=== PATIENT | female | born 1960 | race Caucasian/White ===

== ENCOUNTER → 2023-10-24 | Outpatient (CLI) | payer MEDICARE, SELFPAY ==
[2023-10-24 15:13] LABS: Absolute Neutrophil Count 7.8 X10^3/uL (2.0-7.7); Basophil# 0.06 X10^3/uL; Basophil% 0.6 % (0-1); Eosinophil# 0.23 X10^3/uL; Eosinophils% 2.2 % (0-5); Hematocrit 43.2 % (37-47); Hemoglobin 13.8 g/dL (12.0-15.0); Lymphocyte % 16.2 % (19-41); Mean Corp Hgb Conc 31.9 g/dL (32-36); Mean Corpuscular Hgb 28.1 pg (27.0-32.0); Mean Platelet Vol. 10.2 fl (6.2-12.0); Monocyte# 0.62 X10^3/uL; Monocyte% 5.9 % (0-10); NRBC Flagged by Analyzer 0 % (0-5); Neutrophil # 7.83 X10^3/uL (2.7-7.7); Neutrophil % 74.8 % (47-70); Platelet Count 353 K/mm3 (150-450); RBC Distribution Width CV 15.2 % (11.6-14.6); RBC Distribution Width SD 49.1 fl (35.1-43.9); Red Blood Count 4.91 M/mm3 (4.2-5.4); White Blood Count 10.5 K/mm3 (4.4-11.0)
[2023-10-24 15:28] LABS: AST(SGOT) 13 U/L (15-37); Alanine Aminotransfer ALT/SGPT 15 U/L (13-56); Albumin, Serum 3.6 g/dL (3.2-5.0); Alkaline Phosphatase 108 U/L (45-117); Anion Gap 7 (5-15); BUN 8 mg/dL (7-18); BUN/Creat Ratio 7.5 RATIO (10-20); Calcium,Total 9.2 mg/dL (8.5-10.1); Chloride 105 mmol/L (98-107); Creatinine, Serum 1.07 mg/dL (0.55-1.02); EST Glomerular Filtration Rate 55 mL/min (>60); Est Glom Filt Rate - Afr Amer 66 mL/min (>60); Globulin 3.7 g/dL (2.2-4.2); Glucose 116 mg/dL (74-106); Potassium 4.1 mmol/L (3.5-5.1); Protein, Total 7.3 g/dL (6.4-8.2); Sodium Level 138 mmol/L (136-145)
[2023-10-26 14:07] LABS: Hepatitis B Core Ab Total Negative (Negative); QNTFERON TB Mitogen Value > 10.00 IU/mL (.); QNTFERON TB Nil Value 0.24 IU/mL (.); QNTFERON TB1+ Ag Value 0.22 IU/mL (.); QNTFERON TB2+ Ag Value 0.22 IU/mL (.); QNTIFERON TB Positive Criteria Negative (Negative)
== END | disposition home or self-care (01) ==
PROVIDERS: PCP Family Medicine; Referring Provider Physician Assistant; Visit Provider Physician Assistant
DX: L40.0 Psoriasis vulgaris (principal)
CPT/HCPCS: 36415; 80053; 85025; 86480; 86704

== ENCOUNTER → 2025-08-10 | Outpatient (CLI) | payer MEDICARE, SELFPAY ==
--- OUTSIDE RECORDS SUMMARY | 2025-08-10 17:55 | XMS RPT_ITS | CCD ---
Author Organization [facility] Care Team Providers Care Aviation Electrical Technician Name Role Phone Chantal Cole MD Primary Care Provider [phone] ANTONIO MCMILLAN Attending Unavailable COLE, CHANTAL M Primary Care Unavailable COLE, CHANTAL Referring Unavailable MCMILLANANTONIO Attending Unavailable MCMILLAN ANTONIO Referring Unavailable COLE, CHANTAL M Primary Care Unavailable COLE, CHANTAL M Primary Care Unavailable COLE, CHANTAL M Referring Unavailable MCMILLANANTONIO Attending Unavailable Chantal Cole MD Primary Care Provider [phone] Chantal Cole MD Primary Care Provider Chantal Cole MD Primary Care Provider Chantal Cole MD Primary Care Provider [phone] JEY COLEISSA Thalia Attending Unavailable COLE, CHANTAL M Primary Care Unavailable COLE, CHANTAL M Referring Unavailable COLE, CHANTAL M Attending Unavailable COLE, CHANTAL M Primary Care Unavailable COLE, CHANTAL M Referring Unavailable COLE, CHANTAL M Referring Unavailable COLE, CHANTAL M Attending Unavailable COLE, CHANTAL M Primary Care Unavailable COLE, CHANTAL M Referring Unavailable COLE, CHANTAL M Attending Unavailable COLE, CHANTAL M Primary Care Unavailable COLE, CHANTAL M Attending Unavailable SELF, SELF Referring Unavailable COLE, CHANTAL M Primary Care Unavailable COLE, CHANTAL M Attending Unavailable SELF, SELF Referring Unavailable COLE, CHANTAL M Primary Care Unavailable COLE, CHANTAL M Attending Unavailable COLE, CHANTAL M Referring Unavailable COLE, CHANTAL M Primary Care Unavailable COLE, CHANTAL M Attending Unavailable COLE, CHANTAL M Referring Unavailable COLE, CHANTAL M Primary Care Unavailable COLE, CHANTAL M Primary Care Unavailable FERNANDA ROONEY Referring Unavailable ROONEYFERNANDA Attending Unavailable COLE, CHANTAL M Attending Unavailable COLE, CHANTAL M Referring Unavailable COLE, CHANTAL M Primary Care Unavailable COLE, CHANTAL M Attending Unavailable COLE, CHANTAL M Referring Unavailable COLE, CHANTAL M Primary Care Unavailable COLE, CHANTAL M Attending Unavailable COLE, CHANTAL M Referring Unavailable COLE, CHANTAL M Primary Care Unavailable COLE, CHANTAL M Referring Unavailable TEETERS, JF Attending Unavailable COLE, CHANTAL M Primary Care Unavailable COLE, CHANTAL M Attending Unavailable COLE, CHANTAL M Primary Care Unavailable COLE, CHANTAL M Referring Unavailable COLE, CHANTAL M Referring Unavailable COLE, CHANTAL M Primary Care Unavailable TEETERS, JF Attending Unavailable COLE, CHANTAL M Attending Unavailable COLE, CHANTAL M Primary Care Unavailable COLE, CHANTAL M Referring Unavailable Allergies Allergy Classification Reported Allergen(s) Allergy Type Date of Onset Reaction(s) Facility (20 sources) Codeine And Related Propensity to adverse reactions to drug 09-14-2013 Nausea Only [facility] Medications Current Medications Medication Drug Class(es) Dates Sig (Normalized) Sig (Original) amLODIPine 5 mg oral tablet (20 sources) Dihydropyridine Calcium Channel Narendra Start: 09-10-2023 End: 05-03-2025 take 1 tablet by mouth once daily amLODIPine 5 MG tablet Indications: Essential hypertension, benign Take 1 tablet by mouth daily. 90 tablet 1 05/03/2025 Active Start: 06-11-2023 take 1 tablet by reji th once daily amLODIPine 5 MG tablet Indications: Essential hypertension, benign Take 1 tablet by mouth daily. 90 tablet 0 06/11/2023 Active Start: 09-24-2022 End: 03-12-2023 take 1 tablet by mouth once daily amLODIPine 5 MG tablet Indications: Essential hypertension, benign Take 1 tablet by mouth daily. 90 tablet 0 03/12/2023 Active Start: 03-22-2022 End: 09-24-2022 take 1 tablet by mouth once daily amLODIPine 2.5 MG tablet Indications: Essential hypertension, benign Take 1 tablet by mouth daily. 90 tablet 0 06/18/2022 09/24/2022 Discontinued (Reorder) azithromycin 250 mg oral tablet (1 source) Macrolide Antimicrobial Start: 09-04-2024 End: 09-08-2024 Azithromycin 250 MG tablet Indications: Acute bronchitis, unspecified organism Take by mouth 2 tablets (500 mg) on Day 1, then 1 tablet (250 mg) daily on Days 2-5 6 tablet 09/04/2024 09/08/2024 Active dapagliflozin 10 mg oral tablet (11 sources) Sodium-Glucose Cotransporter 2 Inhibitor Start: 06-08-2025 take 1 tablet by mouth once daily dapagliflozin (Farxiga) 10 MG tablet Indications: Proteinuria, unspecified type Take 1 tablet by mouth daily. 90 tablet 1 06/08/2025 Active Start: 05-29-2024 End: 05-03-2025 take 1 tablet by mouth once daily dapagliflozin (Farxiga) 10 MG tablet Indications: Proteinuria, unspecified type Take 1 tablet by mouth daily. 90 tablet 1 05/03/2025 Active DISABILITY PLACARD (20 sources) Start: 08-23-2022 End: 08-23-2027 DISABILITY PLACARD Indicatio ns: Lumbosacral neuritis , Spinal stenosis of lumbar region with neurogenic claudication , Type 2 diabetes mellitus with peripheral neuropathy , Chronic pain syndrome , PAD (peripheral artery disease) Handicap placard for five years. DX: Chronic back pain, Diabetes and Peripheral artery disease. 2 Each 08/23/2022 08/23/2027 Active Start: 08-23-2022 End: 08-23-2027 DISABILITY PLACARD Indicatio ns: Lumbosacral neuritis , Spinal stenosis of lumbar region with neurogenic claudication , Type 2 diabetes mellitus with peripheral neuropathy , Chronic pain syndrome , PAD (peripheral artery disease) Handicap placard for five years. DX: Chronic back pain, Diabetes and Peripheral artery disease. 2 Each 0 08/23/2022 08/23/2027 Active Start: 06-29-2022 End: 08-23-2022 DISABILITY PLACARD Indicatio ns: Lumbosacral neuritis , Spinal stenosis of lumbar region with neurogenic claudication Disability placard end date 08/18/2022. 2 Each 0 06/29/2022 08/23/2022 Discontinued (Reorder) Start: 06-29-2022 DISABILITY DACIA CARD Indications: Lumbosacral neuritis , Spinal stenosis of lumbar region with neurogenic claudication Disability placard end date 08/18/2022. 2 Each 0 06/29/2022 Active Start: 08-19-2017 End: 06-29-2022 DISABILITY PLACARD Disabilit y placard end date 08/18/2022. 1 Each 0 08/19/2017 06/29/2022 Discontinued (Reorder) Start: 08-19-2017 DISABILITY DACIA CARD Disability placard end date 08/18/2022. 1 Each 0 08/19/2017 Active DULoxetine 60 mg delayed release oral capsule (20 sources) Serotonin and Norepinephrine Reuptake Inhibitor Start: 09-10-2023 End: 05-03-2025 take 1 capsule by mouth once daily DULoxetine (Cymbalta) [address] Particles capsule DR Indications: Lumbosacral neuritis Take 1 capsule by mouth daily. 90 capsule 1 05/03/2025 Active Start: 06-11-2023 take 1 capsule by mo uth once daily DULoxetine (Cymbalta) [address] Particles capsule DR Indications: Lumbosacral neuritis Take 1 capsule by mouth daily. 90 capsule 0 06/11/2023 Active Start: 09-01-2021 End: 03-12-2023 take 1 capsule by mouth once daily DULoxetine (Cymbalta) [address] Particles capsule DR Indications: Lumbosacral neuritis Take 1 capsule by mouth daily. 90 capsule 0 03/12/2023 Active Start: 03-21-2021 take 1 capsule by mo uth once daily DULoxetine (Cymbalta) [address] Particles capsule DR Indications: Lumbosacral neuritis Take 1 capsule by mouth daily. 90 capsule 0 03/21/2021 Active ergocalciferol 1.25 mg oral capsule (17 sources) Provitamin D2 Compound Start: 01-09-2024 End: 05-03-2025 take 1 capsule by mouth every week ergocalciferol 1.25 MG (49370 UT) capsule Indications: Psoriasis Take 1 capsule by mouth once a week. 12 capsule 3 05/03/2025 Active Start: 08-02-2023 End: 11-29-2023 take 1 capsule by mouth every week ergocalciferol 1.25 MG (94877 UT) capsule Indications: Psoriasis Take 1 capsule by mouth once a week. 12 capsule 3 08/02/2023 11/29/2023 Discontinued ferrous sulfate 325 mg oral tablet (2 sources) Start: 06-07-2025 take 1 tablet by mouth once daily ferrous sulfate 325 (65 Fe) MG tablet Indications: Iron deficiency anemia, unspecified iron deficiency anemia type Take 1 tablet by mouth daily. 90 tablet 06/07/2025 Active gabapentin 300 mg oral capsule (20 sources) Anti-epilepti c Agent Start: 08-02-2023 End: 10-30-2025 take 3 capsules by mouth three times daily Gabapentin 300 MG capsule Indications: Lumbosacral neuritis Take 3 capsules by mouth 3 times daily. 810 capsule 1 05/03/2025 10/30/2025 Active Start: 04-03-2023 End: 07-02-2023 take 1 capsule by mouth three times daily Gabapentin 100 MG capsule Take 1 capsule by mouth 3 times daily. 270 capsule 0 04/03/2023 07/02/2023 Active Start: 04-05-2022 End: 09-26-2023 take 1 tablet by mouth three times daily gabapentin 800 MG tablet Indications: Lumbosacral neuritis , Chronic pain syndrome , Lumbar radiculitis Take 1 tablet by mouth 3 times daily. 270 tablet 0 06/28/2023 08/02/2023 Discontinued Start: 09-01-2021 take 1 tablet by reji th three times daily gabapentin (Neurontin) 800 MG tablet Indications: Lumbosacral neuritis Take 1 tablet by mouth 3 times daily. 270 tablet 0 09/01/2021 Active Start: 12-20-2020 take 1 tablet by reji th three times daily gabapentin (Neurontin) 800 MG tablet Indications: Lumbosacral neuritis Take 1 tablet by mouth 3 times daily. 270 tablet 0 12/20/2020 Active glimepiride 4 mg oral tablet (20 sources) Sulfonylurea Start: 12-18-2021 End: 03-12-2023 take 2 tablets by mouth once daily gliMEPIride 4 MG tablet Indications: Type 2 diabetes mellitus with peripheral neuropathy Take 2 tablets by mouth daily. 180 tablet 0 03/12/2023 Active Start: 09-01-2021 End: 12-18-2021 take 1 tablet by mouth once daily gliMEPIride 4 MG tablet Indications: Type 2 diabetes mellitus with peripheral neuropathy Take 1 tablet by mouth daily. 90 tablet 0 09/01/2021 12/18/2021 Discontinued (Reorder) Start: 03-21-2021 take 1 tablet by reji th once daily gliMEPIride 4 MG tablet Indications: Type 2 diabetes mellitus with peripheral neuropathy Take 1 tablet by mouth daily. 90 tablet 0 03/21/2021 Active hydroCHLOROthiazide 12.5 mg / irbesartan 300 mg oral tablet (9 sources) Thiazide Diuretic, Angiotensin 2 Receptor Narendra Start: 11-17-2024 End: 05-03-2025 take 1 tablet by mouth once daily irbesartan-hydrochlorothiazide 300-12.5 MG tablet Indications: Essential hypertension, benign Take 1 tablet by mouth daily. 90 tablet 1 05/03/2025 Active ammonium lactate 120 mg/ml topical cream (20 sources) Start: 12-14-2019 ammonium lactate 12 % Cream cream 12/14/2019 Active 24 hr metFORMIN hydrochloride 500 mg extended release oral tablet (20 sources) Biguanide Start: 09-10-2023 End: 05-03-2025 take 2 tablets by mouth twice daily metFORMIN-XR 500 MG Tab SR 24 HR Indications: Type 2 diabetes mellitus with peripheral neuropathy Take 2 tablets by mouth 2 times daily. 360 tablet 1 05/03/2025 Active Start: 06-11-2023 take 2 tablets by mo uth twice daily metFORMIN-XR 500 MG Tab SR 24 HR Indications: Type 2 diabetes mellitus with peripheral neuropathy Take 2 tablets by mouth 2 times daily. 360 tablet 0 06/11/2023 Active Start: 09-01-2021 End: 03-12-2023 take 2 tablets by mouth twice daily metFORMIN-XR 500 MG Tab SR 24 HR Indications: Type 2 diabetes mellitus with peripheral neuropathy Take 2 tablets by mouth 2 times daily. 360 tablet 0 03/12/2023 Active Start: 03-21-2021 take 2 tablets by mo ut twice daily metFORMIN-XR 500 MG Tab SR 24 HR Indications: Type 2 diabetes mellitus with peripheral neuropathy Take 2 tablets by mouth 2 times daily. 360 tablet 0 03/21/2021 Active naloxone hydrochloride 40 mg/ml nasal spray (13 sources) Opioid Antagonist Start: 04-13-2022 End: 04-13-2022 naloxone 4 MG/0.1ML Indications: Lumbar radiculitis , Chronic pain syndrome 1 spray by Nasal route once for 1 dose. [place] into the nose as directed. Call 911. If no response in 2 minutes use a new nasal spray in other nostril. Repeat until help arrives. 1 Each 0 04/13/2022 12/18/2022 Discontinued Start: 03-13-2021 End: 03-13-2022 naloxone 4 MG/0.1ML Indicati ons: Sacroiliac joint pain , Left hip pain 1 spray by Nasal route As directed PRN. 2 Each 0 03/13/2021 Active repaglinide 1 mg oral tablet (3 sources) Glinide Start: 12-18-2022 take 1 tablet by mouth three times daily before mealtime repaglinide 1 MG tablet Indications: Type 2 diabetes mellitus with peripheral neuropathy Take 1 tablet by mouth 3 times daily (take before meals). 90 tablet 2 12/18/2022 Active rosuvastatin calcium 40 mg oral tablet (20 sources) HMG-CoA Reductase Inhibitor Start: 09-10-2023 End: 05-03-2025 take 1 tablet by mouth once daily Rosuvastatin 40 MG tablet Indications: Mixed hyperlipidemia Take 1 tablet by mouth daily. 90 tablet 1 05/03/2025 Active Start: 06-11-2023 take 1 tablet by reji th once daily Rosuvastatin 40 MG tablet Indications: Mixed hyperlipidemia Take 1 tablet by mouth daily. 90 tablet 0 06/11/2023 Active Start: 09-01-2021 End: 03-12-2023 take 1 tablet by mouth once daily Rosuvastatin 40 MG tablet Indications: Mixed hyperlipidemia Take 1 tablet by mouth daily. 90 tablet 0 03/12/2023 Active Start: 03-21-2021 take 1 tablet by reji th once daily rosuvastatin 40 MG tablet Indications: Mixed hyperlipidemia Take 1 tablet by mouth daily. 90 tablet 0 03/21/2021 Active Semaglutide, 1 MG/DOSE, (Ozempic, 1 MG/DOSE,) 4 MG/3ML Solution Pen-injector (18 sources) inject 1 mg by subcu taneous injection every week Semaglutide, 1 MG/DOSE, (Ozempic, 1 MG/DOSE,) 4 MG/3ML Solution Pen-injector Inject 1 mg under the skin once a week. MEDICATION SUPPLIED VIA PATIENT ASSISTANCE UNTIL 10/20/2024 Active inject 1 mg by subcu taneous injection every week Semaglutide, 1 MG/DOSE, (Ozempic, 1 MG/DOSE,) 4 MG/3ML Solution Pen-injector Inject 1 mg under the skin once a week. MEDICATION SUPPLIED VIA PATIENT ASSISTANCE UNTIL 10/20/2024 0 Active inject 1 mg by subcu taneous injection every week Semaglutide, 1 MG/DOSE, (Ozempic, 1 MG/DOSE,) 4 MG/3ML Solution Pen-injector Inject 1 mg under the skin once a week. 0 Active Skyrizi Pen 150 MG/ML Soluti on Auto-injector (11 sources) Start: 11-22-2023 Skyrizi Pen 15 0 MG/ML Solution Auto-injector 11/22/2023 Active Start: 11-22-2023 Skyrizi Pen 15 0 MG/ML Solution Auto-injector sulfamethoxazole 800 mg / trimethoprim 160 mg oral tablet (1 source) Dihydrofolate Reductase Inhibitor Antibacterial, Sulfonamide Antimicrobial Start: 06-18-2022 End: 06-28-2022 take 1 tablet by mouth twice daily sulfamethoxazole-trimethoprim (Bactrim DS) 800-160 MG per tablet Indications: Cellulitis of left lower extremity Take 1 tablet by mouth 2 times daily for 10 days. 20 tablet 0 06/18/2022 06/28/2022 Active Completed/Discontinued Medications Medication Drug Class(es) Dates Sig (Normalized) Sig (Original) acetaminophen 325 mg / HYDROcodone bitartrate 5 mg oral tablet (20 sources) Opioid Agonist Start: 08-31-2022 End: 12-18-2022 take 1 tablet by mouth three times daily as needed, then take 1 tablet by mouth twice daily as needed, then take 1 tablet by mouth once daily as needed hydroCODone-acetamin ophen 5-325 MG tablet Indications: Chronic pain syndrome , Spinal stenosis of lumbar region with neurogenic claudication , Primary osteoarthritis of left hip , Sacroiliitis, not elsewhere classified , Encounter for long-term use of opiate analgesic , Lumbar spondylosis Take 1 tablet by mouth 3 times daily as needed for 14 days, THEN 1 tablet 2 times daily as needed for 14 days, THEN 1 tablet daily as needed for up to 14 days. 84 tablet 0 08/31/2022 12/18/2022 Discontinued Start: 06-26-2022 End: 08-25-2022 take 1 tablet by mouth twice daily as needed hydroCODone-acetaminophen 10-325 MG tabl et Indications: Chronic pain syndrome , Spinal stenosis of lumbar region with neurogenic claudication Take 1 tablet by mouth 2 times daily as needed. 60 tablet 0 07/26/2022 08/25/2022 Active Start: 04-22-2022 End: 06-21-2022 take 1 tablet by mouth twice daily as needed hydroCODone-acetaminophen 10-325 MG tabl et Indications: Lumbar radiculitis , Chronic pain syndrome Take 1 tablet by mouth 2 times daily as needed. 60 tablet 0 05/22/2022 06/18/2022 Discontinued (Reorder) Start: 11-21-2021 End: 04-20-2022 take 1 tablet by mouth twice daily as needed hydroCODone-acetaminophen 10-325 MG tabl et Indications: Lumbar facet arthropathy , Lumbar radiculitis , Chronic pain syndrome , Lumbar stenosis with neurogenic claudication Take 1 tablet by mouth 2 times daily as needed. 60 tablet 0 03/21/2022 04/20/2022 Active Start: 06-17-2021 End: 08-16-2021 take 1 tablet by mouth twice daily as needed hydroCODone-acetaminophen 10-325 MG tabl et Indications: Lumbar stenosis with neurogenic claudication , Chronic pain syndrome Take 1 tablet by mouth 2 times daily as needed. 60 tablet 0 07/17/2021 08/16/2021 Active Start: 05-13-2021 End: 06-12-2021 take 1 tablet by mouth twice daily as needed hydroCODone-acetaminophen 10-325 MG tabl et Indications: Lumbar stenosis with neurogenic claudication , Chronic pain syndrome Take 1 tablet by mouth 2 times daily as needed. 60 tablet 0 05/13/2021 06/12/2021 Active [id number] 200 actuat albuterol 0.09 mg/actuat metered dose inhaler (2 sources) beta2-Adrenergic Agonist Start: 09-04-2024 End: 11-17-2024 take 1 puff(s) by inhalation every four hours as needed for wheezing Albuterol 108 (90 Base) MCG/ACT Aero Soln inhaler Indications: Acute bronchitis, unspecified organism Inhale 1 puff every 4 hours as needed for Wheezing. 18 g 09/04/2024 11/17/2024 Discontinued (Therapy completed) aspirin 81 mg chewable tablet (1 source) Platelet Aggregation Inhibitor, Nonsteroidal Anti-inflammatory Drug Start: 10-18-2023 End: 10-18-2023 aspirin chewable tablet 81 mg 120 actuat budesonide 0.16 mg/actuat / formoterol fumarate 0.0048 mg/actuat / glycopyrrolate 0.009 mg/actuat metered dose inhaler (2 sources) Corticosteroid, beta2-Adrenergic Agonist Start: 09-04-2024 End: 11-17-2024 take 2 puff(s) by inhalation twice daily budesonide-glyco pyrrolate-Formot fernando (Breztri Aerosphere) 160-9-4.8 MCG/ACT Aerosol inhaler Indications: Chronic obstructive pulmonary disease with acute exacerbation Inhale 2 puffs 2 times daily. 10.7 g 09/04/2024 11/17/2024 Discontinued (Therapy completed) bumetanide 0.5 mg oral tablet (4 sources) Loop Diuretic Start: 06-18-2022 End: 09-24-2022 take 1 tablet by mouth once daily bumetanide (Bumex) 0.5 MG tablet Indications: Chronic venous stasis Take 1 tablet by mouth daily. 30 tablet 0 06/18/2022 09/24/2022 Discontinued Bupivacaine (PF) (MARCAINE) 0.25 % 3 mL syringe (20 sources) Start: 12-06-2022 End: 06-07-2025 Bupivacaine (PF) (MARCAINE) 0.25 % 3 mL syringe Start: 12-06-2022 Bupivacaine (P F) (MARCAINE) 0.25 % 3 mL syringe Start: 10-03-2022 End: 10-05-2022 Bupivacaine (PF) (MARCAINE) 0.25 % 3 mL syringe clobetasol propionate 0.5 mg/ml medicated shampoo (20 sources) Corticosteroid Start: 08-05-2023 End: 11-29-2023 Clobetasol Propionate 0.05 % Shampoo Indications: Psoriasis Apply 1 Application topically twice a week. 118 mL 2 08/05/2023 11/29/2023 Discontinued Start: 08-05-2023 Clobetasol Pro pionate 0.05 % Shampoo Indications: Psoriasis Apply 1 Application topically twice a week. 118 mL 2 08/05/2023 Active Start: 08-02-2023 clobetasol 0.0 5 % Solution Indications: Psoriasis Apply to scalp after shampooing daily for two weeks 50 mL 2 08/02/2023 Active Start: 08-02-2023 End: 02-09-2024 clobetasol 0.05 % Cream Katlyn cations: Psoriasis Apply to affected area BID as needed 60 g 1 08/02/2023 11/29/2023 Discontinued Start: 12-14-2019 clobetasol 0.0 5 % Cream hydroCHLOROthiazide 12.5 mg oral tablet (20 sources) Thiazide Diuretic Start: 09-10-2023 End: 11-17-2024 take 1 tablet by mouth once daily hydroCHLOROthiazide 12.5 MG tablet Indications: Essential hypertension, benign Take 1 tablet by mouth daily. 90 tablet 1 05/29/2024 11/17/2024 Discontinued Start: 06-11-2023 take 1 tablet by reji th once daily hydroCHLOROthiazide 12.5 MG tablet Indications: Essential hypertension, benign Take 1 tablet by mouth daily. 90 tablet 0 06/11/2023 Active Start: 09-01-2021 End: 03-12-2023 take 1 tablet by mouth once daily hydroCHLOROthiazide 12.5 MG tablet Indications: Essential hypertension, benign Take 1 tablet by mouth daily. 90 tablet 0 03/12/2023 Active Start: 03-21-2021 take 1 tablet by reji th once daily hydroCHLOROthiazide 12.5 MG tablet Indications: Essential hypertension, benign Take 1 tablet by mouth daily. 90 tablet 0 03/21/2021 Active Iohexol (OMNIPAQUE) 300 MG/ML vial 3 mL (2 sources) Start: 10-03-2022 End: 10-05-2022 Iohexol (OMNIPAQUE) 300 MG/ML vial 3 mL irbesartan 300 mg oral tablet (20 sources) Angiotensin 2 Receptor Narendra Start: 09-10-2023 End: 11-17-2024 take 1 tablet by mouth once daily irbesartan (Avapro) 300 MG tablet Indications: Essential hypertension, benign Take 1 tablet by mouth daily. 90 tablet 1 05/29/2024 11/17/2024 Discontinued Start: 06-11-2023 take 1 tablet by reji th once daily irbesartan (Avapro) 300 MG tablet Indications: Essential hypertension, benign Take 1 tablet by mouth daily. 90 tablet 0 06/11/2023 Active Start: 09-01-2021 End: 03-12-2023 take 1 tablet by mouth once daily irbesartan (Avapro) 300 MG tablet Indications: Essential hypertension, benign Take 1 tablet by mouth daily. 90 tablet 0 03/12/2023 Active Start: 03-21-2021 take 1 tablet by reji once daily irbesartan (Avapro) 300 MG tablet Indications: Essential hypertension, benign Take 1 tablet by mouth daily. 90 tablet 0 03/21/2021 Active Lidocaine 1% (PF) (XYLOCAINE MPF) 10 mL syringe (20 sources) Start: 12-06-2022 End: 06-07-2025 Lidocaine 1% (PF) (XYLOCAINE MPF) 10 mL syringe Start: 12-06-2022 Lidocaine 1% ( PF) (XYLOCAINE MPF) 10 mL syringe Start: 10-03-2022 End: 10-05-2022 Lidocaine 1% (PF) (XYLOCAINE MPF) 10 mL syringe Naltrexone HCl, Pain, 4.5 MG capsule (4 sources) Start: 08-12-2023 End: 05-29-2024 take 1 capsule by mouth once daily Naltrexone HCl, Pain, 4.5 MG capsule Take 1 capsule by mouth daily. 08/12/2023 05/29/2024 Discontinued (Patient Preference) Start: 08-12-2023 take 1 capsule by mo [facility] once daily Naltrexone HCl, Pain, 4.5 MG capsule Take 1 capsule by mouth daily. 0 08/12/2023 Active nortriptyline 25 mg oral capsule (20 sources) Tricyclic Antidepressant Start: 04-13-2022 End: 05-29-2024 take 1 capsule by mouth at bedtime Nortriptyline 25 MG capsule Indications: Lumbar radiculitis , Chronic pain syndrome Take 1 capsule by mouth at bedtime. 90 capsule 1 11/29/2023 05/29/2024 Discontinued Start: 01-19-2022 End: 02-18-2022 take 1 capsule by mouth at bedtime nortriptyline 25 MG capsule Indications: Lumbar facet arthropathy , Lumbar radiculitis , Chronic pain syndrome , Lumbar stenosis with neurogenic claudication Take 1 capsule by mouth at bedtime. 30 capsule 2 01/19/2022 Active Start: 11-15-2021 End: 02-13-2022 take 1 capsule by mouth at bedtime nortriptyline 10 MG capsule Indications: Lumbar facet arthropathy , Lumbar radiculitis , Chronic pain syndrome , Lumbar stenosis with neurogenic claudication Take 1 capsule by mouth at bedtime. 90 capsule 0 11/15/2021 02/13/2022 Active Start: 04-06-2021 take 1 capsule by [facility] at bedtime nortriptyline 10 MG capsule Indications: Lumbar stenosis with neurogenic claudication , Chronic pain syndrome Take 1 capsule by mouth at bedtime. 30 capsule 1 04/06/2021 Active predniSONE 10 mg oral tablet (7 sources) Start: 09-04-2024 End: 11-17-2024 predniSONE 10 MG tablet Indications: Acute bronchitis, unspecified organism 61-36-19-10mg, 2 days each taper dose 26 tablet 09/04/2024 11/17/2024 Discontinued (Therapy completed) Start: 07-08-2023 End: 08-02-2023 predniSONE 10 MG tablet Katlyn cations: Allergic contact dermatitis, unspecified trigger 81-56-62-10mg, 3 days each taper dose 38 tablet 0 07/08/2023 08/02/2023 Discontinued (Therapy completed) 0.25 mg, 0.5 mg dose 1.5 ml semaglutide 1.34 mg/ml pen injector (8 sources) Start: 03-12-2023 End: 08-02-2023 Semaglutide,0.25 or 0.5MG/DOS, (Ozempic, 0.25 or 0.5 MG/DOSE,) 2 MG/1.5ML Solution Pen-injector Indications: Type 2 diabetes mellitus with peripheral neuropathy , Uncontrolled type 2 diabetes mellitus with hyperglycemia Inject 0.25 mg under the skin once a week. 6 mL 1 03/12/2023 08/02/2023 Discontinued 1 ml triamcinolone acetonide 40 mg/ml injection (20 sources) Corticosteroid Start: 12-06-2022 triamcinolone (KENALOG-40) injection 20 mg Start: 12-06-2022 End: 06-07-2025 triamcinolone (KENALOG-40) i njection 20 mg Start: 10-03-2022 End: 10-05-2022 triamcinolone (KENALOG-40) i njection 40 mg Start: 04-07-2021 End: 11-17-2024 triamcinolone 0.1 % Cream cr eam apply topically to affected area twice a day 04/07/2021 11/17/2024 Discontinued (Patient Preference) urea 400 mg/ml topical cream (20 sources) Start: 09-29-2020 End: 06-07-2025 Urea 40 % Cream Indications: Psoriasis Apply 1 Application topically daily. 227 g 3 09/29/2020 06/07/2025 Discontinued (Therapy completed) Problems Active Problems Problem Classification Problem Date Documented Da te Episodic/Chronic Abdominal hernia (3 sources) Umbilical hernia; Translations: [Umbilical hernia without obstruction or gangrene] Onset: 06-07-2025 06-07-2025 Episodic Acute cerebrovascular disease (1 source) Lacunar infarction; Translations: [Other cerebral infarction due to occlusion or stenosis of small artery] 10-18-2023 Chronic Allergic reactions (1 source) Allergic contact dermatitis; Translations: [Allergic contact dermatitis, unspecified cause] 07-08-2023 Episodic Blindness and vision defects (1 source) Visual field defect; Translations: [Unspecified visual field defects] 10-18-2023 Episodic Chronic obstructive pulmonary disease and bronchiectasis (3 sources) Acute exacerbation of chronic obstructive airways disease; Translations: [Chronic obstructive pulmonary disease with (acute) exacerbation] Onset: 09-04-2024 09-04-2024 Chronic Deficiency and other anemia (2 sources) Iron deficiency anemia; Translations: [Iron deficiency anemia, unspecified] 05-03-2025 Episodic Deficiency and other anemia (2 sources) Iron deficiency anemia, unspecified; Translations: [Iron deficiency anemia, unspecified] Onset: 06-07-2025 Episodic Diabetes mellitus with complications (20 sources) Type 2 diabetes mellitus; Translations: [Type 2 diabetes mellitus with diabetic polyneuropathy] Onset: 12-17-2014 Chronic Disorders of lipid metabolism (20 sources) Mixed hyperlipidemia; Translations: [Mixed hyperlipidemia] Onset: 06-15-2019 Chronic Essential hypertension (20 sources) Benign essential hypertension; Translations: [Essential (primary) hypertension] Onset: 06-15-2019 Chronic Genitourinary symptoms and ill-defined conditions (16 sources) Proteinuria; Translations: [Proteinuria, unspecified] Onset: 05-29-2024 05-29-2024 Episodic Immunizations and screening for infectious disease (1 source) Requires influenza virus vaccination; Translations: [Encounter for immunization] 07-15-2025 Episodic Mood disorders (20 sources) Recurrent major depression in full remission; Translations: [Major depressive disorder, recurrent, in full remission] Onset: 06-15-2019 06-15-2019 Chronic Osteoarthritis (20 sources) Bilateral arthritis of hip; Translations: [Bilateral primary osteoarthritis of hip] Onset: 05-24-2015 05-24-2015 Chronic Other acquired deformities (2 sources) Lumbar spondylolisthesis; Translations: [Spondylolisthesis, lumbar region] 07-17-2023 Episodic Other aftercare (2 sources) Admission statuses; Translations: [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] Episodic Other connective tissue disease (4 sources) Trochanteric bursitis; Translations: [Trochanteric bursitis, left hip] Episodic Other diseases of veins and lymphatics (2 sources) Venous stasis; Translations: [Other specified disorders of veins] Episodic Other inflammatory condition of skin (5 sources) Psoriasis; Translations: [Psoriasis, unspecified] Chronic Other inflammatory condition of skin (2 sources) Psoriasis, unspecified; Translations: [Psoriasis, unspecified] Onset: 05-03-2025 Chronic Other nervous system disorders (14 sources) Chronic pain syndrome; Translations: [Chronic pain syndrome] Chronic Other nutritional; endocrine; and metabolic disorders (20 sources) Obese class II; Translations: [Obesity, unspecified] Onset: 06-15-2019 06-15-2019 Chronic Other screening for suspected conditions (not mental disorders or infectious disease) (16 sources) Patient encounter status; Translations: [Encounter for screening for osteoporosis] Onset: 11-17-2024 07-17-2023 Episodic Peripheral and visceral atherosclerosis (20 sources) Peripheral vascular disease, unspecified; Translations: [Peripheral vascular disease, unspecified] Onset: 06-29-2019 06-29-2019 Chronic Residual codes; unclassified (1 source) Postmenopausal state; Translations: [Asymptomatic menopausal state] 07-17-2023 Episodic Skin and subcutaneous tissue infections (1 source) Cellulitis of left lower limb; Translations: [Cellulitis of left lower limb] Episodic Spondylosis; intervertebral disc disorders; other back problems (20 sources) Arthropathy of lumbar facet joint; Translations: [Spondylosis without myelopathy or radiculopathy, lumbar region] Onset: 10-26-2013 10-26-2013 Chronic Spondylosis; intervertebral disc disorders; other back problems (20 sources) Lumbosacral neuritis; Translations: [Radiculopathy, lumbosacral region] Onset: 09-14-2013 Episodic Substance-related disorders (20 sources) Smoker; Translations: [Nicotine dependence, unspecified, uncomplicated] Onset: 06-15-2019 06-15-2019 Chronic Past or Other Problems Problem Classification Problem Date Documented Date Episodic/Chronic Acute bronchitis (3 sources) Acute bronchitis; Translations: [Acute bronchitis, unspecified] Onset: 09-04-2024 09-04-2024 Episodic Other acquired deformities (20 sources) Degenerative spondylolisthesis; Translations: [Spondylolisthesis, site unspecified] Onset: 03-19-2014 03-19-2014 Episodic Other connective tissue disease (20 sources) Enthesopathy of pelvic region; Translations: [Other enthesopathies, not elsewhere classified] Onset: 06-18-2014 06-18-2014 Episodic Other connective tissue disease (20 sources) Bursitis of hip; Translations: [Trochanteric bursitis, unspecified hip] Onset: 06-23-2014 06-23-2014 Episodic Other connective tissue disease (20 sources) Ischial bursitis ; Translations: [Other bursitis of hip, unspecified hip] Onset: 12-17-2014 12-17-2014 Episodic Other diseases of veins and lymphatics (20 sources) Stasis dermatitis; Translations: [Venous insufficiency (chronic) (peripheral)] Onset: 06-15-2019 06-15-2019 Episodic Other diseases of veins and lymphatics (10 sources) Disorder of vein of lower extremity; Translations: [Venous insufficiency (chronic) (peripheral)] Onset: 06-15-2019 06-15-2019 Episodic Other non-traumatic joint disorders (20 sources) Hip pain; Translations: [Pain in right hip] Onset: 05-04-2014 05-04-2014 Episodic Other non-traumatic joint disorders (20 sources) Bony pelvic pain; Translations: [Pain in unspecified hip] Onset: 09-10-2014 09-10-2014 Episodic Substance-related disorders (1 source) Continuous opioid dependence; Translations: [Opioid use, unspecified, uncomplicated] Episodic Unclassified (2 sources) Onset: 03-22-2022 03-22-2022 Results Test Name Value Interpretation Reference Range Facility POCT URINALYSIS DIPSTICK NON AUTOMATEDon 07-15-2025 Amorphous sediment LM Ql (Urine sed) [facility] Appearance (U) [facility] Bacteria LM Ql (Urine sed) [facility] Bilirubin Ql (U) Negative [facility] Casts LM.LPF (Urine sed) [#/Area] [facility] Color (U) [facility] Crystals LM Nom (Urine sed) [facility] Epithelial cells.squamous LM.HPF (Urine sed) [#/Area] [facility] Flow cytometry specialist review Koko (Unsp spec) [Interp] [facility] Glucose Auto test strip (U) [Mass/Vol] 500mg/dL mg/dL [facility] Interpretation and review of laboratory results Normal [facility] Ketones [Mass/Vol] Negative mg/dL [facility] Leukocyte esterase Qn (U) [facility] Leukocyte esterase Test strip Ql (U) Negative [facility] Nitrite Ql (U) Negative [facility] pH (U) 6.0 [pH] 5 - 7 [facility] Protein Ql (U) Negative mg/dL [facility] RBC LM.HPF (Urine sed) [#/Area] [facility] RBC Ql (U) Negative [facility] Specific gravity (U) [Rel density] 1.010 1.001 - 1.035 [facility] Transitional cells LM Ql (Urine sed) [facility] Urobilinogen Qn (U) [id number] {Ynes'U}/dL [facility] WBC LM.HPF (Urine sed) [#/Area] [facility] CBCon 06-03-2025 ABSOLUTE BAS 0.1 10*3/uL Normal 0.0-0.2 [facility] Comment on above: Performed By: #### F RTN, RET, ACBC #### Testing performed at [address] [address] ABSOLUTE EOS 0.2 10*3/uL Normal 0.0-0.7 [facility] Comment on above: Performed By: #### F RTN, RET, ACBC #### Testing performed at [address] [address] ABSOLUTE NEUTROPHIL COUNT 7.2 10*3/uL High 1.4-6.5 [facility] Comment on above: Performed By: #### F RTN, RET, ACBC #### Testing performed at [address] [place] [address] Basophils/100 WBC (Bld) 0.6 % Normal 0.0-2.0 [facility] Comment on above: Performed By: #### F RTN RET, ACBC #### Testing performed at [address] [place] [address] DTYPE AUTO DIFF Normal [facility] Comment on above: Performed By: #### F RTN, RET, ACBC #### Testing performed at [address] [place] [address] Eosinophils/100 WBC (Bld) 2.3 % Normal 0.0-11.0 [facility] Comment on above: Performed By: #### F RTN, RET, ACBC #### Testing performed at [address] [place] [address] Lymphocytes (Bld) [#/Vol] 1.6 10*3/uL Normal 1.2-3.4 [facility] Comment on above: Performed By: #### F RTN, RET, ACBC #### Testing performed at [address] [place] [address] Lymphocytes/100 WBC (Bld) 16.7 % Low 20.0-55.0 [facility] Comment on above: Performed By: #### F RTN, RET, ACBC #### Testing performed at [address] [place] [address] Monocytes (Bld) [#/Vol] 0.6 10*3/uL Normal 0.0-0.7 [facility] Comment on above: Performed By: #### F RTN, RET, ACBC #### Testing performed at [address] [place] [address] Monocytes/100 WBC (Bld) 6.4 % Normal 0.0-10.0 [facility] Comment on above: Performed By: #### F RTN, RET, ACBC #### Testing performed at [address] [place] [address] Neutrophils/100 WBC (Bld) 74.0 % Normal 37.0-75.0 [facility] Comment on above: Performed By: #### F RTN, RET, ACBC #### Testing performed at [address] [address] Erythrocyte distribution width (RBC) [Ratio] 20.5 % High 11.5-14.5 [facility] Comment on above: Performed By: #### F RTN RET, ACBC #### Testing performed at [address] [address] Hematocrit (Bld) [Volume fraction] 36.6 % Normal 36.0-48.0 [facility] Comment on above: Performed By: #### F RTN, RET, ACBC #### Testing performed at [address] [address] Hemoglobin (Bld) [Mass/Vol] 12.1 g/dL Normal 12.0-16.0 [facility] Comment on above: Performed By: #### F RTN RET, ACBC #### Testing performed at [address] [address] MCH (RBC) [Entitic mass] 24.9 pg Low 26.0-35.0 [facility] Comment on above: Performed By: #### F RTRuddy RET, ACBC #### Testing performed at [address] [address] MCHC (RBC) [Mass/Vol] 33.0 g/dL Normal 27.0-37.0 [facility] Comment on above: Performed By: #### F RTN RET, ACBC #### Testing performed at [address] [address] MCV (RBC) [Entitic vol] 75.6 fL Low 80.0-100.0 [facility] Comment on above: Performed By: #### F RTN, RET, ACBC #### Testing performed at [address] [address] Platelet mean volume (Bld) [Entitic vol] 7.6 fL Normal 7.4-11.0 [facility] Comment on above: Performed By: #### F RTN, RET, ACBC #### Testing performed at [address] [address] Platelets (Bld) [#/Vol] 386 10*3/uL Normal 130-400 [facility] Comment on above: Performed By: #### F RTN, RET, ACBC #### Testing performed at [address] [address] RBC (Bld) [#/Vol] 4.84 10*6/uL Normal 4.0-5.4 [facility] Comment on above: Performed By: #### F RTN, RET, ACBC #### Testing performed at [address] [address] WBC (Bld) [#/Vol] 9.7 10*3/uL Normal 3.6-11.0 [facility] Comment on above: Performed By: #### F RTN, RET, ACBC #### Testing performed at [address] [address] FERRITINon 06-03-2025 Ferritin [Mass/Vol] 7 ng/mL Low 11.1-264 [facility] Comment on above: Result Comment: ZACHARIAH ENOPAUSAL FEMALES 6.9-282.5 POSTMENOPAUSAL FEMALES 14.0-233.1 Performed By: #### F RTN, RET, ACBC #### Testing performed at [address] [address] IRON PROFILEon 06-03-2025 IRON BINDING 445 UG/DL Normal 250-450 [facility] Comment on above: Performed By: #### F EPRO ####Testing performed at [address] [address] TRANSFERRIN SATURATION,CALCULATED 7 % Normal [facility] Comment on above: Performed By: #### F EPRO ####Testing performed at [address] [address] Iron [Mass/Vol] 29 ug/dL Low 37-170 [facility] Comment on above: Performed By: #### F EPRO ####Testing performed at [address] [address] MAMMO DIAGNOSTIC WITH [place] R IGHTon 06-03-2025 MAMMO DIAGNOSTIC WITH [place] RIGHT EXAM: MAMMO DIAGNOSTIC WITH [place] RIGHT HISTORY: 6 month follow up of a probably benign area of asymmetry without sonographic correlate. COMPARISON: 12/03/2024 and 11/19/2024. TECHNIQUE: Bilateral full-field digital MLO and CC mammographic views were obtained with 3-D tomosynthesis. FINDINGS: The breasts are almost entirely fatty. Again demonstrated in the inferior right breast slightly laterally is a small (5 mm) rounded focal asymmetry with the suggestion of a tiny fatty hilum, most compatible with benign intramammary lymph node; this finding has remained stable from the prior exam. No new or suspicious mass, area of architectural distortion, or cluster of microcalcifications is seen. IMPRESSION: Stable tiny focal inferior right breast asymmetry, most compatible with a benign intramammary lymph node. To ensure continued stability, a follow-up mammogram in six months is recommended, which will coincide with annual bilateral mammography. BI-RADS Category 3. Probably benign finding. Short interval follow-up recommended. This case was discussed with the patient at the time of the examination. Normal [facility] MG Breast - right Diagnostic Ordered By: Hardy Castillo on 06-03-2025 Interpretation and review of laboratory results Abnormal [facility] Work Phone: [facility] Work Phone: MG Breast - right Diagnostic on 06-03-2025 IMPRESSION: Stable t iny focal inferior right breast asymmetry, most compatible with a benign intramammary lymph node. To ensure continued stability, a follow-up mammogram in six months is recommended, which will coincide with annual bilateral mammography. BI-RADS Category 3. Probably benign finding. Short interval follow-up recommended. This case was discussed with the patient at the time of the examination. RADIOLOGY EXAM: MAMMO DIAGNOST IC WITH [place] RIGHT HISTORY: 6 month follow up of a probably benign area of asymmetry without sonographic correlate. COMPARISON: 12/03/2024 and 11/19/2024. TECHNIQUE: Bilateral full-field digital MLO and CC mammographic views were obtained with 3-D tomosynthesis. FINDINGS: The breasts are almost entirely fatty. Again demonstrated in the inferior right breast slightly laterally is a small (5 mm) rounded focal asymmetry with the suggestion of a tiny fatty hilum, most compatible with benign intramammary lymph node; this finding has remained stable from the prior exam. No new or suspicious mass, area of architectural distortion, or cluster of microcalcifications is seen. RADIOLOGY Radiology Study observation (narrative) [facility] RETIC COUNTon 06-03-2025 RETIC COUNT 1.09 % Normal 0.50-2.30 [facility] Comment on above: Performed By: #### F RTN, RET, ACBC #### Testing performed at [address] [address] CBCon 05-01-2025 ABSOLUTE BAS 0.0 10*3/uL Normal 0.0-0.2 [facility] Comment on above: Performed By: #### L IP2, CMPF, ACBC #### Testing performed at [address] [address] ABSOLUTE EOS 0.2 10*3/uL Normal 0.0-0.7 [facility] Comment on above: Performed By: #### L IP2, CMPF, ACBC #### Testing performed at [address] [place] [address] ABSOLUTE NEUTROPHIL COUNT 5.7 10*3/uL Normal 1.4-6.5 [facility] Comment on above: Performed By: #### L IP2, CMPF, ACBC #### Testing performed at [address] [place] [address] Basophils/100 WBC (Bld) 0.6 % Normal 0.0-2.0 [facility] Comment on above: Performed By: #### L IP2, CMPF, ACBC #### Testing performed at [address] [place] [address] DTYPE AUTO DIFF Normal [facility] Comment on above: Performed By: #### L IP2, CMPF, ACBC #### Testing performed at [address] [address] Eosinophils/100 WBC (Bld) 2.8 % Normal 0.0-11.0 [facility] Comment on above: Performed By: #### L IP2, CMPF, ACBC #### Testing performed at [address] [address] Lymphocytes (Bld) [#/Vol] 1.6 10*3/uL Normal 1.2-3.4 [facility] Comment on above: Performed By: #### L IP2, CMPF, ACBC #### Testing performed at [address] [address] Lymphocytes/100 WBC (Bld) 19.1 % Low 20.0-55.0 [facility] Comment on above: Performed By: #### L IP2, CMPF, ACBC #### Testing performed at [address] [address] Monocytes (Bld) [#/Vol] 0.6 10*3/uL Normal 0.0-0.7 [facility] Comment on above: Performed By: #### L IP2, CMPF, ACBC #### Testing performed at [address] [address] Monocytes/100 WBC (Bld) 6.9 % Normal 0.0-10.0 [facility] Comment on above: Performed By: #### L IP2, CMPF, ACBC #### Testing performed at [address] [address] Neutrophils/100 WBC (Bld) 70.6 % Normal 37.0-75.0 [facility] Comment on above: Performed By: #### L IP2, CMPF, ACBC #### Testing performed at [address] [address] Erythrocyte distribution width (RBC) [Ratio] 20.1 % High 11.5-14.5 [facility] Comment on above: Performed By: #### L IP2, CMPF, ACBC #### Testing performed at [address] [address] Hematocrit (Bld) [Volume fraction] 35.8 % Low 36.0-48.0 [facility] Comment on above: Performed By: #### L IP2, CMPF, ACBC #### Testing performed at [address] [address] Hemoglobin (Bld) [Mass/Vol] 11.6 g/dL Low 12.0-16.0 [facility] Comment on above: Performed By: #### L IP2, CMPF, ACBC #### Testing performed at [address] [address] MCH (RBC) [Entitic mass] 24.6 pg Low 26.0-35.0 [facility] Comment on above: Performed By: #### L IP2, CMPF, ACBC #### Testing performed at [address] [address] MCHC (RBC) [Mass/Vol] 32.3 g/dL Normal 27.0-37.0 [facility] Comment on above: Performed By: #### L IP2, CMPF, ACBC #### Testing performed at [address] [address] MCV (RBC) [Entitic vol] 76.2 fL Low 80.0-100.0 [facility] Comment on above: Performed By: #### L IP2, CMPF, ACBC #### Testing performed at [address] [address] Platelet mean volume (Bld) [Entitic vol] 7.2 fL Low 7.4-11.0 [facility] Comment on above: Performed By: #### L IP2, CMPF, ACBC #### Testing performed at [address] [address] Platelets (Bld) [#/Vol] 353 10*3/uL Normal 130-400 [facility] Comment on above: Performed By: #### L IP2, CMPF, ACBC #### Testing performed at [address] [address] RBC (Bld) [#/Vol] 4.70 10*6/uL Normal 4.0-5.4 [facility] Comment on above: Performed By: #### L IP2, CMPF, ACBC #### Testing performed at [address] [address] WBC (Bld) [#/Vol] 8.1 10*3/uL Normal 3.6-11.0 [facility] Comment on above: Performed By: #### L IP2, CMPF, ACBC #### Testing performed at [address] [address] CMP FASTINGon 05-01-2025 A:G RATIO 1.5 RATIO Normal [facility] Comment on above: Performed By: #### L IP2, CMPF, ACBC #### Testing performed at [address] [address] Albumin [Mass/Vol] 4.1 g/dL Normal 3.5-5.0 [facility] Comment on above: Performed By: #### L IP2, CMPF, ACBC #### Testing performed at [address] [address] ALP [Catalytic activity/Vol] 117 U/L Normal 38-126 [facility] Comment on above: Performed By: #### L IP2, CMPF, ACBC #### Testing performed at [address] [address] ALT [Catalytic activity/Vol] 12 U/L Normal <35 [facility] Comment on above: Performed By: #### L IP2, CMPF, ACBC #### Testing performed at [address] [address] AST [Catalytic activity/Vol] 20 U/L Normal 14-36 [facility] Comment on above: Performed By: #### L IP2, CMPF, ACBC #### Testing performed at [address] [address] Bilirubin [Mass/Vol] 0.5 mg/dL Normal 0.2-1.3 [facility] Comment on above: Performed By: #### L IP2, CMPF, ACBC #### Testing performed at [address] [address] Calcium [Mass/Vol] 9.4 mg/dL Normal 8.4-10.2 [facility] Comment on above: Performed By: #### L IP2, CMPF, ACBC #### Testing performed at [address] [address] Chloride [Moles/Vol] 101 mmol/L Normal 98-107 [facility] Comment on above: Result Comment: Dione wang note: Triglyceride levels of 600mg/dL or higher may positively bias chloride results by approximately 2.1 mmol Performed By: #### L IP2, CMPF, ACBC #### Testing performed at [address] [address] CO2 [Moles/Vol] 28 mmol/L Normal 22-30 [facility] Comment on above: Performed By: #### L IP2SUSANAF, ACBC #### Testing performed at [address] [address] Creatinine [Mass/Vol] 0.90 mg/dL Normal 0.70-1.20 [facility] Comment on above: Performed By: #### L IP2 CMPF, ACBC #### Testing performed at [address] [address] GFR Information Average GFR for 60-6 9 years old = 85. 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 Kidney failure, GFR = <15. The GFR estimate is not adjusted for extreme body surface area or acute process, nor has it been validated for women or ethnic groups other than and . Performed By: #### L IP2 CMPF, ACFRAN #### Testing performed at [address] [address] GFR/1.73 sq M.predicted MDRD (S/P/Bld) [Vol rate/Area] 67 mL/min/{1.73_m2} Normal [facility] Comment on above: Performed By: #### L IP2SUSANAFDANAE #### Testing performed at [address] [address] Glucose [Mass/Vol] 98 mg/dL Normal 70-100 [facility] Comment on above: Result Comment: NORMAL <100 mg/dL PREDIABETES 101-126 mg/dL DIABETES 126 mg/dL or higher Performed By: #### L IP2, CMPF, ACBC #### Testing performed at [address] [address] Potassium [Moles/Vol] 4.4 mmol/L Normal 3.5-5.1 [facility] Comment on above: Performed By: #### L IP2, CMPF, ACBC #### Testing performed at [address] [address] Protein [Mass/Vol] 6.9 g/dL Normal 6.3-8.2 [facility] Comment on above: Performed By: #### L IP2, CMPF, ACBC #### Testing performed at [address] [address] Sodium [Moles/Vol] 136 mmol/L Low 137-145 [facility] Comment on above: Performed By: #### L IP2, CMPF, ACBC #### Testing performed at [address] [address] Urea nitrogen [Mass/Vol] 9 mg/dL Normal 7-20 [facility] Comment on above: Performed By: #### L IP2, CMPF, ACBC #### Testing performed at [address] [address] HEMOGLOBIN A1Con 05-01-2025 Glucose [Mass/Vol] 126 mg/dL Normal [facility] Comment on above: Performed By: #### H A1CT #### Testing performed at [address] [address] HbA1c (Bld) [Mass fraction] 6.0 % Normal 0-6 [facility] Comment on above: Result Comment: NORMAL <5.7% PREDIABETES 5.7-6.4% DIABETES 6.5% OR HIGHER Performed By: #### H A1CT #### Testing performed at [address] [address] LIPID PROFILEon 05-01-2025 Cholesterol [Mass/Vol] 90 mg/dL Low 107-217 [facility] Comment on above: Performed By: #### L IP2, CMPF, ACBC #### Testing performed at [address] [address] Cholesterol in HDL [Mass/Vol] 47 mg/dL Normal 33-75 [facility] Comment on above: Performed By: #### L IP2, CMPF, ACBC #### Testing performed at [address] [address] Cholesterol in LDL [Mass/Vol] 24 mg/dL Normal <100 [facility] Comment on above: Performed By: #### L IP2, CMPF, ACBC #### Testing performed at [address] [address] [address] Cholesterol in VLDL [Mass/Vol] 19 mg/dL Normal 5-25 [facility] Comment on above: Performed By: #### L IP2, CMPF, ACBC #### Testing performed at [address] [address] Cholesterol.total/Chol esterol in HDL [Mass ratio] 1.91 {ratio} Normal [facility] Comment on above: Result Comment: RISK TOTAL/HDL RATIO MEN WOMEN 1/2 AVERAGE 3.43 3.27 AVERAGE 4.97 4.44 2X AVERAGE 9.55 7.05 3X AVERAGE 23.99 11.04 Performed By: #### L IP2, CMPF, ACBC #### Testing performed at [address] [address] Triglyceride [Mass/Vol] 97 mg/dL Normal 0-150 [facility] Comment on above: Performed By: #### L IP2, CMPF, ACBC #### Testing performed at [address] [address] [facility] [place] [facility] MAMMO DIAGNOSTIC WITH [place] RIGHT EXAM: US BREAST LIMITED UNILATERAL RIGHT, MAMMO DIAGNOSTIC WITH [place] RIGHT HISTORY: Circumscribed asymmetry at 6-7 o'clock. DIAGNOSTIC MAMMOGRAM, 12/03/2024: COMPARISON: Comparison with the previous mammogram of 11/19/2024. TECHNIQUE: Right full-field mediolateral and spot compression CC mammographic views obtained with 3-D [place] synthesis. FINDINGS: With compression, the small (5 mm) focal circumscribed asymmetry in the central right breast slightly inferiorly is confirmed with an internal lucent component that could relate to a fatty hilum if the finding represents a benign intramammary lymph node. A focal island of glandular tissue also could give this appearance. Overall, the finding is suggestive of a benign etiology. No additional abnormality is identified. Concurrent sonographic evaluation was performed. RIGHT BREAST ULTRASOUND, LIMITED, 12/03/2024: COMPARISON: No previous right breast ultrasound. Correlation with the concurrent and prior mammographic views. TECHNIQUE: Targeted real-time grayscale and color flow sonographic evaluation of the right breast was performed. FINDINGS: No cystic or solid mass is seen in the central right breast inferiorly to correlate with the mammographic finding. It is possible that the mammographic asymmetry represents a small benign intramammary lymph node containing a fatty hilum that is isoreflective within adjacent normal fibrofatty tissue, or alternatively it could represent a prominent island of glandular tissue. IMPRESSION: The small (5 mm) focal asymmetry persists with compression mammographically but may represent a small benign intramammary lymph node or alternatively an island of glandular tissue. No sonographic correlate is identified. To ensure stability of this finding and exclude less likely possibilities, a six-month follow-up right mammogram is recommended. BI-RADS Category 3. Probably benign finding. Short interval follow-up recommended. The findings were communicated to the patient at the time of the examination. Normal [facility] MG Breast - right Diagnostic on 12-03-2024 Radiology Study observation (narrative) [facility] No Panel InformationOrdered By: Hardy Castillo on 12-03-2024 Interpretation and review of laboratory results Abnormal [facility] Work Phone: [facility] Work Phone: No Panel Informationon 12-03 IMPRESSION: The smal l (5 mm) focal asymmetry persists with compression mammographically but may represent a small benign intramammary lymph node or alternatively an island of glandular tissue. No sonographic correlate is identified. To ensure stability of this finding and exclude less likely possibilities, a six-month follow-up right mammogram is recommended. BI-RADS Category 3. Probably benign finding. Short interval follow-up recommended. The findings were communicated to the patient at the time of the examination. RADIOLOGY EXAM: US BREAST LIMI TREVER UNILATERAL RIGHT, MAMMO DIAGNOSTIC WITH [place] RIGHT HISTORY: Circumscribed asymmetry at 6-7 o'clock. DIAGNOSTIC MAMMOGRAM, 12/03/2024: COMPARISON: Comparison with the previous mammogram of 11/19/2024. TECHNIQUE: Right full-field mediolateral and spot compression CC mammographic views obtained with 3-D [place] synthesis. FINDINGS: With compression, the small (5 mm) focal circumscribed asymmetry in the central right breast slightly inferiorly is confirmed with an internal lucent component that could relate to a fatty hilum if the finding represents a benign intramammary lymph node. A focal island of glandular tissue also could give this appearance. Overall, the finding is suggestive of a benign etiology. No additional abnormality is identified. Concurrent sonographic evaluation was performed. RIGHT BREAST ULTRASOUND, LIMITED, 12/03/2024: COMPARISON: No previous right breast ultrasound. Correlation with the concurrent and prior mammographic views. TECHNIQUE: Targeted real-time grayscale and color flow sonographic evaluation of the right breast was performed. FINDINGS: No cystic or solid mass is seen in the central right breast inferiorly to correlate with the mammographic finding. It is possible that the mammographic asymmetry represents a small benign intramammary lymph node containing a fatty hilum that is isoreflective within adjacent normal fibrofatty tissue, or alternatively it could represent a prominent island of glandular tissue. RADIOLOGY US BREAST LIMITED UNILATERAL RIGHTon 12-03-2024 US BREAST LIMITED UNILATERAL RIGHT EXAM: US BREAST LIMITED UNILATERAL RIGHT, MAMMO DIAGNOSTIC WITH [place] RIGHT HISTORY: Circumscribed asymmetry at 6-7 o'clock. DIAGNOSTIC MAMMOGRAM, 12/03/2024: COMPARISON: Comparison with the previous mammogram of 11/19/2024. TECHNIQUE: Right full-field mediolateral and spot compression CC mammographic views obtained with 3-D [place] synthesis. FINDINGS: With compression, the small (5 mm) focal circumscribed asymmetry in the central right breast slightly inferiorly is confirmed with an internal lucent component that could relate to a fatty hilum if the finding represents a benign intramammary lymph node. A focal island of glandular tissue also could give this appearance. Overall, the finding is suggestive of a benign etiology. No additional abnormality is identified. Concurrent sonographic evaluation was performed. RIGHT BREAST ULTRASOUND, LIMITED, 12/03/2024: COMPARISON: No previous right breast ultrasound. Correlation with the concurrent and prior mammographic views. TECHNIQUE: Targeted real-time grayscale and color flow sonographic evaluation of the right breast was performed. FINDINGS: No cystic or solid mass is seen in the central right breast inferiorly to correlate with the mammographic finding. It is possible that the mammographic asymmetry represents a small benign intramammary lymph node containing a fatty hilum that is isoreflective within adjacent normal fibrofatty tissue, or alternatively it could represent a prominent island of glandular tissue. IMPRESSION: The small (5 mm) focal asymmetry persists with compression mammographically but may represent a small benign intramammary lymph node or alternatively an island of glandular tissue. No sonographic correlate is identified. To ensure stability of this finding and exclude less likely possibilities, a six-month follow-up right mammogram is recommended. BI-RADS Category 3. Probably benign finding. Short interval follow-up recommended. The findings were communicated to the patient at the time of the examination. Normal [facility] US Breast - right limitedon 12-03-2024 Radiology Study observation (narrative) [facility] MAMMO SCREENING WITH [place] BI LATERALon 11-20-2024 MAMMO SCREENING WITH [place] BILATERAL EXAM: MAMMO SCREENING WITH [place] BILATERAL HISTORY: Mammogram screening. COMPARISON: None. Baseline. TECHNIQUE: Bilateral full-field digital MLO and CC mammographic views were obtained with 3-D tomosynthesis. FINDINGS: The breasts are almost entirely fatty. In the inferior right breast at approximately the 6-7 o'clock position, anterior to mid depth, a small rounded circumscribed nodular asymmetry measures 5 mm in maximum diameter; sonographic correlation may be useful. No mass is seen otherwise. No area of architectural distortion or cluster of suspicious microcalcifications is seen. IMPRESSION: Small (5 mm) rounded circumscribed lesion in the inferior right breast slightly laterally; right breast ultrasound is recommended for further evaluation. BI-RADS Category 0. Additional imaging needed Normal [facility] CBCon 11-12-2024 ABSOLUTE BAS 0.0 10*3/uL Normal 0.0-0.2 [facility] Comment on above: Performed By: #### C MPF, ACBC, LIP2 ####[place] [address] ABSOLUTE EOS 0.2 10*3/uL Normal 0.0-0.7 [facility] Comment on above: Performed By: #### C MPF, ACBC, LIP2 ####Testing performed at [place] [id number] ABSOLUTE NEUTROPHIL COUNT 7.7 10*3/uL High 1.4-6.5 [facility] Comment on above: Performed By: #### C MPF, ACBC, LIP2 ####Testing performed at [place] [id number] Basophils/100 WBC (Bld) 0.5 % Normal 0.0-2.0 [facility] Comment on above: Performed By: #### C MPF, ACBC, LIP2 ####Testing performed at [place] [id number] DTYPE AUTO DIFF Normal [facility] Comment on above: Performed By: #### C MPF, ACBC, LIP2 ####Testing performed at [address] [address] Eosinophils/100 WBC (Bld) 1.7 % Normal 0.0-11.0 [facility] Comment on above: Performed By: #### C MPF, ACBC, LIP2 ####Testing performed at [address] [address] Lymphocytes (Bld) [#/Vol] 1.6 10*3/uL Normal 1.2-3.4 [facility] Comment on above: Performed By: #### C MPF, ACBC, LIP2 ####Testing performed at [address] [address] Lymphocytes/100 WBC (Bld) 15.6 % Low 20.0-55.0 [facility] Comment on above: Performed By: #### C MPF, ACBC, LIP2 ####Testing performed at [address] [address] Monocytes (Bld) [#/Vol] 0.5 10*3/uL Normal 0.0-0.7 [facility] Comment on above: Performed By: #### C MPF, ACBC, LIP2 ####Testing performed at [address] [address] Monocytes/100 WBC (Bld) 5.2 % Normal 0.0-10.0 [facility] Comment on above: Performed By: #### C MPF, ACBC, LIP2 ####Testing performed at [address] [address] Neutrophils/100 WBC (Bld) 77.0 % High 37.0-75.0 [facility] Comment on above: Performed By: #### C MPF, ACBC, LIP2 ####Testing performed at [address] [address] Erythrocyte distribution width (RBC) [Ratio] 17.9 % High 11.5-14.5 [facility] Comment on above: Performed By: #### C MPF, ACBC, LIP2 ####Testing performed at [place] [id number] Hematocrit (Bld) [Volume fraction] 39.7 % Normal 36.0-48.0 [facility] Comment on above: Performed By: #### C MPF, ACBC, LIP2 ####Testing performed at [place] [id number] Hemoglobin (Bld) [Mass/Vol] 12.8 g/dL Normal 12.0-16.0 [facility] Comment on above: Performed By: #### C MPF, ACBC, LIP2 ####[place] [address] MCH (RBC) [Entitic mass] 26.3 pg Normal 26.0-35.0 [facility] Comment on above: Performed By: #### C MPF, ACBC, LIP2 ####[place] [address] MCHC (RBC) [Mass/Vol] 32.4 g/dL Normal 27.0-37.0 [facility] Comment on above: Performed By: #### C MPF, ACBC, LIP2 ####[place] [address] MCV (RBC) [Entitic vol] 81.1 fL Normal 80.0-100.0 [facility] Comment on above: Performed By: #### C MPF, ACBC, LIP2 ####Testing performed at [place] [id number] Platelet mean volume (Bld) [Entitic vol] 6.9 fL Low 7.4-11.0 [facility] Comment on above: Performed By: #### C MPF, ACBC, LIP2 ####Testing performed at [place] [id number] Platelets (Bld) [#/Vol] 368 10*3/uL Normal 130-400 [facility] Comment on above: Performed By: #### C MPF, ACBC, LIP2 ####Testing performed at [place] [id number] RBC (Bld) [#/Vol] 4.89 10*6/uL Normal 4.0-5.4 [facility] Comment on above: Performed By: #### C MPF, ACBC, LIP2 ####Testing performed at [address] [address] WBC (Bld) [#/Vol] 10.0 10*3/uL Normal 3.6-11.0 [facility] Comment on above: Performed By: #### C MPF, ACBC, LIP2 ####Testing performed at [address] [address] CMP FASTINGon 11-12-2024 A:G RATIO 1.6 RATIO Normal [facility] Comment on above: Performed By: #### C MPF, ACBC, LIP2 ####Testing performed at [address] [address] ALBUMIN 4.6 G/dl Normal 3.5-5.0 [facility] Comment on above: Performed By: #### C MPF, ACBC, LIP2 ####Testing performed at [address] [address] ALP [Catalytic activity/Vol] 131 U/L High 38-126 [facility] Comment on above: Performed By: #### C MPF, ACBC, LIP2 ####Testing performed at [address] [address] ALT [Catalytic activity/Vol] 16 U/L Normal <35 [facility] Comment on above: Performed By: #### C MPF, ACBC, LIP2 ####Testing performed at [address] [address] AST [Catalytic activity/Vol] 25 U/L Normal 14-36 [facility] Comment on above: Performed By: #### C MPF, ACBC, LIP2 ####Testing performed at [address] [address] Bilirubin [Mass/Vol] 0.8 mg/dL Normal 0.2-1.3 [facility] Comment on above: Performed By: #### C MPF, ACBC, LIP2 ####[place] [address] Calcium [Mass/Vol] 9.3 mg/dL Normal 8.4-10.2 [facility] Comment on above: Performed By: #### C MPF, ACBC, LIP2 ####[place] [address] Chloride [Moles/Vol] 96 mmol/L Low 98-107 [facility] Comment on above: Result Comment: Dione wang note: Triglyceride levels of 600mg/dL or higher may positively bias chloride results by approximately 2.1 mmol Performed By: #### C MPF, ACBC, LIP2 ####[place] [address] CO2 [Moles/Vol] 29 mmol/L Normal 22-30 [facility] Comment on above: Performed By: #### C MPF, ACBC, LIP2 ####[place] [address] Creatinine [Mass/Vol] 0.70 mg/dL Normal 0.70-1.20 [facility] Comment on above: Performed By: #### C MPF, ACBC, LIP2 ####Testing performed at [place] [id number] EST. GFR, 108 ml/min/1.73sq.m [facility] Comment on above: Performed By: #### C MPF, ACBC, LIP2 ####Testing performed at [place] [id number] EST. GFR,Non 89 ml/min/1.73sq.m [facility] Comment on above: Performed By: #### C MPF, ACBC, LIP2 ####[place] [address] GFR Information Average GFR for 60-6 9 years old = 85. [facility] Comment on above: Result Comment: Batting Machine Operator Insulation patrick Kidney disease, GFR = <60. Kidney failure, GFR = <15. The GFR estimate is not adjusted for extreme body surface area or acute process, nor has it been validated for women or ethnic groups other than and . Performed By: #### C MPF, ACBC, LIP2 ####Testing performed at [address] [address] Glucose [Mass/Vol] 107 mg/dL High 70-100 [facility] Comment on above: Result Comment: NORMAL <100 mg/dL PREDIABETES 101-126 mg/dL DIABETES 126 mg/dL or higher Performed By: #### C MPF, ACBC, LIP2 ####Testing performed at [address] [address] Potassium [Moles/Vol] 3.9 mmol/L Normal 3.5-5.1 [facility] Comment on above: Performed By: #### C MPF, ACBC, LIP2 ####Testing performed at [address] [address] Protein [Mass/Vol] 7.5 g/dL Normal 6.3-8.2 [facility] Comment on above: Performed By: #### C MPF, ACBC, LIP2 ####Testing performed at [address] [address] Sodium [Moles/Vol] 135 mmol/L Low 137-145 [facility] Comment on above: Performed By: #### C MPF, ACBC, LIP2 ####Testing performed at [address] [address] Urea nitrogen [Mass/Vol] 7 mg/dL Normal 7-20 [facility] Comment on above: Performed By: #### C MPF, ACBC, LIP2 ####Testing performed at [address] [address] HEMOGLOBIN A1Con 11-12-2024 Glucose [Mass/Vol] 140 mg/dL Normal [facility] Comment on above: Performed By: #### H A1CT ####Testing performed at [address] [address] HbA1c (Bld) [Mass fraction] 6.5 % High 0-6 [facility] Comment on above: Result Comment: NORMAL <5.7% PREDIABETES 5.7-6.4% DIABETES 6.5% OR HIGHER Performed By: #### H A1CT ####Testing performed at [address] [address] LIPID PROFILEon 11-12-2024 Cholesterol [Mass/Vol] 112 mg/dL Normal 107-217 [facility] Comment on above: Performed By: #### C MPF, ACBC, LIP2 ####Testing performed at [address] [address] Cholesterol in HDL [Mass/Vol] 61 mg/dL Normal 33-75 [facility] Comment on above: Performed By: #### C MPF, ACBC, LIP2 ####Testing performed at [address] [address] Cholesterol in LDL [Mass/Vol] 16 mg/dL Normal <100 [facility] Comment on above: Performed By: #### C MPF, ACBC, LIP2 ####Testing performed at [address] [address] Cholesterol in VLDL [Mass/Vol] 35 mg/dL High 5-25 [facility] Comment on above: Performed By: #### C MPF, ACBC, LIP2 ####Testing performed at [address] [address] Cholesterol.total/Chol esterol in HDL [Mass ratio] 1.84 {ratio} Normal [facility] Comment on above: Result Comment: RISK TOTAL/HDL RATIO MEN WOMEN 1/2 AVERAGE 3.43 3.27 AVERAGE 4.97 4.44 2X AVERAGE 9.55 7.05 3X AVERAGE 23.99 11.04 Performed By: #### C MPF, ACBC, LIP2 ####Testing performed at [address] [address] Triglyceride [Mass/Vol] 174 mg/dL High 0-150 [facility] Comment on above: Performed By: #### C MPF, ACBC, LIP2 ####Testing performed at [address] [address] PROTEIN CREATININE RATIOon 0 11-12-2024 PROTEIN CREATININE RATIO 2.4 Normal [facility] Comment on above: Result Comment: REFERENCE RANGES <0.2 NORMAL 0.2-3.5 NON-NEPHROTIC >3.5 NEPHROTIC Performed By: #### P CR ####[place] [address] URINE CREATININE RANDOM 21.8 MG/DL [facility] Comment on above: Result Comment: NO N ORMAL VALUES ESTABLISHED FOR RANDOM SPECIMENS Performed By: #### P CR ####[place] [address] URINE TP RANDOM 52 MG/DL High 0-12 [facility] Comment on above: Performed By: #### P CR ####[place] [address] QUANTIFERON TB GOLDon 2023 QF TB GOLD PLUS Negative [facility] Comment on above: Result Comment: Refe rence range: Negative (NOTE) No response to M tuberculosis antigens detected. Infection with M tuberculosis is unlikely, but high risk individuals should be considered for additional testing (ATS/IDSA/CDC Clinical Practice Guidelines, 2017). The reference range is an Antigen minus Nil result of <0.35 IU/mL. Chemiluminescence immunoassay methodology PERFORMED AT [facility] Performed By: #### F X ####[place] [address]#### ANAHI BAJWA ####Testing performed at [address] [place] [address] QUANTIFERON INCUBATION Incubation performed. [facility] Comment on above: Performed By: #### F X ####[place] [address]#### ANAHI BAJWA ####Testing performed at [address] [place] [address] RFLX QUANTIFERON TB GOLD PLU Son 10-20-2024 QF TB1 AG VALUE 0.40 [facility] Comment on above: Result Comment: Unit : IU/mL Performed By: #### F X ####[place] [address]#### MAURY BAJWAP ####Testing performed at [address] [place] [address] QF TB2 AG VALUE 0.46 [facility] Comment on above: Result Comment: Unit : IU/mL Performed By: #### F X ####Testing performed at [place] [id number]#### Sloan BAJWAQFGP ####Testing performed at [address] [place] [address] QUANTIFERON CRITERIA Comment Normal [facility] Comment on above: Result Comment: (NOT E) QuantiFERON-TB Gold Plus is a qualitative indirect test for M tuberculosis infection (including disease) and is intended for use in conjunction with risk assessment, radiography, and other medical and diagnostic evaluations. The QuantiFERON-TB Gold Plus result is determined by subtracting the Nil value from either TB antigen (Ag) value. The Mitogen tube serves as a control for the test. Performed By: #### F X ####Testing performed at [place] [id number]#### Sloan BAJWAQFGP ####Testing performed at [address] [place] [address] QUANTIFERON MITOGEN VALUE >10.00 [facility] Comment on above: Result Comment: Unit : IU/mL PERFORMED AT [facility] Performed By: #### F X ####Testing performed at [place] [id number]#### Sloan BAJWAQFGP ####Testing performed at [address] [place] [address] QUANTIFERON Nil VALUE 0.51 [facility] Comment on above: Result Comment: Unit : IU/mL Performed By: #### F X ####Testing performed at [place] [id number]#### Sloan BAJWAQFGP ####Testing performed at [address] [place] [address] FAX REQUESTon 10-16-2024 FAX TO [phone] [facility] Comment on above: Performed By: #### F X ####[place] [address]#### LQF, ZQFGP ####Testing performed at [address] [address] QFT TB PLUS CIon 09-05-2024 QF TB GOLD PLUS Indeterminate Abnormal [facility] Comment on above: Result Comment: Refe rence range: Negative (NOTE) Mitogen (positive control) gave low response. This may occur due to suboptimal pre-analytical handling. The specimen received for QuantiFERON testing was incubated by the ordering institution. Specific procedures outlined in our Directory of Services and in the package insert for the QuantiFERON Gold (In Tube) test must be followed to enable for proper stimulation of cells for the production of interferon gamma. Chemiluminescence immunoassay methodology PERFORMED AT [facility] Performed By: #### L QFCIN ####Testing performed at [address] [place] [address]#### FX ####[place] [address] QF TB1 AG VALUE 0.19 [facility] Comment on above: Result Comment: Unit : IU/mL Performed By: #### L QFCIN ####Testing performed at [address] [place] [address]#### FX ####[place] [address] QF TB2 AG VALUE 0.20 [facility] Comment on above: Result Comment: Unit : IU/mL Performed By: #### L QFCIN ####Testing performed at [address] [address]#### FX ####Testing performed at [place] [id number] QUANTIFERON CRITERIA Comment Normal [facility] Comment on above: Result Comment: (NOT E) QuantiFERON-TB Gold Plus is a qualitative indirect test for M tuberculosis infection (including disease) and is intended for use in conjunction with risk assessment, radiography, and other medical and diagnostic evaluations. The QuantiFERON-TB Gold Plus result is determined by subtracting the Nil value from either TB antigen (Ag) value. The Mitogen tube serves as a control for the test. Performed By: #### L QFCIN ####Testing performed at [address] [address]#### FX ####[place] [address] QUANTIFERON MITOGEN VALUE 0.22 [facility] Comment on above: Result Comment: Unit : IU/mL Performed By: #### L QFCIN ####Testing performed at [address] [address]#### FX ####[place] [address] QUANTIFERON Nil VALUE 0.20 [facility] Comment on above: Result Comment: Unit : IU/mL Performed By: #### L QFCIN ####Testing performed at [address] [address]#### FX ####Testing performed at [place] [id number] FAX REQUESTon 09-04-2024 FAX TO [phone] [facility] Comment on above: Performed By: #### L QFCIN ####Testing performed at [address] [address]#### FX ####Testing performed at [place] [id number] POCT URINE MICROALBUMIN/URIN E CREAT/AL:CROrdered By: Isabella Madrid on 05-29-2024 Albumin DL <= 20 mg/L (U) [Mass/Vol] 150 mg/dL [facility] Albumin/Creatinine (U) [Ratio] [facility] Creatinine (U) [Mass/Vol] 200 mg/dL 10 - 300 mg/dL [facility] Interpretation and review of laboratory results Abnormal [facility] CBC,PLATELETSon 10-18-2023 Erythrocyte distribution width (RBC) [Ratio] 16.3 % High 11.5 - 14.5 % [facility] Hematocrit (Bld) [Volume fraction] 43.6 % 36.0 - 48.0 % [facility] Hemoglobin (Bld) [Mass/Vol] 14.5 g/dL [facility] Interpretation and review of laboratory results Abnormal [facility] MCH (RBC) [Entitic mass] 29.0 pg 26.0 - 35.0 PG [facility] MCHC (RBC) [Mass/Vol] 33.2 g/dL [facility] MCV (RBC) [Entitic vol] 87.4 fL [facility] Platelet mean volume (Bld) [Entitic vol] 7.3 fL Low [facility] Platelets (Bld) [#/Vol] 295 10*3/uL 130 - 400 10*3/uL [facility] RBC (Bld) [#/Vol] 4.99 10*6/uL 4.0 - 5.4 10*6/uL [facility] WBC (Bld) [#/Vol] 9.8 10*3/uL 3.6 - 11.0 10*3/uL [facility] CHEM 7 (LYTES,BUN,CREA,GLUC) on 10-18-2023 Chloride [Moles/Vol] 102 mmol/L [facility] Comment on above: Please note: Triglyc eride levels of 600mg/dL or higher may positively bias chloride results by approximately 2.1 mmol CO2 [Moles/Vol] 27 mmol/L [facility] Creatinine [Mass/Vol] 0.82 mg/dL [facility] GFR COMMENT Average GFR for 60-6 9 years old = 85. [facility] Comment on above: Chronic Kidney disea se, GFR = <60. Kidney failure, GFR = <15. The GFR estimate is not adjusted for extreme body surface area or acute process, nor has it been validated for women or ethnic groups other than and . GFR/1.73 sq M.predicted among blacks MDRD (S/P/Bld) [Vol rate/Area] 90 mL/min/{1.73_m2} ml/min/1.73sq .m [facility] GFR/1.73 sq M.predicted among non-blacks MDRD (S/P/Bld) [Vol rate/Area] 75 mL/min/{1.73_m2} ml/min/1.73sq .m [facility] Glucose post fast [Mass/Vol] 102 mg/dL High [facility] Comment on above: NORMAL <100 mg/dL PREDIABETES 101-126 mg/dL DIABETES 126 mg/dL or higher Interpretation and review of laboratory results Abnormal [facility] Potassium [Moles/Vol] 3.8 mmol/L [facility] Sodium [Moles/Vol] 137 mmol/L [facility] Urea nitrogen [Mass/Vol] 8 mg/dL [facility] MR Brain WO contraston 10-18 IMPRESSION: 1. No acute intracranial abnormality. No acute infarct or hemorrhage. 2. Chronic bilateral cerebellar lacunar infarcts. 3. Mild chronic microvascular ischemic changes. RADIOLOGY MRI BRAIN WITHOUT CONTRAST. INDICATION: New visual defect. COMPARISON: None available. TECHNIQUE: MR imaging of the brain using the following unenhanced sequences: Axial diffusion, axial FLAIR, axial T2 weighted, coronal and sagittal T1, coronal gradient-echo T2. FINDINGS: Somewhat limited evaluation due to motion. EXTRA-AXIAL SPACE:Age appropriate ventricles. No extra-axial collection. CEREBRUM: There are T2/FLAIR hyperintense signal changes in the periventricular and deep white matter, which is nonspecific but likely reflective of chronic microvascular ischemic disease. No areas of restricted diffusion. No acute infarct, hemorrhage or mass. CEREBELLUM: There are chronic bilateral cerebellar lacunar infarcts. No areas of restricted diffusion. No acute infarct, hemorrhage or mass. BRAINSTEM: No signal abnormality. No areas of restricted diffusion. No acute infarct, hemorrhage or mass. EXTRACRANIAL STRUCTURES:Paranasal sinuses are clear. There is minimal fluid in the left mastoid air cells. Globes and orbits are normal. Normal pituitary gland. Normal calvarium. There are mildly enlarged bilateral suboccipital lymph nodes, which is nonspecific. RADIOLOGY Augustus Escobar MD - 10/18/2023 MRI BRAIN WITHOUT CONTRAST. INDICATION: New visual defect. COMPARISON: None available. TECHNIQUE: MR imaging of the brain using the following unenhanced sequences: Axial diffusion, axial FLAIR, axial T2 weighted, coronal and sagittal T1, coronal gradient-echo T2. FINDINGS: Somewhat limited evaluation due to motion. EXTRA-AXIAL SPACE:Age appropriate ventricles. No extra-axial collection. CEREBRUM: There are T2/FLAIR hyperintense signal changes in the periventricular and deep white matter, which is nonspecific but likely reflective of chronic microvascular ischemic disease. No areas of restricted diffusion. No acute infarct, hemorrhage or mass. CEREBELLUM: There are chronic bilateral cerebellar lacunar infarcts. No areas of restricted diffusion. No acute infarct, hemorrhage or mass. BRAINSTEM: No signal abnormality. No areas of restricted diffusion. No acute infarct, hemorrhage or mass. EXTRACRANIAL STRUCTURES:Paranasal sinuses are clear. There is minimal fluid in the left mastoid air cells. Globes and orbits are normal. Normal pituitary gland. Normal calvarium. There are mildly enlarged bilateral suboccipital lymph nodes, which is nonspecific. IMPRESSION IMPRESSION: 1. No acute intracranial abnormality. No acute infarct or hemorrhage. 2. Chronic bilateral cerebellar lacunar infarcts. 3. Mild chronic microvascular ischemic changes. [facility] Radiology Study observation (narrative) [facility] MRA Neck vessels WO contrast on 10-18-2023 IMPRESSION: No high-grade stenosis or occlusion of the major arteries of the neck. RADIOLOGY MRA NECK. HISTORY: New visual defect COMPARISON: None. TECHNIQUE: MR angiogram of the neck without contrast using 3-D ryos-kx-oefhhr images without IV contrast. Maximum intensity projection images were additionally created. NASCET criteria used where appropriate for estimation of percentage luminal stenosis. FINDINGS: Somewhat limited evaluation due to motion. RIGHT COMMON CAROTID ARTERY: No significant stenosis. RIGHT EXTERNAL CAROTID ARTERY: No significant stenosis. RIGHT INTERNAL CAROTID ARTERY: No significant stenosis. LEFT COMMON CAROTID ARTERY: No significant stenosis. LEFT EXTERNAL CAROTID ARTERY: No significant stenosis. LEFT INTERNAL CAROTID ARTERY: No significant stenosis. RIGHT VERTEBRAL ARTERY: No significant stenosis. LEFT VERTEBRAL ARTERY: No significant stenosis. UPPER LUNGS: Unremarkable. RADIOLOGY Augustus Escobar MD - 10/18/2023 MRA NECK. HISTORY: New visual defect COMPARISON: None. TECHNIQUE: MR angiogram of the neck without contrast using 3-D [id number]-ku-lgbphw images without IV contrast. Maximum intensity projection images were additionally created. NASCET criteria used where appropriate for estimation of percentage luminal stenosis. FINDINGS: Somewhat limited evaluation due to motion. RIGHT COMMON CAROTID ARTERY: No significant stenosis. RIGHT EXTERNAL CAROTID ARTERY: No significant stenosis. RIGHT INTERNAL CAROTID ARTERY: No significant stenosis. LEFT COMMON CAROTID ARTERY: No significant stenosis. LEFT EXTERNAL CAROTID ARTERY: No significant stenosis. LEFT INTERNAL CAROTID ARTERY: No significant stenosis. RIGHT VERTEBRAL ARTERY: No significant stenosis. LEFT VERTEBRAL ARTERY: No significant stenosis. UPPER LUNGS: Unremarkable. IMPRESSION IMPRESSION: No high-grade stenosis or occlusion of the major arteries of the neck. [facility] Radiology Study observation (narrative) [facility] MRA Neck vessels WO contrast Ordered By: Augustus Escobar on 10-18-2023 [employer] Work Phone: BONE DENSITY AXIAL (HIP, PEL VIS, SPINE)on 07-17-2023 EXAM: BONE DENSITY AXIAL (HIP, PELVIS, SPINE) HISTORY: Encounter for screening for osteoporosis COMPARISON: None. TECHNIQUE: DEXA bone density evaluation was performed of the lumbar spine and the left hip. FINDINGS: Total bone density lumbar spine from L1 through L4 is 1.403 g/sq cm. The T score is +1.9 and the Z score is +2.3. This is normal. Left hip total bone density was 0.985 g/sq cm. T score is -0.2 and the Z score is +0.2. This is normal. Left femoral neck density is 0.968 g/sq cm. T score is -0.5 and the Z score is +0.2. This is normal. RADIOLOGY Brigida Chaidez, - 07/17/2023 EXAM: BONE DENSITY AXIAL (HIP, PELVIS, SPINE) HISTORY: Encounter for screening for osteoporosis COMPARISON: None. TECHNIQUE: DEXA bone density evaluation was performed of the lumbar spine and the left hip. FINDINGS: Total bone density lumbar spine from L1 through L4 is 1.403 g/sq cm. The T score is +1.9 and the Z score is +2.3. This is normal. Left hip total bone density was 0.985 g/sq cm. T score is -0.2 and the Z score is +0.2. This is normal. Left femoral neck density is 0.968 g/sq cm. T score is -0.5 and the Z score is +0.2. This is normal. IMPRESSION IMPRESSION: Normal bone density evaluation. [facility] Radiology Study observation (narrative) [employer] BONE DENSITY AXIAL (HIP, PEL VIS, SPINE)Ordered By: Brigida Chaidez on 07-17-2023 [facility] Lumbar spine WO contrasto n 07-17-2023 IMPRESSION: At L3-L4, there is npbnsrka-lw-qhswun canal stenosis and marked narrowing of the lateral recesses, with moderate right and mild left foraminal narrowing, not significantly changed. L4-L5, there is mild right and dlbh-hh-fcsteziw left foraminal narrowing which is compared to prior study. Additional stable mild degenerative changes. Please note that there is a transitional segment at the lumbosacral junction and correlation with plain films is recommended prior to surgical intervention. RADIOLOGY CT SPINE LUMBAR WITH OUT CONTRAST, 07/17/2023 9:02 AM EDT, [facility] HISTORY: Lumbar spondylolisthesis. COMPARISON: Radiographs from 06/11/2023 and MRI from 03/03/2021. TECHNIQUE: Unenhanced helical computerized tomography was performed and multiplanar reformatted images were provided. Dose reduction techniques were achieved by using: automated exposure control and/or adjustment of mA and/or kV according to patient size and/or use of iterative reconstruction technique. FINDINGS: Mild levocurvature is again noted. Note is again made of a transitional segment at the lumbosacral junction with sacralization of L5, a normal variant. Slight anterolisthesis of L3 on L4 appears unchanged. There are no compression fractures. No destructive osseous process is seen. L1/L2: No significant spinal canal stenosis. No significant foraminal narrowing. L2/L3: There is a small disc/osteophyte complex without significant canal stenosis. There is mild left and dzmg-kh-ruarahfv right foraminal narrowing. L3/L4: There is bilateral facet hypertrophy and broad-based disc bulge which creates moderate to marked canal stenosis and marked narrowing of the lateral recesses, left worse than right, not significantly changed. Moderate right and mild left foraminal narrowing appears unchanged. L4/L5: There is bilateral facet hypertrophy without canal stenosis. There is mild right and ticm-yb-lxfxjxkk left foraminal narrowing, increased compared to the prior study. L5/S1: No significant spinal canal stenosis. No significant foraminal narrowing. Incidental note is made of several punctate bilateral renal calcifications which may be vascular. RADIOLOGY Daniel Aguilar MD - 07/17/2023 CT SPINE LUMBAR WITHOUT CONTRAST, 07/17/2023 9:02 AM EDT, [facility] HISTORY: Lumbar spondylolisthesis. COMPARISON: Radiographs from 06/11/2023 and MRI from 03/03/2021. TECHNIQUE: Unenhanced helical computerized tomography was performed and multiplanar reformatted images were provided. Dose reduction techniques were achieved by using: automated exposure control and/or adjustment of mA and/or kV according to patient size and/or use of iterative reconstruction technique. FINDINGS: Mild levocurvature is again noted. Note is again made of a transitional segment at the lumbosacral junction with sacralization of L5, a normal variant. Slight anterolisthesis of L3 on L4 appears unchanged. There are no compression fractures. No destructive osseous process is seen. L1/L2: No significant spinal canal stenosis. No significant foraminal narrowing. L2/L3: There is a small disc/osteophyte complex without significant canal stenosis. There is mild left and xrnc-gh-lwlfgcsz right foraminal narrowing. L3/L4: There is bilateral facet hypertrophy and broad-based disc bulge which creates moderate to marked canal stenosis and marked narrowing of the lateral recesses, left worse than right, not significantly changed. Moderate right and mild left foraminal narrowing appears unchanged. L4/L5: There is bilateral facet hypertrophy without canal stenosis. There is mild right and vnnr-jw-lgimvpqu left foraminal narrowing, increased compared to the prior study. L5/S1: No significant spinal canal stenosis. No significant foraminal narrowing. Incidental note is made of several punctate bilateral renal calcifications which may be vascular. IMPRESSION IMPRESSION: At L3-L4, there is bsvofaag-pg-kmgkkt canal stenosis and marked narrowing of the lateral recesses, with moderate right and mild left foraminal narrowing, not significantly changed. L4-L5, there is mild right and qlcc-wf-xyqcgbhi left foraminal narrowing which is compared to prior study. Additional stable mild degenerative changes. Please note that there is a transitional segment at the lumbosacral junction and correlation with plain films is recommended prior to surgical intervention. [facility] Radiology Study observation (narrative) [facility] CT Lumbar spine WO contrastO rdered By: Daniel Aguilar on 07-17-2023 [facility] MR Lumbar spine WO contrasto n 07-17-2023 IMPRESSION: PARTIALLY SACRALIZED L5. THIS NUMBERING SHOULD BE CONFIRMED PRIOR TO ANY INTERVENTION SEVERE MULTIFACTORIAL CENTRAL STENOSIS L3-4. MODERATE TO SEVERE RIGHT-SIDED FORAMINAL NARROWING MODERATE TO SEVERE RIGHT-SIDED FORAMINAL NARROWING L2-3 MODERATE LEFT-SIDED FORAMINAL NARROWING L1-2 RADIOLOGY TITLE: MRI SPINE LUMBAR WITHOUT CONTRAST COMPARISON: February 2021 lumbar spine MRI CLINICAL HISTORY: Back pain. Lower extremity weakness TECHNIQUE: Sagittal T1, sagittal T2 FSE, sagittal STIR, and axial T2 FSE. FINDINGS: There is levo convexity. 4 mm anterolisthesis L5 3 on L4. Transitional vertebra at lumbosacral junction. L5 is partially lumbarized. The most degenerated disc space is the L3-4 and the conus medullaris terminates at L1. This numbering should be confirmed prior to any intervention. Type II Modic endplate marrow changes at T12-L1 and L3-4. Multilevel disc space narrowing and disc desiccation. T11-12: Mild disc bulge without a significant stenosis. T12-L1: Mild disc bulge without a significant stenosis L1-L2:Diffuse disc bulges slight lateral extension. Bilateral facet hypertrophy. Moderate left-sided foraminal narrowing. L2-3: Diffuse bulge with foraminal extension. Mild facet hypertrophy. Mild central stenosis. Moderate severe right-sided foraminal narrowing L3-4: Severe multifactorial central stenosis. Diffuse disc bulge. Lateral osteophyte and disc formation. Bilateral facet hypertrophy. Moderate left and moderate to severe right-sided foraminal narrowing L4-5: Diffuse disc bulge with facet hypertrophy. No significant stenosis L5-S1: No stenosis RADIOLOGY Ariel Skinner MD - 07/17/2023 TITLE: MRI SPINE LUMBAR WITHOUT CONTRAST COMPARISON: February 2021 lumbar spine MRI CLINICAL HISTORY: Back pain. Lower extremity weakness TECHNIQUE: Sagittal T1, sagittal T2 FSE, sagittal STIR, and axial T2 FSE. FINDINGS: There is levo convexity. 4 mm anterolisthesis L5 3 on L4. Transitional vertebra at lumbosacral junction. L5 is partially lumbarized. The most degenerated disc space is the L3-4 and the conus medullaris terminates at L1. This numbering should be confirmed prior to any intervention. Type II Modic endplate marrow changes at T12-L1 and L3-4. Multilevel disc space narrowing and disc desiccation. T11-12: Mild disc bulge without a significant stenosis. T12-L1: Mild disc bulge without a significant stenosis L1-L2:Diffuse disc bulges slight lateral extension. Bilateral facet hypertrophy. Moderate left-sided foraminal narrowing. L2-3: Diffuse bulge with foraminal extension. Mild facet hypertrophy. Mild central stenosis. Moderate severe right-sided foraminal narrowing L3-4: Severe multifactorial central stenosis. Diffuse disc bulge. Lateral osteophyte and disc formation. Bilateral facet hypertrophy. Moderate left and moderate to severe right-sided foraminal narrowing L4-5: Diffuse disc bulge with facet hypertrophy. No significant stenosis L5-S1: No stenosis IMPRESSION IMPRESSION: PARTIALLY SACRALIZED L5. THIS NUMBERING SHOULD BE CONFIRMED PRIOR TO ANY INTERVENTION SEVERE MULTIFACTORIAL CENTRAL STENOSIS L3-4. MODERATE TO SEVERE RIGHT-SIDED FORAMINAL NARROWING MODERATE TO SEVERE RIGHT-SIDED FORAMINAL NARROWING L2-3 MODERATE LEFT-SIDED FORAMINAL NARROWING L1-2 [facility] Radiology Study observation (narrative) [facility] MR Lumbar spine WO contrastO rdered By: Ariel Skinner on 07-17-2023 [facility]: XR Lumbar spine Views W righ t bending and W left bendingon 06-11-2023 Findings/impression: Mild S-shaped scoliosis. Maintained vertebral body heights. Multilevel endplate degenerative changes, anterior spurring, and disc disease of the visualized spine. Scattered calcified prescription disease of aorta. RADIOLOGY EXAM: XR SPINE LUMBA R W BENDING HISTORY: Low back pain, unspecified back pain laterality, unspecified chronicity, unspecified whether sciatica present COMPARISON: 01/20/2021 TECHNIQUE: 5 views Bon Rossi MD - 06/11/2023 EXAM: XR SPINE LUMBAR W BENDING HISTORY: Low back pain, unspecified back pain laterality, unspecified chronicity, unspecified whether sciatica present COMPARISON: 01/20/2021 TECHNIQUE: 5 views IMPRESSION Findings/impression: Mild S-shaped scoliosis. Maintained vertebral body heights. Multilevel endplate degenerative changes, anterior spurring, and disc disease of the visualized spine. Scattered calcified prescription disease of aorta. [facility] Radiology Study observation (narrative) [facility] XR Lumbar spine Views W righ t bending and W left bendingOrdered By: Bon Lai on 06-11-2023 [facility] Work Phone: POCT URINE MICROALBUMIN/URIN E CREAT/AL:CRon 12-18-2022 Albumin DL <= 20 mg/L (U) [Mass/Vol] 150 mg/dL [facility] Albumin/Creatinine (U) [Ratio] [facility] Creatinine (U) [Mass/Vol] 200 mg/dL 10 - 300 mg/dL [facility] Interpretation and review of laboratory results Abnormal [facility] GLUCOSE (POC DEVICE)on 10-05 GLUCOSE, POINT OF CARE [address] [facility] Interpretation and review of laboratory results Abnormal [facility] Operator [id number] [facility] LARGE JOINT/BURSA INJECTION AND/OR ASPIRATIONon 10-05-2022 Antonio Mcmillan MD - 10/05/2022 9:45 AM EST Procedure: Left Hip Injection under Fluoroscopic Guidance Attending physician: Antonio Mcmillan MD Preoperative diagnosis: Left Hip pain Postoperative diagnosis: Same Anesthesia: Local Indication for procedure: This patient presents for evaluation and treatment of chronic left hip pain. The patient's pain is primarily in the left inguinal region and is worsened with internal rotation of the left femoral head. The patient presents for left hip injection. Technique: The scrub nurse's and physician's hands were washed immediately prior to the procedure using a chlorhexidine soap or sanitized using ethyl alcohol hand head bellhop captain. Hat, mask, and sterile gloves were used for the entirety of the procedure. All other personnel in the room wore hat and masks, as well as appropriate personal protective equipment. Risks and benefits of the procedure were discussed in detail, and an informed consent was completed and signed by the patient and physician. A timeout was performed prior to the start of the procedure. This patient was given a verbal description of the intended procedure including risk and benefits of the procedure. The patient was then able to provide written informed consent for the procedure. The patient was then placed in a supine position on a fluoroscopy table. The skin and subcutaneous tissue overlying the left hip joint was prepped and draped in usual sterile fashion using Hibiclens prep x3. Then using a C-arm fluoroscope the left hip joint was identified in AP orientation. The skin and subcutaneous tissue overlying the entry point was anesthestized through a 25 gauge 1.5 inch needle and 3 mL of 1% lidocaine. Then, under fluoroscopic guidance a 22-gauge 3-1/2 inch angulated with the spinal needle was advanced from the anterior aspect of the thigh and groin towards the hip joint specifically where the femoral neck meets the femoral head. Once the needle had entered the hip joint the stylette was removed. Then after negative aspiration for blood, CSF, or any other body fluid one mL of Omnipaque 300 contrast media was injected demonstrating a spherical spread around the femoral head. Then after negative aspiration for blood CSF or any other body fluid a mixture of 40 mg of triamcinolone and 3mLs of 0.25% bupivaicane was injected slowly. After the medication was deposited the needle was flushed with 0.2mL of 1% lidocaine and removed. The patient's thigh was cleansed and Band-Aid dressings were applied. The patient tolerated the procedure well with no complications. The patient will followup at the next scheduled procedure. [facility] Radiology Study observation (narrative) [facility] POCT GLUCOSEon 10-05-2022 Glucose [Mass/Vol] 169 mg/dL High 70-100 [facility] SORTER LAUNDRY ARTICLES [id number] Normal [facility] Vital Signs Date Time Vital Sign Value Performing Clinician Serafin galan 07-15-2025 13:39-0400 Body mass index (BMI) [Ratio] 31.03 kg/m2 Chantal Cole MD Work Phone: [facility] 07-15-2025 13:39-0400 Body weight 96.98 kg Chantal Cole MD Work Phone: [facility] 07-15-2025 13:39-0400 Diastolic blood pressure 68 mm[Hg] Chantal Cole MD Work Phone: [facility] 07-15-2025 13:39-0400 Heart rate 102 /min Chantal Cole MD Work Phone: [facility] 07-15-2025 13:39-0400 SaO2% (BldA) [Mass fraction] 97 % Chantal Cole MD Work Phone: [facility] 07-15-2025 13:39-0400 Systolic blood pressure 115 mm[Hg] Chantal Cole MD Work Phone: [facility] 06-07-2025 14:20-0400 Body mass index (BMI) [Ratio] 31.79 kg/m2 Chantal Cole MD Work Phone: [facility] 06-07-2025 14:20-0400 Body weight 99.34 kg Chantal Cole MD Work Phone: [facility] 06-07-2025 14:20-0400 Diastolic blood pressure 66 mm[Hg] Chantal Cole MD Work Phone: [facility] 06-07-2025 14:20-0400 Heart rate 103 /min Chantal Cole MD Work Phone: [facility] 06-07-2025 14:20-0400 Systolic blood pressure 99 mm[Hg] Chantal Cole MD Work Phone: [facility] 05-03-2025 10:23-0400 Body mass index (BMI) [Ratio] 32.08 kg/m2 Chantal Cole MD Work Phone: [facility] 05-03-2025 10:23-0400 Body weight 100.25 kg Chantal Cole MD Work Phone: [facility] 05-03-2025 10:23-0400 Diastolic blood pressure 76 mm[Hg] Chantal Cole MD Work Phone: [facility] 05-03-2025 10:23-0400 Heart rate 99 /min Chantal Cole MD Work Phone: [facility] 05-03-2025 10:23-0400 SaO2% (BldA) [Mass fraction] 99 % Chantal Cole MD Work Phone: [facility] 05-03-2025 10:23-0400 Systolic blood pressure 145 mm[Hg] Chantal Cole MD Work Phone: [facility] 11-17-2024 11:05-0500 Diastolic blood pressure 78 mm[Hg] Chantal Cole MD Work Phone: [facility] 11-17-2024 11:05-0500 Systolic blood pressure 146 mm[Hg] Chantal Cole MD Work Phone: [facility] 11-17-2024 10:40-0500 Body mass index (BMI) [Ratio] 32.15 kg/m2 Chantal Cole MD Work Phone: [facility] 11-17-2024 10:40-0500 Body weight 100.47 kg Chantal Cole MD Work Phone: [facility] 11-17-2024 10:40-0500 Heart rate 101 /min Chantal Cole MD Work Phone: [facility] 11-17-2024 10:40-0500 SaO2% (BldA) [Mass fraction] 98 % Chantal Cole MD Work Phone: [facility] 09-04-2024 12:52-0500 Body mass index (BMI) [Ratio] 32.03 kg/m2 Chantal Cole MD Work Phone: [facility] 09-04-2024 12:52-0500 Body temperature 98.4 [degF] Chantal Cole MD Work Phone: [facility] 09-04-2024 12:52-0500 Body weight 100.11 kg Chantal Cole MD Work Phone: [facility] 09-04-2024 12:52-0500 Diastolic blood pressure 73 mm[Hg] Chantal Cole MD Work Phone: [facility] 09-04-2024 12:52-0500 Heart rate 100 /min Chantal Cole MD Work Phone: [facility] 09-04-2024 12:52-0500 SaO2% (BldA) [Mass fraction] 98 % Chantal Cole MD Work Phone: [facility] 09-04-2024 12:52-0500 Systolic blood pressure 131 mm[Hg] Chantal Cole MD Work Phone: [facility] 05-29-2024 10:43-0400 Body mass index (BMI) [Ratio] 32.45 kg/m2 Chantal Cole MD Work Phone: [facility] 05-29-2024 10:43-0400 Body weight 101.42 kg Chantal Cole MD Work Phone: [facility] 05-29-2024 10:43-0400 Diastolic blood pressure 86 mm[Hg] Chantal Cole MD Work Phone: [facility] 05-29-2024 10:43-0400 Heart rate 106 /min Chantal Cole MD Work Phone: [facility] 05-29-2024 10:43-0400 Systolic blood pressure 131 mm[Hg] Chantal Cole MD Work Phone: [facility] 11-29-2023 09:56-0500 Body height 176.8 cm Chantal Cole MD Work Phone: [facility] 11-29-2023 09:56-0500 Body mass index (BMI) [Ratio] 33.14 kg/m2 Chantal Cole MD Work Phone: [facility] 11-29-2023 09:56-0500 Body weight 103.56 kg Chantal Cole MD Work Phone: [facility] 11-29-2023 09:56-0500 Diastolic blood pressure 84 mm[Hg] Chantal Cole MD Work Phone: [facility] 11-29-2023 09:56-0500 Heart rate 102 /min Chantal Cole MD Work Phone: [facility] 11-29-2023 09:56-0500 Systolic blood pressure 139 mm[Hg] Chantal Cole MD Work Phone: [facility] 10-18-2023 19:32-0500 Diastolic blood pressure 65 mm[Hg] Jarret Hernandez MD Work Phone: [facility] 10-18-2023 19:32-0500 Heart rate 79 /min Jarret Hernandez MD Work Phone: [facility] 10-18-2023 19:32-0500 Respiratory rate 16 /min Jarret Hernandez MD Work Phone: [facility] 10-18-2023 19:32-0500 SaO2% (BldA) [Mass fraction] 96 % Jarret Hernandez MD Work Phone: [facility] 10-18-2023 19:32-0500 Systolic blood pressure 139 mm[Hg] Jarret Hernandez MD Work Phone: [facility] 10-18-2023 18:09-0500 Body temperature 98.2 [degF] Jarret Hernandez MD Work Phone: [facility] 10-18-2023 16:13-0500 Body height 177.8 cm Jarret Hernandez MD Work Phone: [facility] 09-27-2023 11:26-0500 Body height 179.1 cm Nieves Whittaker APRN-AUTOMOTIVE SALES EXECUTIVE Work Phone: [facility] 09-27-2023 11:26-0500 Body mass index (BMI) [Ratio] 35.22 kg/m2 Nieves Whittaker APRN-AUTOMOTIVE SALES EXECUTIVE Work Phone: [facility] 09-27-2023 11:26-0500 Body weight 112.95 kg Nieves Whittaker APRN-MARCIA Work Phone: [facility] 09-27-2023 11:26-0500 Diastolic blood pressure 74 mm[Hg] Nieves Whittaker APRN-AUTOMOTIVE SALES EXECUTIVE Work Phone: [facility] 09-27-2023 11:26-0500 Heart rate 100 /min Nieves Whittaker APRN-MARCIA Work Phone: [facility] 09-27-2023 11:26-0500 SaO2% (BldA) [Mass fraction] 97 % Nieves Whittaker SMART ENERGY SPECIALIST-AUTOMOTIVE SALES EXECUTIVE Work Phone: [facility] 09-27-2023 11:26-0500 Systolic blood pressure 160 mm[Hg] Nieves Perlatz SMART ENERGY SPECIALIST-AUTOMOTIVE SALES EXECUTIVE Work Phone: [facility] 08-02-2023 14:46-0400 Diastolic blood pressure 76 mm[Hg] Chantal Cole MD Work Phone: [facility] 08-02-2023 14:46-0400 Systolic blood pressure 138 mm[Hg] Chantal Cole MD Work Phone: [facility] 08-02-2023 14:36-0400 Body height 177.8 cm Chantal Cole MD Work Phone: [facility] 08-02-2023 14:36-0400 Body mass index (BMI) [Ratio] 35.46 kg/m2 Chantal Cole MD Work Phone: [facility] 08-02-2023 14:36-0400 Body weight 112.08 kg Chantal Cole MD Work Phone: [facility] 08-02-2023 14:36-0400 Heart rate 109 /min Chantal Cole MD Work Phone: [facility] 08-02-2023 14:36-0400 SaO2% (BldA) [Mass fraction] 99 % Chantal Cole MD Work Phone: [facility] 07-08-2023 10:34-0400 Body height 177.8 cm Chantal Cole MD Work Phone: [facility] 07-08-2023 10:34-0400 Body mass index (BMI) [Ratio] 35.86 kg/m2 Chantal Cole MD Work Phone: [facility] 07-08-2023 10:34-0400 Body weight 113.35 kg Chantal Cole MD Work Phone: [facility] 07-08-2023 10:34-0400 Diastolic blood pressure 79 mm[Hg] Chantal Cole MD Work Phone: [facility] 07-08-2023 10:34-0400 Heart rate 108 /min Chantal Cole MD Work Phone: [facility] 07-08-2023 10:34-0400 SaO2% (BldA) [Mass fraction] 97 % Chantal Cole MD Work Phone: [facility] 07-08-2023 10:34-0400 Systolic blood pressure 131 mm[Hg] Chantal Cole MD Work Phone: [facility] 05-28-2023 11:20-0400 Body mass index (BMI) [Ratio] 39.03 kg/m2 Renée Woo SMART ENERGY SPECIALIST-AUTOMOTIVE SALES EXECUTIVE Work Phone: [facility] 05-28-2023 11:20-0400 Body weight 123.38 kg Renée Woo SMART ENERGY SPECIALIST-AUTOMOTIVE SALES EXECUTIVE Work Phone: [facility] 05-28-2023 11:20-0400 Diastolic blood pressure 65 mm[Hg] Renée Woo SMART ENERGY SPECIALIST-AUTOMOTIVE SALES EXECUTIVE Work Phone: [facility] 05-28-2023 11:20-0400 Heart rate 92 /min Renée Woo SMART ENERGY SPECIALIST-AUTOMOTIVE SALES EXECUTIVE Work Phone: [facility] 05-28-2023 11:20-0400 SaO2% (BldA) [Mass fraction] 96 % Renée Woo SMART ENERGY SPECIALIST-AUTOMOTIVE SALES EXECUTIVE Work Phone: [facility] 05-28-2023 11:20-0400 Systolic blood pressure 122 mm[Hg] Renée Woo SMART ENERGY SPECIALIST-AUTOMOTIVE SALES EXECUTIVE Work Phone: [facility] 03-12-2023 10:43-0400 Diastolic blood pressure 76 mm[Hg] Chantal Cole MD Work Phone: [facility] 03-12-2023 10:43-0400 Systolic blood pressure 138 mm[Hg] [facility] 03-12-2023 10:23-0400 Body mass index (BMI) [Ratio] 39.01 kg/m2 Chantal Cole MD Work Phone: [facility] 03-12-2023 10:23-0400 Body weight 123.33 kg Chantal Cole MD Work Phone: [facility] 03-12-2023 10:23-0400 Heart rate 99 /min Chantal Cole MD Work Phone: [email or web address] [facility] 12-31-2022 11:40-0400 Body height 177.8 cm Shaniqua Quintero SMART ENERGY SPECIALIST-AUTOMOTIVE SALES EXECUTIVE Work Phone: [facility] 12-31-2022 11:40-0400 Body mass index (BMI) [Ratio] 38.6 kg/m2 Shaniqua Quintero SMART ENERGY SPECIALIST-AUTOMOTIVE SALES EXECUTIVE Work Phone: [facility] 12-31-2022 11:40-0400 Body weight 122.02 kg Shaniqua Quintero SMART ENERGY SPECIALIST-AUTOMOTIVE SALES EXECUTIVE Work Phone: [facility] 12-31-2022 11:40-0400 Diastolic blood pressure 73 mm[Hg] Shaniqua Quintero SMART ENERGY SPECIALIST-AUTOMOTIVE SALES EXECUTIVE Work Phone: [facility] 12-31-2022 11:40-0400 Heart rate 111 /min Shaniqua Quintero SMART ENERGY SPECIALIST-AUTOMOTIVE SALES EXECUTIVE Work Phone: [facility] 12-31-2022 11:40-0400 Respiratory rate 18 /min Shaniqua Quintero SMART ENERGY SPECIALIST-AUTOMOTIVE SALES EXECUTIVE Work Phone: [facility] 12-31-2022 11:40-0400 SaO2% (BldA) [Mass fraction] 97 % Shaniqua Quintero SMART ENERGY SPECIALIST-AUTOMOTIVE SALES EXECUTIVE Work Phone: [facility] 12-31-2022 11:40-0400 Systolic blood pressure 131 mm[Hg] Shaniqua Quintero SMART ENERGY SPECIALIST-AUTOMOTIVE SALES EXECUTIVE Work Phone: [facility] 12-18-2022 10:03-0500 Body height 177.8 cm Chantal Cole MD Work Phone: [facility] 12-18-2022 10:03-0500 Body mass index (BMI) [Ratio] 38.25 kg/m2 Chantal Cole MD Work Phone: [facility] 12-18-2022 10:03-0500 Body weight 120.93 kg Chantal Cole MD Work Phone: [facility] 12-18-2022 10:03-0500 Diastolic blood pressure 85 mm[Hg] Chantal Cole MD Work Phone: [email or web address] [facility] 12-18-2022 10:03-0500 Heart rate 108 /min Chantal Cole MD Work Phone: [facility] 12-18-2022 10:03-0500 Systolic blood pressure 137 mm[Hg] Chantal Cole MD Work Phone: [facility] 11-16-2022 11:30-0500 Body height 177.8 cm Shaniqua Quintero SMART ENERGY SPECIALIST-AUTOMOTIVE SALES EXECUTIVE Work Phone: [facility] 11-16-2022 11:30-0500 Body mass index (BMI) [Ratio] 38.81 kg/m2 Shaniqua Quintero SMART ENERGY SPECIALIST-AUTOMOTIVE SALES EXECUTIVE Work Phone: [facility] 11-16-2022 11:30-0500 Body weight 122.7 kg Shaniqua Quintero SMART ENERGY SPECIALIST-AUTOMOTIVE SALES EXECUTIVE Work Phone: [facility] 11-16-2022 11:30-0500 Diastolic blood pressure 62 mm[Hg] Shaniqua Quintero SMART ENERGY SPECIALIST-AUTOMOTIVE SALES EXECUTIVE [facility] 11-16-2022 11:30-0500 Heart rate 100 /min Shaniqua Quintero SMART ENERGY SPECIALIST-AUTOMOTIVE SALES EXECUTIVE Work Phone: [facility] 11-16-2022 11:30-0500 Respiratory rate 18 /min Shaniqua Quintero SMART ENERGY SPECIALIST-AUTOMOTIVE SALES EXECUTIVE Work Phone: [facility] 11-16-2022 11:30-0500 SaO2% (BldA) [Mass fraction] 97 % Shaniqua Leon SMART ENERGY SPECIALIST-AUTOMOTIVE SALES EXECUTIVE Work Phone: [facility] 11-16-2022 11:30-0500 Systolic blood pressure 143 mm[Hg] Shaniqua Leon SMART ENERGY SPECIALIST-AUTOMOTIVE SALES EXECUTIVE Work Phone: [facility] 10-05-2022 10:22-0500 Diastolic blood pressure 72 mm[Hg] Antonio Mcmillan MD Work Phone: [facility] 10-05-2022 10:22-0500 Heart rate 105 /min Antonio Mcmillan MD Work Phone: [facility] 10-05-2022 10:22-0500 Respiratory rate 20 /min Antonio Mcmillan MD Work Phone: [facility] 10-05-2022 10:22-0500 SaO2% (BldA) [Mass fraction] 97 % Antonio Mcmillan MD Work Phone: [facility] 10-05-2022 10:22-0500 Systolic blood pressure 162 mm[Hg] Antonio Mcmillan MD Work Phone: [facility] 10-05-2022 09:36-0500 Body temperature 98.01 [degF] Antonio Mcmillan MD Work Phone: [facility] 09-24-2022 09:56-0500 Diastolic blood pressure 84 mm[Hg] Chantal Cole MD Work Phone: [facility] 09-24-2022 09:56-0500 Systolic blood pressure 158 mm[Hg] Chantal Cole MD Work Phone: [facility] 09-24-2022 09:38-0500 Body height 177.8 cm Chantal Cole MD Work Phone: [facility] 09-24-2022 09:38-0500 Body mass index (BMI) [Ratio] 38.84 kg/m2 Chantal Cole MD Work Phone: [facility] 09-24-2022 09:38-0500 Body weight 122.79 kg Chantal Cole MD Work Phone: [facility] 09-24-2022 09:38-0500 Heart rate 101 /min Chantal Cole MD Work Phone: [facility] 08-23-2022 10:25-0400 Body height 177.8 cm Antonio Mcmillan MD Work Phone: [facility] 08-23-2022 10:25-0400 Body mass index (BMI) [Ratio] 38.76 kg/m2 Antonio Mcmillan MD Work Phone: [facility] 08-23-2022 10:25-0400 Body weight 122.52 kg Antonio Mcmillan MD Work Phone: [facility] 08-23-2022 10:25-0400 Diastolic blood pressure 86 mm[Hg] Antonio Mcmillan MD Work Phone: [facility] 08-23-2022 10:25-0400 Heart rate 100 /min Antonio Mcmillan MD Work Phone: [facility] 08-23-2022 10:25-0400 Respiratory rate 18 /min Antonio Mcmillan MD Work Phone: [facility] 08-23-2022 10:25-0400 SaO2% (BldA) [Mass fraction] 98 % Antonio Mcmillan MD Work Phone: [facility] 08-23-2022 10:25-0400 Systolic blood pressure 173 mm[Hg] Antonio Mcmillan MD Work Phone: [facility] 06-29-2022 10:00-0400 Body height 179.1 cm Chantal Cole MD Work Phone: [facility] 06-29-2022 10:00-0400 Body mass index (BMI) [Ratio] 37.39 kg/m2 Chantal Cole MD Work Phone: [facility] 06-29-2022 10:00-0400 Body weight 119.89 kg Chantal Cole MD Work Phone: [facility] 06-29-2022 10:00-0400 Diastolic blood pressure 80 mm[Hg] Chantal Cole MD Work Phone: [facility] 06-29-2022 10:00-0400 Heart rate 99 /min Chantal Cole MD [facility]: [email or web address] 06-29-2022 10:00-0400 Systolic blood pressure 134 mm[Hg] Chantal Cole MD Work Phone: [facility] 06-18-2022 16:28-0400 Body mass index (BMI) [Ratio] 38.14 kg/m2 Chantal Cole MD Work Phone: [facility] 06-18-2022 16:28-0400 Body weight 122.29 kg Chantal Cole MD Work Phone: [facility] 04-13-2022 09:24-0400 Body height 179.1 cm Michaela Clinker SMART ENERGY SPECIALIST-AUTOMOTIVE SALES EXECUTIVE Work Phone: [facility] 04-13-2022 09:24-0400 Body mass index (BMI) [Ratio] 37.84 kg/m2 Michaela Clinker SMART ENERGY SPECIALIST-AUTOMOTIVE SALES EXECUTIVE Work Phone: [facility] 04-13-2022 09:24-0400 Body weight 121.34 kg Michaela Clinker SMART ENERGY SPECIALIST-AUTOMOTIVE SALES EXECUTIVE Work Phone: [facility] 04-13-2022 09:24-0400 Diastolic blood pressure 90 mm[Hg] Michaela Clinker SMART ENERGY SPECIALIST-AUTOMOTIVE SALES EXECUTIVE Work Phone: [facility] 04-13-2022 09:24-0400 Heart rate 109 /min Michaela Clinker SMART ENERGY SPECIALIST-AUTOMOTIVE SALES EXECUTIVE [facility] 04-13-2022 09:24-0400 Respiratory rate 18 /min Michaela Clinker SMART ENERGY SPECIALIST-AUTOMOTIVE SALES EXECUTIVE Work Phone: [facility] 04-13-2022 09:24-0400 SaO2% (BldA) [Mass fraction] 95 % Michaela Castellanos SMART ENERGY SPECIALIST-AUTOMOTIVE SALES EXECUTIVE Work Phone: [facility] 04-13-2022 09:24-0400 Systolic blood pressure 183 mm[Hg] Michaela Leoneker SMART ENERGY SPECIALIST-AUTOMOTIVE SALES EXECUTIVE Work Phone: [facility] 03-22-2022 09:38-0400 Body height 180.3 cm Chantal Cole MD Work Phone: [facility] 03-22-2022 09:38-0400 Body mass index (BMI) [Ratio] 37.24 kg/m2 Chantal Cole MD Work Phone: [facility] 03-22-2022 09:38-0400 Body weight 121.11 kg Chantal Cole MD Work Phone: [facility] 03-22-2022 09:38-0400 Diastolic blood pressure 96 mm[Hg] Chantal Cole MD Work Phone: [facility] 03-22-2022 09:38-0400 Heart rate 99 /min Chantal Cole MD Work Phone: [facility] 03-22-2022 09:38-0400 SaO2% (BldA) [Mass fraction] 96 % Chantal Cole MD Work Phone: [facility] 03-22-2022 09:38-0400 Systolic blood pressure 178 mm[Hg] Chantal Cole MD Work Phone: [facility] 01-19-2022 11:38-0400 Body height 180.3 cm Michaela Castellanos SMART ENERGY SPECIALIST-AUTOMOTIVE SALES EXECUTIVE Work Phone: [facility] 01-19-2022 11:38-0400 Body mass index (BMI) [Ratio] 37.1 kg/m2 Michaela Leoneker SMART ENERGY SPECIALIST-AUTOMOTIVE SALES EXECUTIVE Work Phone: [facility] 01-19-2022 11:38-0400 Body weight 120.66 kg Michaela Leoneker SMART ENERGY SPECIALIST-AUTOMOTIVE SALES EXECUTIVE Work Phone: [facility] 01-19-2022 11:38-0400 Diastolic blood pressure 77 mm[Hg] Michaela Leoneker SMART ENERGY SPECIALIST-AUTOMOTIVE SALES EXECUTIVE Work Phone: [facility] 01-19-2022 11:38-0400 Heart rate 103 /min Michaela Leoneker SMART ENERGY SPECIALIST-AUTOMOTIVE SALES EXECUTIVE Work Phone: [email or web address] [facility] 01-19-2022 11:38-0400 SaO2% (BldA) [Mass fraction] 97 % Michaela Leoneker SMART ENERGY SPECIALIST-AUTOMOTIVE SALES EXECUTIVE Work Phone: [facility] 01-19-2022 11:38-0400 Systolic blood pressure 177 mm[Hg] Michaela Leoneker SMART ENERGY SPECIALIST-AUTOMOTIVE SALES EXECUTIVE [facility] 12-18-2021 10:30-0500 Body height 177.8 cm Chantal Cole MD Work Phone: [facility] 12-18-2021 10:30-0500 Body mass index (BMI) [Ratio] 37.82 kg/m2 Chantal Cole MD Work Phone: [facility] 12-18-2021 10:30-0500 Body temperature 97.7 [degF] Chantal Cole MD Work Phone: [facility] 12-18-2021 10:30-0500 Body weight 119.57 kg Chantal Cole MD Work Phone: [facility] 12-18-2021 10:30-0500 Diastolic blood pressure 86 mm[Hg] Chantal Cole MD Work Phone: [facility] 12-18-2021 10:30-0500 Heart rate 88 /min Chantal Cole MD Work Phone: [facility] 12-18-2021 10:30-0500 Respiratory rate 18 /min Chantal Cole MD Work Phone: [facility] 12-18-2021 10:30-0500 SaO2% (BldA) [Mass fraction] 97 % Chantal Cole MD Work Phone: [facility] 12-18-2021 10:30-0500 Systolic blood pressure 134 mm[Hg] Chantal Cole MD Work Phone: [facility] 05-18-2021 11:11-0400 Body height 180.3 cm Antonio Mcmillan MD Work Phone: [facility] 05-18-2021 11:11-0400 Body mass index (BMI) [Ratio] 37.8 kg/m2 Antonio Mcmillan MD Work Phone: [facility] 05-18-2021 11:11-0400 Body weight 122.92 kg Antonio Mcmillan MD Work Phone: [facility] 05-18-2021 11:11-0400 Diastolic blood pressure 79 mm[Hg] Antonio Mcmillan MD Work Phone: [facility] 05-18-2021 11:11-0400 Heart rate 103 /min Antonio Mcmillan MD Work Phone: [facility] 05-18-2021 11:11-0400 Respiratory rate 16 /min Antonio Mcmillan MD Work Phone: [facility] 05-18-2021 11:11-0400 SaO2% (BldA) [Mass fraction] 94 % Antonio Mcmillan MD Work Phone: [facility] 05-18-2021 11:11-0400 Systolic blood pressure 160 mm[Hg] Antonio Mcmillan MD Work Phone: [facility] Encounters Encounter Date Encounter Type Care Provider Facility Start: 07-15-2025 End: 07-15-2025 Office outpatient visit 15 minutes Chantal Cole MD Work Phone: [facility] Medicine Comment on above: Dysuria (Primary Dx) ; Need for influenza vaccination Start: 07-15-2025 ambulatory CHANTAL COLE [facility] Start: 06-07-2025 End: 06-07-2025 Office outpatient visit 25 minutes Chantal Cole MD Work Phone: [facility] Comment on above: Iron deficiency anem ia, unspecified iron deficiency anemia type (Primary Dx); Umbilical hernia without obstruction and without gangrene Start: 06-07-2025 ambulatory [facility] Start: 06-03-2025 ambulatory [facility] Start: 06-03-2025 End: 06-03-2025 Subsequent hospital visit by physician Chantal Cole MD Work Phone: [facility] Mammography Comment on above: Arrived Start: 05-03-2025 End: 05-03-2025 Office outpatient visit 25 minutes Chantal Cole MD Work Phone: [facility] Comment on above: Essential hypertensi on, benign (Primary Dx); Proteinuria, unspecified type; Lumbosacral neuritis; Type 2 diabetes mellitus with peripheral neuropathy; Mixed hyperlipidemia; Iron deficiency anemia, unspecified iron deficiency anemia type; Psoriasis Start: 05-03-2025 ambulatory [facility] Start: 05-01-2025 ambulatory [facility] Start: 12-03-2024 End: 12-03-2024 Subsequent hospital visit by physician Chantal Cole MD Work Phone: [facility] Ultrasound Comment on above: Arrived Start: 12-03-2024 [facility] Start: 11-19-2024 ambulatory [facility] Start: 11-19-2024 End: 11-19-2024 Subsequent hospital visit by physician Chantal Cole MD Work Phone: [facility] Mammography Comment on above: Arrived Start: 11-17-2024 End: 11-17-2024 Office outpatient visit 25 minutes Chantal Cole MD Work Phone: [facility] Comment on above: Type 2 diabetes joshua itus with peripheral neuropathy (Primary Dx); Essential hypertension, benign; Proteinuria, unspecified type; Lumbosacral neuritis; Psoriasis; Mixed hyperlipidemia; Screening mammogram for breast cancer; Colon cancer screening Start: 11-17-2024 [facility] Start: 11-12-2024 ambulatory [facility] Start: 10-16-2024 [facility] Start: 09-04-2024 End: 09-04-2024 Office outpatient visit 25 minutes Chantal Cole MD Work Phone: [facility] Comment on above: Acute bronchitis, un specified organism (Primary Dx); Chronic obstructive pulmonary disease with acute exacerbation Start: 09-04-2024 [facility] Start: 08-14-2024 [facility] Start: 07-27-2024 [facility] Start: 05-29-2024 End: 05-29-2024 Office outpatient visit 25 minutes Chantal Cole MD Work Phone: [facility] Comment on above: Type 2 diabetes joshua itus with peripheral neuropathy (Primary Dx); Essential hypertension, benign; Mixed hyperlipidemia; Lumbar radiculitis; Chronic pain syndrome; Lumbosacral neuritis; Psoriasis; Proteinuria, unspecified type Start: 11-29-2023 End: 11-29-2023 Office outpatient visit 25 minutes Chantal Cole MD Work Phone: [facility] Comment on above: Type 2 diabetes joshua itus with peripheral neuropathy; Lumbar radiculitis; Chronic pain syndrome; Lumbosacral neuritis; Essential hypertension, benign; Mixed hyperlipidemia Start: 10-18-2023 End: 10-18-2023 Emergency department patient visit Jarret Hernandez MD Work Phone: [facility] Emergency Department Start: 09-27-2023 End: 09-27-2023 Office outpatient visit 15 minutes Nieves CARRERA Work Phone: [facility] Comment on above: Greater trochanteric bursitis of left hip (Primary Dx); Primary osteoarthritis of left hip; Spinal stenosis of lumbar region with neurogenic claudication; Sacroiliitis, not elsewhere classified; Chronic pain syndrome Start: 08-02-2023 End: 08-02-2023 Office outpatient visit 25 minutes Chantal Cole MD Work Phone: [facility] Comment on above: Psoriasis (Primary D x); Lumbosacral neuritis Start: 07-17-2023 End: 07-17-2023 Subsequent hospital visit by physician Augustus Suresh MD Work Phone: [facility] MRI Comment on above: Arrived Start: 07-08-2023 End: 07-08-2023 Office outpatient visit 15 minutes Chantal Cole MD Work Phone: [facility] Comment on above: Allergic contact jannette matitis, unspecified trigger (Primary Dx) Start: 06-11-2023 End: 06-11-2023 Subsequent hospital visit by physician Augustus Suresh MD Work Phone: [facility] Diagnostic Radiology Comment on above: Arrived Start: 05-28-2023 End: 05-28-2023 Office outpatient visit 25 minutes Renée Woo SMART ENERGY SPECIALIST-[employer] Work Phone: [facility] Comment on above: Greater trochanteric bursitis of left hip (Primary Dx); Primary osteoarthritis of left hip; Spinal stenosis of lumbar region with neurogenic claudication; Sacroiliitis, not elsewhere classified; Chronic pain syndrome; Encounter for long-term use of opiate analgesic Start: 03-12-2023 End: 03-12-2023 Office outpatient visit 25 minutes Chantal Cole MD Work Phone: [facility] Comment on above: Uncontrolled type 2 diabetes mellitus with hyperglycemia (Primary Dx); Essential hypertension, benign; Lumbosacral neuritis; Type 2 diabetes mellitus with peripheral neuropathy; Lumbar radiculitis; Chronic pain syndrome; Mixed hyperlipidemia Start: 12-31-2022 End: 12-31-2022 Office outpatient visit 15 minutes Shaniqua Quintero SMART ENERGY SPECIALIST-AUTOMOTIVE SALES EXECUTIVE Work Phone: [facility] Comment on above: Greater trochanteric bursitis of left hip (Primary Dx); Primary osteoarthritis of left hip; Spinal stenosis of lumbar region with neurogenic claudication; Chronic pain syndrome Start: 12-18-2022 End: 12-18-2022 Office outpatient visit 25 minutes Chantal Cole MD Work Phone: [facility] Comment on above: Essential hypertensi on, benign; Lumbosacral neuritis; Type 2 diabetes mellitus with peripheral neuropathy; Lumbar radiculitis; Chronic pain syndrome; Mixed hyperlipidemia Start: 12-14-2022 ambulatory [facility]AL [facility] Start: 11-16-2022 End: 11-16-2022 Office outpatient visit 25 minutes Shaniqua XAVIERAUTOMOTIVE SALES EXECUTIVE Work Phone: [facility] Comment on above: Greater trochanteric bursitis of left hip; Primary osteoarthritis of left hip; Spinal stenosis of lumbar region with neurogenic claudication; Chronic pain syndrome Start: 10-05-2022 ambulatory [facility] Start: 10-05-2022 End: 10-05-2022 Patient encounter procedure Antonio Mcmillan MD Work Phone: [facility] Comment on above: Primary osteoarthrit is of left hip (Primary Dx) Start: 10-05-2022 End: 10-05-2022 Subsequent hospital visit by physician Antonio Mcmillan MD Work Phone: [facility] Comment on above: Arrived Start: 09-24-2022 End: 09-24-2022 Office outpatient visit 25 minutes Chantal Cole MD Work Phone: [facility] Comment on above: Essential hypertensi on, benign; Lumbosacral neuritis; Type 2 diabetes mellitus with peripheral neuropathy; Lumbar radiculitis; Chronic pain syndrome; Mixed hyperlipidemia Start: 08-23-2022 End: 08-23-2022 Office outpatient visit 25 minutes Antonio Mcmillan MD Work Phone: [facility] Comment on above: Primary osteoarthrit is of left hip (Primary Dx); Sacroiliitis, not elsewhere classified; Spinal stenosis of lumbar region with neurogenic claudication; Chronic pain syndrome; Encounter for long-term use of opiate analgesic; Lumbar spondylosis Start: 06-29-2022 End: 06-29-2022 Office outpatient visit 25 minutes Chantal Cole MD Work Phone: [facility] Comment on above: Chronic venous stasi s (Primary Dx); Lumbosacral neuritis; Spinal stenosis of lumbar region with neurogenic claudication; Type 2 diabetes mellitus with peripheral neuropathy; Essential hypertension, benign; Mixed hyperlipidemia Start: 06-18-2022 End: 06-18-2022 Office outpatient visit 25 minutes Chantal Cole MD Work Phone: [facility] Comment on above: Cellulitis of left l ower extremity (Primary Dx); Chronic venous stasis; Essential hypertension, benign; Lumbosacral neuritis; Type 2 diabetes mellitus with peripheral neuropathy; Mixed hyperlipidemia; Lumbar radiculitis; Chronic pain syndrome Start: 04-13-2022 End: 04-13-2022 Office outpatient visit 15 minutes Michaela Castellanos SMART ENERGY SPECIALIST-AUTOMOTIVE SALES EXECUTIVE Work Phone: [facility] Comment on above: Lumbar radiculitis ( Primary Dx); Chronic pain syndrome Start: 03-22-2022 End: 03-22-2022 Office outpatient visit 25 minutes Chantal Cole MD Work Phone: [facility] Comment on above: Type 2 diabetes joshua itus with peripheral neuropathy; Essential hypertension, benign; Lumbosacral neuritis; Mixed hyperlipidemia; Psoriasis Start: 01-19-2022 End: 01-19-2022 Office outpatient visit 25 minutes Michaela Castellanos SMART ENERGY SPECIALIST-AUTOMOTIVE SALES EXECUTIVE Work Phone: [facility] Comment on above: Lumbar facet arthrop athy; Lumbar radiculitis; Chronic pain syndrome; Lumbar stenosis with neurogenic claudication Start: 12-18-2021 End: 12-18-2021 Office outpatient visit 25 minutes Chantal Cole MD Work Phone: [facility] Comment on above: Lumbosacral neuritis ; Type 2 diabetes mellitus with peripheral neuropathy; Essential hypertension, benign; Mixed hyperlipidemia Start: 05-18-2021 End: 05-18-2021 Office outpatient visit 25 minutes Antonoi Mcmillan MD Work Phone: [facility] Comment on above: Lumbar stenosis with neurogenic claudication (Primary Dx); Chronic pain syndrome; Sacroiliitis, not elsewhere classified; Lumbar spondylosis; Chronic, continuous use of opioids Procedures Date Procedure Procedure Detail Performing Clinician Start: 07-15-2025 Urnls dip stick/tabl et rgnt non-auto w/o micrscp Chantal Cole MD Work Phone: Start: 06-03-2025 Diagnostic mammograp hy computer-aided detcj uni Chantal Cole MD Work Phone: Start: 12-03-2024 Diagnostic mammograp hy computer-aided detcj uni Chantal Cole MD Work Phone: Start: 12-03-2024 Us breast uni real t bibiana with image limited Chantal Cole MD Work Phone: Start: 05-29-2024 Urine albumin semiquantitative Chantal Cole MD Work Phone: Start: 10-18-2023 End: 10-18-2023 Mri brain brain stem w/o contrast material Jarret Hernandez MD Work Phone: Start: 10-18-2023 Creatinine blood Hasmukh Hernandez MD Work Phone: Start: 07-17-2023 Mri spinal canal lum bar w/o contrast material Augustus Suresh MD Work Phone: Start: 07-17-2023 Dxa bone density vannessa dy 1/> sites axial skel Augustus Suresh MD Work Phone: Start: 07-17-2023 Ct lumbar spine w/o contrast material Augustus Suresh MD Work Phone: Start: 06-11-2023 Radex spine lumbscrl compl w/bending views min 6 Augustus Suresh MD Work Phone: Start: 12-18-2022 Urine albumin semiquantitative Chantal Cole MD Work Phone: Start: 10-05-2022 LARGE JOINT/BURSA IN JECTION AND/OR ASPIRATION Antonio Mcmillan MD Work Phone: Start: 10-05-2022 Gluc bld gluc mntr d ev cleared fda spec home use Antonio Mcmillan MD Work Phone: Plan of Treatment Date Care Activity Detail Author Start: 06-02-2026 Screening for malign ant neoplasm of colon COLORECTAL CANCER SCREENING DISCUSSION [facility] Start: 05-01-2026 Lipid panel LIPIDS [facility] Start: 04-26-2026 Tetanus vaccination TETANUS [facility] Start: 12-09-2025 End: 12-09-2025 Patient encounter procedure 12/09/2025 11:00 AM EST Appointment [facility] [address] [place], [place] [phone] Chantal Cole MD [address] [place] [phone] [facility] Start: 11-19-2025 Screening for malign ant neoplasm of breast MAMMOGRAM SCREENING DISCUSSION [facility] Start: 11-17-2025 Diabetic foot examination DIABETIC FOOT EXAM [facility] Start: 11-17-2025 Screening for malign ant neoplasm of colon COLORECTAL CANCER SCREENING DISCUSSION [facility] Start: 11-12-2025 Lipid panel LIPIDS [facility] Start: 11-12-2025 Potassium [Moles/volume] in Serum or Plasma POTASSIUM [facility] Start: 11-01-2025 Hemoglobin A1c measurement HBA1C TEST [facility] Start: 10-22-2025 Glaucoma screening EYE EXAM [facility] Start: 08-31-2025 End: 08-31-2025 Patient encounter procedure 08/31/2025 10:30 AM EST Office Visit [facility] Medicine [address] [place] [phone] Chantal Cole MD [address] [place] [phone] [facility] Start: 06-21-2025 End: 09-19-2025 Complete blood count with white cell differential, automated CBC, EDIF, PLATELET Lab Routine Iron deficiency anemia, unspecified iron deficiency anemia type Expected: 06/21/2025, Expires: 09/19/2025 [facility] Comment on above: Expected: 06/21/2025 , Expires: 09/19/2025 Start: 06-21-2025 COVID-19 VACCINE ( season) COVID-19 VACCINE ( season) [facility] Start: 06-21-2025 Influenza vaccination INFLUENZA VACC INE (#1) [facility] Start: 06-21-2025 End: 09-19-2025 IRON/IRON BINDING/TRANSFERRIN IRON/IRON BINDING/TRANSFERRIN Lab Routine Iron deficiency anemia, unspecified iron deficiency anemia type Expected: 06/21/2025, Expires: 09/19/2025 [facility] Comment on above: Expected: 06/21/2025 , Expires: 09/19/2025 Start: 06-21-2025 End: 09-19-2025 RETICULOCYTES RETICULOCYTES Lab Routine Iron deficiency anemia, unspecified iron deficiency anemia type Expected: 06/21/2025, Expires: 09/19/2025 [facility] Comment on above: Expected: 06/21/2025 , Expires: 09/19/2025 Start: 06-07-2025 End: 06-07-2025 Patient encounter procedure 06/07/2025 2:30 PM EDT Office Visit [facility] Medicine [address] [place] [phone] Chantal Cole MD [address] [place] [phone] [facility] Start: 06-03-2025 End: 06-03-2025 Patient encounter procedure 06/03/2025 11:30 AM EDT Appointment [facility] [address] [place] [phone] Chantal Cole MD [address] [place] [phone] [facility] Start: 05-31-2025 End: 05-31-2025 Patient encounter procedure 05/31/2025 1:30 PM EDT Office Visit [facility] Medicine [address] [place] [phone] Chantal Cole MD [address] [place] [phone] [facility] Start: 05-29-2025 Urine screening for protein URINE MICROALBUMIN TEST [facility] Start: 05-26-2025 Lipid panel LIPIDS [facility] Start: 05-12-2025 Hemoglobin A1c measurement HBA1C TEST [facility] Start: 05-03-2025 End: 08-01-2025 Complete blood count with white cell differential, automated CBC, EDIF, PLATELET Lab Routine Iron deficiency anemia, unspecified iron deficiency anemia type Expected: 05/03/2025, Expires: 08/01/2025 [facility] Comment on above: Expected: 05/03/2025 , Expires: 08/01/2025 Start: 05-03-2025 End: 05-03-2026 Ferritin [Mass/volume] in Serum or Plasma FERRITIN Lab Routine Iron deficiency anemia, unspecified iron deficiency anemia type Expected: 05/03/2025, Expires: 05/03/2026 [facility] Comment on above: Expected: 05/03/2025 , Expires: 05/03/2026 Start: 05-03-2025 End: 05-03-2026 IRON/IRON BINDING/TRANSFERRIN IRON/IRON BINDING/TRANSFERRIN Lab Routine Iron deficiency anemia, unspecified iron deficiency anemia type Expected: 05/03/2025, Expires: 05/03/2026 [facility] Comment on above: Expected: 05/03/2025 , Expires: 05/03/2026 Start: 05-03-2025 End: 05-03-2026 RETICULOCYTES RETICULOCYTES Lab Routine Iron deficiency anemia, unspecified iron deficiency anemia type Expected: 05/03/2025, Expires: 05/03/2026 [facility] Comment on above: Expected: 05/03/2025 , Expires: 05/03/2026 Start: 05-03-2025 End: 05-03-2025 Patient encounter procedure 05/03/2025 10:30 AM EDT Office Visit [facility] Medicine [address] [place] [phone] Chantal Cole MD [address] [place] [phone] [facility] Start: 04-16-2025 End: 08-14-2025 Complete blood count with white cell differential, automated CBC, EDIF, PLATELET Lab Routine Essential hypertension, benign Expected: 04/16/2025 (Approximate), Expires: 08/14/2025 [facility] Comment on above: Expected: 04/16/2025 (Approximate), Expires: 08/14/2025 Start: 04-16-2025 End: 08-14-2025 Comprehensive metabolic 2000 panel - Serum or Plasma COMPREHENSIVE METABOLIC PANEL Lab Routine Essential hypertension, benign Type 2 diabetes mellitus with peripheral neuropathy Expected: 04/16/2025, Expires: 08/14/2025 [facility] Comment on above: Expected: 04/16/2025 , Expires: 08/14/2025 Start: 04-16-2025 End: 08-14-2025 Hemoglobin A1c/Hemoglobin.total in Blood HEMOGLOBIN A1C Lab Routine Type 2 diabetes mellitus with peripheral neuropathy Expected: 04/16/2025, Expires: 08/14/2025 [facility] Comment on above: Expected: 04/16/2025 , Expires: 08/14/2025 Start: 04-16-2025 End: 08-14-2025 LIPID PANEL W CALCULATED LDL LIPID PANEL W CALCULATED LDL Lab Routine Essential hypertension, benign Expected: 04/16/2025, Expires: 08/14/2025 [facility] Comment on above: Expected: 04/16/2025 , Expires: 08/14/2025 Start: 01-26-2025 COVID-19 VACCINE () COVID-19 VACCINE () [facility] Start: 11-28-2024 Lipid panel LIPIDS [facility] Start: 11-28-2024 Potassium [Moles/volume] in Serum or Plasma POTASSIUM [facility] Start: 11-26-2024 Hemoglobin A1c measurement HBA1C TEST [facility] Start: 11-19-2024 End: 11-19-2024 Patient encounter procedure 11/19/2024 10:30 AM EST Appointment [facility] [address] [place] [phone] Chantal Cole MD [address] [facility] [place] [phone] [facility] Start: 11-17-2024 End: 11-17-2025 MG Breast - bilateral Screening MAMMO SCREENING WITH TRENTON BILATERAL Imaging Routine Screening mammogram for breast cancer Expected: 11/17/2024, Expires: 11/17/2025 [facility] Comment on above: Expected: 11/17/2024 , Expires: 11/17/2025 Start: 11-17-2024 End: 11-17-2024 Patient encounter procedure [facility] Start: 10-26-2024 End: 02-23-2025 Complete blood count with white cell differential, automated CBC, EDIF, PLATELET Lab Routine Type 2 diabetes mellitus with peripheral neuropathy Essential hypertension, benign Expected: 10/26/2024 (Approximate), Expires: 02/23/2025 [facility] Comment on above: Expected: 10/26/2024 (Approximate), Expires: 02/23/2025 Start: 10-26-2024 End: 02-23-2025 Comprehensive metabolic 2000 panel - Serum or Plasma COMPREHENSIVE METABOLIC PANEL Lab Routine Type 2 diabetes mellitus with peripheral neuropathy Essential hypertension, benign Mixed hyperlipidemia Expected: 10/26/2024, Expires: 02/23/2025 [facility] Comment on above: Expected: 10/26/2024 , Expires: 02/23/2025 Start: 10-26-2024 End: 02-23-2025 Hemoglobin A1c/Hemoglobin.total in Blood HEMOGLOBIN A1C Lab Routine Type 2 diabetes mellitus with peripheral neuropathy Expected: 10/26/2024, Expires: 02/23/2025 [facility] Comment on above: Expected: 10/26/2024 , Expires: 02/23/2025 Start: 10-26-2024 End: 02-23-2025 LIPID PANEL W CALCULATED LDL LIPID PANEL W CALCULATED LDL Lab Routine Type 2 diabetes mellitus with peripheral neuropathy Essential hypertension, benign Mixed hyperlipidemia Expected: 10/26/2024, Expires: 02/23/2025 [facility] Comment on above: Expected: 10/26/2024 , Expires: 02/23/2025 Start: 10-18-2024 Potassium [Moles/volume] in Serum or Plasma POTASSIUM [facility] Start: 07-17-2024 Screening for osteoporosis DEXA SCAN DISCUSSION [facility] Start: 06-21-2024 Influenza vaccination INFLUENZA VACC INE (#1) [facility] Start: 06-10-2024 Lipid panel LIPIDS [facility] Start: 06-10-2024 Potassium [Moles/volume] in Serum or Plasma POTASSIUM [facility] Start: 05-29-2024 End: 05-29-2025 URINE PROTEIN/CREA RATIO, RANDOM URINE PROTEIN/CREA RATIO, RANDOM Fluids Routine Type 2 diabetes mellitus with peripheral neuropathy Proteinuria, unspecified type Expected: 05/29/2024, Expires: 05/29/2025 [facility] Comment on above: Expected: 05/29/2024 , Expires: 05/29/2025 Start: 05-29-2024 End: 05-29-2024 Patient encounter procedure 05/29/2024 10:45 AM EDT Office Visit [facility] [address] [place] [phone] Chantal Cole MD [address] [place] [phone] [facility] Start: 05-28-2024 Hemoglobin A1c measurement HBA1C TEST [facility] Start: 04-27-2024 End: 08-25-2024 Hemoglobin A1c/Hemoglobin.total in Blood HEMOGLOBIN A1C Lab Routine Type 2 diabetes mellitus with peripheral neuropathy Expected: 04/27/2024, Expires: 08/25/2024 [facility] Comment on above: Expected: 04/27/2024 , Expires: 08/25/2024 Start: 04-27-2024 End: 08-25-2024 Hepatic function 2000 panel - Serum or Plasma HEPATIC FUNCTION PANEL Lab Routine Mixed hyperlipidemia Type 2 diabetes mellitus with peripheral neuropathy Expected: 04/27/2024 (Approximate), Expires: 08/25/2024 [facility] Comment on above: Expected: 04/27/2024 (Approximate), Expires: 08/25/2024 Start: 04-27-2024 End: 08-25-2024 LIPID PANEL W CALCULATED LDL LIPID PANEL W CALCULATED LDL Lab Routine Mixed hyperlipidemia Type 2 diabetes mellitus with peripheral neuropathy Expected: 04/27/2024, Expires: 08/25/2024 [facility] Comment on above: Expected: 04/27/2024 , Expires: 08/25/2024 Start: 03-23-2024 End: 03-23-2024 Patient encounter procedure 03/23/2024 10:30 AM EDT Office Visit [facility] [address] [place] [address] Nieves Whittaker, SMART ENERGY SPECIALIST-AUTOMOTIVE SALES EXECUTIVE [address] [place] [address] [facility] Start: 03-06-2024 Hemoglobin A1c measurement HBA1C TEST [facility] Start: 12-18-2023 Urine screening for protein URINE MICROALBUMIN TEST [facility] Start: 12-17-2023 Lipid panel LIPIDS [facility] Start: 12-11-2023 Hemoglobin A1c measurement HBA1C TEST [facility] Start: 11-29-2023 End: 11-29-2023 Patient encounter procedure 11/29/2023 10:00 AM EST Office Visit [address] [phone] Chantal Cole MD [address] [place] [phone] [facility] Start: 10-24-2023 End: 10-24-2023 Patient encounter procedure 10/24/2023 1:15 PM EST Office Visit [facility] Medicine [address] [place] [phone] Chantal Cole MD [address] [place] [phone] [facility] Start: 09-27-2023 End: 09-27-2024 XR Hip - left 2 Views XR HIP LEFT 2 VIEWS Imaging Routine Primary osteoarthritis of left hip Expected: 09/27/2023, Expires: 09/27/2024 [facility] Comment on above: Expected: 09/27/2023 , Expires: 09/27/2024 Start: 09-27-2023 End: 09-27-2023 Patient encounter procedure 09/27/2023 11:30 AM EST Office Visit [facility] [address] [place] [address] Nieves Whittaker, SMART ENERGY SPECIALIST-AUTOMOTIVE SALES EXECUTIVE [address] [place] [address] [facility] Start: 09-11-2023 Hemoglobin A1c measurement HBA1C TEST [facility] Start: 09-10-2023 End: 09-10-2023 Patient encounter procedure 09/10/2023 11:00 AM EST Office Visit [address] [phone] Chantal Cole MD [address] [place] [phone] [facility] Start: 07-23-2023 End: 07-23-2023 Patient encounter procedure 07/23/2023 11:00 AM EDT Office Visit [facility] [address] [place] [address] Nieves Whittaker, SMART ENERGY SPECIALIST-AUTOMOTIVE SALES EXECUTIVE [address] [place] [address] [facility] Start: 06-26-2023 Lipid panel LIPIDS [facility] Start: 06-26-2023 LIPIDS LIPIDS [facility] Start: 06-26-2023 Potassium [Moles/volume] in Serum or Plasma POTASSIUM [facility] Start: 06-21-2023 Influenza vaccination INFLUENZA VACC INE (#1) [facility] Start: 06-16-2023 Hemoglobin A1c measurement HBA1C TEST [facility] Start: 06-11-2023 End: 06-11-2023 Patient encounter procedure [facility] Start: 05-11-2023 End: 07-30-2023 Complete blood count with white cell differential, automated CBC, EDIF, PLATELET Lab Routine Essential hypertension, benign Expected: 05/11/2023 (Approximate), Expires: 07/30/2023 [facility] Comment on above: Expected: 05/11/2023 (Approximate), Expires: 07/30/2023 Start: 05-11-2023 End: 07-30-2023 Comprehensive metabolic 2000 panel - Serum or Plasma COMPREHENSIVE METABOLIC PANEL Lab Routine Essential hypertension, benign Mixed hyperlipidemia Uncontrolled type 2 diabetes mellitus with hyperglycemia Expected: 05/11/2023 (Approximate), Expires: 07/30/2023 [facility] Comment on above: Expected: 05/11/2023 (Approximate), Expires: 07/30/2023 Start: 05-11-2023 End: 07-30-2023 Hemoglobin A1c/Hemoglobin.total in Blood HEMOGLOBIN A1C Lab Routine Uncontrolled type 2 diabetes mellitus with hyperglycemia Expected: 05/11/2023 (Approximate), Expires: 07/30/2023 [facility] Comment on above: Expected: 05/11/2023 (Approximate), Expires: 07/30/2023 Start: 05-11-2023 End: 07-30-2023 LIPID PANEL W CALCULATED LDL LIPID PANEL W CALCULATED LDL Lab Routine Essential hypertension, benign Mixed hyperlipidemia Expected: 05/11/2023, Expires: 07/30/2023 [facility] Comment on above: Expected: 05/11/2023 , Expires: 07/30/2023 Start: 04-02-2023 End: 04-02-2023 Patient encounter procedure 04/02/2023 Office Visit Anesthesiology Pain Mgt Shaniqua Quintero APRN-AUTOMOTIVE SALES EXECUTIVE [address] [place] [address] [facility] Start: 04-01-2023 End: 04-01-2023 Patient encounter procedure 04/01/2023 Office Visit Anesthesiology Pain Mgt Renée Woo APRN-AUTOMOTIVE SALES EXECUTIVE [address] [place] [address] [facility] Start: 03-22-2023 Hemoglobin A1c measurement HBA1C TEST [facility] Start: 03-12-2023 End: 03-12-2023 Patient encounter procedure 03/12/2023 Office Visit Family Medicine Chantal Cole MD [address] [place] [phone] [facility] Start: 01-04-2023 End: 01-04-2023 Patient encounter procedure 01/04/2023 Office Visit Anesthesiology Pain Mgt Shaniqua Quintero APRN-AUTOMOTIVE SALES EXECUTIVE [address] [place] [address] [facility] Start: 12-31-2022 End: 12-31-2022 Patient encounter procedure 12/31/2022 Office Visit Anesthesiology Pain Mgt Shaniqua Quintero, MARIA M-AUTOMOTIVE SALES EXECUTIVE [address] [place] [address] [facility] Start: 12-24-2022 Hemoglobin A1c measurement HBA1C TEST [facility] Start: 12-18-2022 End: 12-18-2023 CREATININE CLEARANCE CREATININE CLEARANCE Fluids Routine Essential hypertension, benign Type 2 diabetes mellitus with peripheral neuropathy Expected: 12/18/2022, Expires: 12/18/2023 [facility] Comment on above: Expected: 12/18/2022 , Expires: 12/18/2023 Start: 12-18-2022 End: 12-18-2023 CREATININE, 24 HR URINE CREATININE, 24 HR URINE Fluids Routine Essential hypertension, benign Type 2 diabetes mellitus with peripheral neuropathy Expected: 12/18/2022, Expires: 12/18/2023 [facility] Comment on above: Expected: 12/18/2022 , Expires: 12/18/2023 Start: 12-18-2022 End: 12-18-2023 PROTEIN, 24 HR URINE PROTEIN, 24 HR URINE Fluids Routine Essential hypertension, benign Type 2 diabetes mellitus with peripheral neuropathy Expected: 12/18/2022, Expires: 12/18/2023 [facility] Comment on above: Expected: 12/18/2022 , Expires: 12/18/2023 Start: 12-18-2022 End: 12-18-2022 Patient encounter procedure 12/18/2022 Office Visit Family Medicine Chantal Cole MD [address] [facility] [place] [phone] [facility] Start: 12-14-2022 LIPIDS LIPIDS [facility] Start: 12-14-2022 End: 12-14-2022 Patient encounter procedure 12/14/2022 Office Visit Anesthesiology Pain Mgt Antonio Mcmillan MD [address] [facility] [address] [facility] Procedural Pain Management Start: 11-23-2022 End: 02-11-2023 Hemoglobin A1c/Hemoglobin.total in Blood HEMOGLOBIN A1C Lab Routine Essential hypertension, benign Type 2 diabetes mellitus with peripheral neuropathy Expected: 11/23/2022 (Approximate), Expires: 02/11/2023 [facility] Comment on above: Expected: 11/23/2022 (Approximate), Expires: 02/11/2023 Start: 11-23-2022 End: 02-11-2023 Hepatic function 2000 panel - Serum or Plasma HEPATIC FUNCTION PANEL Lab Routine Essential hypertension, benign Type 2 diabetes mellitus with peripheral neuropathy Mixed hyperlipidemia Expected: 11/23/2022 (Approximate), Expires: 02/11/2023 [facility] Comment on above: Expected: 11/23/2022 (Approximate), Expires: 02/11/2023 Start: 11-23-2022 End: 02-11-2023 LIPID PANEL W CALCULATED LDL LIPID PANEL W CALCULATED LDL Lab Routine Essential hypertension, benign Mixed hyperlipidemia Expected: 11/23/2022, Expires: 02/11/2023 [facility] Comment on above: Expected: 11/23/2022 , Expires: 02/11/2023 Start: 11-15-2022 End: 11-15-2022 Patient encounter procedure 11/15/2022 Office Visit Anesthesiology Pain Mgt Antonio Mcmillan MD [address] [place] [address] [facility] Start: 10-05-2022 End: 10-05-2023 Fluoroscopy guided nasogastric tube procedure [facility] Comment on above: Expected: 10/05/2022 , Expires: 10/05/2023 1 Occurrences starti ng 10/05/2022 until 10/05/2022 Start: 10-05-2022 End: 10-05-2022 Patient encounter procedure 10/05/2022 Office Visit Anesthesiology Pain Mgt Antonio Mcmillan MD [address] [place] [address] [facility] Procedural Pain Management Start: 09-24-2022 End: 09-24-2022 Patient encounter procedure 09/24/2022 Office Visit Family Medicine Chantal Cole MD [address] [place] [id number] [facility] Start: 09-20-2022 Hemoglobin A1c measurement HBA1C TEST [facility] Start: 08-28-2022 End: 11-16-2022 Hemoglobin A1c/Hemoglobin.total in Blood HEMOGLOBIN A1C Lab Routine Type 2 diabetes mellitus with peripheral neuropathy Expected: 08/28/2022 (Approximate), Expires: 11/16/2022 [facility] Comment on above: Expected: 08/28/2022 (Approximate), Expires: 11/16/2022 Start: 08-28-2022 End: 11-16-2022 Hepatic function 2000 panel - Serum or Plasma HEPATIC FUNCTION PANEL Lab Routine Type 2 diabetes mellitus with peripheral neuropathy Expected: 08/28/2022 (Approximate), Expires: 11/16/2022 [facility] Comment on above: Expected: 08/28/2022 (Approximate), Expires: 11/16/2022 Start: 08-23-2022 End: 08-23-2022 Patient encounter procedure 08/23/2022 Office Visit Anesthesiology Pain Mgt Antonio Mcmillan MD [address] [place] [address] [facility] Start: 06-29-2022 End: 06-29-2022 Patient encounter procedure 06/29/2022 Office Visit Family Medicine Chantal Cole MD [address] [place] [phone] [facility] Start: 06-26-2022 End: 06-26-2022 Patient encounter procedure [facility] Start: 06-21-2022 Influenza vaccination INFLUENZA VACC INE (#1) [facility] Start: 06-13-2022 Hemoglobin A1c measurement HBA1C TEST [facility] Start: 06-13-2022 Potassium [Moles/volume] in Serum or Plasma POTASSIUM [facility] Start: 06-08-2022 End: 06-08-2022 Patient encounter procedure 06/08/2022 Office Visit Anesthesiology Pain Mgt Michaela Castellanos, SMART ENERGY SPECIALIST-AUTOMOTIVE SALES EXECUTIVE [address] [place] [address] [facility] Start: 05-21-2022 End: 08-09-2022 Complete blood count with white cell differential, automated CBC, EDIF, PLATELET Lab Routine Type 2 diabetes mellitus with peripheral neuropathy Essential hypertension, benign Expected: 05/21/2022 (Approximate), Expires: 08/09/2022 [facility] Comment on above: Expected: 05/21/2022 (Approximate), Expires: 08/09/2022 Start: 05-21-2022 End: 08-09-2022 Comprehensive metabolic 2000 panel - Serum or Plasma COMPREHENSIVE METABOLIC PANEL Lab Routine Type 2 diabetes mellitus with peripheral neuropathy Essential hypertension, benign Mixed hyperlipidemia Expected: 05/21/2022 (Approximate), Expires: 08/09/2022 [facility] Comment on above: Expected: 05/21/2022 (Approximate), Expires: 08/09/2022 Start: 05-21-2022 End: 08-09-2022 Hemoglobin A1c/Hemoglobin.total in Blood HEMOGLOBIN A1C Lab Routine Type 2 diabetes mellitus with peripheral neuropathy Expected: 05/21/2022 (Approximate), Expires: 08/09/2022 [facility] Comment on above: Expected: 05/21/2022 (Approximate), Expires: 08/09/2022 Start: 05-21-2022 End: 08-09-2022 LIPID PANEL W CALCULATED LDL LIPID PANEL W CALCULATED LDL Lab Routine Essential hypertension, benign Mixed hyperlipidemia Expected: 05/21/2022, Expires: 08/09/2022 [facility] Comment on above: Expected: 05/21/2022 , Expires: 08/09/2022 Start: 05-11-2022 End: 05-11-2022 Patient encounter procedure 05/11/2022 Office Visit Anesthesiology Pain Mgt Michaela Castellanos, SMART ENERGY SPECIALIST-AUTOMOTIVE SALES EXECUTIVE [address] [place] [address] [facility] Start: 04-13-2022 End: 04-13-2022 Patient encounter procedure 04/13/2022 Office Visit Anesthesiology Pain t Michaela Castellanos, SMART ENERGY SPECIALIST-AUTOMOTIVE SALES EXECUTIVE [address] [place] [address] [facility] Start: 03-22-2022 End: 03-22-2022 Patient encounter procedure 03/22/2022 Office Visit Family Medicine Chantal Cole MD [address] [facility] [place] [address] [facility] Start: 02-16-2022 End: 05-07-2022 Hemoglobin A1c/Hemoglobin.total in Blood HEMOGLOBIN A1C Lab Routine Type 2 diabetes mellitus with peripheral neuropathy Expected: 02/16/2022 (Approximate), Expires: 05/07/2022 [facility] Comment on above: Expected: 02/16/2022 (Approximate), Expires: 05/07/2022 Start: 02-16-2022 End: 05-07-2022 Hepatic function 2000 panel - Serum or Plasma HEPATIC FUNCTION PANEL Lab Routine Type 2 diabetes mellitus with peripheral neuropathy Expected: 02/16/2022 (Approximate), Expires: 05/07/2022 [facility] Comment on above: Expected: 02/16/2022 (Approximate), Expires: 05/07/2022 Start: 01-19-2022 End: 01-19-2022 Patient encounter procedure 01/19/2022 Office Visit Anesthesiology Pain Mgt Jasmin Michaela Fuentes, SMART ENERGY SPECIALIST-AUTOMOTIVE SALES EXECUTIVE [address] [place] [address] [facility] Start: 12-16-2021 Potassium [Moles/volume] in Serum or Plasma POTASSIUM [facility] Start: 09-27-2021 LIPIDS LIPIDS [facility] Start: 09-13-2021 Hemoglobin A1c measurement HBA1C TEST [facility] Start: 08-04-2021 End: 08-04-2021 Patient encounter procedure 08/04/2021 Office Visit Anesthesiology Pain Mgt Vasumanjula Michaela Fuentes, SMART ENERGY SPECIALIST-AUTOMOTIVE SALES EXECUTIVE [address] [place] [address] [facility] Start: 07-06-2021 End: 07-06-2021 Patient encounter procedure 07/06/2021 Office Visit Nephrology Eladio Arreola MD [address] [place] [address] [facility] 2 Start: 06-21-2021 Influenza vaccination INFLUENZA VACC INE (#1) [facility] Start: 06-15-2021 End: 06-15-2021 Patient encounter procedure 06/15/2021 Office Visit Family Medicine Chantal Cole MD [address] [place] [address] [facility] Start: 12-23-2020 Microalbumin measurement, urine, quantitative URINE MICROALBUMIN TEST [facility] Start: 12-23-2020 Urine screening for protein URINE MICROALBUMIN TEST [facility] Start: 2018 RSV VACCINE (1 - 1-d ose 60+ series) RSV VACCINE (1 - 1-dose 60+ series) [facility] Start: 2018 RSV VACCINE (1 - Ris k 60-74 years 1-dose series) RSV VACCINE (1 - Risk 60-74 years 1-dose series) [facility] Start: 2008 Zoster vaccine hzv l brady for subcutaneous use ZOSTER (SHINGLES) VACCINE (1 of 2) [facility] Start: 2003 Colonoscopy COLORECTAL CAN CER SCREENING DISCUSSION [facility] Start: 2003 Screening for malign ant neoplasm of colon COLORECTAL CANCER SCREENING DISCUSSION [facility] Start: 1998 Screening for malign ant neoplasm of breast MAMMOGRAM SCREENING DISCUSSION [facility] Start: 1998 Screening mammography MAMMOGRA M SCREENING DISCUSSION [facility] Start: 1979 Screening for malign ant neoplasm of cervix CERVICAL CANCER SCREENING DISCUSSION [facility] Start: 1977 Pneumococcal vaccination PNEUMOCOCCAL VACCINE SERIES (1 of 2 - PCV) [facility] Start: 1977 Third diphtheria, tetanus and acellular pertussis (DTaP) vaccination TDAP (ADULT) [facility] Start: 1976 Tetanus vaccination TETANUS [facility] Start: 1973 HIV screening HIV SCREENING DISCUSSI ON [facility] Start: 1964 Pneumococcal vaccination PNEUMOCOCCAL VACCINE SERIES (1 of 2 - PCV) [facility] Start: 1964 PNEUMOCOCCAL VACCINE SERIES (1 - PCV) PNEUMOCOCCAL VACCINE SERIES (1 - PCV) [facility] Start: 1964 PNEUMOCOCCAL VACCINE SERIES (1 of 2 - PPSV23) PNEUMOCOCCAL VACCINE SERIES (1 of 2 - PPSV23) [facility] Start: 1963 COVID-19 VACCINE (#1) COVID-19 VACCI NE (#1) [facility] Start: 1963 COVID-19 VACCINE (1) COVID-19 VACCIN E (1) [facility] Start: 05-05-1959 COVID-19 VACCINE (#1) COVID-19 VACCI NE (#1) [facility] Start: 1958 Diabetic foot examination DIABETIC FOOT EXAM [facility] Start: 1958 Diabetic retinal eye exam [facility] Start: 1958 Glaucoma screening EYE EXAM [facility] Start: 1958 Hepatitis C antibody , confirmatory test HEPATITIS C VIRUS SCREENING [facility] Start: 1958 Hepatitis C screening HEPATITI S C VIRUS SCREENING [facility] COLOGUARD COLOGUARD Outsid e Labs Routine Colon cancer screening Ordered: 11/17/2024 [facility] Comment on above: Ordered: 11/17/2024 End: 11-19-2024 MG Breast - bilateral Screening [facility] Comment on above: 1 Occurrences starti ng 11/19/2024 until 11/19/2024 End: 10-18-2023 Standard ECG ECG ECG STAT One Time for 1 Occurrences starting 10/18/2023 until 10/18/2023 [facility] Comment on above: One Time for 1 Occur rences starting 10/18/2023 until 10/18/2023 Immunizations Immunization Date Immunization Notes Care Provider Sonya gutierrez 07-15-2025 influenza, high dose seasonal, preservative-free Chantal Cole MD Work Phone: [facility] 07-28-2024 influenza, high dose seasonal, preservative-free Chantal Cole MD Work Phone: [facility] 07-28-2024 influenza virus vaccine, unspecified formulation Chantal Cole MD Work Phone: [facility] 07-18-2023 influenza, injectabl e, quadrivalent, preservative free Nieves Whittaker SMART ENERGY SPECIALIST-AUTOMOTIVE SALES EXECUTIVE Work Phone: [facility] 07-18-2023 influenza virus vaccine, unspecified formulation Chantal Cole MD Work Phone: [facility] 09-03-2022 Seasonal, quadrivale nt, recombinant, injectable influenza vaccine, preservative free Nieves Whittaker SMART ENERGY SPECIALIST-AUTOMOTIVE SALES EXECUTIVE Work Phone: [facility] 09-03-2022 influenza virus vaccine, unspecified formulation Renée Woo SMART ENERGY SPECIALIST-AUTOMOTIVE SALES EXECUTIVE Work Phone: [facility] 09-01-2021 influenza, injectabl e, quadrivalent, preservative free Chantal Cole MD Work Phone: [facility] 09-01-2021 influenza virus vaccine, unspecified formulation Chantal Cole MD Work Phone: [facility] 07-05-2020 Influenza, injectabl e, Madin Senath Canine Kidney, preservative free, quadrivalent Nieves Whittaker SMART ENERGY SPECIALIST-AUTOMOTIVE SALES EXECUTIVE Work Phone: [facility] 09-13-2017 Influenza, injectabl e, Madin Tonya Canine Kidney, preservative free, quadrivalent Nieves Remedios SMART ENERGY SPECIALIST-AUTOMOTIVE SALES EXECUTIVE Work Phone: [facility] 04-26-2016 tetanus toxoid, redu dion diphtheria toxoid, and acellular pertussis vaccine, adsorbed Chantal Cole MD Work Phone: [facility] Payers Date Payer Category Payer Medicare [employer] MED[employer] HMO PPO [id number] 2018-Present [address] [place] [address] [id number] 2018 Medicare [employer] MED[employer]ARE [employer] HMO PPO [id number] 2018-Present [address] [place] [address] [id number] 2018 Medicare (Managed Care) MEDICARE [employer] M[employer] HMO PPO [id number] 2017 Medicare [id number] 1958 Unknown [id number] [id number]. 2.983 1958 Unknown [id number] 2.16.840.1.720056.3.579. 2.983 1958 Unknown [id number] 2.16.840.1.269522.3.579. 2.983 1958 Unknown [id number] 2.16.840.1.010975.3.579. 2.983 1958 Unknown [id number] 2.16.840.1.245927.3.579. 2.98 1958 Unknown [id number] 2.16.840.1.550514.3.579. 2.98 1958 Unknown [id number] 2.16.840.1.063327.3.579. 2.98 1958 Unknown [id number] 2.16.840.1.429287.3.579. 2.98 1958 Unknown [id number] 2.16.840.1.413633.3.579. 2.98 1958 Unknown [id number] 2.16.840.1.779175.3.579. 2.98 1958 Unknown [id number] 2.16.840.1.830043.3.579. 2.983 1958 Unknown [id number] 2.16.840.1.440787.3.579. 2.98 1958 Unknown [id number] 2.16.840.1.032525.3.579. 2.983 1958 Unknown [id number] 2.16.840.1.115036.3.579. 2.98 1958 Unknown [id number] 2.16.840.1.070124.3.579. 2.98 1958 Unknown [id number] 2.16.840.1.101376.3.579. 2.98 1958 Unknown [id number] 2.16.840.1.893615.3.579. 2.983 1958 Unknown [id number] 2.16.840.1.986964.3.579. 2.983 1958 Unknown [id number] 2.16.840.1.656561.3.579. 2.983 Social History Date Type Detail Facility Start: 09-14-2013 End: 12-18-2013 Tobacco smoking status NHIS Smokes tobacco daily [facility] History of tobacco use Cigarette Smoker A [facility] Start: 09-14-2013 End: 07-15-2025 Cigarettes smoked current (pack per day) - Reported 1 [facility] Start: 09-14-2013 End: 12-18-2013 Tobacco use and exposure Smokeless tobacco non-user [facility] Start: 12-18-2021 End: 07-15-2025 Alcohol intake Current non-drinker of alcohol (finding) [facility] Start: 1960 Sex Assigned At Not on file A [facility] Start: 12-08-2021 End: 03-12-2023 Exposure to SARS-CoV-2 (event) Not sure [facility] Start: 03-12-2023 End: 07-15-2025 Tobacco use panel [facility] Gender identity Identifies as fe male gender (finding) [facility] Start: 08-17-2013 Sex Female (finding) [facility] How hard is it for y ou to pay for the very basics like food, housing, medical care, and heating Not hard at all [facility] Clinical Notes 05-18-2021 to 07-15-2025 Namita Guevara - 07/15/2025 1:30 PM Saadia Cole MD - 07/15/2025 1:30 PM Jerald Aguilar - 06/07/2025 2:30 PM Saadia Cole MD - 06/07/2025 2:30 PM Jerald Aguilar - 09/04/2024 1:00 PM EST Note Date & Type Note Facility 07-15-2025 History of Presen t illness Narrative Nurse Note: Review of Systems Constitutional: Negative for fatigue and fever. HENT: Negative for congestion, ear pain and sore throat. Eyes: Negative for pain and redness. Respiratory: Negative for cough and shortness of breath. Cardiovascular: Negative for chest pain and palpitations. Gastrointestinal: Negative for abdominal pain, constipation, diarrhea, nausea and vomiting. Genitourinary: Positive for decreased urine volume, difficulty urinating, dysuria, flank pain, frequency, urgency and vaginal pain. Musculoskeletal: Positive for arthralgias and myalgias. Skin: Negative for rash and wound. Neurological: Negative for dizziness and headaches. Chief Complaint Patient presents with Urinary Frequency Started around a month ago, with burning, frequency, urgency, feeling of fullness of bladder/ not being able to empty, difficulty starting flow, irritations, urine decrease occasionally, discoloration (brownish orange when wiping), flank plank . No OTC medications tried, does wear a pad to help with accidents HPI: Urinary frequency: she is having dysuria, for the past month. Denies itching, no vaginal discharge. She is on Farxiga. ROS: Review of Systems Nurse Note: Review of Systems Constitutional: Negative for fatigue and fever. HENT: Negative for congestion, ear pain and sore throat. Eyes: Negative for pain and redness. Respiratory: Negative for cough and shortness of breath. Cardiovascular: Negative for chest pain and palpitations. Gastrointestinal: Negative for abdominal pain, constipation, diarrhea, nausea and vomiting. Genitourinary: Positive for decreased urine volume, difficulty urinating, dysuria, flank pain, frequency, urgency and vaginal pain. Musculoskeletal: Positive for arthralgias and myalgias. Skin: Negative for rash and wound. Neurological: Negative for dizziness and headaches. Past medical/family/social history: reviewed and updated, see documented in patient's chart. Physical Exam: BP 115/68 (BP Location: Left arm, BP Position: Sitting) Pulse 102 Wt 97 kg (213 lb 12.8 oz) SpO2 97% BMI 31.03 kg/m Smoking Status Every Day Body mass index is 31.03 kg/m . Physical Exam Assessment/Plan: Assessment & Plan Dysuria Recommend increase in water intake, most likely side effect of Farxiga, if persists will need to stop medication Orders: POCT URINALYSIS DIPSTICK NON AUTOMATED Need for influenza vaccination update Orders: influenza high-dose split virus vaccine (FLUZONE HIGH-DOSE) injection 0.5 mL Orders and follow up as documented in patient record; There are no discontinued medications. Requested Prescriptions No prescriptions requested or ordered in this encounter Patient was advised to call with any questions or concerns. If symptoms worsen patient was advised to follow up in our office or the Emergency Dept. Benefits, Risks, Contraindications, and Complications of recommended treatments were explained the patient understands and agrees to proceed with plan. Chantal Cole MD 07/15/2025 documented in this encounter [facility] 06-07-2025 History of Presen t illness Narrative Nurse Note: Review of Systems Constitutional: Negative for fatigue and fever. HENT: Negative for congestion, ear pain and sore throat. Eyes: Negative for pain and redness. Respiratory: Negative for cough and shortness of breath. Cardiovascular: Negative for chest pain and palpitations. Gastrointestinal: Negative for abdominal pain, constipation, diarrhea, nausea and vomiting. Genitourinary: Negative for difficulty urinating and dysuria. Musculoskeletal: Negative for arthralgias and myalgias. Skin: Negative for rash and wound. Neurological: Negative for dizziness and headaches. All other systems reviewed and are negative. Chief Complaint Patient presents with Results Anemia HPI: Anemia: improved. Has not been taking iron, has not had GI symptoms. Lab Results Component Value Date HGB 12.1 06/03/2025 Abnormal mammo: diagnostic mammo was Category 3 Abdominal wall concern: small knot at belly button, occasionally sore but not typically a problem ROS: Review of Systems Nurse Note: Review of Systems Constitutional: Negative for fatigue and fever. HENT: Negative for congestion, ear pain and sore throat. Eyes: Negative for pain and redness. Respiratory: Negative for cough and shortness of breath. Cardiovascular: Negative for chest pain and palpitations. Gastrointestinal: Negative for abdominal pain, constipation, diarrhea, nausea and vomiting. Genitourinary: Negative for difficulty urinating and dysuria. Musculoskeletal: Negative for arthralgias and myalgias. Skin: Negative for rash and wound. Neurological: Negative for dizziness and headaches. All other systems reviewed and are negative. Past medical/family/social history: reviewed and updated, see documented in patient's chart. Physical Exam: BP 99/66 Pulse 103 Wt 99.3 kg (219 lb) BMI 31.79 kg/m Smoking Status Every Day Body mass index is 31.79 kg/m . Physical Exam Assessment/Plan: Assessment & Plan Iron deficiency anemia, unspecified iron deficiency anemia type Start supplement, will recheck labs with next appt Orders: ferrous sulfate 325 (65 Fe) MG tablet; Take 1 tablet by mouth daily. CBC, EDIF, PLATELET; Future RETICULOCYTES; Future IRON/IRON BINDING/TRANSFERRIN; Future Umbilical hernia without obstruction and without gangrene Small, recommend observe Orders and follow up as documented in patient record; There are no discontinued medications. Requested Prescriptions Signed Prescriptions Disp Refills ferrous sulfate 325 (65 Fe) MG tablet 90 tablet 0 Sig: Take 1 tablet by mouth daily. Patient was advised to call with any questions or concerns. If symptoms worsen patient was advised to follow up in our office or the Emergency Dept. Benefits, Risks, Contraindications, and Complications of recommended treatments were explained the patient understands and agrees to proceed with plan. Chantal Cole MD 06/07/2025 documented in this encounter [facility] 05-03-2025 Evaluation + Plan note Associated Problem(s): Essential hypertension, benign Chronic stable, continue same therapy Orders: amLODIPine 5 MG tablet; Take 1 tablet by mouth daily. irbesartan-hydrochlorothiazide 300-12.5 MG tablet; Take 1 tablet by mouth daily. [facility] 05-03-2025 Evaluation + Plan note Associated Problem(s): Proteinuria Chronic stable, continue same therapy Orders: dapagliflozin (Farxiga) 10 MG tablet; Take 1 tablet by mouth daily. [facility] 05-03-2025 Evaluation + Plan note Associated Problem(s): Lumbosacral neuritis Chronic stable, continue same therapy Orders: DULoxetine (Cymbalta) [address] Particles capsule DR; Take 1 capsule by mouth daily. Gabapentin 300 MG capsule; Take 3 capsules by mouth 3 times daily. [facility] 05-03-2025 Evaluation + Plan note Associated Problem(s): Type 2 diabetes mellitus with peripheral neuropathy Chronic stable, continue same therapy Orders: metFORMIN-XR 500 MG Tab SR 24 HR; Take 2 tablets by mouth 2 times daily. [facility] 05-03-2025 Evaluation + Plan note Associated Problem(s): Mixed hyperlipidemia Chronic stable, continue same therapy Orders: Rosuvastatin 40 MG tablet; Take 1 tablet by mouth daily. [facility] 05-03-2025 History of Presen t illness Narrative Nurse Note: Review of Systems Constitutional: Negative for fatigue and fever. HENT: Negative for congestion, ear pain and sore throat. Eyes: Negative for pain and redness. Respiratory: Negative for cough and shortness of breath. Cardiovascular: Negative for chest pain and palpitations. Gastrointestinal: Negative for abdominal pain, constipation, diarrhea, nausea and vomiting. Genitourinary: Negative for difficulty urinating and dysuria. Musculoskeletal: Negative for arthralgias and myalgias. Skin: Negative for rash and wound. Neurological: Negative for dizziness and headaches. Chief Complaint Patient presents with Results Labs completed. Diabetes Hypertension Hyperlipidemia Proteinuria Kyphosis Spine problem. HPI: Regarding Hypertension: Susan is a 64 y.o. female who comes in today to follow up on HTN. Her HTN is chronic and controlled. Since her last visit, she reports that she has not been checking her blood pressures. Her blood pressures have typically been normal. She has not noted any side effects. Shortness of Breath: No Chest Pain: No Palpitations: No Edema: No Other CV risk factors include: age > 55 (female), diabetes mellitus, hypertension, dyslipidemia, obesity and sedentary lifestyle Her hypertension severity is severe due to the above factors, comorbities and degree of intervention necessary. Regarding Diabetes: Diabetes severity is moderate. Blood sugars controlled: No HgbA1c: Lab Results Component Value Date HGBA1C 6.0 05/01/2025 Home testing No Times per day: Any low blood sugars: No Frequent blood sugars >200: No Last full eye exam: October 2024 Any new vision concerns: Yes, stroke in eye, cataract surgery, then laser Regular foot self-exams: Yes New foot concerns: No Neuropathic symptoms: Yes, treated yes, related to chronic back pain Microalbumin: sees nephrology Other associated concerns: some constipation from Ozempic, tolerating it well, has not gotten her Farxiga from patient assistance yet Regarding Hyperlipidemia: Susan comes in today to follow up on chronic hyperlipidemia. This condition has been under good control. Pt reports that she has been compliant with her medications. Pt denies side effects from medication including myalgias, weakness or joint pain. Alleviating factors include: rosuvastatin Exacerbating factors include: poor diet, lack of exercise Other significant medical conditions include: see problem list Lab Results Component Value Date CHOLESTEROL 90 (L) 05/01/2025 TRIG 97 05/01/2025 HDL 47 05/01/2025 LDLCALC 24 05/01/2025 Lab Results Component Value Date ALT 12 05/01/2025 AST 20 05/01/2025 ALKPHOS 117 05/01/2025 BILITOTAL 0.5 05/01/2025 BILIDIRECT 0.1 05/26/2024 Her hyperlipidemia severity is severe due to the above factors. 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 She has not had colonoscopy, she has the cologuard at home but hasn't used it. Lab Results Component Value Date HGB 11.6 (L) 05/01/2025 ROS: Review of Systems Nurse Note: Review of Systems Constitutional: Negative for fatigue and fever. HENT: Negative for congestion, ear pain and sore throat. Eyes: Negative for pain and redness. Respiratory: Negative for cough and shortness of breath. Cardiovascular: Negative for chest pain and palpitations. Gastrointestinal: Negative for abdominal pain, constipation, diarrhea, nausea and vomiting. Genitourinary: Negative for difficulty urinating and dysuria. Musculoskeletal: Negative for arthralgias and myalgias. Skin: Negative for rash and wound. Neurological: Negative for dizziness and headaches. Past medical/family/social history: reviewed and updated, see documented in patient's chart. Physical Exam: BP 145/76 Pulse 99 Wt 100.2 kg (221 lb) SpO2 99% BMI 32.08 kg/m Smoking Status Every Day Body mass index is 32.08 kg/m . Physical Exam Assessment/Plan: Assessment & Plan Essential hypertension, benign Chronic stable, continue same therapy Orders: amLODIPine 5 MG tablet; Take 1 tablet by mouth daily. irbesartan-hydrochlorothiazide 300-12.5 MG tablet; Take 1 tablet by mouth daily. Proteinuria, unspecified type Chronic stable, continue same therapy Orders: dapagliflozin (Farxiga) 10 MG tablet; Take 1 tablet by mouth daily. Lumbosacral neuritis Chronic stable, continue same therapy Orders: DULoxetine (Cymbalta) [address] Particles capsule DR; Take 1 capsule by mouth daily. Gabapentin 300 MG capsule; Take 3 capsules by mouth 3 times daily. Type 2 diabetes mellitus with peripheral neuropathy Chronic stable, continue same therapy Orders: metFORMIN-XR 500 MG Tab SR 24 HR; Take 2 tablets by mouth 2 times daily. Mixed hyperlipidemia Chronic stable, continue same therapy Orders: Rosuvastatin 40 MG tablet; Take 1 tablet by mouth daily. Iron deficiency anemia, unspecified iron deficiency anemia type Will further evaluate, encouraged patient to do cologuard as she has not completed it yet. If positive will need colonoscopy which she is currently refusing. Orders: CBC, EDIF, PLATELET; Future IRON/IRON BINDING/TRANSFERRIN; Future FERRITIN; Future RETICULOCYTES; Future Psoriasis Chronic stable, continue same therapy Orders: ergocalciferol 1.25 MG (47697 UT) capsule; Take 1 capsule by mouth once a week. G2211 This patient is being managed for a complex/serious health condition diabetes, HTN, lipid, that is being managed by me on an ongoing basis. Orders and follow up as documented in patient record; We reviewed diet, exercise and weight control; Repeat labs were ordered and patient was advised to get prior to next appointment; Medications Discontinued During This Encounter Medication Reason dapagliflozin (Farxiga) 10 MG tablet Reorder amLODIPine 5 MG tablet Reorder DULoxetine (Cymbalta) [address] Particles capsule DR Reorder Gabapentin 300 MG capsule Reorder metFORMIN-XR 500 MG Tab SR 24 HR Reorder Rosuvastatin 40 MG tablet Reorder irbesartan-hydrochlorothiazide 300-12.5 MG tablet Reorder ergocalciferol 1.25 MG (43351 UT) capsule Reorder Requested Prescriptions Signed Prescriptions Disp Refills amLODIPine 5 MG tablet 90 tablet 1 Sig: Take 1 tablet by mouth daily. dapagliflozin (Farxiga) 10 MG tablet 90 tablet 1 Sig: Take 1 tablet by mouth daily. DULoxetine (Cymbalta) [address] Particles capsule DR 90 capsule 1 Sig: Take 1 capsule by mouth daily. Gabapentin 300 MG capsule 810 capsule 1 Sig: Take 3 capsules by mouth 3 times daily. irbesartan-hydrochlorothiazide 300-12.5 MG tablet 90 tablet 1 Sig: Take 1 tablet by mouth daily. metFORMIN-XR 500 MG Tab SR 24 HR 360 tablet 1 Sig: Take 2 tablets by mouth 2 times daily. Rosuvastatin 40 MG tablet 90 tablet 1 Sig: Take 1 tablet by mouth daily. ergocalciferol 1.25 MG (62812 UT) capsule 12 capsule 3 Sig: Take 1 capsule by mouth once a week. Patient was advised to call with any questions or concerns. If symptoms worsen patient was advised to follow up in our office or the Emergency Dept. Benefits, Risks, Contraindications, and Complications of recommended treatments were explained the patient understands and agrees to proceed with plan. Chantal Cole MD 05/03/2025 documented in this encounter [facility] 05-03-2025 Miscellaneous Notes Associate d Problem(s): Essential hypertension, benign Chronic stable, continue same therapy Orders: amLODIPine 5 MG tablet; Take 1 tablet by mouth daily. irbesartan-hydrochlorothiazide 300-12.5 MG tablet; Take 1 tablet by mouth daily. Associated Problem(s): Proteinuria Chronic stable, continue same therapy Orders: dapagliflozin (Farxiga) 10 MG tablet; Take 1 tablet by mouth daily. Associated Problem(s): Lumbosacral neuritis Chronic stable, continue same therapy Orders: DULoxetine (Cymbalta) [address] Particles capsule DR; Take 1 capsule by mouth daily. Gabapentin 300 MG capsule; Take 3 capsules by mouth 3 times daily. Associated Problem(s): Type 2 diabetes mellitus with peripheral neuropathy Chronic stable, continue same therapy Orders: metFORMIN-XR 500 MG Tab SR 24 HR; Take 2 tablets by mouth 2 times daily. Associated Problem(s): Mixed hyperlipidemia Chronic stable, continue same therapy Orders: Rosuvastatin 40 MG tablet; Take 1 tablet by mouth daily. documented in this encounter [facility] 11-17-2024 Evaluation + Plan note Associated Problem(s): Essential hypertension, benign Orders: amLODIPine 5 MG tablet; Take 1 tablet by mouth daily. irbesartan-hydrochlorothiazide 300-12.5 MG tablet; Take 1 tablet by mouth daily. CBC, EDIF, PLATELET; Future COMPREHENSIVE METABOLIC PANEL; Future LIPID PANEL W CALCULATED LDL; Future [facility] 11-17-2024 Evaluation + Plan note Associated Problem(s): Proteinuria [facility] 11-17-2024 Evaluation + Plan note Associated Problem(s): Lumbosacral neuritis Orders: DULoxetine (Cymbalta) [address] Particles capsule DR; Take 1 capsule by mouth daily. Gabapentin 300 MG capsule; Take 3 capsules by mouth 3 times daily. [facility] 11-17-2024 Evaluation + Plan note Associated Problem(s): Type 2 diabetes mellitus with peripheral neuropathy Orders: metFORMIN-XR 500 MG Tab SR 24 HR; Take 2 tablets by mouth 2 times daily. COMPREHENSIVE METABOLIC PANEL; Future HEMOGLOBIN A1C; Future [facility] 11-17-2024 Evaluation + Plan note Associated Problem(s): Mixed hyperlipidemia Orders: Rosuvastatin 40 MG tablet; Take 1 tablet by mouth daily. [facility] 11-17-2024 History of Presen t illness Narrative Nurse Note: Review of Systems Constitutional: Negative for fatigue and fever. HENT: Negative for congestion, ear pain and sore throat. Eyes: Negative for pain and redness. Respiratory: Negative for cough and shortness of breath. Cardiovascular: Negative for chest pain and palpitations. Gastrointestinal: Negative for abdominal pain, constipation, diarrhea, nausea and vomiting. Genitourinary: Negative for difficulty urinating and dysuria. Musculoskeletal: Positive for back pain. Negative for arthralgias and myalgias. Skin: Negative for rash and wound. Neurological: Negative for dizziness and headaches. Chief Complaint Patient presents with Results Hypertension Proteinuria Patient hasn't been able to get her Farxiga since May and still hasn't receive. Diabetes Hyperlipidemia Psoriasis Other Lumbosacral Neuritis HPI: Regarding Hypertension: Susan is a 64 y.o. female who comes in today to follow up on HTN. Her HTN is chronic and controlled. Since her last visit, she reports that she has not been checking her blood pressures. Her blood pressures have typically been normal. She has not noted any side effects. Shortness of Breath: No Chest Pain: No Palpitations: No Edema: No Other CV risk factors include: age > 55 (female), diabetes mellitus, hypertension, dyslipidemia, obesity and sedentary lifestyle Her hypertension severity is severe due to the above factors, comorbities and degree of intervention necessary. Regarding Diabetes: Diabetes severity is moderate. Blood sugars controlled: No HgbA1c: Lab Results Component Value Date HGBA1C 6.5 (H) 11/12/2024 Home testing No Times per day: Any low blood sugars: No Frequent blood sugars >200: No Last full eye exam: October 2024 Any new vision concerns: Yes, stroke in eye, cataract surgery, then laser Regular foot self-exams: Yes New foot concerns: No Neuropathic symptoms: Yes, treated yes, related to chronic back pain Microalbumin: sees nephrology Other associated concerns: some constipation from Ozempic, tolerating it well, has not gotten her Farxiga from patient assistance yet Regarding Hyperlipidemia: Susan comes in today to follow up on chronic hyperlipidemia. This condition has been under good control. Pt reports that she has been compliant with her medications. Pt denies side effects from medication including myalgias, weakness or joint pain. Alleviating factors include: rosuvastatin Exacerbating factors include: poor diet, lack of exercise Other significant medical conditions include: see problem list Lab Results Component Value Date CHOLESTEROL 112 11/12/2024 TRIG 174 (H) 11/12/2024 HDL 61 11/12/2024 LDLCALC 16 11/12/2024 Lab Results Component Value Date ALT 16 11/12/2024 AST 25 11/12/2024 ALKPHOS 131 (H) 11/12/2024 BILITOTAL 0.8 11/12/2024 BILIDIRECT 0.1 05/26/2024 Her hyperlipidemia severity is severe due to the above factors. 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 HENT: Negative for congestion, ear pain and sore throat. Eyes: Negative for pain and redness. Respiratory: Negative for cough and shortness of breath. Cardiovascular: Negative for chest pain and palpitations. Gastrointestinal: Negative for abdominal pain, constipation, diarrhea, nausea and vomiting. Genitourinary: Negative for difficulty urinating and dysuria. Musculoskeletal: Positive for back pain. Negative for arthralgias and myalgias. Skin: Negative for rash and wound. Neurological: Negative for dizziness and headaches. Past medical/family/social history: reviewed and updated, see documented in patient's chart. Physical Exam: BP 146/78 Pulse 101 Wt 100.5 kg (221 lb 8 oz) SpO2 98% BMI 32.15 kg/m Smoking Status Every Day Body mass index is 32.15 kg/m . Physical Exam Assessment/Plan: Assessment & Plan Essential hypertension, benign Orders: amLODIPine 5 MG tablet; Take 1 tablet by mouth daily. irbesartan-hydrochlorothiazide 300-12.5 MG tablet; Take 1 tablet by mouth daily. CBC, EDIF, PLATELET; Future COMPREHENSIVE METABOLIC PANEL; Future LIPID PANEL W CALCULATED LDL; Future Proteinuria, unspecified type Lumbosacral neuritis Orders: DULoxetine (Cymbalta) [address] Particles capsule DR; Take 1 capsule by mouth daily. Gabapentin 300 MG capsule; Take 3 capsules by mouth 3 times daily. Psoriasis Orders: ergocalciferol 1.25 MG (85231 UT) capsule; Take 1 capsule by mouth once a week. Type 2 diabetes mellitus with peripheral neuropathy Orders: metFORMIN-XR 500 MG Tab SR 24 HR; Take 2 tablets by mouth 2 times daily. COMPREHENSIVE METABOLIC PANEL; Future HEMOGLOBIN A1C; Future Mixed hyperlipidemia Orders: Rosuvastatin 40 MG tablet; Take 1 tablet by mouth daily. Screening mammogram for breast cancer Orders: MAMMO SCREENING WITH [place] BILATERAL; Future Colon cancer screening Orders: DARRYL G2211 This patient is being managed for a complex/serious health condition diabetes, HTN, lipid, that is being managed by me on an ongoing basis. Orders and follow up as documented in patient record; We reviewed diet, exercise and weight control; Repeat labs were ordered and patient was advised to get prior to next appointment; Medications Discontinued During This Encounter Medication Reason triamcinolone 0.1 % Cream cream Patient Preference Requested Prescriptions Pending Prescriptions Disp Refills amLODIPine 5 MG tablet 90 tablet 1 Sig: Take 1 tablet by mouth daily. dapagliflozin (Farxiga) 10 MG tablet 90 tablet 1 Sig: Take 1 tablet by mouth daily. DULoxetine (Cymbalta) [address] Particles capsule DR 90 capsule 1 Sig: Take 1 capsule by mouth daily. ergocalciferol 1.25 MG (18821 UT) capsule 12 capsule 3 Sig: Take 1 capsule by mouth once a week. Gabapentin 300 MG capsule 810 capsule 0 Sig: Take 3 capsules by mouth 3 times daily. hydroCHLOROthiazide 12.5 MG tablet 90 tablet 1 Sig: Take 1 tablet by mouth daily. irbesartan (Avapro) 300 MG tablet 90 tablet 1 Sig: Take 1 tablet by mouth daily. metFORMIN-XR 500 MG Tab SR 24 HR 360 tablet 1 Sig: Take 2 tablets by mouth 2 times daily. Rosuvastatin 40 MG tablet 90 tablet 1 Sig: Take 1 tablet by mouth daily. Patient was advised to call with any questions or concerns. If symptoms worsen patient was advised to follow up in our office or the Emergency Dept. Benefits, Risks, Contraindications, and Complications of recommended treatments were explained the patient understands and agrees to proceed with plan. Chantal Cole MD 11/17/2024 documented in this encounter [facility] 11-17-2024 Miscellaneous Notes Associate d Problem(s): Essential hypertension, benign Orders: amLODIPine 5 MG tablet; Take 1 tablet by mouth daily. irbesartan-hydrochlorothiazide 300-12.5 MG tablet; Take 1 tablet by mouth daily. CBC, EDIF, PLATELET; Future COMPREHENSIVE METABOLIC PANEL; Future LIPID PANEL W CALCULATED LDL; Future Associated Problem(s): Proteinuria Associated Problem(s): Lumbosacral neuritis Orders: DULoxetine (Cymbalta) [address] Particles capsule DR; Take 1 capsule by mouth daily. Gabapentin 300 MG capsule; Take 3 capsules by mouth 3 times daily. Associated Problem(s): Type 2 diabetes mellitus with peripheral neuropathy Orders: metFORMIN-XR 500 MG Tab SR 24 HR; Take 2 tablets by mouth 2 times daily. COMPREHENSIVE METABOLIC PANEL; Future HEMOGLOBIN A1C; Future Associated Problem(s): Mixed hyperlipidemia Orders: Rosuvastatin 40 MG tablet; Take 1 tablet by mouth daily. documented in this encounter [facility] 09-04-2024 History of Presen t illness Narrative Nurse Note: Review of Systems Constitutional: Negative for fatigue and fever. HENT: Negative for congestion, ear pain and sore throat. Eyes: Positive for discharge. Negative for pain and redness. Respiratory: Positive for cough and shortness of breath. Cardiovascular: Negative for chest pain and palpitations. Gastrointestinal: Negative for abdominal pain, constipation, diarrhea, nausea and vomiting. Genitourinary: Negative for difficulty urinating and dysuria. Musculoskeletal: Negative for arthralgias and myalgias. Skin: Negative for rash and wound. Neurological: Negative for dizziness and headaches. All other systems reviewed and are negative. Chief Complaint Patient presents with Cough Started last week., using cough drops - coughing so hard, feels like belly button blew out, Skin Problem Hard spot coming out of belly button from coughing so hard Eye Discharge Eyes are crusty in the a.m. Regarding Cough and cold symptoms: Susan Santos is a 63 y.o. female who comes in with the following complaint(s): Duration: 2 weeks Nasal congestion/drainage: Yes Sore throat: Yes Fever: No Cough dry and productive Smoke: reduced due to illness, 1 1/2 ppd, Associated symptoms: headache, eye discharge Prior treatment: afraid to take OTC meds Nurse Note: Review of Systems Constitutional: Negative for fatigue and fever. HENT: Negative for congestion, ear pain and sore throat. Eyes: Positive for discharge. Negative for pain and redness. Respiratory: Positive for cough and shortness of breath. Cardiovascular: Negative for chest pain and palpitations. Gastrointestinal: Negative for abdominal pain, constipation, diarrhea, nausea and vomiting. Genitourinary: Negative for difficulty urinating and dysuria. Musculoskeletal: Negative for arthralgias and myalgias. Skin: Negative for rash and wound. Neurological: Negative for dizziness and headaches. All other systems reviewed and are negative. BP 131/73 Pulse 100 Temp 98.4 F (36.9 C) (Temporal) Wt 100.1 kg (220 lb 11.2 oz) SpO2 98% BMI 32.03 kg/m Smoking Status Every Day Physical Exam HENT: Head: Normocephalic and atraumatic. Eyes: Pupils: Pupils are equal, round, and reactive to light. Cardiovascular: Rate and Rhythm: Normal rate and regular rhythm. Heart sounds: Normal heart sounds. Pulmonary: Effort: Pulmonary effort is normal. Breath sounds: Wheezing and rhonchi present. Abdominal: Palpations: Abdomen is soft. Musculoskeletal: Cervical back: Normal range of motion and neck supple. Skin: General: Skin is warm and dry. Neurological: Mental Status: She is alert and oriented to person, place, and time. ASSESSMENT: Assessment & Plan Acute bronchitis, unspecified organism Orders: Albuterol 108 (90 Base) MCG/ACT Aero Soln inhaler; Inhale 1 puff every 4 hours as needed for Wheezing. predniSONE 10 MG tablet; 51-02-49-10mg, 2 days each taper dose Azithromycin 250 MG tablet; Take by mouth 2 tablets (500 mg) on Day 1, then 1 tablet (250 mg) daily on Days 2-5 Chronic obstructive pulmonary disease with acute exacerbation Orders: qwvvemocnl-fvnfsifiihhtvn-Tndkuszqu l (Breztri Aerosphere) 160-9-4.8 MCG/ACT Aerosol inhaler; Inhale 2 puffs 2 times daily. Advised symptomatic relief of symptoms. Use over the counter Mucinex as needed and as age appropriate (not in children under 6). Humidifier/vaporizer can also be beneficial. Increase fluids. Patient was advised to call with any questions or concerns. If symptoms worsen patient was advised to follow up in our office or the Emergency Dept. Benefits, Risks, Contraindications, and Complications of recommended treatments were explained the patient understands and agrees to proceed with plan. Chantal Cole MD 09/04/2024 Patient given two samples of Breztri 160mcg one of lot #[id number] exp 12/17 and one of lot #[id number] exp 07/16. documented in this encounter [facility] 05-29-2024 History of Presen t illness Narrative Nurse Note: Review of Systems Constitutional: Positive for fatigue. Negative for fever. HENT: Negative for congestion, ear pain and sore throat. Eyes: Negative for pain and redness. Respiratory: Negative for cough and shortness of breath. Cardiovascular: Negative for chest pain and palpitations. Gastrointestinal: Negative for abdominal pain, constipation, diarrhea, nausea and vomiting. Genitourinary: Negative for difficulty urinating and dysuria. Musculoskeletal: Positive for back pain. Negative for arthralgias and myalgias. Skin: Negative for rash and wound. Neurological: Negative for dizziness and headaches. All other systems reviewed and are negative. Chief Complaint Patient presents with Results Diabetes Hyperlipidemia Hypertension Psoriasis Back Pain HPI: Regarding Hypertension: Susan is a 63 y.o. female who comes in today to follow up on HTN. Her HTN is chronic and controlled. Since her last visit, she reports that she has not been checking her blood pressures. Her blood pressures have typically been normal. She has not noted any side effects. Shortness of Breath: No Chest Pain: No Palpitations: No Edema: No Other CV risk factors include: age > 55 (female), diabetes mellitus, hypertension, dyslipidemia, obesity and sedentary lifestyle Her hypertension severity is severe due to the above factors, comorbities and degree of intervention necessary. Regarding Diabetes: Diabetes severity is moderate. Blood sugars controlled: No HgbA1c: Lab Results Component Value Date HGBA1C 6.3 (H) 05/26/2024 Home testing No Times per day: Any low blood sugars: No Frequent blood sugars >200: No Last full eye exam: September 2023 Any new vision concerns: Yes, stroke in eye, cataracts Regular foot self-exams: Yes New foot concerns: No Neuropathic symptoms: Yes, treated yes, related to chronic back pain Microalbumin: sees nephrology Other associated concerns: some constipation from Ozempic, tolerating it well Regarding Hyperlipidemia: Susan comes in today to follow up on chronic hyperlipidemia. This condition has been under good control. Pt reports that she has been compliant with her medications. Pt denies side effects from medication including myalgias, weakness or joint pain. Alleviating factors include: rosuvastatin Exacerbating factors include: poor diet, lack of exercise Other significant medical conditions include: see problem list Lab Results Component Value Date CHOLESTEROL 92 (L) 05/26/2024 TRIG 144 05/26/2024 HDL 45 05/26/2024 LDLCALC 18 05/26/2024 Lab Results Component Value Date ALT 20 05/26/2024 AST 23 05/26/2024 ALKPHOS 98 05/26/2024 BILITOTAL 0.7 05/26/2024 BILIDIRECT 0.1 05/26/2024 Her hyperlipidemia severity is severe due to the above factors. 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 Negative for fever. HENT: Negative for congestion, ear pain and sore throat. Eyes: Negative for pain and redness. Respiratory: Negative for cough and shortness of breath. Cardiovascular: Negative for chest pain and palpitations. Gastrointestinal: Negative for abdominal pain, constipation, diarrhea, nausea and vomiting. Genitourinary: Negative for difficulty urinating and dysuria. Musculoskeletal: Positive for back pain. Negative for arthralgias and myalgias. Skin: Negative for rash and wound. Neurological: Negative for dizziness and headaches. All other systems reviewed and are negative. Past medical/family/social history: reviewed and updated, see documented in patient's chart. Physical Exam: BP 131/86 Pulse 106 Wt 101.4 kg (223 lb 9.6 oz) BMI 32.45 kg/m Smoking Status Every Day Body mass index is 32.45 kg/m . Physical Exam Assessment/Plan: 1. Type 2 diabetes mellitus with peripheral neuropathy Chronic stable, continue same therapy - metFORMIN-XR 500 MG Tab SR 24 HR; Take 2 tablets by mouth 2 times daily. Dispense: 360 tablet; Refill: 1 - CBC, EDIF, PLATELET; Future - COMPREHENSIVE METABOLIC PANEL; Future - LIPID PANEL W CALCULATED LDL; Future - HEMOGLOBIN A1C; Future 2. Essential hypertension, benign Chronic stable, continue same therapy - amLODIPine 5 MG tablet; Take 1 tablet by mouth daily. Dispense: 90 tablet; Refill: 1 - hydroCHLOROthiazide 12.5 MG tablet; Take 1 tablet by mouth daily. Dispense: 90 tablet; Refill: 1 - irbesartan (Avapro) 300 MG tablet; Take 1 tablet by mouth daily. Dispense: 90 tablet; Refill: 1 - POCT URINE MICROALBUMIN/URINE CREAT/AL:CR - CBC, EDIF, PLATELET; Future - COMPREHENSIVE METABOLIC PANEL; Future - LIPID PANEL W CALCULATED LDL; Future 3. Mixed hyperlipidemia Chronic stable, continue same therapy - Rosuvastatin 40 MG tablet; Take 1 tablet by mouth daily. Dispense: 90 tablet; Refill: 1 - COMPREHENSIVE METABOLIC PANEL; Future - LIPID PANEL W CALCULATED LDL; Future 4. Lumbar radiculitis Chronic stable, continue same therapy 5. Chronic pain syndrome Chronic stable, continue same therapy 6. Lumbosacral neuritis Chronic stable, continue same therapy - DULoxetine (Cymbalta) [address] Particles capsule DR; Take 1 capsule by mouth daily. Dispense: 90 capsule; Refill: 1 - Gabapentin 300 MG capsule; Take 3 capsules by mouth 3 times daily. Dispense: 810 capsule; Refill: 0 7. Psoriasis Chronic stable, continue same therapy - ergocalciferol 1.25 MG (23761 UT) capsule; Take 1 capsule by mouth once a week. Dispense: 12 capsule; Refill: 3 8. Proteinuria, unspecified type Start Farxiga - dapagliflozin (Farxiga) 10 MG tablet; Take 1 tablet by mouth daily. Dispense: 90 tablet; Refill: 1 - URINE PROTEIN/CREA RATIO, RANDOM; Future G2211 This patient is being managed for a complex/serious health condition diabetes, HTN, lipid, that is being managed by me on an ongoing basis. Orders and follow up as documented in patient record; We reviewed diet, exercise and weight control; Repeat labs were ordered and patient was advised to get prior to next appointment; Medications Discontinued During This Encounter Medication Reason Naltrexone HCl, Pain, 4.5 MG capsule Patient Preference Requested Prescriptions Pending Prescriptions Disp Refills Nortriptyline 25 MG capsule 90 capsule 1 Sig: Take 1 capsule by mouth at bedtime. DULoxetine (Cymbalta) [address] Particles capsule DR 90 capsule 1 Sig: Take 1 capsule by mouth daily. ergocalciferol 1.25 MG (43400 UT) capsule 12 capsule 3 Sig: Take 1 capsule by mouth once a week. amLODIPine 5 MG tablet 90 tablet 1 Sig: Take 1 tablet by mouth daily. hydroCHLOROthiazide 12.5 MG tablet 90 tablet 1 Sig: Take 1 tablet by mouth daily. irbesartan (Avapro) 300 MG tablet 90 tablet 1 Sig: Take 1 tablet by mouth daily. Rosuvastatin 40 MG tablet 90 tablet 1 Sig: Take 1 tablet by mouth daily. metFORMIN-XR 500 MG Tab SR 24 HR 360 tablet 1 Sig: Take 2 tablets by mouth 2 times daily. Gabapentin 300 MG capsule 810 capsule 0 Sig: Take 3 capsules by mouth 3 times daily. Patient was advised to call with any questions or concerns. If symptoms worsen patient was advised to follow up in our office or the Emergency Dept. Benefits, Risks, Contraindications, and Complications of recommended treatments were explained the patient understands and agrees to proceed with plan. Chantal Cole MD 05/29/2024 documented in this encounter [facility] 11-29-2023 History of Presen t illness Narrative Nurse Note: Review of Systems Constitutional: Negative for fatigue and fever. HENT: Negative for congestion, ear pain and sore throat. Eyes: Negative for pain and redness. Respiratory: Negative for cough and shortness of breath. Cardiovascular: Negative for chest pain and palpitations. Gastrointestinal: Negative for abdominal pain, constipation, diarrhea, nausea and vomiting. Genitourinary: Negative for difficulty urinating and dysuria. Musculoskeletal: Negative for arthralgias and myalgias. Skin: Negative for rash and wound. Neurological: Negative for dizziness and headaches. All other systems reviewed and are negative. Chief Complaint Patient presents with Results Hyperlipidemia Hypertension Back Pain States has enough gabapentin, does not need refills at this time Diabetes Receives ozempic through patient assistance HPI: Regarding Hypertension: Susan is a 63 y.o. female who comes in today to follow up on HTN. Her HTN is chronic and controlled. Since her last visit, she reports that she has not been checking her blood pressures. Her blood pressures have typically been normal. She has not noted any side effects. Shortness of Breath: No Chest Pain: No Palpitations: No Edema: No Other CV risk factors include: age > 55 (female), diabetes mellitus, hypertension, dyslipidemia, obesity and sedentary lifestyle Her hypertension severity is severe due to the above factors, comorbities and degree of intervention necessary. Regarding Diabetes: Diabetes severity is moderate. Blood sugars controlled: No HgbA1c: Lab Results Component Value Date HGBA1C 6.4 (H) 11/28/2023 Home testing No Times per day: Any low blood sugars: No Frequent blood sugars >200: No Last full eye exam: September 2023 Any new vision concerns: Yes, stroke in eye, cataracts Regular foot self-exams: Yes New foot concerns: No Neuropathic symptoms: Yes, treated yes, related to chronic back pain Microalbumin: sees nephrology Other associated concerns: some constipation from Ozempic, tolerating it well Regarding Hyperlipidemia: Susan comes in today to follow up on chronic hyperlipidemia. This condition has been under good control. Pt reports that she has been compliant with her medications. Pt denies side effects from medication including myalgias, weakness or joint pain. Alleviating factors include: rosuvastatin Exacerbating factors include: poor diet, lack of exercise Other significant medical conditions include: see problem list Lab Results Component Value Date CHOLESTEROL 76 (L) 11/28/2023 TRIG 96 11/28/2023 HDL 37 11/28/2023 LDLCALC 20 11/28/2023 Lab Results Component Value Date ALT 18 11/28/2023 AST 24 11/28/2023 ALKPHOS 84 11/28/2023 BILITOTAL 0.4 11/28/2023 BILIDIRECT 0.2 09/06/2023 Her hyperlipidemia severity is severe due to the above factors. 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 HENT: Negative for congestion, ear pain and sore throat. Eyes: Negative for pain and redness. Respiratory: Negative for cough and shortness of breath. Cardiovascular: Negative for chest pain and palpitations. Gastrointestinal: Negative for abdominal pain, constipation, diarrhea, nausea and vomiting. Genitourinary: Negative for difficulty urinating and dysuria. Musculoskeletal: Negative for arthralgias and myalgias. Skin: Negative for rash and wound. Neurological: Negative for dizziness and headaches. All other systems reviewed and are negative. Past medical/family/social history: reviewed and updated, see documented in patient's chart. Physical Exam: BP 139/84 Pulse 102 Ht 1.768 m (5' 9.6") Wt 103.6 kg (228 lb 4.8 oz) BMI 33.14 kg/m Smoking Status Every Day Body mass index is 33.14 kg/m . Physical Exam Assessment/Plan: 1. Type 2 diabetes mellitus with peripheral neuropathy Chronic stable, continue same therapy - metFORMIN-XR 500 MG Tab SR 24 HR; Take 2 tablets by mouth 2 times daily. Dispense: 360 tablet; Refill: 1 - HEPATIC FUNCTION PANEL; Future - HEMOGLOBIN A1C; Future - LIPID PANEL W CALCULATED LDL; Future 2. Lumbar radiculitis Chronic stable, continue same therapy - Nortriptyline 25 MG capsule; Take 1 capsule by mouth at bedtime. Dispense: 90 capsule; Refill: 1 3. Chronic pain syndrome Chronic stable, continue same therapy - Nortriptyline 25 MG capsule; Take 1 capsule by mouth at bedtime. Dispense: 90 capsule; Refill: 1 4. Lumbosacral neuritis Chronic stable, continue same therapy - DULoxetine (Cymbalta) [address] Particles capsule DR; Take 1 capsule by mouth daily. Dispense: 90 capsule; Refill: 1 5. Essential hypertension, benign Chronic stable, continue same therapy - amLODIPine 5 MG tablet; Take 1 tablet by mouth daily. Dispense: 90 tablet; Refill: 1 - hydroCHLOROthiazide 12.5 MG tablet; Take 1 tablet by mouth daily. Dispense: 90 tablet; Refill: 1 - irbesartan (Avapro) 300 MG tablet; Take 1 tablet by mouth daily. Dispense: 90 tablet; Refill: 1 6. Mixed hyperlipidemia Chronic stable, continue same therapy - Rosuvastatin 40 MG tablet; Take 1 tablet by mouth daily. Dispense: 90 tablet; Refill: 1 - HEPATIC FUNCTION PANEL; Future - LIPID PANEL W CALCULATED LDL; Future G2211 This patient is being managed for a complex/serious health condition diabetes, HTN, lipid, that is being managed by me on an ongoing basis. Orders and follow up as documented in patient record; We reviewed diet, exercise and weight control; Repeat labs were ordered and patient was advised to get prior to next appointment; Medications Discontinued During This Encounter Medication Reason amLODIPine 5 MG tablet Reorder DULoxetine (Cymbalta) [address] Particles capsule DR Reorder hydroCHLOROthiazide 12.5 MG tablet Reorder irbesartan (Avapro) 300 MG tablet Reorder metFORMIN-XR 500 MG Tab SR 24 HR Reorder Nortriptyline 25 MG capsule Reorder Rosuvastatin 40 MG tablet Reorder Requested Prescriptions Signed Prescriptions Disp Refills Nortriptyline 25 MG capsule 90 capsule 1 Sig: Take 1 capsule by mouth at bedtime. DULoxetine (Cymbalta) [address] Particles capsule DR 90 capsule 1 Sig: Take 1 capsule by mouth daily. amLODIPine 5 MG tablet 90 tablet 1 Sig: Take 1 tablet by mouth daily. hydroCHLOROthiazide 12.5 MG tablet 90 tablet 1 Sig: Take 1 tablet by mouth daily. irbesartan (Avapro) 300 MG tablet 90 tablet 1 Sig: Take 1 tablet by mouth daily. Rosuvastatin 40 MG tablet 90 tablet 1 Sig: Take 1 tablet by mouth daily. metFORMIN-XR 500 MG Tab SR 24 HR 360 tablet 1 Sig: Take 2 tablets by mouth 2 times daily. Patient was advised to call with any questions or concerns. If symptoms worsen patient was advised to follow up in our office or the Emergency Dept. Benefits, Risks, Contraindications, and Complications of recommended treatments were explained the patient understands and agrees to proceed with plan. Chantal Cole MD 11/29/2023 documented in this encounter [facility] 10-18-2023 Emergency department Note Reviewed discharge with patient, Patient declined the aspirin upon discharge. Patient ambulates out of ED with a steady gait in stable condition. [facility] 10-18-2023 Emergency department Note Reviewed discharge with patient, Patient declined the aspirin upon discharge. Patient ambulates out of ED with a steady gait in stable condition. MRI does not show any acute or subacute infarct chronic lacunar infarcts noted. Patient is on statin therapy we will start aspirin call her PCP Saturday for follow up Edwar Newell MD 10/18/231937 Emergency Room Note [facility] EMERGENCY DEPARTMENT Service Date:.10/18/23 PCP: Chantal Cole Chief Complaint: Chief Complaint Patient presents with Other Sent by eye Dr. During eye exam they eye dr said they believe patient is having a stroke. Patient has no signs or symptoms. HPI Susan Santos is a 62 y.o. female presents to the ED today due to visual changes. Patient tells me that she has had problems seen at night. She notes she had cataracts so she decided to make an appointment with the eye doctor. She saw Dr. Patel 2 days ago. Told her she had a visual field deficit and that he thought she could have had a stroke. She saw [facility] today. She was told to come to the emergency department because they were concerned that she was either having or had a stroke. She has paperwork from [employer] demonstrating a superior medial visual defect right eye a superior lateral visual defect left eye. She denies any other complaints. States her only visual symptomatology that she has noticed was decreased visual acuity at night while driving. She assumed it was from cataracts. She denies any diplopia. Denies any blurred vision. She denies any headache. She has no change in smell or taste. She does occasionally cough but she is a smoker and states this is not abnormal for her. She denies shortness of breath. She has no chest pain or palpitations. She has no focal weakness or paresthesias. She has no previous history of stroke or TIA. She denies abnormal bleeding or bruising. She tells me that she is not sure why they sent her here. Review of Systems: Review of Systems She has no fever or chills. She denies any gastrointestinal complaints. Denies any genitourinary complaints. She has no recent unexplained weight loss. No hot or cold intolerance. She has history of diabetes mellitus but she denies polyuria, polydipsia, and polyphagia. She states she does have a history of peripheral vascular disease but is not complaining extremity pain or increased swelling in the extremities. I did go through review of systems with this patient to include 10 systems and it was negative unless mentioned above in the history of present illness. Past Medical History: Past Medical History: Diagnosis Date Bilateral hip joint arthritis Diabetes mellitus Essential hypertension, benign PAD (peripheral artery disease) 06/29/2019 Sacroiliac joint pain 11/20/2013 Past Surgical History: Past Surgical History: Procedure Laterality Date DESTRUCTION BY NEUROLYTIC AGENT NERVE/BRANCH OTHER PERIPHERAL Left 03/25/2014 Laterality: Left; Surgeon: Phill Vega MD; Location: [facility] MAIN OR HYSTERECTOMY Allergies: Allergies Allergen Reactions Codeine And Related Nausea Only Medications: Current Discharge Medication List CONTINUE these medications which have NOT CHANGED Details amLODIPine 5 MG tablet Take 1 tablet by mouth daily. Qty: 90 tablet, Refills: 0 Associated Diagnoses: Essential hypertension, benign ammonium lactate 12 % Cream cream clobetasol 0.05 % Cream Apply to affected area BID as needed Qty: 60 g, Refills: 1 Associated Diagnoses: Psoriasis clobetasol 0.05 % Solution Apply to scalp after shampooing daily for two weeks Qty: 50 mL, Refills: 2 Associated Diagnoses: Psoriasis Clobetasol Propionate 0.05 % Shampoo Apply 1 Application topically twice a week. Qty: 118 mL, Refills: 2 Associated Diagnoses: Psoriasis DISABILITY PLACARD Handicap placard for five years. DX: Chronic back pain, Diabetes and Peripheral artery disease. Qty: 2 Each, Refills: 0 Associated Diagnoses: Lumbosacral neuritis; Spinal stenosis of lumbar region with neurogenic claudication; Type 2 diabetes mellitus with peripheral neuropathy; Chronic pain syndrome; PAD (peripheral artery disease) DULoxetine (Cymbalta) [address] Particles capsule DR Take 1 capsule by mouth daily. Qty: 90 capsule, Refills: 0 Associated Diagnoses: Lumbosacral neuritis ergocalciferol 1.25 MG (71622 UT) capsule Take 1 capsule by mouth once a week. Qty: 12 capsule, Refills: 3 Associated Diagnoses: Psoriasis Gabapentin 300 MG capsule Take 3 capsules by mouth 3 times daily. Qty: 810 capsule, Refills: 0 Associated Diagnoses: Lumbosacral neuritis hydroCHLOROthiazide 12.5 MG tablet Take 1 tablet by mouth daily. Qty: 90 tablet, Refills: 0 Associated Diagnoses: Essential hypertension, benign irbesartan (Avapro) 300 MG tablet Take 1 tablet by mouth daily. Qty: 90 tablet, Refills: 0 Associated Diagnoses: Essential hypertension, benign metFORMIN-XR 500 MG Tab SR 24 HR Take 2 tablets by mouth 2 times daily. Qty: 360 tablet, Refills: 0 Associated Diagnoses: Type 2 diabetes mellitus with peripheral neuropathy Naltrexone HCl, Pain, 4.5 MG capsule Take 1 capsule by mouth daily. Nortriptyline 25 MG capsule Take 1 capsule by mouth at bedtime. Qty: 90 capsule, Refills: 0 Associated Diagnoses: Lumbar radiculitis; Chronic pain syndrome Rosuvastatin 40 MG tablet Take 1 tablet by mouth daily. Qty: 90 tablet, Refills: 0 Associated Diagnoses: Mixed hyperlipidemia Semaglutide, 1 MG/DOSE, (Ozempic, 1 MG/DOSE,) 4 MG/3ML Solution Pen-injector Inject 1 mg under the skin once a week. MEDICATION SUPPLIED VIA PATIENT ASSISTANCE UNTIL 10/20/2024 triamcinolone 0.1 % Cream cream apply topically to affected area twice a day Urea 40 % Cream Apply 1 Application topically daily. Qty: 227 g, Refills: 3 Associated Diagnoses: Psoriasis Family History: Family History Problem Relation Age of Onset Aneurysm Neg Hx Defects Neg Hx Social History: Social History Socioeconomic History Marital status: Single Spouse name: Not on file Number of children: Not on file Years of education: Not on file Highest education level: Not on file Occupational History Not on file Tobacco Use Smoking status: Every Day Packs/day: 1 Types: Cigarettes Smokeless tobacco: Never Vaping Use Vaping Use: Never used Substance and Sexual Activity Alcohol use: No Drug use: No Sexual activity: Not Currently Other Topics Concern Not on file Social History Narrative Not on file Social Determinants of Health Financial Resource Strain: Not on file Food Insecurity: Not on file Transportation Needs: Not on file Physical Activity: Not on file Stress: Not on file Social Connections: Not on file Intimate Partner Violence: Not on file Housing Stability: Not on file Physical Exam: Physical Exam Patient is awake and alert. She is oriented to person, place, and time. She is answering questions appropriately and moving all extremities on command. She has no obvious facial droop. She is able to squeeze her eyes shut. She can elevate the eyebrows and has good symmetrical movement of the forehead. She smiles with symmetric movement of the face. She can puff her cheeks out without losing air. She sticks her tongue out straight. Chest symmetric sensation on either side of the face. She shrugs her shoulders with good strength. Hearing seems to be symmetric when I stand on either side of her whisper. Buzzsaw Operator strengths are symmetrical. She can pull me towards her and push me away from her. She is able to stand and ambulate without difficulty. Romberg negative. She can walk heel-to-toe without problems. She has good strength and sensation in all extremities. She is oriented to person, place, and time. Carries on conversation appropriately. She has no gross motor, sensory, or cerebellar deficits at this time. However her visual acuities already been checked by the eye doctor which demonstrated a visual field defect as mentioned in the complaint. Mouth has pink moist mucosa. She does speak in a normal voice and handle secretions without difficulty. Neck is supple and trachea is midline. Carotid upstrokes lester symmetrical. Neck veins appear flat. Lungs do have diminished breath sounds bilaterally. Occasional rhonchi. No crackles or wheezes. Inspiratory expiratory phase fairly symmetrical. Heart is regular. Abdomen is soft and nontender. Skin is warm and dry. Capillary refills less than 2 seconds. I do not see any rash. Vital Signs During ED Visit Patient Vitals for the past 24 hrs: BP Temp Temp src Pulse Resp SpO2 Height 10/18/23 1809 -- 98.2 F (36.8 C) Oral -- -- -- -- 10/18/23 1613 -- -- -- -- -- -- 1.778 m (5' 10") 10/18/23 161 135/70 -- -- 80 16 98 % -- Orders/Results: EKG: Sinus rhythm at 92 beats per minute. There is sinus arrhythmia. [place] is normal. [place] interval is 138 milliseconds. QRS duration is 92 milliseconds. There are small Q-waves in leads 3 [address]F. No acute ST elevation is seen. Nonspecific ST T wave changes present. No old tracing for comparison. Orders Placed This Encounter MRI ANGIO NECK WITHOUT CONTRAST MRI BRAIN WITHOUT CONTRAST CHEM 7 (LYTES,BUN,CREA,GLUC) CBC,PLATELETS ECG Results for orders placed or performed during the hospital encounter of 10/18/23 CHEM 7 (LYTES,BUN,CREA,GLUC) Result Value Ref Range Glucose 102 (H) 70 - 100 MG/DL BUN 8 7 - 20 MG/DL CREATININE SERUM 0.82 0.70 - 1.20 MG/DL SODIUM 137 137 - 145 MMOL/L POTASSIUM 3.8 3.5 - 5.1 MMOL/L CHLORIDE 102 98 - 107 MMOL/L CARBON DIOXIDE (CO2) 27 22 - 30 MMOL/L ESTIMATED GFR, NON AMER 75 ml/min/1.73sq.m ESTIMATED GFR, 90 ml/min/1.73sq.m GFR COMMENT Average GFR for 60-69 years old = 85. CBC,PLATELETS Result Value Ref Range WBC (WHITE BLOOD COUNT) 9.8 3.6 - 11.0 10*3/uL RBC 4.99 4.0 - 5.4 10*6/uL HEMOGLOBIN (HGB) 14.5 12.0 - 16.0 G/DL HEMATOCRIT (HCT) 43.6 36.0 - 48.0 % MEAN CELL VOLUME 87.4 80.0 - 100.0 FL Mean Cell HGB 29.0 26.0 - 35.0 PG MEAN CELL HGB CONCENTRATION 33.2 27.0 - 37.0 G/DL RBC DISTRIBUTION 16.3 (H) 11.5 - 14.5 % PLATELET COUNT 295 130 - 400 10*3/uL MEAN PLATELET VOLUME 7.3 (L) 7.4 - 11.0 FL Radiographic Imaging MRI ANGIO NECK WITHOUT CONTRAST (Results Pending) MRI BRAIN WITHOUT CONTRAST (Results Pending) Procedures: Procedures Moderate Sedation Procedure: No ED Summary/MDM I did call MRI. They are going to be able to do the patient's studies today. I spoke with the patient she is in agreement with this. MRI of the brain without contrast has been ordered. MRI angio of the neck without contrast has been ordered. I did order a CBC and Chem 7 as well as an EKG along with this. MRI studies are pending. Patient will be turned over to Dr. Newell at shift change. I do suspect that the patient will be placed on aspirin and discharged but it will depend on what is seen on the MRI. Please see note from Dr. Newell for further details and final disposition/plan. Interim Clinical Impression: 1. Visual field defect Please see note from Dr. Newell for final clinical impression. No follow-ups on file. Current Discharge Medication List Current Discharge Medication List An After Visit Summary was printed and given to the patient with above information. . Jarret Hernandez MD 10/18/23 1828 documented in this encounter [facility] 10-18-2023 Physician Emergen cy department Note MRI does not show any acute or subacute infarct chronic lacunar infarcts noted. Patient is on statin therapy we will start aspirin call her PCP Saturday for follow up Edwar Newell MD 10/18/23 193 [facility] 10-18-2023 Hospital Discharg e instructions Edwar Newell MD - 10/18/2023 7:37 PM EST Aspirin 81mg daily documented in this encounter [facility] 10-18-2023 Physician Emergen cy department Note Emergency Room Note [facility] EMERGENCY DEPARTMENT Service Date:.10/18/23 PCP: Chantal Cole Chief Complaint: Chief Complaint Patient presents with Other Sent by eye Dr. During eye exam they eye dr said they believe patient is having a stroke. Patient has no signs or symptoms. ONIEL Santos is a 62 y.o. female presents to the ED today due to visual changes. Patient tells me that she has had problems seen at night. She notes she had cataracts so she decided to make an appointment with the eye doctor. She saw Dr. Patel 2 days ago. Told her she had a visual field deficit and that he thought she could have had a stroke. She saw [facility] today. She was told to come to the emergency department because they were concerned that she was either having or had a stroke. She has paperwork from [employer] [employer] demonstrating a superior medial visual defect right eye a superior lateral visual defect left eye. She denies any other complaints. States her only visual symptomatology that she has noticed was decreased visual acuity at night while driving. She assumed it was from cataracts. She denies any diplopia. Denies any blurred vision. She denies any headache. She has no change in smell or taste. She does occasionally cough but she is a smoker and states this is not abnormal for her. She denies shortness of breath. She has no chest pain or palpitations. She has no focal weakness or paresthesias. She has no previous history of stroke or TIA. She denies abnormal bleeding or bruising. She tells me that she is not sure why they sent her here. Review of Systems: Review of Systems She has no fever or chills. She denies any gastrointestinal complaints. Denies any genitourinary complaints. She has no recent unexplained weight loss. No hot or cold intolerance. She has history of diabetes mellitus but she denies polyuria, polydipsia, and polyphagia. She states she does have a history of peripheral vascular disease but is not complaining extremity pain or increased swelling in the extremities. I did go through review of systems with this patient to include 10 systems and it was negative unless mentioned above in the history of present illness. Past Medical History: Past Medical History: Diagnosis Date Bilateral hip joint arthritis Diabetes mellitus Essential hypertension, benign PAD (peripheral artery disease) 06/29/2019 Sacroiliac joint pain 11/20/2013 Past Surgical History: Past Surgical History: Procedure Laterality Date DESTRUCTION BY NEUROLYTIC AGENT NERVE/BRANCH OTHER PERIPHERAL Left 03/25/2014 Laterality: Left; Surgeon: Phill Vega MD; Location: [facility] MAIN OR HYSTERECTOMY Allergies: Allergies Allergen Reactions Codeine And Related Nausea Only Medications: Current Discharge Medication List CONTINUE these medications which have NOT CHANGED Details amLODIPine 5 MG tablet Take 1 tablet by mouth daily. Qty: 90 tablet, Refills: 0 Associated Diagnoses: Essential hypertension, benign ammonium lactate 12 % Cream cream clobetasol 0.05 % Cream Apply to affected area BID as needed Qty: 60 g, Refills: 1 Associated Diagnoses: Psoriasis clobetasol 0.05 % Solution Apply to scalp after shampooing daily for two weeks Qty: 50 mL, Refills: 2 Associated Diagnoses: Psoriasis Clobetasol Propionate 0.05 % Shampoo Apply 1 Application topically twice a week. Qty: 118 mL, Refills: 2 Associated Diagnoses: Psoriasis DISABILITY PLACARD Handicap placard for five years. DX: Chronic back pain, Diabetes and Peripheral artery disease. Qty: 2 Each, Refills: 0 Associated Diagnoses: Lumbosacral neuritis; Spinal stenosis of lumbar region with neurogenic claudication; Type 2 diabetes mellitus with peripheral neuropathy; Chronic pain syndrome; PAD (peripheral artery disease) DULoxetine (Cymbalta) [address] Particles capsule DR Take 1 capsule by mouth daily. Qty: 90 capsule, Refills: 0 Associated Diagnoses: Lumbosacral neuritis ergocalciferol 1.25 MG (83993 UT) capsule Take 1 capsule by mouth once a week. Qty: 12 capsule, Refills: 3 Associated Diagnoses: Psoriasis Gabapentin 300 MG capsule Take 3 capsules by mouth 3 times daily. Qty: 810 capsule, Refills: 0 Associated Diagnoses: Lumbosacral neuritis hydroCHLOROthiazide 12.5 MG tablet Take 1 tablet by mouth daily. Qty: 90 tablet, Refills: 0 Associated Diagnoses: Essential hypertension, benign irbesartan (Avapro) 300 MG tablet Take 1 tablet by mouth daily. Qty: 90 tablet, Refills: 0 Associated Diagnoses: Essential hypertension, benign metFORMIN-XR 500 MG Tab SR 24 HR Take 2 tablets by mouth 2 times daily. Qty: 360 tablet, Refills: 0 Associated Diagnoses: Type 2 diabetes mellitus with peripheral neuropathy Naltrexone HCl, Pain, 4.5 MG capsule Take 1 capsule by mouth daily. Nortriptyline 25 MG capsule Take 1 capsule by mouth at bedtime. Qty: 90 capsule, Refills: 0 Associated Diagnoses: Lumbar radiculitis; Chronic pain syndrome Rosuvastatin 40 MG tablet Take 1 tablet by mouth daily. Qty: 90 tablet, Refills: 0 Associated Diagnoses: Mixed hyperlipidemia Semaglutide, 1 MG/DOSE, (Ozempic, 1 MG/DOSE,) 4 MG/3ML Solution Pen-injector Inject 1 mg under the skin once a week. MEDICATION SUPPLIED VIA PATIENT ASSISTANCE UNTIL 10/20/2024 triamcinolone 0.1 % Cream cream apply topically to affected area twice a day Urea 40 % Cream Apply 1 Application topically daily. Qty: 227 g, Refills: 3 Associated Diagnoses: Psoriasis Family History: Family History Problem Relation Age of Onset Aneurysm Neg Hx Defects Neg Hx Social History: Social History Socioeconomic History Marital status: Single Spouse name: Not on file Number of children: Not on file Years of education: Not on file Highest education level: Not on file Occupational History Not on file Tobacco Use Smoking status: Every Day Packs/day: 1 Types: Cigarettes Smokeless tobacco: Never Vaping Use Vaping Use: Never used Substance and Sexual Activity Alcohol use: No Drug use: No Sexual activity: Not Currently Other Topics Concern Not on file Social History Narrative Not on file Social Determinants of Health Financial Resource Strain: Not on file Food Insecurity: Not on file Transportation Needs: Not on file Physical Activity: Not on file Stress: Not on file Social Connections: Not on file Intimate Partner Violence: Not on file Housing Stability: Not on file Physical Exam: Physical Exam Patient is awake and alert. She is oriented to person, place, and time. She is answering questions appropriately and moving all extremities on command. She has no obvious facial droop. She is able to squeeze her eyes shut. She can elevate the eyebrows and has good symmetrical movement of the forehead. She smiles with symmetric movement of the face. She can puff her cheeks out without losing air. She sticks her tongue out straight. Chest symmetric sensation on either side of the face. She shrugs her shoulders with good strength. Hearing seems to be symmetric when I stand on either side of her whisper. Buzzsaw Operator strengths are symmetrical. She can pull me towards her and push me away from her. She is able to stand and ambulate without difficulty. Romberg negative. She can walk heel-to-toe without problems. She has good strength and sensation in all extremities. She is oriented to person, place, and time. Carries on conversation appropriately. She has no gross motor, sensory, or cerebellar deficits at this time. However her visual acuities already been checked by the eye doctor which demonstrated a visual field defect as mentioned in the complaint. Mouth has pink moist mucosa. She does speak in a normal voice and handle secretions without difficulty. Neck is supple and trachea is midline. Carotid upstrokes lester symmetrical. Neck veins appear flat. Lungs do have diminished breath sounds bilaterally. Occasional rhonchi. No crackles or wheezes. Inspiratory expiratory phase fairly symmetrical. Heart is regular. Abdomen is soft and nontender. Skin is warm and dry. Capillary refills less than 2 seconds. I do not see any rash. Vital Signs During ED Visit Patient Vitals for the past 24 hrs: BP Temp Temp src Pulse Resp SpO2 Height 10/18/23 1809 -- 98.2 F (36.8 C) Oral -- -- -- -- 10/18/23 1613 -- -- -- -- -- -- 1.778 m (5' 10") 10/18/23 1611 135/70 -- -- 80 16 98 % -- Orders/Results: EKG: Sinus rhythm at 92 beats per minute. There is sinus arrhythmia. [place] is normal. [place] interval is 138 milliseconds. QRS duration is 92 milliseconds. There are small Q-waves in leads 3 and AVF. No acute ST elevation is seen. Nonspecific ST T wave changes present. No old tracing for comparison. Orders Placed This Encounter MRI ANGIO NECK WITHOUT CONTRAST MRI BRAIN WITHOUT CONTRAST CHEM 7 (LYTES,BUN,CREA,GLUC) CBC,PLATELETS ECG Results for orders placed or performed during the hospital encounter of 10/18/23 CHEM 7 (LYTES,BUN,CREA,GLUC) Result Value Ref Range Glucose 102 (H) 70 - 100 MG/DL BUN 8 7 - 20 MG/DL CREATININE SERUM 0.82 0.70 - 1.20 MG/DL SODIUM 137 137 - 145 MMOL/L POTASSIUM 3.8 3.5 - 5.1 MMOL/L CHLORIDE 102 98 - 107 MMOL/L CARBON DIOXIDE (CO2) 27 22 - 30 MMOL/L ESTIMATED GFR, NON AMER 75 ml/min/1.73sq.m ESTIMATED GFR, 90 ml/min/1.73sq.m GFR COMMENT Average GFR for 60-69 years old = 85. CBC,PLATELETS Result Value Ref Range WBC (WHITE BLOOD COUNT) 9.8 3.6 - 11.0 10*3/uL RBC 4.99 4.0 - 5.4 10*6/uL HEMOGLOBIN (HGB) 14.5 12.0 - 16.0 G/DL HEMATOCRIT (HCT) 43.6 36.0 - 48.0 % MEAN CELL VOLUME 87.4 80.0 - 100.0 FL Mean Cell HGB 29.0 26.0 - 35.0 PG MEAN CELL HGB CONCENTRATION 33.2 27.0 - 37.0 G/DL RBC DISTRIBUTION 16.3 (H) 11.5 - 14.5 % PLATELET COUNT 295 130 - 400 10*3/uL MEAN PLATELET VOLUME 7.3 (L) 7.4 - 11.0 FL Radiographic Imaging MRI ANGIO NECK WITHOUT CONTRAST (Results Pending) MRI BRAIN WITHOUT CONTRAST (Results Pending) Procedures: Procedures Moderate Sedation Procedure: No ED Summary/MDM I did call MRI. They are going to be able to do the patient's studies today. I spoke with the patient she is in agreement with this. MRI of the brain without contrast has been ordered. MRI angio of the neck without contrast has been ordered. I did order a CBC and Chem 7 as well as an EKG along with this. MRI studies are pending. Patient will be turned over to Dr. Newell at shift change. I do suspect that the patient will be placed on aspirin and discharged but it will depend on what is seen on the MRI. Please see note from Dr. Newell for further details and final disposition/plan. Interim Clinical Impression: 1. Visual field defect Please see note from Dr. Newell for final clinical impression. No follow-ups on file. Current Discharge Medication List Current Discharge Medication List An After Visit Summary was printed and given to the patient with above information. . Jarret Hernandez MD 10/18/23 [id number] [facility] 09-27-2023 History of Presen t illness Narrative HPI: Susan Santos Presents for evaluation and treatment of low back pain. Pain is described as Aching, Throbbing, Shooting, Stabbing, Sharp, and Burning and is currently rated 5/10, and at it's most severe is rated 10/10. Pain is increased with standing and walking and is relieved by nothing. The patient denies numbness/tingling. she admits to having weakness in bilateral legs with left being worse than right. The patient denies bowel/bladder incontinence. Patient admits to having tobacco use. Last dose of LDN was today. Audit-C Questionnaire How often do you have a drink containing alcohol? (0) never 2. How many standard drinks containing alcohol do you have on a typical day? (0) 1 or 2 3. How often do you have six or more drinks on one occasion? (0) never *A score of 3 or more in women or 4 or more in men is a positive score that requires education. Current Outpatient Medications Medication Sig amLODIPine 5 MG tablet Take 1 tablet by mouth daily. ammonium lactate 12 % Cream cream clobetasol 0.05 % Cream Apply to affected area BID as needed clobetasol 0.05 % Solution Apply to scalp after shampooing daily for two weeks Clobetasol Propionate 0.05 % Shampoo Apply 1 Application topically twice a week. DISABILITY PLACARD Handicap placard for five years. DX: Chronic back pain, Diabetes and Peripheral artery disease. DULoxetine (Cymbalta) [address] Particles capsule DR Take 1 capsule by mouth daily. ergocalciferol 1.25 MG (75664 UT) capsule Take 1 capsule by mouth once a week. Gabapentin 300 MG capsule Take 3 capsules by mouth 3 times daily. hydroCHLOROthiazide 12.5 MG tablet Take 1 tablet by mouth daily. irbesartan (Avapro) 300 MG tablet Take 1 tablet by mouth daily. metFORMIN-XR 500 MG Tab SR 24 HR Take 2 tablets by mouth 2 times daily. Nortriptyline 25 MG capsule Take 1 capsule by mouth at bedtime. Rosuvastatin 40 MG tablet Take 1 tablet by mouth daily. Semaglutide, 1 MG/DOSE, (Ozempic, 1 MG/DOSE,) 4 MG/3ML Solution Pen-injector Inject 1 mg under the skin once a week. MEDICATION SUPPLIED VIA PATIENT ASSISTANCE UNTIL 10/20/2024 triamcinolone 0.1 % Cream cream apply topically to affected area twice a day Urea 40 % Cream Apply 1 Application topically daily. Review of Systems: General: Denies fevers, chills, or night sweats Abdominal: Denies nausea, vomiting, diarrhea Respiratory: Denies cough, sputum production Genitourinary: Denies dysuria or frequency HPI: Susan Santos Presents for evaluation and treatment of low back pain. Pain is described as Aching, Throbbing, Shooting, Stabbing, Sharp, and Burning and is currently rated 5/10, and at it's most severe is rated 10/10. Pain is increased with standing and walking and is relieved by nothing. The patient denies numbness/tingling. she admits to having weakness in bilateral legs with left being worse than right. The patient denies bowel/bladder incontinence. Patient admits to having tobacco use. Last dose of LDN was today. Audit-C Questionnaire How often do you have a drink containing alcohol? (0) never 2. How many standard drinks containing alcohol do you have on a typical day? (0) 1 or 2 3. How often do you have six or more drinks on one occasion? (0) never *A score of 3 or more in women or 4 or more in men is a positive score that requires education. Current Outpatient Medications Medication Sig amLODIPine 5 MG tablet Take 1 tablet by mouth daily. ammonium lactate 12 % Cream cream clobetasol 0.05 % Cream Apply to affected area BID as needed clobetasol 0.05 % Solution Apply to scalp after shampooing daily for two weeks Clobetasol Propionate 0.05 % Shampoo Apply 1 Application topically twice a week. DISABILITY PLACARD Handicap placard for five years. DX: Chronic back pain, Diabetes and Peripheral artery disease. DULoxetine (Cymbalta) [address] Particles capsule DR Take 1 capsule by mouth daily. ergocalciferol 1.25 MG (50162 UT) capsule Take 1 capsule by mouth once a week. Gabapentin 300 MG capsule Take 3 capsules by mouth 3 times daily. hydroCHLOROthiazide 12.5 MG tablet Take 1 tablet by mouth daily. irbesartan (Avapro) 300 MG tablet Take 1 tablet by mouth daily. metFORMIN-XR 500 MG Tab SR 24 HR Take 2 tablets by mouth 2 times daily. Nortriptyline 25 MG capsule Take 1 capsule by mouth at bedtime. Rosuvastatin 40 MG tablet Take 1 tablet by mouth daily. Semaglutide, 1 MG/DOSE, (Ozempic, 1 MG/DOSE,) 4 MG/3ML Solution Pen-injector Inject 1 mg under the skin once a week. MEDICATION SUPPLIED VIA PATIENT ASSISTANCE UNTIL 10/20/2024 triamcinolone 0.1 % Cream cream apply topically to affected area twice a day Urea 40 % Cream Apply 1 Application topically daily. Review of Systems: General: Denies fevers, chills, or night sweats Abdominal: Denies nausea, vomiting, diarrhea Respiratory: Denies cough, sputum production Genitourinary: Denies dysuria or frequency Physical Examination: Vitals: 09/27/23 1126 BP: 160/74 Pulse: 100 SpO2: 97% Constitutional The patient is awake, alert, well developed, well nourished and well groomed. The patient is pleasant and cooperative. The patient is a good historian and is very helpful with the history and physical examination. No lesions noted on face. Neurologic Cranial Nerves 2-12 were tested and are grossly intact. The deep tendon reflexes of the in upper and lower extremities are symmetrical;. Plantar reflexes (Babinski): toes are downgoing. The gait is abnormal. Sensory testing for pain (pinprick), light touch, position, and vibration is grossly intact. Psychiatric The patient is oriented to person, place, and time. Speech is fluent and words are clear. Thought processes are coherent, insight is good. There are no obsessive, compulsive, phobic or delusional thoughts; there are no illusions or hallucinations. The patient's fund of knowledge: awareness of current events and past history is appropriate for age. The patient's higher cognitive functions are intact. The patient's mood is neutral and the affect appropriate; there are no loose associations. MSK The patient has moderate difficulty transitioning from sitting to standing. The patient has a(n) antalgic gait. The lumbar spine demonstrates a flexion biased curve. There is no deformity to the lumbosacral spine. There is no abnormality in muscle tone in the lumbosacral spine. bilateral lumbar paraspinal tenderness, NATY, thigh thrust, Gaenslen's, and Kim's positive bilaterally, SLR negative and FADIR, internal rotation, and external rotation were positive in LLE Lumbar facet loading positive bilaterally, tender to palpation over bilateral facet joints. Left trochanteric bursa tenderness. Pain to left hip and groin with internal and external rotation and log roll of left leg Assessment: ICD-10-CM 1. Greater trochanteric bursitis of left hip M70.62 2. Primary osteoarthritis of left hip M16.12 3. Spinal stenosis of lumbar region with neurogenic claudication M48.062 4. Sacroiliitis, not elsewhere classified M46.1 5. Chronic pain syndrome G89.4 62 y/o F w/PMHx severe lumbar stenosis, lumbar facet arthropathy, HTN, DM, PAD, psoriasis, peripheral neuropathy who presents for evaluation of her low back pain and all over pain. Seen by Dr. Vaughn Injections: SIJ injections resulted in short term (1 day) relief. Has had ESIs and RFAs before, but not interested in more injections. 10/05/22- Left hip injection resulting in 50-60% Imaging: lumbar MRI shows severe canal stenosis at L3-4 with multilevel facet arthropathy. There is 5mm (grade 1) listhesis ove L3 over L4, but no instability on Xrays with flex/extension. Left hip xray shows mild OA. 07/17/23 Lumbar MRI There is levo convexity. 4 mm anterolisthesis L5 3 on L4. Transitional vertebra at lumbosacral junction. L5 is partially lumbarized. The most degenerated disc space is the L3-4 and the conus medullaris terminates at L1. This numbering should be confirmed prior to any intervention. Type II Modic endplate marrow changes at T12-L1 and L3-4. Multilevel disc space narrowing and disc desiccation. T11-12: Mild disc bulge without a significant stenosis. T12-L1: Mild disc bulge without a significant stenosis L1-L2:Diffuse disc bulges slight lateral extension. Bilateral facet hypertrophy. Moderate left-sided foraminal narrowing. L2-3: Diffuse bulge with foraminal extension. Mild facet hypertrophy. Mild central stenosis. Moderate severe right-sided foraminal narrowing L3-4: Severe multifactorial central stenosis. Diffuse disc bulge. Lateral osteophyte and disc formation. Bilateral facet hypertrophy. Moderate left and moderate to severe right-sided foraminal narrowing L4-5: Diffuse disc bulge with facet hypertrophy. No significant stenosis L5-S1: No stenosis Meds: Duloxetine 60mg, gabapentin 800mg TID. Tramadol not helpful in the past. Nortritpyline not helpful PT: none recently The Oswestry Disability Index was completed, and the patient scored a 51%. The patient noted the following: the patient has moderate or greater pain, pain prevents from lifting heavy weights, pain prevents patient from walking 0.5 mile or less, pain limits ability to sit for 60 minutes or less, the patient has pain that prevents them from standing for 60 minutes or less, Pain limits the patient to 6 hours of sleep or less, the patient's social life is restricted by pain, and pain restricts journeys of 1 hour or less Plan: -hgb A1c improved from 10.1 to 7.2% -refill and continue LDN -continue gabapentin to 800mg PO TID and duloxetine 60mg PO, nortriptlyine 25mg PO daily through PCP -Dr Suresh recommended L3 PLIF and back bracing, not scheduled at this time -continue HEP as tolerated, exercises provided today and patient will utilize her silver sneakers benefit. -follow-up after lumbar sugery and cleared by Dr Suresh, will update left hip xray and consider left hip injection as she has moderate pain on exam The patient was counseled that proper dietary changes and consistent participation in a home exercise plan can lead to weight loss. Weight loss can help to improve functionality in patients with chronic pain. I have checked an OARRS report on this patient today and there are no aberrancies noted in the prescribing history. A drug screen was completed and reviewed within the last year, and if there has not been a drug screen completed we ordered one today to monitor higher risk, state monitored pain medication use. DEBI Damon documented in this encounter [facility] 08-02-2023 History of Presen t illness Narrative Nurse Note: Review of Systems Constitutional: Negative for fatigue and fever. HENT: Positive for ear pain. Negative for congestion and sore throat. Eyes: Negative for pain and redness. Respiratory: Negative for cough and shortness of breath. Cardiovascular: Negative for chest pain and palpitations. Gastrointestinal: Negative for abdominal pain, constipation, diarrhea and nausea. Genitourinary: Negative for difficulty urinating and dysuria. Musculoskeletal: Negative for arthralgias and myalgias. Skin: Positive for rash. Negative for wound. Neurological: Negative for dizziness and headaches. All other systems reviewed and are negative. Chief Complaint Patient presents with Rash Rash on her right arm, scalp, ears. Last visit 07/08/23 was given Prednisone taper with some relief but came back. HPI: Rash: entire scalp, ears and on right arm, all came at one time, she was seen and given prednisone and it got better but once it was gone the rash recurred and has gotten severe again. Pain management: is on gabapentin, was increased on the dose by pain specialist, had been on gabapentin for neuropathy and then was seen for back pain, she would like me to take over prescription because she will not need to see pain management soon. ROS: Review of Systems Nurse Note: Review of Systems Constitutional: Negative for fatigue and fever. HENT: Positive for ear pain. Negative for congestion and sore throat. Eyes: Negative for pain and redness. Respiratory: Negative for cough and shortness of breath. Cardiovascular: Negative for chest pain and palpitations. Gastrointestinal: Negative for abdominal pain, constipation, diarrhea and nausea. Genitourinary: Negative for difficulty urinating and dysuria. Musculoskeletal: Negative for arthralgias and myalgias. Skin: Positive for rash. Negative for wound. Neurological: Negative for dizziness and headaches. All other systems reviewed and are negative. Past medical/family/social history: reviewed and updated, see documented in patient's chart. Physical Exam: BP 138/76 Pulse 109 Ht 1.778 m (5' 10") Wt 112.1 kg (247 lb 1.6 oz) SpO2 99% BMI 35.46 kg/m Smoking Status Every Day Body mass index is 35.46 kg/m . Physical Exam Skin: Findings: Erythema and rash (erythema, plaque and scaling on scalp, ears. macule with erythema on right forearm) present. Assessment/Plan: 1. Psoriasis - clobetasol 0.05 % Cream; Apply to affected area BID as needed Dispense: 60 g; Refill: 1 - clobetasol 0.05 % Solution; Apply to scalp after shampooing daily for two weeks Dispense: 50 mL; Refill: 2 - Clobetasol Propionate 0.05 % Shampoo; Apply 1 Application topically twice a week. Dispense: 118 mL; Refill: 2 - ergocalciferol 1.25 MG (19845 UT) capsule; Take 1 capsule by mouth once a week. Dispense: 12 capsule; Refill: 3 2. Lumbosacral neuritis OARRS reviewed, will assume management - Gabapentin 300 MG capsule; Take 3 capsules by mouth 3 times daily. Dispense: 810 capsule; Refill: 0 Orders and follow up as documented in patient record; There are no discontinued medications. Requested Prescriptions No prescriptions requested or ordered in this encounter Patient was advised to call with any questions or concerns. If symptoms worsen patient was advised to follow up in our office or the Emergency Dept. Benefits, Risks, Contraindications, and Complications of recommended treatments were explained the patient understands and agrees to proceed with plan. Chantal Cole MD 08/02/2023 documented in this encounter [facility] 07-17-2023 Note IMPRESSION: Normal bone density evaluation. RADIOLOGY 07-08-2023 History of Presen t illness Narrative Nurse Note: Review of Systems Constitutional: Negative for fatigue and fever. HENT: Negative for congestion, ear pain and sore throat. Eyes: Negative for pain and redness. Respiratory: Negative for cough and shortness of breath. Cardiovascular: Negative for chest pain and palpitations. Gastrointestinal: Negative for abdominal pain, constipation, diarrhea and nausea. Genitourinary: Negative for difficulty urinating and dysuria. Musculoskeletal: Negative for arthralgias and myalgias. Skin: Positive for rash. Negative for wound. Neurological: Negative for dizziness and headaches. All other systems reviewed and are negative. Chief Complaint Patient presents with Rash Rash on right forearm, forehead and back of neck and scalp. Patient brought shampoo she used one time. This has been bothering her for approximately 2 weeks HPI: Rash: started 2 weeks ago, scalp is severely itchy, used a new shampoo and has rash on her arm after working in a flower bed. ROS: Review of Systems Nurse Note: Review of Systems Constitutional: Negative for fatigue and fever. HENT: Negative for congestion, ear pain and sore throat. Eyes: Negative for pain and redness. Respiratory: Negative for cough and shortness of breath. Cardiovascular: Negative for chest pain and palpitations. Gastrointestinal: Negative for abdominal pain, constipation, diarrhea and nausea. Genitourinary: Negative for difficulty urinating and dysuria. Musculoskeletal: Negative for arthralgias and myalgias. Skin: Positive for rash. Negative for wound. Neurological: Negative for dizziness and headaches. All other systems reviewed and are negative. Past medical/family/social history: reviewed and updated, see documented in patient's chart. Physical Exam: BP 131/79 Pulse 108 Ht 1.778 m (5' 10") Wt 113.4 kg (249 lb 14.4 oz) SpO2 97% BMI 35.86 kg/m Smoking Status Every Day Body mass index is 35.86 kg/m . Physical Exam Skin: Findings: Rash (maculopapular on the right arm, excoriated, scabbing and peeling on the scalp) present. Assessment/Plan: 1. Allergic contact dermatitis, unspecified trigger Can also use claritin as needed for itch - predniSONE 10 MG tablet; 82-79-92-10mg, 3 days each taper dose Dispense: 38 tablet; Refill: 0 Orders and follow up as documented in patient record; There are no discontinued medications. Requested Prescriptions Signed Prescriptions Disp Refills predniSONE 10 MG tablet 38 tablet 0 [id number], 3 days each taper dose Patient was advised to call with any questions or concerns. If symptoms worsen patient was advised to follow up in our office or the Emergency Dept. Benefits, Risks, Contraindications, and Complications of recommended treatments were explained the patient understands and agrees to proceed with plan. Chantal Cole MD 07/08/2023 documented in this encounter [facility] 05-28-2023 History of Presen t illness Narrative HPI: Susan Santos Presents for evaluation and treatment of Low back pain. Pain is described as Aching and is currently rated 4/10, and at it's most severe is rated 8/10. Pain is increased with standing and walking and is relieved by relaxation, pain medication and heating pad. The patient admits to having numbness/tingling in both feet. she admits to having weakness hips and legs. The patient denies bowel/bladder incontinence. Patient admits to having tobacco use. Smokes a pack a day. Audit-C Questionnaire 1. How often do you have a drink containing alcohol? (0) never 2. How many standard drinks containing alcohol do you have on a typical day? (0) 1 or 2 3. How often do you have six or more drinks on one occasion? (0) never *A score of 3 or more in women or 4 or more in men is a positive score that requires education. Current Outpatient Medications Medication Sig Gabapentin 100 MG capsule Take 1 capsule by mouth 3 times daily. amLODIPine 5 MG tablet Take 1 tablet by mouth daily. ammonium lactate 12 % Cream cream clobetasol 0.05 % Cream DISABILITY PLACARD Handicap placard for five years. DX: Chronic back pain, Diabetes and Peripheral artery disease. DULoxetine (Cymbalta) [address] Particles capsule DR Take 1 capsule by mouth daily. gabapentin (Neurontin) 800 MG tablet Take 1 tablet by mouth 3 times daily. gabapentin 800 MG tablet Take 1 tablet by mouth 3 times daily. gliMEPIride 4 MG tablet Take 2 tablets by mouth daily. hydroCHLOROthiazide 12.5 MG tablet Take 1 tablet by mouth daily. irbesartan (Avapro) 300 MG tablet Take 1 tablet by mouth daily. metFORMIN-XR 500 MG Tab SR 24 HR Take 2 tablets by mouth 2 times daily. Nortriptyline 25 MG capsule Take 1 capsule by mouth at bedtime. repaglinide 1 MG tablet Take 1 tablet by mouth 3 times daily (take before meals). Rosuvastatin 40 MG tablet Take 1 tablet by mouth daily. Semaglutide,0.25 or 0.5MG/DOS, (Ozempic, 0.25 or 0.5 MG/DOSE,) 2 MG/1.5ML Solution Pen-injector Inject 0.25 mg under the skin once a week. triamcinolone 0.1 % Cream cream apply topically to affected area twice a day Urea 40 % Cream Apply 1 Application topically daily. Review of Systems: General: Denies fevers, chills, or night sweats Abdominal: Denies nausea, vomiting, diarrhea Respiratory: Denies cough, sputum production Genitourinary: Denies dysuria or frequency HPI: Susan Santos Presents for evaluation and treatment of Low back pain. Pain is described as Aching and is currently rated 4/10, and at it's most severe is rated 8/10. Pain is increased with standing and walking and is relieved by relaxation, pain medication and heating pad. The patient admits to having numbness/tingling in both feet. she admits to having weakness hips and legs. The patient denies bowel/bladder incontinence. Patient admits to having tobacco use. Smokes a pack a day. Audit-C Questionnaire 1. How often do you have a drink containing alcohol? (0) never 2. How many standard drinks containing alcohol do you have on a typical day? (0) 1 or 2 3. How often do you have six or more drinks on one occasion? (0) never *A score of 3 or more in women or 4 or more in men is a positive score that requires education. Current Outpatient Medications Medication Sig Gabapentin 100 MG capsule Take 1 capsule by mouth 3 times daily. amLODIPine 5 MG tablet Take 1 tablet by mouth daily. ammonium lactate 12 % Cream cream clobetasol 0.05 % Cream DISABILITY PLACARD Handicap placard for five years. DX: Chronic back pain, Diabetes and Peripheral artery disease. DULoxetine (Cymbalta) [address] Particles capsule DR Take 1 capsule by mouth daily. gabapentin (Neurontin) 800 MG tablet Take 1 tablet by mouth 3 times daily. gabapentin 800 MG tablet Take 1 tablet by mouth 3 times daily. gliMEPIride 4 MG tablet Take 2 tablets by mouth daily. hydroCHLOROthiazide 12.5 MG tablet Take 1 tablet by mouth daily. irbesartan (Avapro) 300 MG tablet Take 1 tablet by mouth daily. metFORMIN-XR 500 MG Tab SR 24 HR Take 2 tablets by mouth 2 times daily. Nortriptyline 25 MG capsule Take 1 capsule by mouth at bedtime. repaglinide 1 MG tablet Take 1 tablet by mouth 3 times daily (take before meals). Rosuvastatin 40 MG tablet Take 1 tablet by mouth daily. Semaglutide,0.25 or 0.5MG/DOS, (Ozempic, 0.25 or 0.5 MG/DOSE,) 2 MG/1.5ML Solution Pen-injector Inject 0.25 mg under the skin once a week. triamcinolone 0.1 % Cream cream apply topically to affected area twice a day Urea 40 % Cream Apply 1 Application topically daily. Review of Systems: General: Denies fevers, chills, or night sweats Abdominal: Denies nausea, vomiting, diarrhea Respiratory: Denies cough, sputum production Genitourinary: Denies dysuria or frequency Physical Examination: Vitals: 05/28/23 1120 BP: 122/65 Pulse: 92 SpO2: 96% Constitutional The patient is awake, alert, well developed, well nourished and well groomed. The patient is pleasant and cooperative. The patient is a good historian and is very helpful with the history and physical examination. No lesions noted on face. Neurologic Cranial Nerves 2-12 were tested and are grossly intact. The deep tendon reflexes of the in upper and lower extremities are symmetrical;. Plantar reflexes (Babinski): toes are downgoing. The gait is abnormal. Sensory testing for pain (pinprick), light touch, position, and vibration is grossly intact. Psychiatric The patient is oriented to person, place, and time. Speech is fluent and words are clear. Thought processes are coherent, insight is good. There are no obsessive, compulsive, phobic or delusional thoughts; there are no illusions or hallucinations. The patient's fund of knowledge: awareness of current events and past history is appropriate for age. The patient's higher cognitive functions are intact. The patient's mood is neutral and the affect appropriate; there are no loose associations. MSK The patient has moderate difficulty transitioning from sitting to standing. The patient has a(n) antalgic gait. The lumbar spine demonstrates a flexion biased curve. There is no deformity to the lumbosacral spine. There is no abnormality in muscle tone in the lumbosacral spine. bilateral lumbar paraspinal tenderness, NATY, thigh thrust, Gaenslen's, and Kim's positive bilaterally, SLR negative and FADIR, internal rotation, and external rotation were positive in LLE Lumbar facet loading positive bilaterally, tender to palpation over bilateral facet joints. Left trochanteric bursa tenderness. Assessment: ICD-10-CM 1. Greater trochanteric bursitis of left hip M70.62 2. Primary osteoarthritis of left hip M16.12 3. Spinal stenosis of lumbar region with neurogenic claudication M48.062 4. Sacroiliitis, not elsewhere classified M46.1 5. Chronic pain syndrome G89.4 6. Encounter for long-term use of opiate analgesic Z79.891 62 y/o F w/PMHx severe lumbar stenosis, lumbar facet arthropathy, HTN, DM, PAD, psoriasis, peripheral neuropathy who presents for evaluation of her low back pain and all over pain. Seen by Dr. Vaughn Injections: SIJ injections resulted in short term (1 day) relief. Has had ESIs and RFAs before, but not interested in more injections. 10/05/22- Left hip injection resulting in 50-60% relief of pain ongoing. Imaging: lumbar MRI shows severe canal stenosis at L3-4 with multilevel facet arthropathy. There is 5mm (grade 1) listhesis ove L3 over L4, but no instability on Xrays with flex/extension. Left hip xray shows mild OA. Meds: Duloxetine 60mg, gabapentin 800mg TID. Tramadol not helpful in the past. Nortritpyline not helpful PT: none recently The Oswestry Disability Index was completed, and the patient scored a 42%. The patient noted the following: the patient has moderate or greater pain, the patient has pain that limits and/or needs help to manage their personal care, pain prevents from lifting heavy weights, pain prevents patient from walking 0.5 mile or less, pain limits ability to sit for 60 minutes or less, the patient has pain that prevents them from standing for 60 minutes or less and the patient's social life is restricted by pain Plan: -start flexeril 10mg PO BID PRN muscle spasms -continue LDN -started ozempic from Dr. Cole. -referral Dr. Suresh to discuss SIJ fusion was placed 04/01/23. Reached out to office today to follow-up. Office states they will call her today to set up an appointment. -decrease gabapentin to 800mg PO TID -continue duloxetine 60mg PO, nortriptlyine 25mg PO daily through PCP -must quit smoking to have surgery with Dr. Mcmanus, although she is questioning this, has seen a surgeon at [facility] who recommended the same thing -continue HEP as tolerated, exercises provided today and patient will utilize her silver sneakers benefit. -discussed medical marijuana today. Patient would like to hold off on referral at this time. -follow up 8 weeks. Niall's HgbA1C is 10.1 today. Did not order repeat SIJ injection today r/t to this. Patient is not interested in Stimwave at this time. The patient was counseled that proper dietary changes and consistent participation in a home exercise plan can lead to weight loss. Weight loss can help to improve functionality in patients with chronic pain. I have checked an [place] report on this patient today and there are no aberrancies noted in the prescribing history. A drug screen was completed and reviewed within the last year, and if there has not been a drug screen completed we ordered one today to monitor higher risk, state monitored pain medication use. documented in this encounter [email or web address] 05-28-2023 Grzegorz Harvey - 05/28/2023 11:15 AM EDT Images from the original note were not included. Low Back Pain: Exercises Introduction Here are some examples of exercises for you to try. The exercises may be suggested for a condition or for rehabilitation. Start each exercise slowly. Ease off the exercises if you start to have pain. You will be told when to start these exercises and which ones will work best for you. How to do the exercises Press-up Lie on your stomach, supporting your body with your forearms. Press your elbows down into the floor to raise your upper back. As you do this, relax your stomach muscles and allow your back to arch without using your back muscles. As your press up, do not let your hips or pelvis come off the floor. Hold for 15 to 30 seconds, then relax. Repeat 2 to 4 times. Alternate arm and leg (bird dog) Start on the floor, on your hands and knees. Tighten your belly muscles by pulling your belly button in toward your spine. Be sure you continue to breathe normally and do not hold your breath. Keeping your back and neck straight, raise one arm off the floor and hold it straight out in front of you. Be careful not to let your shoulder drop down, because that will twist your trunk. Hold for about 6 seconds, then lower your arm and switch to your other arm. Over time, work up to holding for 10 to 30 seconds each time. Repeat 8 to 12 times with each arm. When you feel steady and strong doing this exercise with your arms, try doing the exercise with your legs instead. Raise one leg and hold it straight out behind you. Be careful not to let your hip drop down, because that will twist your trunk. When holding your leg straight out becomes easier, try raising your opposite arm at the same time. Lxtn-cl-hkmac exercise Lie on your back with your knees bent and your feet flat on the floor. Bring one knee to your chest, keeping the other foot flat on the floor (or keeping the other leg straight, whichever feels better on your lower back). Keep your lower back pressed to the floor. Hold for at least 15 to 30 seconds. Relax, and lower the knee to the starting position. Repeat with the other leg. Repeat 2 to 4 times with each leg. To get more stretch, put your other leg flat on the floor while pulling your knee to your chest. Curl-ups Lie on the floor on your back with your knees bent at a 90-degree angle. Your feet should be flat on the floor, about 12 inches from your buttocks. Cross your arms over your chest. If this bothers your neck, try putting your hands behind your neck (not your head), with your elbows spread apart. Slowly tighten your belly muscles and raise your shoulder blades off the floor. Keep your head in line with your body, and do not press your chin to your chest. Hold this position for 1 or 2 seconds, then slowly lower yourself back down to the floor. Repeat 8 to 12 times. Pelvic tilt Lie on your back with your knees bent and your feet flat on the floor. Tighten your belly muscles and buttocks, and press your lower back to the floor. You should feel your hips and pelvis rock back. Hold for about 6 seconds while breathing smoothly, and then relax. Repeat 8 to 12 times. Heel dig bridging Lie on your back with both knees bent and your ankles bent so that only your heels are digging into the floor. Your knees should be bent about 90 degrees. Then push your heels into the floor, squeeze your buttocks, and lift your hips off the floor until your shoulders, hips, and knees are all in a straight line. Hold for about 6 seconds as you continue to breathe normally, and then slowly lower your hips back down to the floor and rest for up to 10 seconds. Do 8 to 12 repetitions. Hamstring stretch in doorway Lie on your back in a doorway, with one leg through the open door. Slide your leg up the wall to straighten your knee. You should feel a gentle stretch down the back of your leg. Hold the stretch for at least 15 to 30 seconds. Do not arch your back, point your toes, or bend either knee. Keep one heel touching the floor and the other heel touching the wall. Repeat with your other leg. Do 2 to 4 times for each leg. Hip flexor stretch Kneel on the floor with one knee bent and one leg behind you. Place your forward knee over your foot. Keep your other knee touching the floor. Slowly push your hips forward until you feel a stretch in the upper thigh of your rear leg. Hold the stretch for at least 15 to 30 seconds. Repeat with your other leg. Do 2 to 4 times on each side. Back press Stand with your back 10 to 12 inches away from a wall. Lean into the wall until your back is against it. Press your lower back against the wall by pulling in your stomach muscles. Slowly slide down until your knees are slightly bent, pressing your lower back into the wall. Hold for at least 6 seconds, then slide back up the wall. Repeat 8 to 12 times. Over time, work up to holding this position for as much as 1 minute. Follow-up care is a chavis part of your treatment and safety. Be sure to make and go to all appointments, and call your doctor if you are having problems. It's also a good idea to know your test results and keep a list of the medicines you take. Current as of: August 29, 2022 Content Version: 13.7 [employer]. Care instructions adapted under license by your healthcare professional. If you have questions about a medical condition or this instruction, always ask your healthcare professional. [employer] disclaims any warranty or liability for your use of this information. documented in this encounter [email or web address] 03-12-2023 History of Presen t illness Narrative Nurse Note: Review of Systems Constitutional: Negative for fatigue and fever. HENT: Negative for congestion, ear pain and sore throat. Eyes: Negative for pain and redness. Respiratory: Negative for cough and shortness of breath. Cardiovascular: Negative for chest pain and palpitations. Gastrointestinal: Negative for abdominal pain, constipation, diarrhea, nausea and vomiting. Genitourinary: Negative for difficulty urinating and dysuria. Musculoskeletal: Positive for arthralgias and myalgias. Skin: Negative for rash and wound. Neurological: Negative for dizziness and headaches. All other systems reviewed and are negative. Chief Complaint Patient presents with Results Hypertension Diabetes Back Pain Hyperlipidemia Urinary Incontinence Having increased incontinence the past couple of months, stated has always had a little bit is now increased. Arm Pain Upper left arm - fell last week. Caught self on arm. States has a knot close to the shoulder HPI: Venous stasis dermatitis: improved since last visit, swelling is much better, redness has improved, tenderness has improved. Regarding Hypertension: Susan is a 62 y.o. female who comes in today to follow up on HTN. Her HTN is chronic and controlled. Since her last visit, she reports that she has not been checking her blood pressures. Her blood pressures have typically been normal. She has not noted any side effects. Shortness of Breath: No Chest Pain: No Palpitations: No Edema: Yes Other CV risk factors include: age > 55 (female), diabetes mellitus, hypertension, dyslipidemia, obesity and sedentary lifestyle Her hypertension severity is severe due to the above factors, comorbities and degree of intervention necessary. Regarding Diabetes: Diabetes severity is moderate. Blood sugars controlled: No HgbA1c: Lab Results Component Value Date HGBA1C 10.1 (H) 03/11/2023 Home testing No Times per day: Any low blood sugars: No Frequent blood sugars >200: No Last full eye exam: Overdue, recommended Any new vision concerns: No Regular foot self-exams: Yes New foot concerns: No Neuropathic symptoms: Yes, treated yes, related to chronic back pain Microalbumin: sees nephrology Other associated concerns: has difficulty tolerating diet changes. Regarding Hyperlipidemia: Susan comes in today to follow up on chronic hyperlipidemia. This condition has been under good control. Pt reports that she has been compliant with her medications. Pt denies side effects from medication including myalgias, weakness or joint pain. Alleviating factors include: rosuvastatin Exacerbating factors include: poor diet, lack of exercise Other significant medical conditions include: see problem list Lab Results Component Value Date CHOLESTEROL 92 (L) 12/17/2022 TRIG 151 (H) 12/17/2022 HDL 49 12/17/2022 LDLCALC 13 12/17/2022 Lab Results Component Value Date ALT 15 03/11/2023 AST 22 03/11/2023 ALKPHOS 115 03/11/2023 BILITOTAL 0.9 03/11/2023 BILIDIRECT 0.1 03/11/2023 Her hyperlipidemia severity is severe due to the above factors. ROS: Review of Systems Nurse Note: Review of Systems Constitutional: Negative for fatigue and fever. HENT: Negative for congestion, ear pain and sore throat. Eyes: Negative for pain and redness. Respiratory: Negative for cough and shortness of breath. Cardiovascular: Negative for chest pain and palpitations. Gastrointestinal: Negative for abdominal pain, constipation, diarrhea, nausea and vomiting. Genitourinary: Negative for difficulty urinating and dysuria. Musculoskeletal: Positive for arthralgias and myalgias. Skin: Negative for rash and wound. Neurological: Negative for dizziness and headaches. All other systems reviewed and are negative. Past medical/family/social history: reviewed and updated, see documented in patient's chart. Physical Exam: BP 138/76 Pulse 99 Wt 123.3 kg (271 lb 14.4 oz) BMI 39.01 kg/m Smoking Status Every Day Body mass index is 39.01 kg/m . Physical Exam Assessment/Plan: 1. Essential hypertension, benign Chronic stable, continue same therapy - amLODIPine 5 MG tablet; Take 1 tablet by mouth daily. Dispense: 90 tablet; Refill: 0 - hydroCHLOROthiazide 12.5 MG tablet; Take 1 tablet by mouth daily. Dispense: 90 tablet; Refill: 0 - irbesartan (Avapro) 300 MG tablet; Take 1 tablet by mouth daily. Dispense: 90 tablet; Refill: 0 - COMPREHENSIVE METABOLIC PANEL; Future - CBC, EDIF, PLATELET; Future - LIPID PANEL W CALCULATED LDL; Future 2. Lumbosacral neuritis Chronic stable, continue same therapy - DULoxetine (Cymbalta) [address] Particles capsule DR; Take 1 capsule by mouth daily. Dispense: 90 capsule; Refill: 0 - gabapentin (Neurontin) 800 MG tablet; Take 1 tablet by mouth 3 times daily. Dispense: 270 tablet; Refill: 0 3. Type 2 diabetes mellitus with peripheral neuropathy Plan to try to get Ozempic through patient assistance, if she starts this will plan to stop prandin and glimepiride - gliMEPIride 4 MG tablet; Take 2 tablets by mouth daily. Dispense: 180 tablet; Refill: 0 - metFORMIN-XR 500 MG Tab SR 24 HR; Take 2 tablets by mouth 2 times daily. Dispense: 360 tablet; Refill: 0 - Semaglutide,0.25 or 0.5MG/DOS, (Ozempic, 0.25 or 0.5 MG/DOSE,) 2 MG/1.5ML Solution Pen-injector; Inject 0.25 mg under the skin once a week. Dispense: 6 mL; Refill: 1 4. Lumbar radiculitis Chronic stable, continue same therapy - Nortriptyline 25 MG capsule; Take 1 capsule by mouth at bedtime. Dispense: 90 capsule; Refill: 0 5. Chronic pain syndrome Chronic stable, continue same therapy - Nortriptyline 25 MG capsule; Take 1 capsule by mouth at bedtime. Dispense: 90 capsule; Refill: 0 6. Mixed hyperlipidemia Chronic stable, continue same therapy - Rosuvastatin 40 MG tablet; Take 1 tablet by mouth daily. Dispense: 90 tablet; Refill: 0 - COMPREHENSIVE METABOLIC PANEL; Future - LIPID PANEL W CALCULATED LDL; Future 7. Uncontrolled type 2 diabetes mellitus with hyperglycemia Start Ozempic, when it goes through will stop Repaglinide, and glimepiridie - Semaglutide,0.25 or 0.5MG/DOS, (Ozempic, 0.25 or 0.5 MG/DOSE,) 2 MG/1.5ML Solution Pen-injector; Inject 0.25 mg under the skin once a week. Dispense: 6 mL; Refill: 1 - AMB REFERRAL TO PHARMACY MEDICATION ASSISTANCE - COMPREHENSIVE METABOLIC PANEL; Future - HEMOGLOBIN A1C; Future Orders and follow up as documented in patient record; We reviewed diet, exercise and weight control; Repeat labs were ordered and patient was advised to get prior to next appointment; Medications Discontinued During This Encounter Medication Reason amLODIPine 5 MG tablet Reorder DULoxetine (Cymbalta) [address] Particles capsule DR Reorder gabapentin (Neurontin) 800 MG tablet Reorder gliMEPIride 4 MG tablet Reorder hydroCHLOROthiazide 12.5 MG tablet Reorder irbesartan (Avapro) 300 MG tablet Reorder metFORMIN-XR 500 MG Tab SR 24 HR Reorder Nortriptyline 25 MG capsule Reorder Rosuvastatin 40 MG tablet Reorder Requested Prescriptions Signed Prescriptions Disp Refills amLODIPine 5 MG tablet 90 tablet 0 Sig: Take 1 tablet by mouth daily. DULoxetine (Cymbalta) [address] Particles capsule DR 90 capsule 0 Sig: Take 1 capsule by mouth daily. gabapentin (Neurontin) 800 MG tablet 270 tablet 0 Sig: Take 1 tablet by mouth 3 times daily. gliMEPIride 4 MG tablet 180 tablet 0 Sig: Take 2 tablets by mouth daily. hydroCHLOROthiazide 12.5 MG tablet 90 tablet 0 Sig: Take 1 tablet by mouth daily. irbesartan (Avapro) 300 MG tablet 90 tablet 0 Sig: Take 1 tablet by mouth daily. metFORMIN-XR 500 MG Tab SR 24 HR 360 tablet 0 Sig: Take 2 tablets by mouth 2 times daily. Nortriptyline 25 MG capsule 90 capsule 0 Sig: Take 1 capsule by mouth at bedtime. Rosuvastatin 40 MG tablet 90 tablet 0 Sig: Take 1 tablet by mouth daily. Semaglutide,0.25 or 0.5MG/DOS, (Ozempic, 0.25 or 0.5 MG/DOSE,) 2 MG/1.5ML Solution Pen-injector 6 mL 1 Sig: Inject 0.25 mg under the skin once a week. Patient was advised to call with any questions or concerns. If symptoms worsen patient was advised to follow up in our office or the Emergency Dept. Benefits, Risks, Contraindications, and Complications of recommended treatments were explained the patient understands and agrees to proceed with plan. Chantal Cole MD 03/12/2023 documented in this encounter [facility] 12-31-2022 History of Presen t illness Narrative HPI: Susan Santos Presents for evaluation and treatment of low back and bilateral leg pain. Pain is described as Aching and is rated 4/10. Pain is increased with standing and walking and is relieved by relaxation. The patient admits to having numbness/tingling from neuropathy. she admits to having weakness in bilateral legs. The patient denies bowel/bladder incontinence. Patient admits to having tobacco use. Audit-C Questionnaire 1. How often do you have a drink containing alcohol? (0) never 2. How many standard drinks containing alcohol do you have on a typical day? (0) 1 or 2 3. How often do you have six or more drinks on one occasion? (0) never *A score of 3 or more in women or 4 or more in men is a positive score that requires education. Current Outpatient Medications Medication Sig amLODIPine 5 MG tablet Take 1 tablet by mouth daily. ammonium lactate 12 % Cream cream clobetasol 0.05 % Cream DISABILITY PLACARD Handicap placard for five years. DX: Chronic back pain, Diabetes and Peripheral artery disease. DULoxetine (Cymbalta) [address] Particles capsule DR Take 1 capsule by mouth daily. gabapentin (Neurontin) 800 MG tablet Take 1 tablet by mouth 3 times daily. gliMEPIride 4 MG tablet Take 2 tablets by mouth daily. hydroCHLOROthiazide 12.5 MG tablet Take 1 tablet by mouth daily. irbesartan (Avapro) 300 MG tablet Take 1 tablet by mouth daily. metFORMIN-XR 500 MG Tab SR 24 HR Take 2 tablets by mouth 2 times daily. Nortriptyline 25 MG capsule Take 1 capsule by mouth at bedtime. repaglinide 1 MG tablet Take 1 tablet by mouth 3 times daily (take before meals). Rosuvastatin 40 MG tablet Take 1 tablet by mouth daily. triamcinolone 0.1 % Cream cream apply topically to affected area twice a day Urea 40 % Cream Apply 1 Application topically daily. Review of Systems: General: Denies fevers, chills, or night sweats Abdominal: Denies nausea, vomiting, diarrhea Respiratory: Denies cough, sputum production Genitourinary: Denies dysuria or frequency HPI: Susan Santos Presents for evaluation and treatment of low back and bilateral leg pain. Pain is described as Aching and is rated 4/10. Pain is increased with standing and walking and is relieved by relaxation. The patient admits to having numbness/tingling from neuropathy. she admits to having weakness in bilateral legs. The patient denies bowel/bladder incontinence. Patient admits to having tobacco use. Audit-C Questionnaire 1. How often do you have a drink containing alcohol? (0) never 2. How many standard drinks containing alcohol do you have on a typical day? (0) 1 or 2 3. How often do you have six or more drinks on one occasion? (0) never *A score of 3 or more in women or 4 or more in men is a positive score that requires education. Current Outpatient Medications Medication Sig amLODIPine 5 MG tablet Take 1 tablet by mouth daily. ammonium lactate 12 % Cream cream clobetasol 0.05 % Cream DISABILITY PLACARD Handicap placard for five years. DX: Chronic back pain, Diabetes and Peripheral artery disease. DULoxetine (Cymbalta) [address] Particles capsule DR Take 1 capsule by mouth daily. gabapentin (Neurontin) 800 MG tablet Take 1 tablet by mouth 3 times daily. gliMEPIride 4 MG tablet Take 2 tablets by mouth daily. hydroCHLOROthiazide 12.5 MG tablet Take 1 tablet by mouth daily. irbesartan (Avapro) 300 MG tablet Take 1 tablet by mouth daily. metFORMIN-XR 500 MG Tab SR 24 HR Take 2 tablets by mouth 2 times daily. Nortriptyline 25 MG capsule Take 1 capsule by mouth at bedtime. repaglinide 1 MG tablet Take 1 tablet by mouth 3 times daily (take before meals). Rosuvastatin 40 MG tablet Take 1 tablet by mouth daily. triamcinolone 0.1 % Cream cream apply topically to affected area twice a day Urea 40 % Cream Apply 1 Application topically daily. Review of Systems: General: Denies fevers, chills, or night sweats Abdominal: Denies nausea, vomiting, diarrhea Respiratory: Denies cough, sputum production Genitourinary: Denies dysuria or frequency Physical Examination: Vitals: 12/31/22 1140 BP: 131/73 Pulse: 111 Resp: 18 Constitutional The patient is awake, alert, well developed, well nourished and well groomed. The patient is pleasant and cooperative. The patient is a good historian and is very helpful with the history and physical examination. No lesions noted on face. Neurologic Cranial Nerves 2-12 were tested and are grossly intact. The deep tendon reflexes of the in upper and lower extremities are symmetrical;. Plantar reflexes (Babinski): toes are downgoing. The gait is abnormal. Sensory testing for pain (pinprick), light touch, position, and vibration is grossly intact. Psychiatric The patient is oriented to person, place, and time. Speech is fluent and words are clear. Thought processes are coherent, insight is good. There are no obsessive, compulsive, phobic or delusional thoughts; there are no illusions or hallucinations. The patient's fund of knowledge: awareness of current events and past history is appropriate for age. The patient's higher cognitive functions are intact. The patient's mood is neutral and the affect appropriate; there are no loose associations. MSK The patient has moderate difficulty transitioning from sitting to standing. The patient has a(n) antalgic gait. The lumbar spine demonstrates a flexion biased curve. There is no deformity to the lumbosacral spine. There is no abnormality in muscle tone in the lumbosacral spine. bilateral lumbar paraspinal tenderness, NATY, thigh thrust, Gaenslen's, and Kim's positive bilaterally, SLR negative and FADIR, internal rotation, and external rotation were positive in LLE Lumbar facet loading positive bilaterally, tender to palpation over bilateral facet joints. Left trochanteric bursa tenderness. Assessment: ICD-10-CM 1. Greater trochanteric bursitis of left hip M70.62 2. Primary osteoarthritis of left hip M16.12 3. Spinal stenosis of lumbar region with neurogenic claudication M48.062 4. Chronic pain syndrome G89.4 62 y/o F w/PMHx severe lumbar stenosis, lumbar facet arthropathy, HTN, DM, PAD, psoriasis, peripheral neuropathy who presents for evaluation of her low back pain and all over pain. Seen by Dr. Vaughn Injections: SIJ injections resulted in short term (1 day) relief. Has had ESIs and RFAs before, but not interested in more injections. 10/05/22- Left hip injection resulting in 50-60% relief of pain ongoing. Imaging: lumbar MRI shows severe canal stenosis at L3-4 with multilevel facet arthropathy. There is 5mm (grade 1) listhesis ove L3 over L4, but no instability on Xrays with flex/extension. Left hip xray shows mild OA. Meds: Duloxetine 60mg, gabapentin 800mg TID. Tramadol not helpful in the past. Nortritpyline not helpful PT: none recently The patient has had over 3 months of moderate to severe lumbar pain with functional impairment and inadequate response to conservative care including NSAIDS (unless there are contraindication such as concurrent blood thinners), multiple oral or topical pain medications, and home exercise program/physical therapy. Patient has completed >6 weeks of guided home exercise program and/or formal physical therapy program without relief of their symptoms. I have reviewed the imaging of the lumbar and no red flags were identified. The imaging reveals radiographic findings consistent with lumbar radiculopathy The Oswestry Disability Index was completed, and the patient scored a 38 The following scoring table explains the level of disability: 0-4 No disability 5-14 Mild disability 15-24 Moderate disability 25-34 Severe disability 35-50 Completely disabled Overall patient is feeling good on LDN, does not want to get any injections now as she is feeling better. Plan: -continue LDN -continue gabapentin 800mg PO TID through PCP -continue duloxetine 60mg PO daily through PCP -continue nortriptlyine 25mg PO Bedtime through PCP -must quit smoking to have surgery with Dr. Mcmanus, although she is questioning this, has seen a surgeon at [facility] who recommended the same thing -continue HEP as tolerated, exercises provided today and patient will utilize her silver sneakers benefit. -follow up 3 months, will call sooner to schedule injection if pain returns. I have checked an OARRS report on this patient today and there are no aberrancies noted in the prescribing history. A drug screen was completed and reviewed within the last year, and if there has not been a drug screen completed we ordered one today to monitor higher risk, state monitored pain medication use. A urine drug screen was completed and reviewed within the last year. No evidence of aberrancies were noted. The patient was counseled that proper dietary changes and consistent participation in a home exercise plan can lead to weight loss. Weight loss can help to improve functionality in patients with chronic pain. Patient identified through screening process as a tobacco user, this generated a brief counseling of less than 3 minutes between the provider and the patient about the benefits of ceasing tobacco use. Education handout was provided following discussion. documented in this encounter [facility] 12-18-2022 History of Presen t illness Narrative Nurse Note: Review of Systems Constitutional: Negative for fatigue and fever. HENT: Negative for congestion, ear pain and sore throat. Eyes: Negative for pain and redness. Respiratory: Negative for cough and shortness of breath. Cardiovascular: Negative for chest pain and palpitations. Gastrointestinal: Negative for abdominal pain, constipation, diarrhea, nausea and vomiting. Genitourinary: Negative for difficulty urinating and dysuria. Musculoskeletal: Positive for arthralgias, back pain and myalgias. Skin: Negative for rash and wound. Neurological: Negative for dizziness and headaches. All other systems reviewed and are negative. Chief Complaint Patient presents with Results Hypertension Diabetes Hyperlipidemia Pain HPI: Venous stasis dermatitis: improved since last visit, swelling is much better, redness has improved, tenderness has improved. Regarding Hypertension: Susan is a 62 y.o. female who comes in today to follow up on HTN. Her HTN is chronic and controlled. Since her last visit, she reports that she has not been checking her blood pressures. Her blood pressures have typically been normal. She has not noted any side effects. Shortness of Breath: No Chest Pain: No Palpitations: No Edema: Yes Other CV risk factors include: age > 55 (female), diabetes mellitus, hypertension, dyslipidemia, obesity and sedentary lifestyle Her hypertension severity is severe due to the above factors, comorbities and degree of intervention necessary. Regarding Diabetes: Diabetes severity is moderate. Blood sugars controlled: No HgbA1c: Lab Results Component Value Date HGBA1C 7.8 (H) 09/21/2022 Home testing No Times per day: Any low blood sugars: No Frequent blood sugars >200: No Last full eye exam: Overdue, recommended Any new vision concerns: No Regular foot self-exams: Yes New foot concerns: No Neuropathic symptoms: Yes, treated yes, related to chronic back pain Microalbumin: sees nephrology Other associated concerns: has difficulty tolerating diet changes. Regarding Hyperlipidemia: Susan comes in today to follow up on chronic hyperlipidemia. This condition has been under good control. Pt reports that she has been compliant with her medications. Pt denies side effects from medication including myalgias, weakness or joint pain. Alleviating factors include: rosuvastatin Exacerbating factors include: poor diet, lack of exercise Other significant medical conditions include: see problem list Lab Results Component Value Date CHOLESTEROL 92 (L) 12/17/2022 TRIG 151 (H) 12/17/2022 HDL 49 12/17/2022 LDLCALC 13 12/17/2022 Lab Results Component Value Date ALT 15 12/17/2022 AST 18 12/17/2022 ALKPHOS 111 12/17/2022 BILITOTAL 0.7 12/17/2022 BILIDIRECT 0.2 12/17/2022 Her hyperlipidemia severity is severe due to the above factors. Chronic pain: sees pain management, was weaned off narcotic pain medication and was put on a compounded medication. ROS: Review of Systems Nurse Note: Review of Systems Constitutional: Negative for fatigue and fever. HENT: Negative for congestion, ear pain and sore throat. Eyes: Negative for pain and redness. Respiratory: Negative for cough and shortness of breath. Cardiovascular: Negative for chest pain and palpitations. Gastrointestinal: Negative for abdominal pain, constipation, diarrhea, nausea and vomiting. Genitourinary: Negative for difficulty urinating and dysuria. Musculoskeletal: Positive for arthralgias, back pain and myalgias. Skin: Negative for rash and wound. Neurological: Negative for dizziness and headaches. All other systems reviewed and are negative. Past medical/family/social history: reviewed and updated, see documented in patient's chart. Physical Exam: BP 137/85 Pulse 108 Ht 1.778 m (5' 10") Wt 120.9 kg (266 lb 9.6 oz) BMI 38.25 kg/m Smoking Status Every Day Body mass index is 38.25 kg/m . Physical Exam Assessment/Plan: 1. Essential hypertension, benign Chronic stable, continue same therapy - amLODIPine 5 MG tablet; Take 1 tablet by mouth daily. Dispense: 90 tablet; Refill: 0 - hydroCHLOROthiazide 12.5 MG tablet; Take 1 tablet by mouth daily. Dispense: 90 tablet; Refill: 0 - irbesartan (Avapro) 300 MG tablet; Take 1 tablet by mouth daily. Dispense: 90 tablet; Refill: 0 2. Lumbosacral neuritis Chronic stable, continue same therapy - DULoxetine (Cymbalta) [address] Particles capsule DR; Take 1 capsule by mouth daily. Dispense: 90 capsule; Refill: 0 - gabapentin (Neurontin) 800 MG tablet; Take 1 tablet by mouth 3 times daily. Dispense: 270 tablet; Refill: 0 3. Type 2 diabetes mellitus with peripheral neuropathy Chronic stable, continue same therapy - gliMEPIride 4 MG tablet; Take 2 tablets by mouth daily. Dispense: 180 tablet; Refill: 0 - metFORMIN-XR 500 MG Tab SR 24 HR; Take 2 tablets by mouth 2 times daily. Dispense: 360 tablet; Refill: 0 4. Lumbar radiculitis Chronic stable, continue same therapy - Nortriptyline 25 MG capsule; Take 1 capsule by mouth at bedtime. Dispense: 90 capsule; Refill: 0 5. Chronic pain syndrome Chronic stable, continue same therapy - Nortriptyline 25 MG capsule; Take 1 capsule by mouth at bedtime. Dispense: 90 capsule; Refill: 0 6. Mixed hyperlipidemia Chronic stable, continue same therapy - Rosuvastatin 40 MG tablet; Take 1 tablet by mouth daily. Dispense: 90 tablet; Refill: 0 Orders and follow up as documented in patient record; We reviewed diet, exercise and weight control; Repeat labs were ordered and patient was advised to get prior to next appointment; There are no discontinued medications. Requested Prescriptions Pending Prescriptions Disp Refills amLODIPine 5 MG tablet 90 tablet 0 Sig: Take 1 tablet by mouth daily. DULoxetine (Cymbalta) [address] Particles capsule DR 90 capsule 0 Sig: Take 1 capsule by mouth daily. gabapentin (Neurontin) 800 MG tablet 270 tablet 0 Sig: Take 1 tablet by mouth 3 times daily. gliMEPIride 4 MG tablet 180 tablet 0 Sig: Take 2 tablets by mouth daily. hydroCHLOROthiazide 12.5 MG tablet 90 tablet 0 Sig: Take 1 tablet by mouth daily. irbesartan (Avapro) 300 MG tablet 90 tablet 0 Sig: Take 1 tablet by mouth daily. metFORMIN-XR 500 MG Tab SR 24 HR 360 tablet 0 Sig: Take 2 tablets by mouth 2 times daily. Nortriptyline 25 MG capsule 90 capsule 0 Sig: Take 1 capsule by mouth at bedtime. Rosuvastatin 40 MG tablet 90 tablet 0 Sig: Take 1 tablet by mouth daily. Patient was advised to call with any questions or concerns. If symptoms worsen patient was advised to follow up in our office or the Emergency Dept. Benefits, Risks, Contraindications, and Complications of recommended treatments were explained the patient understands and agrees to proceed with plan. Chantal Cole MD 12/18/2022 documented in this encounter [facility] 11-16-2022 History of Presen t illness Narrative HPI: Susan Santos Presents for evaluation and treatment of low back and bilateral leg pain. Pain is described as Gnawing and is rated 7/10. Pain is increased with putting shoes on and is relieved by nothing. The patient denies numbness/tingling. She admits to having weakness in her bilateral legs. The patient denies bowel/bladder incontinence. The patient responded with moderate relief to the most recent procedure which was Left Hip Injection on 10/05/22. Patient admits to having tobacco use. Audit-C Questionnaire 1. How often do you have a drink containing alcohol? (0) never 2. How many standard drinks containing alcohol do you have on a typical day? (0) 1 or 2 3. How often do you have six or more drinks on one occasion? (0) never *A score of 3 or more in women or 4 or more in men is a positive score that requires education. Current Outpatient Medications Medication Sig amLODIPine 5 MG tablet Take 1 tablet by mouth daily. ammonium lactate 12 % Cream cream clobetasol 0.05 % Cream DISABILITY PLACARD Handicap placard for five years. DX: Chronic back pain, Diabetes and Peripheral artery disease. DULoxetine (Cymbalta) [address] Particles capsule DR Take 1 capsule by mouth daily. gabapentin (Neurontin) 800 MG tablet Take 1 tablet by mouth 3 times daily. gliMEPIride 4 MG tablet Take 2 tablets by mouth daily. hydroCHLOROthiazide 12.5 MG tablet Take 1 tablet by mouth daily. hydroCODone-acetaminophen 5-325 MG tablet Take 1 tablet by mouth 3 times daily as needed for 14 days, THEN 1 tablet 2 times daily as needed for 14 days, THEN 1 tablet daily as needed for up to 14 days. irbesartan (Avapro) 300 MG tablet Take 1 tablet by mouth daily. metFORMIN-XR 500 MG Tab SR 24 HR Take 2 tablets by mouth 2 times daily. naloxone 4 MG/0.1ML 1 spray by Nasal route once for 1 dose. [place] into the nose as directed. Call 911. If no response in 2 minutes use a new nasal spray in other nostril. Repeat until help arrives. nortriptyline 25 MG capsule Take 1 capsule by mouth at bedtime. rosuvastatin 40 MG tablet Take 1 tablet by mouth daily. triamcinolone 0.1 % Cream cream apply topically to affected area twice a day Urea 40 % Cream Apply 1 Application topically daily. Review of Systems: General: Denies fevers, chills, or night sweats Abdominal: Denies nausea, vomiting, diarrhea Respiratory: Denies cough, sputum production Genitourinary: Denies dysuria or frequency HPI: Susan Santos Presents for evaluation and treatment of low back and bilateral leg pain. Pain is described as Gnawing and is rated 7/10. Pain is increased with putting shoes on and is relieved by nothing. The patient denies numbness/tingling. She admits to having weakness in her bilateral legs. The patient denies bowel/bladder incontinence. The patient responded with moderate relief to the most recent procedure which was Left Hip Injection on 10/05/22. Patient admits to having tobacco use. Audit-C Questionnaire 1. How often do you have a drink containing alcohol? (0) never 2. How many standard drinks containing alcohol do you have on a typical day? (0) 1 or 2 3. How often do you have six or more drinks on one occasion? (0) never *A score of 3 or more in women or 4 or more in men is a positive score that requires education. Current Outpatient Medications Medication Sig amLODIPine 5 MG tablet Take 1 tablet by mouth daily. ammonium lactate 12 % Cream cream clobetasol 0.05 % Cream DISABILITY PLACARD Handicap placard for five years. DX: Chronic back pain, Diabetes and Peripheral artery disease. DULoxetine (Cymbalta) [address] Particles capsule DR Take 1 capsule by mouth daily. gabapentin (Neurontin) 800 MG tablet Take 1 tablet by mouth 3 times daily. gliMEPIride 4 MG tablet Take 2 tablets by mouth daily. hydroCHLOROthiazide 12.5 MG tablet Take 1 tablet by mouth daily. hydroCODone-acetaminophen 5-325 MG tablet Take 1 tablet by mouth 3 times daily as needed for 14 days, THEN 1 tablet 2 times daily as needed for 14 days, THEN 1 tablet daily as needed for up to 14 days. irbesartan (Avapro) 300 MG tablet Take 1 tablet by mouth daily. metFORMIN-XR 500 MG Tab SR 24 HR Take 2 tablets by mouth 2 times daily. naloxone 4 MG/0.1ML 1 spray by Nasal route once for 1 dose. [place] into the nose as directed. Call 911. If no response in 2 minutes use a new nasal spray in other nostril. Repeat until help arrives. nortriptyline 25 MG capsule Take 1 capsule by mouth at bedtime. rosuvastatin 40 MG tablet Take 1 tablet by mouth daily. triamcinolone 0.1 % Cream cream apply topically to affected area twice a day Urea 40 % Cream Apply 1 Application topically daily. Review of Systems: General: Denies fevers, chills, or night sweats Abdominal: Denies nausea, vomiting, diarrhea Respiratory: Denies cough, sputum production Genitourinary: Denies dysuria or frequency Physical Examination: Vitals: 11/16/22 1130 BP: 143/62 Pulse: 100 Resp: 18 Constitutional The patient is awake, alert, well developed, well nourished and well groomed. The patient is pleasant and cooperative. The patient is a good historian and is very helpful with the history and physical examination. No lesions noted on face. Neurologic Cranial Nerves 2-12 were tested and are grossly intact. The deep tendon reflexes of the in upper and lower extremities are symmetrical;. Plantar reflexes (Babinski): toes are downgoing. The gait is abnormal. Sensory testing for pain (pinprick), light touch, position, and vibration is grossly intact. Psychiatric The patient is oriented to person, place, and time. Speech is fluent and words are clear. Thought processes are coherent, insight is good. There are no obsessive, compulsive, phobic or delusional thoughts; there are no illusions or hallucinations. The patient's fund of knowledge: awareness of current events and past history is appropriate for age. The patient's higher cognitive functions are intact. The patient's mood is neutral and the affect appropriate; there are no loose associations. MSK The patient has moderate difficulty transitioning from sitting to standing. The patient has a(n) antalgic gait. The lumbar spine demonstrates a flexion biased curve. There is no deformity to the lumbosacral spine. There is no abnormality in muscle tone in the lumbosacral spine. bilateral lumbar paraspinal tenderness, NATY, thigh thrust, Gaenslen's, and Kim's positive bilaterally, SLR negative and FADIR, internal rotation, and external rotation were positive in LLE Lumbar facet loading positive bilaterally, tender to palpation over bilateral facet joints. Left trochanteric bursa tenderness. Assessment: ICD-10-CM 1. Greater trochanteric bursitis of left hip M70.62 2. Primary osteoarthritis of left hip M16.12 3. Spinal stenosis of lumbar region with neurogenic claudication M48.062 4. Chronic pain syndrome G89.4 62 y/o F w/PMHx severe lumbar stenosis, lumbar facet arthropathy, HTN, DM, PAD, psoriasis, peripheral neuropathy who presents for evaluation of her low back pain and all over pain. Seen by Dr. Vaughn Injections: SIJ injections resulted in short term (1 day) relief. Has had ESIs and RFAs before, but not interested in more injections. 10/05/22- Left hip injection resulting in 50-60% relief of pain ongoing. Imaging: lumbar MRI shows severe canal stenosis at L3-4 with multilevel facet arthropathy. There is 5mm (grade 1) listhesis ove L3 over L4, but no instability on Xrays with flex/extension. Left hip xray shows mild OA. Meds: Duloxetine 60mg, gabapentin 800mg TID. Tramadol not helpful in the past. Nortritpyline not helpful PT: none recently Plan: -schedule left greater trochanteric bursa injection -continue LDN -continue gabapentin 800mg PO TID through PCP -continue duloxetine 60mg PO daily through PCP -continue nortriptlyine 25mg PO Bedtime through PCP -must quit smoking to have surgery with Dr. Mcmanus, although she is questioning this, has seen a surgeon at [facility] who recommended the same thing -continue HEP as tolerated, recommended physical therapy but patient declines. -follow up 2-4 weeks after injection, consider imaging if not improved I have checked an OARRS report on this patient today and there are no aberrancies noted in the prescribing history. A drug screen was completed and reviewed within the last year, and if there has not been a drug screen completed we ordered one today to monitor higher risk, state monitored pain medication use. A urine drug screen was completed and reviewed within the last year. No evidence of aberrancies were noted. The patient was advised that U.S. Food and Drug Administration (FDA) is warning that respiratory depression may occur in patients using gabapentin (Neurontin, Gralise, Horizant) or pregabalin (Lyrica, Lyrica CR) who have respiratory risk factors. These include the use of opioid pain medicines and other drugs that depress the central nervous system, and conditions such as chronic obstructive pulmonary disease (COPD) that reduce lung function. The elderly are also at higher risk. Patient identified through screening process as a tobacco user, this generated a brief counseling of less than 3 minutes between the provider and the patient about the benefits of ceasing tobacco use. Education handout was provided following discussion. The patient was counseled that proper dietary changes and consistent participation in a home exercise plan can lead to weight loss. Weight loss can help to improve functionality in patients with chronic pain. documented in this encounter [facility] 11-16-2022 Grzegorz Galloway - 11/16/2022 11:30 AM EST Images from the original note were not included. You are scheduled for a Left Greater Trochanteric Bursa Injection Please bring a family member or friend to drive you home the day of your scheduled procedure. 2. Be sure to eat breakfast the day of your procedure. 3. If you are a diabetic, please check your blood sugar the morning of your procedure and call the clinic prior to coming in if the level is over 200. 4. Please take your prescribed medications the morning of your procedure, unless you have been instructed by this office to hold a medication. 5. No prescription refill requests will be honored on the day of a procedure. All prescription refills must be requested one week in advance. 6. If you become ill or require an antibiotic, please contact our office as soon as possible to reschedule your procedure. 7. If you have had ANY vaccination within 14 days of your scheduled procedure, we may need to reschedule. Please contact our office as soon as possible. What to expect the day of the procedure: 1. Go directly to Outpatient Registration, located on the 1st floor in the main lobby of the hospital. Please allow approximately 2 hours total for your appointment. You are being asked to arrive 30 minutes before your procedure in order to complete all necessary preparations. 2. You will be brought to the pre-op area where your medical history and medications will be reviewed. 3. You will be transported to the procedure room where the staff will help position you for the injection. 4. The physician will then inject a local anesthetic at the beginning of your procedure. A small dose of an anti-inflammatory medication may be used depending on your procedure. A small amount of dye might also be used to confirm placement of the needle. 5. After the injection, you are transferred to the recovery area. The staff will check your vital signs and have you rate your pain. 6. Please keep a pain diary after your procedure. In many cases, this is important in determining your next step of treatment. Please contact our office at [phone] if you have additional questions. documented in this encounter [facility] 10-05-2022 History and physical note HPI: This 61 y.o. female presents for treatment of chronic left hip and groin Pain. Current Outpatient Medications: amLODIPine 5 MG tablet, Take 1 tablet by mouth daily., Disp: 90 tablet, Rfl: 0 ammonium lactate 12 % Cream cream, , Disp: , Rfl: clobetasol 0.05 % Cream, , Disp: , Rfl: DISABILITY PLACARD, Handicap placard for five years. DX: Chronic back pain, Diabetes and Peripheral artery disease., Disp: 2 Each, Rfl: 0 DULoxetine (Cymbalta) [address] Particles capsule DR, Take 1 capsule by mouth daily., Disp: 90 capsule, Rfl: 0 gabapentin (Neurontin) 800 MG tablet, Take 1 tablet by mouth 3 times daily., Disp: 270 tablet, Rfl: 0 gliMEPIride 4 MG tablet, Take 2 tablets by mouth daily., Disp: 180 tablet, Rfl: 0 hydroCHLOROthiazide 12.5 MG tablet, Take 1 tablet by mouth daily., Disp: 90 tablet, Rfl: 0 hydroCODone-acetaminophen 5-325 MG tablet, Take 1 tablet by mouth 3 times daily as needed for 14 days, THEN 1 tablet 2 times daily as needed for 14 days, THEN 1 tablet daily as needed for up to 14 days., Disp: 84 tablet, Rfl: 0 irbesartan (Avapro) 300 MG tablet, Take 1 tablet by mouth daily., Disp: 90 tablet, Rfl: 0 metFORMIN-XR 500 MG Tab SR 24 HR, Take 2 tablets by mouth 2 times daily., Disp: 360 tablet, Rfl: 0 naloxone 4 MG/0.1ML, 1 spray by Nasal route once for 1 dose. [place] into the nose as directed. Call 911. If no response in 2 minutes use a new nasal spray in other nostril. Repeat until help arrives., Disp: 1 Each, Rfl: 0 nortriptyline 25 MG capsule, Take 1 capsule by mouth at bedtime., Disp: 90 capsule, Rfl: 0 rosuvastatin 40 MG tablet, Take 1 tablet by mouth daily., Disp: 90 tablet, Rfl: 0 triamcinolone 0.1 % Cream cream, apply topically to affected area twice a day, Disp: , Rfl: Urea 40 % Cream, Apply 1 Application topically daily., Disp: 227 g, Rfl: 3 Current Facility-Administered Medications: Bupivacaine (PF) (MARCAINE) 0.25 % 3 mL syringe, 3 mL, Other, Once (Outpt Clinic), Antonio Mcmillan MD Iohexol (OMNIPAQUE) 300 MG/ML vial 3 mL, 3 mL, Other, Once (Outpt Clinic), Antonio Mcmillan MD Lidocaine 1% (PF) (XYLOCAINE MPF) 10 mL syringe, 8 mL, Other, Once (Outpt Clinic), Antonio Mcmillan MD triamcinolone (KENALOG-40) injection 40 mg, 40 mg, Other, Once (Outpt Clinic), Antonio Mcmillan MD Past Medical History: Diagnosis Date Bilateral hip joint arthritis Diabetes mellitus Essential hypertension, benign PAD (peripheral artery disease) 06/29/2019 Sacroiliac joint pain 11/20/2013 Past Surgical History: Procedure Laterality Date DESTRUCTION BY NEUROLYTIC AGENT NERVE/BRANCH OTHER PERIPHERAL Left 03/25/2014 Laterality: Left; Surgeon: Phill Vega MD; Location: [facility] MAIN OR HYSTERECTOMY Family History Problem Relation Age of Onset Aneurysm Neg Hx Defects Neg Hx Review of Systems: General: Denies fevers, chills, or night sweats Abdominal: Denies nausea, vomiting, diarrhea Respiratory: Denies cough, sputum production Genitourinary: Denies dysuria or frequency Vitals: 10/05/22 0936 BP: 173/84 Pulse: 96 Resp: 18 Temp: 98 F (36.7 C) Physical Examination: Vitals: 10/05/22 0936 BP: 173/84 Pulse: 96 Resp: 18 Temp: 98 F (36.7 C) Constitutional The patient is awake, alert, well developed, well nourished and well groomed. The patient is pleasant and cooperative. The patient is a good historian and is very helpful with the history and physical examination. Musculoskeletal The patient has moderate difficulty transitioning from sitting to standing. The patient has a(n) antalgic gait. The lumbar spine demonstrates a flexion biased curve. There is no deformity to the lumbosacral spine. There is no abnormality in muscle tone in the lumbosacral spine. bilateral lumbar paraspinal tenderness, NATY, thigh thrust, Gaenslen's, and Kim's positive bilaterally, SLR negative and FADIR, internal rotation, and external rotation were positive in LLE Lumbar facet loading positive bilaterally, tender to palpation over bilateral facet joints. Neurologic Cranial Nerves 2-12 are grossly intact. The deep tendon reflexes of the in bilateral lower extremities are symmetrical;. Plantar reflexes (Babinski): toes are downgoing. Cerebellar function is normal; Romberg's test is negative. The gait is normal. Sensory testing for pain (pinprick), light touch, and proprioception is diminished in bilateral lower extremities. No ankle or wrist clonus present. Negative Elizabeth's sign. Motor in bilateral lower extremities is 5/5. Psychiatric The patient is oriented to person, place, and time. Speech is fluent and words are clear. Thought processes are coherent, insight is good. There are no obsessive, compulsive, phobic or delusional thoughts; there are no illusions or hallucinations. The patient's fund of knowledge: awareness of current events and past history is appropriate for age. The patient's higher cognitive functions are intact. The patient's mood is neutral and the affect appropriate; there are no loose associations. Assessment: ICD-10-CM 1. Primary osteoarthritis of left hip M16.12 Informed Consent: The patient's condition and proposed procedures, risks (including but not limited to infection, bleeding, damage or scarring to skin, muscle, ligament, fascia, tendon, blood vessel and nerve tissue, allergic reaction, adverse side effects from medications such as steroids, contrast, local anesthetics, and medication preservatives, vasovagal reactions, headaches, bruising, soreness, and increased pain after the injection), and alternatives were discussed with the patient or responsible libertarian. The patient's / responsible libertarian's questions were answered. The patient / responsible libertarian appeared to understand and chose to proceed. Informed consent was obtained. Plan: Proceed with left intra-articular hip injection [facility] 10-05-2022 History and physical note HPI: This 61 y.o. female presents for treatment of chronic left hip and groin Pain. Current Outpatient Medications: amLODIPine 5 MG tablet, Take 1 tablet by mouth daily., Disp: 90 tablet, Rfl: 0 ammonium lactate 12 % Cream cream, , Disp: , Rfl: clobetasol 0.05 % Cream, , Disp: , Rfl: DISABILITY PLACARD, Handicap placard for five years. DX: Chronic back pain, Diabetes and Peripheral artery disease., Disp: 2 Each, Rfl: 0 DULoxetine (Cymbalta) [address] Particles capsule DR, Take 1 capsule by mouth daily., Disp: 90 capsule, Rfl: 0 gabapentin (Neurontin) 800 MG tablet, Take 1 tablet by mouth 3 times daily., Disp: 270 tablet, Rfl: 0 gliMEPIride 4 MG tablet, Take 2 tablets by mouth daily., Disp: 180 tablet, Rfl: 0 hydroCHLOROthiazide 12.5 MG tablet, Take 1 tablet by mouth daily., Disp: 90 tablet, Rfl: 0 hydroCODone-acetaminophen 5-325 MG tablet, Take 1 tablet by mouth 3 times daily as needed for 14 days, THEN 1 tablet 2 times daily as needed for 14 days, THEN 1 tablet daily as needed for up to 14 days., Disp: 84 tablet, Rfl: 0 irbesartan (Avapro) 300 MG tablet, Take 1 tablet by mouth daily., Disp: 90 tablet, Rfl: 0 metFORMIN-XR 500 MG Tab SR 24 HR, Take 2 tablets by mouth 2 times daily., Disp: 360 tablet, Rfl: 0 naloxone 4 MG/0.1ML, 1 spray by Nasal route once for 1 dose. [place] into the nose as directed. Call 911. If no response in 2 minutes use a new nasal spray in other nostril. Repeat until help arrives., Disp: 1 Each, Rfl: 0 nortriptyline 25 MG capsule, Take 1 capsule by mouth at bedtime., Disp: 90 capsule, Rfl: 0 rosuvastatin 40 MG tablet, Take 1 tablet by mouth daily., Disp: 90 tablet, Rfl: 0 triamcinolone 0.1 % Cream cream, apply topically to affected area twice a day, Disp: , Rfl: Urea 40 % Cream, Apply 1 Application topically daily., Disp: 227 g, Rfl: 3 Current Facility-Administered Medications: Bupivacaine (PF) (MARCAINE) 0.25 % 3 mL syringe, 3 mL, Other, Once (Outpt Clinic), Antonio Mcmillan MD Iohexol (OMNIPAQUE) 300 MG/ML vial 3 mL, 3 mL, Other, Once (Outpt Clinic), Antonio Mcmillan MD Lidocaine 1% (PF) (XYLOCAINE MPF) 10 mL syringe, 8 mL, Other, Once (Outpt Clinic), Antonio Mcmillan MD triamcinolone (KENALOG-40) injection 40 mg, 40 mg, Other, Once (Outpt Clinic), Antonio Mcmillan MD Past Medical History: Diagnosis Date Bilateral hip joint arthritis Diabetes mellitus Essential hypertension, benign PAD (peripheral artery disease) 06/29/2019 Sacroiliac joint pain 11/20/2013 Past Surgical History: Procedure Laterality Date DESTRUCTION BY NEUROLYTIC AGENT NERVE/BRANCH OTHER PERIPHERAL Left 03/25/2014 Laterality: Left; Surgeon: Phill Vega MD; Location: [facility] MAIN OR HYSTERECTOMY Family History Problem Relation Age of Onset Aneurysm Neg Hx Defects Neg Hx Review of Systems: General: Denies fevers, chills, or night sweats Abdominal: Denies nausea, vomiting, diarrhea Respiratory: Denies cough, sputum production Genitourinary: Denies dysuria or frequency Vitals: 10/05/22 0936 BP: 173/84 Pulse: 96 Resp: 18 Temp: 98 F (36.7 C) Physical Examination: Vitals: 10/05/22 0936 BP: 173/84 Pulse: 96 Resp: 18 Temp: 98 F (36.7 C) Constitutional The patient is awake, alert, well developed, well nourished and well groomed. The patient is pleasant and cooperative. The patient is a good historian and is very helpful with the history and physical examination. Musculoskeletal The patient has moderate difficulty transitioning from sitting to standing. The patient has a(n) antalgic gait. The lumbar spine demonstrates a flexion biased curve. There is no deformity to the lumbosacral spine. There is no abnormality in muscle tone in the lumbosacral spine. bilateral lumbar paraspinal tenderness, NATY, thigh thrust, Gaenslen's, and Kim's positive bilaterally, SLR negative and FADIR, internal rotation, and external rotation were positive in LLE Lumbar facet loading positive bilaterally, tender to palpation over bilateral facet joints. Neurologic Cranial Nerves 2-12 are grossly intact. The deep tendon reflexes of the in bilateral lower extremities are symmetrical;. Plantar reflexes (Babinski): toes are downgoing. Cerebellar function is normal; Romberg's test is negative. The gait is normal. Sensory testing for pain (pinprick), light touch, and proprioception is diminished in bilateral lower extremities. No ankle or wrist clonus present. Negative Elizabeth's sign. Motor in bilateral lower extremities is 5/5. Psychiatric The patient is oriented to person, place, and time. Speech is fluent and words are clear. Thought processes are coherent, insight is good. There are no obsessive, compulsive, phobic or delusional thoughts; there are no illusions or hallucinations. The patient's fund of knowledge: awareness of current events and past history is appropriate for age. The patient's higher cognitive functions are intact. The patient's mood is neutral and the affect appropriate; there are no loose associations. Assessment: ICD-10-CM 1. Primary osteoarthritis of left hip M16.12 Informed Consent: The patient's condition and proposed procedures, risks (including but not limited to infection, bleeding, damage or scarring to skin, muscle, ligament, fascia, tendon, blood vessel and nerve tissue, allergic reaction, adverse side effects from medications such as steroids, contrast, local anesthetics, and medication preservatives, vasovagal reactions, headaches, bruising, soreness, and increased pain after the injection), and alternatives were discussed with the patient or responsible libertarian. The patient's / responsible libertarian's questions were answered. The patient / responsible libertarian appeared to understand and chose to proceed. Informed consent was obtained. Plan: Proceed with left intra-articular hip injection documented in this encounter [facility] 10-05-2022 History of Presen t illness Narrative SCRUB - Geovanna Hill RN RT - Yobani Cifuentes, RT BINDER SELECTOR - N/A BANQUET COORDINATOR - Carlie Rojas RN, Cris Physician - Dr. Mcmillan Site cleansed with hibiclens. documented in this encounter [facility] 10-05-2022 Procedure note Associated Ord er(s): LARGE JOINT/BURSA INJECTION AND/OR ASPIRATION Procedure(s): LARGE JOINT/BURSA INJECTION AND/OR ASPIRATION Pre-Procedure Diagnose(s): Primary osteoarthritis of left hip Post-Procedure Diagnose(s): Primary osteoarthritis of left hip Procedure: Left Hip Injection under Fluoroscopic Guidance Attending physician: Antonio Mcmillan MD Preoperative diagnosis: Left Hip pain Postoperative diagnosis: Same Anesthesia: Local Indication for procedure: This patient presents for evaluation and treatment of chronic left hip pain. The patient's pain is primarily in the left inguinal region and is worsened with internal rotation of the left femoral head. The patient presents for left hip injection. Technique: The scrub nurse's and physician's hands were washed immediately prior to the procedure using a chlorhexidine soap or sanitized using ethyl alcohol hand head bellhop captain. Hat, mask, and sterile gloves were used for the entirety of the procedure. All other personnel in the room wore hat and masks, as well as appropriate personal protective equipment. Risks and benefits of the procedure were discussed in detail, and an informed consent was completed and signed by the patient and physician. A timeout was performed prior to the start of the procedure. This patient was given a verbal description of the intended procedure including risk and benefits of the procedure. The patient was then able to provide written informed consent for the procedure. The patient was then placed in a supine position on a fluoroscopy table. The skin and subcutaneous tissue overlying the left hip joint was prepped and draped in usual sterile fashion using Hibiclens prep x3. Then using a C-arm fluoroscope the left hip joint was identified in AP orientation. The skin and subcutaneous tissue overlying the entry point was anesthestized through a 25 gauge 1.5 inch needle and 3 mL of 1% lidocaine. Then, under fluoroscopic guidance a 22-gauge 3-1/2 inch angulated with the spinal needle was advanced from the anterior aspect of the thigh and groin towards the hip joint specifically where the femoral neck meets the femoral head. Once the needle had entered the hip joint the stylette was removed. Then after negative aspiration for blood, CSF, or any other body fluid one mL of Omnipaque 300 contrast media was injected demonstrating a spherical spread around the femoral head. Then after negative aspiration for blood CSF or any other body fluid a mixture of 40 mg of triamcinolone and 3mLs of 0.25% bupivaicane was injected slowly. After the medication was deposited the needle was flushed with 0.2mL of 1% lidocaine and removed. The patient's thigh was cleansed and Band-Aid dressings were applied. The patient tolerated the procedure well with no complications. The patient will followup at the next scheduled procedure. [facility] 10-05-2022 Procedure note Associated Ord er(s): LARGE JOINT/BURSA INJECTION AND/OR ASPIRATION Procedure(s): LARGE JOINT/BURSA INJECTION AND/OR ASPIRATION Pre-Procedure Diagnose(s): Primary osteoarthritis of left hip Post-Procedure Diagnose(s): Primary osteoarthritis of left hip Procedure: Left Hip Injection under Fluoroscopic Guidance Attending physician: Antonio Mcmillan MD Preoperative diagnosis: Left Hip pain Postoperative diagnosis: Same Anesthesia: Local Indication for procedure: This patient presents for evaluation and treatment of chronic left hip pain. The patient's pain is primarily in the left inguinal region and is worsened with internal rotation of the left femoral head. The patient presents for left hip injection. Technique: The scrub nurse's and physician's hands were washed immediately prior to the procedure using a chlorhexidine soap or sanitized using ethyl alcohol hand head bellhop captain. Hat, mask, and sterile gloves were used for the entirety of the procedure. All other personnel in the room wore hat and masks, as well as appropriate personal protective equipment. Risks and benefits of the procedure were discussed in detail, and an informed consent was completed and signed by the patient and physician. A timeout was performed prior to the start of the procedure. This patient was given a verbal description of the intended procedure including risk and benefits of the procedure. The patient was then able to provide written informed consent for the procedure. The patient was then placed in a supine position on a fluoroscopy table. The skin and subcutaneous tissue overlying the left hip joint was prepped and draped in usual sterile fashion using Hibiclens prep x3. Then using a C-arm fluoroscope the left hip joint was identified in AP orientation. The skin and subcutaneous tissue overlying the entry point was anesthestized through a 25 gauge 1.5 inch needle and 3 mL of 1% lidocaine. Then, under fluoroscopic guidance a 22-gauge 3-1/2 inch angulated with the spinal needle was advanced from the anterior aspect of the thigh and groin towards the hip joint specifically where the femoral neck meets the femoral head. Once the needle had entered the hip joint the stylette was removed. Then after negative aspiration for blood, CSF, or any other body fluid one mL of Omnipaque 300 contrast media was injected demonstrating a spherical spread around the femoral head. Then after negative aspiration for blood CSF or any other body fluid a mixture of 40 mg of triamcinolone and 3mLs of 0.25% bupivaicane was injected slowly. After the medication was deposited the needle was flushed with 0.2mL of 1% lidocaine and removed. The patient's thigh was cleansed and Band-Aid dressings were applied. The patient tolerated the procedure well with no complications. The patient will followup at the next scheduled procedure. documented in this encounter [facility] 09-24-2022 History of Presen t illness Narrative Nurse Note: Review of Systems Constitutional: Negative for fatigue and fever. HENT: Negative for congestion, ear pain and sore throat. Eyes: Negative for pain and redness. Respiratory: Negative for cough and shortness of breath. Cardiovascular: Negative for chest pain and palpitations. Gastrointestinal: Negative for abdominal pain, constipation, diarrhea, nausea and vomiting. Genitourinary: Negative for difficulty urinating and dysuria. Musculoskeletal: Negative for arthralgias and myalgias. Skin: Negative for rash and wound. Neurological: Negative for dizziness and headaches. All other systems reviewed and are negative. Chief Complaint Patient presents with Results Hypertension Back Pain Pain Diabetes Hyperlipidemia HPI: Venous stasis dermatitis: improved since last visit, swelling is much better, redness has improved, tenderness has improved. Regarding Hypertension: Susan is a 61 y.o. female who comes in today to follow up on HTN. Her HTN is chronic and controlled. Since her last visit, she reports that she has not been checking her blood pressures. Her blood pressures have typically been normal. She has not noted any side effects. Shortness of Breath: No Chest Pain: No Palpitations: No Edema: Yes Other CV risk factors include: age > 55 (female), diabetes mellitus, hypertension, dyslipidemia, obesity and sedentary lifestyle Her hypertension severity is severe due to the above factors, comorbities and degree of intervention necessary. Regarding Diabetes: Diabetes severity is moderate. Blood sugars controlled: No HgbA1c: Lab Results Component Value Date HGBA1C 7.8 (H) 09/21/2022 Home testing No Times per day: Any low blood sugars: No Frequent blood sugars >200: No Last full eye exam: Overdue, recommended Any new vision concerns: No Regular foot self-exams: Yes New foot concerns: No Neuropathic symptoms: Yes, treated yes, related to chronic back pain Microalbumin: sees nephrology Other associated concerns: has difficulty tolerating diet changes. Regarding Hyperlipidemia: Susan comes in today to follow up on chronic hyperlipidemia. This condition has been under good control. Pt reports that she has been compliant with her medications. Pt denies side effects from medication including myalgias, weakness or joint pain. Alleviating factors include: rosuvastatin Exacerbating factors include: poor diet, lack of exercise Other significant medical conditions include: see problem list Lab Results Component Value Date CHOLESTEROL 101 06/26/2022 TRIG 219 (H) 06/26/2022 HDL 46 06/26/2022 LDLCALC 11 06/26/2022 Lab Results Component Value Date ALT 14 09/21/2022 AST 16 09/21/2022 ALKPHOS 98 09/21/2022 BILITOTAL 0.8 09/21/2022 BILIDIRECT 0.2 09/21/2022 Her hyperlipidemia severity is severe due to the above factors. ROS: Review of Systems Nurse Note: Review of Systems Constitutional: Negative for fatigue and fever. HENT: Negative for congestion, ear pain and sore throat. Eyes: Negative for pain and redness. Respiratory: Negative for cough and shortness of breath. Cardiovascular: Negative for chest pain and palpitations. Gastrointestinal: Negative for abdominal pain, constipation, diarrhea, nausea and vomiting. Genitourinary: Negative for difficulty urinating and dysuria. Musculoskeletal: Negative for arthralgias and myalgias. Skin: Negative for rash and wound. Neurological: Negative for dizziness and headaches. All other systems reviewed and are negative. Past medical/family/social history: reviewed and updated, see documented in patient's chart. Physical Exam: BP 158/84 Pulse 101 Ht 1.778 m (5' 10") Wt 122.8 kg (270 lb 11.2 oz) BMI 38.84 kg/m Smoking Status Every Day Body mass index is 38.84 kg/m . Physical Exam Assessment/Plan: 1. Essential hypertension, benign Increase amlodipine - amLODIPine 5 MG tablet; Take 1 tablet by mouth daily. Dispense: 90 tablet; Refill: 0 - hydroCHLOROthiazide 12.5 MG tablet; Take 1 tablet by mouth daily. Dispense: 90 tablet; Refill: 0 - irbesartan (Avapro) 300 MG tablet; Take 1 tablet by mouth daily. Dispense: 90 tablet; Refill: 0 - HEPATIC FUNCTION PANEL; Future - HEMOGLOBIN A1C; Future - LIPID PANEL W CALCULATED LDL; Future 2. Lumbosacral neuritis Chronic stable, continue same therapy, seeing pain management - DULoxetine (Cymbalta) [address] Particles capsule DR; Take 1 capsule by mouth daily. Dispense: 90 capsule; Refill: 0 - gabapentin (Neurontin) 800 MG tablet; Take 1 tablet by mouth 3 times daily. Dispense: 270 tablet; Refill: 0 3. Type 2 diabetes mellitus with peripheral neuropathy Advised diet changes, exercise and weight loss - gliMEPIride 4 MG tablet; Take 2 tablets by mouth daily. Dispense: 180 tablet; Refill: 0 - metFORMIN-XR 500 MG Tab SR 24 HR; Take 2 tablets by mouth 2 times daily. Dispense: 360 tablet; Refill: 0 - HEPATIC FUNCTION PANEL; Future - HEMOGLOBIN A1C; Future 4. Lumbar radiculitis Chronic stable, continue same therapy - nortriptyline 25 MG capsule; Take 1 capsule by mouth at bedtime. Dispense: 90 capsule; Refill: 0 5. Chronic pain syndrome Chronic stable, continue same therapy - nortriptyline 25 MG capsule; Take 1 capsule by mouth at bedtime. Dispense: 90 capsule; Refill: 0 6. Mixed hyperlipidemia Chronic stable, continue same therapy - rosuvastatin 40 MG tablet; Take 1 tablet by mouth daily. Dispense: 90 tablet; Refill: 0 - HEPATIC FUNCTION PANEL; Future - LIPID PANEL W CALCULATED LDL; Future Orders and follow up as documented in patient record; We reviewed diet, exercise and weight control; Repeat labs were ordered and patient was advised to get prior to next appointment; Medications Discontinued During This Encounter Medication Reason amLODIPine 2.5 MG tablet Reorder DULoxetine (Cymbalta) [address] Particles capsule DR Reorder gliMEPIride 4 MG tablet Reorder hydroCHLOROthiazide 12.5 MG tablet Reorder irbesartan (Avapro) 300 MG tablet Reorder metFORMIN-XR 500 MG Tab SR 24 HR Reorder rosuvastatin 40 MG tablet Reorder gabapentin (Neurontin) 800 MG tablet Reorder nortriptyline 25 MG capsule Reorder Requested Prescriptions Signed Prescriptions Disp Refills amLODIPine 5 MG tablet 90 tablet 0 Sig: Take 1 tablet by mouth daily. DULoxetine (Cymbalta) [address] Particles capsule DR 90 capsule 0 Sig: Take 1 capsule by mouth daily. gabapentin (Neurontin) 800 MG tablet 270 tablet 0 Sig: Take 1 tablet by mouth 3 times daily. gliMEPIride 4 MG tablet 180 tablet 0 Sig: Take 2 tablets by mouth daily. hydroCHLOROthiazide 12.5 MG tablet 90 tablet 0 Sig: Take 1 tablet by mouth daily. irbesartan (Avapro) 300 MG tablet 90 tablet 0 Sig: Take 1 tablet by mouth daily. metFORMIN-XR 500 MG Tab SR 24 HR 360 tablet 0 Sig: Take 2 tablets by mouth 2 times daily. nortriptyline 25 MG capsule 90 capsule 0 Sig: Take 1 capsule by mouth at bedtime. rosuvastatin 40 MG tablet 90 tablet 0 Sig: Take 1 tablet by mouth daily. Patient was advised to call with any questions or concerns. If symptoms worsen patient was advised to follow up in our office or the Emergency Dept. Benefits, Risks, Contraindications, and Complications of recommended treatments were explained the patient understands and agrees to proceed with plan. Chantal Cole MD 09/24/2022 documented in this encounter [facility] 08-23-2022 History of Presen t illness Narrative HPI: Susan Watkins Mathieupaulina Presents for evaluation and treatment of low back, B/L leg pain. Pain is described as Aching and Sharp and is rated 8/10. Pain is increased with standing and walking and is relieved by relaxation and pain medication. The patient denies numbness/tingling . she admits to having weakness B/L leg. The patient denies bowel/bladder incontinence. Patient admits to having tobacco use. Audit-C Questionnaire 1. How often do you have a drink containing alcohol? (0) never 2. How many standard drinks containing alcohol do you have on a typical day? (0) 1 or 2 3. How often do you have six or more drinks on one occasion? (0) never *A score of 3 or more in women or 4 or more in men is a positive score that requires education. Current Outpatient Medications Medication Sig amLODIPine 2.5 MG tablet Take 1 tablet by mouth daily. ammonium lactate 12 % Cream cream bumetanide (Bumex) 0.5 MG tablet Take 1 tablet by mouth daily. clobetasol 0.05 % Cream DISABILITY PLACARD Disability placard end date 08/18/2022. DULoxetine (Cymbalta) [address] Particles capsule DR Take 1 capsule by mouth daily. gabapentin (Neurontin) 800 MG tablet Take 1 tablet by mouth 3 times daily. gliMEPIride 4 MG tablet Take 2 tablets by mouth daily. hydroCHLOROthiazide 12.5 MG tablet Take 1 tablet by mouth daily. hydroCODone-acetaminophen 10-325 MG tablet Take 1 tablet by mouth 2 times daily as needed. irbesartan (Avapro) 300 MG tablet Take 1 tablet by mouth daily. metFORMIN-XR 500 MG Tab SR 24 HR Take 2 tablets by mouth 2 times daily. naloxone 4 MG/0.1ML 1 spray by Nasal route once for 1 dose. [place] into the nose as directed. Call 911. If no response in 2 minutes use a new nasal spray in other nostril. Repeat until help arrives. nortriptyline 25 MG capsule Take 1 capsule by mouth at bedtime. rosuvastatin 40 MG tablet Take 1 tablet by mouth daily. triamcinolone 0.1 % Cream cream apply topically to affected area twice a day Urea 40 % Cream Apply 1 Application topically daily. Review of Systems: General: Denies fevers, chills, or night sweats Abdominal: Denies nausea, vomiting, diarrhea Respiratory: Denies cough, sputum production Genitourinary: Denies dysuria or frequency HPI: Susan Santos Presents for evaluation and treatment of low back, B/L leg pain. Pain is described as Aching and Sharp and is rated 8/10. Pain is increased with standing and walking and is relieved by relaxation and pain medication. The patient denies numbness/tingling . she admits to having weakness B/L leg. The patient denies bowel/bladder incontinence. Patient admits to having tobacco use. Audit-C Questionnaire 1. How often do you have a drink containing alcohol? (0) never 2. How many standard drinks containing alcohol do you have on a typical day? (0) 1 or 2 3. How often do you have six or more drinks on one occasion? (0) never *A score of 3 or more in women or 4 or more in men is a positive score that requires education. Current Outpatient Medications Medication Sig amLODIPine 2.5 MG tablet Take 1 tablet by mouth daily. ammonium lactate 12 % Cream cream bumetanide (Bumex) 0.5 MG tablet Take 1 tablet by mouth daily. clobetasol 0.05 % Cream DISABILITY PLACARD Disability placard end date 08/18/2022. DULoxetine (Cymbalta) [address] Particles capsule DR Take 1 capsule by mouth daily. gabapentin (Neurontin) 800 MG tablet Take 1 tablet by mouth 3 times daily. gliMEPIride 4 MG tablet Take 2 tablets by mouth daily. hydroCHLOROthiazide 12.5 MG tablet Take 1 tablet by mouth daily. hydroCODone-acetaminophen 10-325 MG tablet Take 1 tablet by mouth 2 times daily as needed. irbesartan (Avapro) 300 MG tablet Take 1 tablet by mouth daily. metFORMIN-XR 500 MG Tab SR 24 HR Take 2 tablets by mouth 2 times daily. naloxone 4 MG/0.1ML 1 spray by Nasal route once for 1 dose. [place] into the nose as directed. Call 911. If no response in 2 minutes use a new nasal spray in other nostril. Repeat until help arrives. nortriptyline 25 MG capsule Take 1 capsule by mouth at bedtime. rosuvastatin 40 MG tablet Take 1 tablet by mouth daily. triamcinolone 0.1 % Cream cream apply topically to affected area twice a day Urea 40 % Cream Apply 1 Application topically daily. Review of Systems: General: Denies fevers, chills, or night sweats Abdominal: Denies nausea, vomiting, diarrhea Respiratory: Denies cough, sputum production Genitourinary: Denies dysuria or frequency Physical Examination: Vitals: 08/23/22 1025 BP: 173/86 Pulse: 100 Resp: 18 Constitutional The patient is awake, alert, well developed, well nourished and well groomed. The patient is pleasant and cooperative. The patient is a good historian and is very helpful with the history and physical examination. No lesions noted on face. Neurologic Cranial Nerves 2-12 are grossly intact. The deep tendon reflexes of the in bilateral lower extremities are symmetrical;. Plantar reflexes (Babinski): toes are downgoing. Cerebellar function is normal; Romberg's test is negative. The gait is normal. Sensory testing for pain (pinprick), light touch, and proprioception is diminished in bilateral lower extremities. No ankle or wrist clonus present. Negative Elizabeth's sign. Motor in bilateral lower extremities is 5/5. Psychiatric The patient is oriented to person, place, and time. Speech is fluent and words are clear. Thought processes are coherent, insight is good. There are no obsessive, compulsive, phobic or delusional thoughts; there are no illusions or hallucinations. The patient's fund of knowledge: awareness of current events and past history is appropriate for age. The patient's higher cognitive functions are intact. The patient's mood is neutral and the affect appropriate; there are no loose associations. MSK The patient has moderate difficulty transitioning from sitting to standing. The patient has a(n) antalgic gait. The lumbar spine demonstrates a flexion biased curve. There is no deformity to the lumbosacral spine. There is no abnormality in muscle tone in the lumbosacral spine. bilateral lumbar paraspinal tenderness, NATY, thigh thrust, Gaenslen's, and Kim's positive bilaterally, SLR negative and FADIR, internal rotation, and external rotation were positive in LLE Lumbar facet loading positive bilaterally, tender to palpation over bilateral facet joints. Assessment: ICD-10-CM 1. Primary osteoarthritis of left hip M16.12 2. Sacroiliitis, not elsewhere classified M46.1 3. Spinal stenosis of lumbar region with neurogenic claudication M48.062 4. Chronic pain syndrome G89.4 5. Encounter for long-term use of opiate analgesic Z79.891 6. Lumbar spondylosis M47.816 61 y/o F w/PMHx severe lumbar stenosis, lumbar facet arthropathy, HTN, DM, PAD, psoriasis, peripheral neuropathy who presents for evaluation of her low back pain and all over pain. Seen by Dr. Vaughn Injections: SIJ injections resulted in short term (1 day) relief. Has had ESIs and RFAs before, but not interested in more injections. Imaging: lumbar MRI shows severe canal stenosis at L3-4 with multilevel facet arthropathy. There is 5mm (grade 1) listhesis ove L3 over L4, but no instability on Xrays with flex/extension. Left hip xray shows mild OA. Meds: Duloxetine 60mg, gabapentin 800mg TID. Tramadol not helpful in the past. Nortritpyline not helpful PT: none recently Plan: -left hip injection under fluoroscopy -reduce [place] to 5-325mg PO TID x 2 weeks, then BID x 2 weeks, then once daily x 2 weeks then stop -once [place] has been stopped for 2 weeks will consider LDN 4.5mg PO once daily -continue gabapentin 800mg PO TID through PCP -information for Sprint PNS for L4 right and left given -must quit smoking to have surgery with Dr. Mcmanus, although she is questioning this, has seen a surgeon at [facility] who recommended the same thing -continue HEP as tolerated -f/u 1 month after injection to start LDN, consider left SIJ vs Sprint PNS Opioid Refill The patient is using their controlled substance medication appropriately to improve their pain and increase activity and functional capacity. There are no signs of addiction or diversion. There are no significant side effects reported. Medications were refilled as below: Requested Prescriptions Signed Prescriptions Disp Refills hydroCODone-acetaminophen 5-325 MG tablet 84 tablet 0 Sig: Take 1 tablet by mouth 3 times daily as needed for 14 days, THEN 1 tablet 2 times daily as needed for 14 days, THEN 1 tablet daily as needed for up to 14 days. I have refilled the patient's opioid prescriptions at the above noted dose and schedule. I feel these medications are improving the patient's quality of life and allow them to tolerate activities of daily living as well as participate in recreational activity. The patient does not report intolerable side effects. The patient is NOT opioid naive and non-pharmacologic and non-opioid treatment has failed to significantly relieve the patient's pain and improve functionality. The patient has a diagnosis that is related to a somatic or visceral pain etiology. I have discussed with the patient the risks of opioid pain medication including, respiratory depression, dependence, tolerance, addiction, brain dysfunction, immune dysfunction, increased risk of cancer, decreased steroid hormone production, and depression among others. The patient voices understanding of the risks. We advise that the patient avoid operating any heavy equipment or machinery while taking opioid medications. A drug screen was completed within the last year, and no aberrancies were noted regarding their use of controlled substances. The patient understands they are subject to the terms and conditions of the pain contract that they have signed. I have checked an [place]AR[place] report on this patient today and there are no aberrancies noted in the prescribing history. The patient was advised that U.S. Food and Drug Administration (FDA) is warning that respiratory depression may occur in patients using gabapentin (Neurontin, Gralise, Horizant) or pregabalin (Lyrica, Lyrica CR) who have respiratory risk factors. These include the use of opioid pain medicines and other drugs that depress the central nervous system, and conditions such as chronic obstructive pulmonary disease (COPD) that reduce lung function. The elderly are also at higher risk. The patient was prescribed an opioid medication at today's visit. We reviewed the risks of opioid medications including respiratory depression and possible . We reviewed appropriate use of naloxone, and a new prescription was provided if the patient did not have access to the medication at home. The patient was counseled that proper dietary changes and consistent participation in a home exercise plan can lead to weight loss. Weight loss can help to improve functionality in patients with chronic pain. documented in this encounter [facility] 08-23-2022 Instructions Khloe Pardo - 08/23/2022 10:30 AM EDT The SPRINT System Short-term treatment designed for long-term relief. The SPRINT System helps you get back to the activities you ve missed most - without the worry of addiction or nerve damage. 60-day treatment designed to provide sustained pain relief: minimally-invasive, non-surgical drug-free pain treatment no permanent implant The Pulse Generator sends gentle pulses through a very small MicroLead to stimulate the nerve. The simple Hand-Held Remote allows you to easily control the level of stimulation. The majority of patients experience sustained relief after the MicroLead is removed and the treatment ends The SPRINT Peripheral Nerve Stimulation (PNS) System has been studied extensively for low back pain, shoulder pain, post-amputation pain, and post-operative knee pain, and is cleared for use up to 60 days. This breakthrough treatment is designed to provide significant and sustained pain relief and is the only stimulation device cleared that does not require incisions or a permanent implant. FAQ: What can I expect? You will have a minor procedure to implant the MicroLead(s). The SPRINT System will be left in place for up to 60 days, after which, the MicroLead(s) will be removed by your doctor. Are there any activity limitations? Expect to go about most of your normal activities while using the SPRINT System. Before taking a shower, you will need to disconnect the pulse generator. Bathing and swimming should be avoided during the treatment. What risks are associated with SPRINT? The most common risks are skin irritation and redness that usually go away within a few days without the need for medical care. The implanted Microlead is constructed of a very fine wire, about twice the size of a human hair. It is possible that a lead remnant may remain beneath your skin following the treatment. For more information visit [email or web address]. Insurance coverage Many insurance companies cover the SPRINT System. [facility] provide support to you or your doctor s staff in attempt to obtain coverage from your insurance company. Learn more at [email or web address] documented in this encounter [facility] 06-29-2022 History of Presen t illness Narrative Nurse Note: Review of Systems Constitutional: Negative for fatigue and fever. HENT: Negative for congestion, ear pain and sore throat. Eyes: Negative for pain and redness. Respiratory: Negative for cough and shortness of breath. Cardiovascular: Negative for chest pain and palpitations. Gastrointestinal: Negative for abdominal pain, constipation, diarrhea, nausea and vomiting. Genitourinary: Negative for difficulty urinating and dysuria. Musculoskeletal: Positive for arthralgias. Negative for myalgias. Skin: Negative for rash and wound. Neurological: Negative for dizziness and headaches. All other systems reviewed and are negative. Chief Complaint Patient presents with Wound Check Left leg Results Pt received refills on all of her chronic conditions one week ago but did not have labs done for that appointment. Diabetes HPI: Venous stasis dermatitis: improved since last visit, swelling is much better, redness has improved, tenderness has improved. Disability nicki: needs renewed, has chronic low back problems that she is treated for by pain management but they refused to renew it. Regarding Hypertension: Susan is a 61 y.o. female who comes in today to follow up on HTN. Her HTN is chronic and controlled. Since her last visit, she reports that she has not been checking her blood pressures. Her blood pressures have typically been normal. She has not noted any side effects. Shortness of Breath: No Chest Pain: No Palpitations: No Edema: Yes Other CV risk factors include: age > 55 (female), diabetes mellitus, hypertension, dyslipidemia, obesity and sedentary lifestyle Her hypertension severity is severe due to the above factors, comorbities and degree of intervention necessary. Regarding Diabetes: Diabetes severity is moderate. Blood sugars controlled: No HgbA1c: Lab Results Component Value Date HGBA1C 7.5 (H) 06/26/2022 Home testing No Times per day: Any low blood sugars: No Frequent blood sugars >200: No Last full eye exam: Overdue, recommended Any new vision concerns: No Regular foot self-exams: Yes New foot concerns: No Neuropathic symptoms: Yes, treated yes, related to chronic back pain Microalbumin: sees nephrology Other associated concerns: has difficulty tolerating diet changes. Regarding Hyperlipidemia: Susan comes in today to follow up on chronic hyperlipidemia. This condition has been under good control. Pt reports that she has been compliant with her medications. Pt denies side effects from medication including myalgias, weakness or joint pain. Alleviating factors include: rosuvastatin Exacerbating factors include: poor diet, lack of exercise Other significant medical conditions include: see problem list Lab Results Component Value Date CHOLESTEROL 101 06/26/2022 TRIG 219 (H) 06/26/2022 HDL 46 06/26/2022 LDLCALC 11 06/26/2022 Lab Results Component Value Date ALT 14 06/26/2022 AST 19 06/26/2022 ALKPHOS 99 06/26/2022 BILITOTAL 0.7 06/26/2022 BILIDIRECT 0.1 03/21/2022 Her hyperlipidemia severity is severe due to the above factors. ROS: Review of Systems Nurse Note: Review of Systems Constitutional: Negative for fatigue and fever. HENT: Negative for congestion, ear pain and sore throat. Eyes: Negative for pain and redness. Respiratory: Negative for cough and shortness of breath. Cardiovascular: Negative for chest pain and palpitations. Gastrointestinal: Negative for abdominal pain, constipation, diarrhea, nausea and vomiting. Genitourinary: Negative for difficulty urinating and dysuria. Musculoskeletal: Positive for arthralgias. Negative for myalgias. Skin: Negative for rash and wound. Neurological: Negative for dizziness and headaches. All other systems reviewed and are negative. Past medical/family/social history: reviewed and updated, see documented in patient's chart. Physical Exam: BP 134/80 Pulse 99 Ht 1.791 m (5' 10.5") Wt 119.9 kg (264 lb 4.8 oz) BMI 37.39 kg/m Smoking Status Current Every Day Smoker Body mass index is 37.39 kg/m . Physical Exam Assessment/Plan: 1. Chronic venous stasis Improved, swelling down, recommend reduced use of diuretic, moisturize, compression hose, weight loss 2. Lumbosacral neuritis - DISABILITY PLACARD; Disability placard end date 08/18/2022. Dispense: 2 Each; Refill: 0 3. Spinal stenosis of lumbar region with neurogenic claudication - DISABILITY PLACARD; Disability placard end date 08/18/2022. Dispense: 2 Each; Refill: 0 4. Type 2 diabetes mellitus with peripheral neuropathy Chronic stable, continue same therapy, Advised diet changes, exercise and weight loss - HEPATIC FUNCTION PANEL; Future - HEMOGLOBIN A1C; Future 5. Essential hypertension, benign Chronic stable, continue same therapy 6. Mixed hyperlipidemia Chronic stable, continue same therapy Orders and follow up as documented in patient record; We reviewed diet, exercise and weight control; Repeat labs were ordered and patient was advised to get prior to next appointment; Medications Discontinued During This Encounter Medication Reason DISABILITY PLACARD Reorder Requested Prescriptions Signed Prescriptions Disp Refills DISABILITY PLACARD 2 Each 0 Sig: Disability placard end date 08/18/2022. Patient was advised to call with any questions or concerns. If symptoms worsen patient was advised to follow up in our office or the Emergency Dept. Benefits, Risks, Contraindications, and Complications of recommended treatments were explained the patient understands and agrees to proceed with plan. Chantal Cole MD 06/29/2022 documented in this encounter [facility] 06-18-2022 History of Presen t illness Narrative Nurse Note: Review of Systems Constitutional: Positive for fatigue. Negative for fever. HENT: Negative for congestion, ear pain and sore throat. Eyes: Negative for pain and redness. Respiratory: Negative for cough and shortness of breath. Cardiovascular: Negative for chest pain and palpitations. Gastrointestinal: Negative for abdominal pain, constipation, diarrhea, nausea and vomiting. Genitourinary: Negative for difficulty urinating and dysuria. Musculoskeletal: Negative for arthralgias and myalgias. Skin: Positive for wound. Negative for rash. Neurological: Negative for dizziness and headaches. All other systems reviewed and are negative. Chief Complaint Patient presents with Fatigue Leg Injury Foot Swelling Pt stated she hit her guo on a trailer hitch about a week ago, started seeping yesterday. HPI: Leg swelling: started yesterday, seeping. Had bumped it on a trailer hitch about a week ago, ROS: Review of Systems Nurse Note: Review of Systems Constitutional: Positive for fatigue. Negative for fever. HENT: Negative for congestion, ear pain and sore throat. Eyes: Negative for pain and redness. Respiratory: Negative for cough and shortness of breath. Cardiovascular: Negative for chest pain and palpitations. Gastrointestinal: Negative for abdominal pain, constipation, diarrhea, nausea and vomiting. Genitourinary: Negative for difficulty urinating and dysuria. Musculoskeletal: Negative for arthralgias and myalgias. Skin: Positive for wound. Negative for rash. Neurological: Negative for dizziness and headaches. All other systems reviewed and are negative. Past medical/family/social history: reviewed and updated, see documented in patient's chart. Physical Exam: Wt 122.3 kg (269 lb 9.6 oz) BMI 38.14 kg/m Smoking Status Current Every Day Smoker Body mass index is 38.14 kg/m . Physical Exam Constitutional: Appearance: Normal appearance. She is obese. Musculoskeletal: Right lower leg: Edema (1+. venous stasis changes-mild) present. Left lower leg: Edema (venous stasis changes-severe, edema 3+, erythema, weeping ) present. Assessment/Plan: 1. Cellulitis of left lower extremity Advised to follow up in one week, and she was also recommended to come back or go to the ED in 2-3 days if not showing improvement - sulfamethoxazole-trimethoprim (Bactrim DS) 800-160 MG per tablet; Take 1 tablet by mouth 2 times daily for 10 days. Dispense: 20 tablet; Refill: 0 2. Chronic venous stasis As above - bumetanide (Bumex) 0.5 MG tablet; Take 1 tablet by mouth daily. Dispense: 30 tablet; Refill: 0 3. Essential hypertension, benign Refills given to hold her until her scheduled appt. - amLODIPine 2.5 MG tablet; Take 1 tablet by mouth daily. Dispense: 90 tablet; Refill: 0 - hydroCHLOROthiazide 12.5 MG tablet; Take 1 tablet by mouth daily. Dispense: 90 tablet; Refill: 0 - irbesartan (Avapro) 300 MG tablet; Take 1 tablet by mouth daily. Dispense: 90 tablet; Refill: 0 4. Lumbosacral neuritis - DULoxetine (Cymbalta) [address] Particles capsule DR; Take 1 capsule by mouth daily. Dispense: 90 capsule; Refill: 0 - gabapentin (Neurontin) 800 MG tablet; Take 1 tablet by mouth 3 times daily. Dispense: 270 tablet; Refill: 0 5. Type 2 diabetes mellitus with peripheral neuropathy Due to update labs - gliMEPIride 4 MG tablet; Take 2 tablets by mouth daily. Dispense: 180 tablet; Refill: 0 - metFORMIN-XR 500 MG Tab SR 24 HR; Take 2 tablets by mouth 2 times daily. Dispense: 360 tablet; Refill: 0 6. Mixed hyperlipidemia Update labs - rosuvastatin 40 MG tablet; Take 1 tablet by mouth daily. Dispense: 90 tablet; Refill: 0 7. Lumbar radiculitis - nortriptyline 25 MG capsule; Take 1 capsule by mouth at bedtime. Dispense: 90 capsule; Refill: 0 8. Chronic pain syndrome - nortriptyline 25 MG capsule; Take 1 capsule by mouth at bedtime. Dispense: 90 capsule; Refill: 0 Orders and follow up as documented in patient record; There are no discontinued medications. Requested Prescriptions No prescriptions requested or ordered in this encounter Patient was advised to call with any questions or concerns. If symptoms worsen patient was advised to follow up in our office or the Emergency Dept. Benefits, Risks, Contraindications, and Complications of recommended treatments were explained the patient understands and agrees to proceed with plan. Chantal Cole MD 06/18/2022 documented in this encounter [facility] 04-13-2022 Instructions Rosalee Francis - 04/13/2022 9:57 AM EDT Dear Patient, At the end of 2018, [place] made new rules about chronic opioid use and prescribing. One of these rules is that [place] requires Naloxone ("Narcan") to be prescribed to certain patients on opoid therapy. Naloxone is a prescription medication used to reverse an opoid overdose. While we hope you never have to use this medication, it is important for you to know how it works and that it could save your life. Even people on chronic opioid therapy who have taken a stable dose of opioids for years can be at risk for respiratory depression (slowed breathing), especially when they become sick. To make sure that we are following these rules and giving you safe treatment, our pain management providers will offer a naloxone prescription at least once a year to patients using opioids. We know for some patients this medication can be expensive, even with insurance. Please discuss the cost and importance with your pharmacist before deciding if you will take the prescription or not. Please contact your local health department and ask about [facility] narcan training. The training generally takes about 45 minutes and the health department typically provides a free narcan kit after completion of the training. This kit can take the place of the narcan prescription if financing is an issue. For more information, read the Naloxone Fact Sheet we have put together for you to learn more about how it works. If you have any questions, please talk to you pain management provider. Sincerely, [facility] Naloxone Fact Sheet What is Naloxone? Naloxone (or Narcan or Evzio) is a prescription medication used to reverse an opioid overdose. Opioids include heroin and prescription pain medications such as Morphine, Hydrocodone, and Oxycodone. Is it safe? Naloxone is safe and effective. golf caddie have used it for decades to reverse opioid overdose. How does Naloxone help? Naloxone is an antidote to opioid drugs. Opioids can slow or stop a person's breathing which can lead to . Naloxone helps the person wake up and continue breathing. When to use: An overdose may happen hours after taking drugs. If you notice a person's breathing has slowed down, or when a person will not wake up, it is time to call 911, start rescue breathing (if needed), and give naloxone. How do you give someone Naloxone? You can safely and legally spray Naloxone into the nose or inject it into a muscle. Into the nose (Intranasal [place]): Naloxone is sprayed into the nostril with an applicator that can be inserted into each side of the nose. Intranasal naloxone is not FDA approved, but it can be legally prescribed by a physician or approved pharmacist. First responders often give Naloxone this way. Into the muscle (Intramuscular injection): Naloxone can be injected into the upper arm muscle (deltoid) or the outer thigh. In an emergency, it is safe to inject through clothing. The "[employer]" part of the Opioid Antidote and Overdose Prevention Act" provides legal protections, both civil and criminal, to the overdose victim and the person who seeks medical assistance for the victim of an opioid overdose. How long does it work? Naloxone responds within 2-5 minutes after it is given. If the person does not wake up after 5 minutes, it should be administered again. Rescue breathing should be done while you wait for the naloxone to start working. Naloxone typically wears off within 30-90 minutes following administration. What should you do after you give Naloxone? Call 911 and stay with the individual overdosing. Please contact your local health department and ask about [facility] narcan training. The training generally takes about 45 minutes and the health department typically provides a free narcan kit after completion of the training. This kit can take the place of the narcan prescription if financing is an issue. Narcan is offered free of charge at [email or web address] Dear Patient, At the end of 2018, [place] made new rules about chronic opioid use and prescribing. One of these rules is that [place] requires Naloxone ("Narcan") to be prescribed to certain patients on opoid therapy. Naloxone is a prescription medication used to reverse an opoid overdose. While we hope you never have to use this medication, it is important for you to know how it works and that it could save your life. Even people on chronic opioid therapy who have taken a stable dose of opioids for years can be at risk for respiratory depression (slowed breathing), especially when they become sick. To make sure that we are following these rules and giving you safe treatment, our pain management providers will offer a naloxone prescription at least once a year to patients using opioids. We know for some patients this medication can be expensive, even with insurance. Please discuss the cost and importance with your pharmacist before deciding if you will take the prescription or not. Please contact your local health department and ask about [place] narcan training. The training generally takes about 45 minutes and the health department typically provides a free narcan kit after completion of the training. This kit can take the place of the narcan prescription if financing is an issue. For more information, read the Naloxone Fact Sheet we have put together for you to learn more about how it works. If you have any questions, please talk to you pain management provider. Sincerely, [facility] Naloxone Fact Sheet What is Naloxone? Naloxone (or Narcan or Evzio) is a prescription medication used to reverse an opioid overdose. Opioids include heroin and prescription pain medications such as Morphine, Hydrocodone, and Oxycodone. Is it safe? Naloxone is safe and effective. golf caddie have used it for decades to reverse opioid overdose. How does Naloxone help? Naloxone is an antidote to opioid drugs. Opioids can slow or stop a person's breathing which can lead to . Naloxone helps the person wake up and continue breathing. When to use: An overdose may happen hours after taking drugs. If you notice a person's breathing has slowed down, or when a person will not wake up, it is time to call 911, start rescue breathing (if needed), and give naloxone. How do you give someone Naloxone? You can safely and legally spray Naloxone into the nose or inject it into a muscle. Into the nose (Intranasal [place]): Naloxone is sprayed into the nostril with an applicator that can be inserted into each side of the nose. Intranasal naloxone is not FDA approved, but it can be legally prescribed by a physician or approved pharmacist. First responders often give Naloxone this way. Into the muscle (Intramuscular injection): Naloxone can be injected into the upper arm muscle (deltoid) or the outer thigh. In an emergency, it is safe to inject through clothing. The "[employer] [place] [employer]" part of the Opioid Antidote and Overdose Prevention Act" provides legal protections, both civil and criminal, to the overdose victim and the person who seeks medical assistance for the victim of an opioid overdose. How long does it work? Naloxone responds within 2-5 minutes after it is given. If the person does not wake up after 5 minutes, it should be administered again. Rescue breathing should be done while you wait for the naloxone to start working. Naloxone typically wears off within 30-90 minutes following administration. What should you do after you give Naloxone? Call 911 and stay with the individual overdosing. Please contact your local health department and ask about [facility] [place] narcan training. The training generally takes about 45 minutes and the health department typically provides a free narcan kit after completion of the training. This kit can take the place of the narcan prescription if financing is an issue. Narcan is offered free of charge at [email or web address] documented in this encounter [facility] 04-13-2022 History of Presen t illness Narrative HPI: Susan Santos Presents for evaluation and treatment of lower pain. Pain is described as Aching, Throbbing, Shooting, Stabbing, Sharp, Exhausting and Miserable and is rated 6/10. Pain is increased with going up and down stairs, standing, walking, squatting and kneeling and is relieved by relaxation and pain medication. The patient admits to having numbness/tingling bilateral feet. she admits to having weakness in both her legs. She feels like the muscles and tendons in her legs are not long enough. The patient denies bowel/bladder incontinence. Physical therapy last completed: 2011. Patient admits to smoking a pack of cigarettes per day Audit-C Questionnaire 1. How often do you have a drink containing alcohol? (0) never 2. How many standard drinks containing alcohol do you have on a typical day? (0) 1 or 2 3. How often do you have six or more drinks on one occasion? (0) never *A score of 3 or more in women or 4 or more in men is a positive score that requires education. Current Outpatient Medications Medication Sig amLODIPine 2.5 MG tablet Take 1 tablet by mouth daily. ammonium lactate 12 % Cream cream clobetasol 0.05 % Cream DISABILITY PLACARD Disability placard end date 08/18/2022. DULoxetine (Cymbalta) [address] Particles capsule DR Take 1 capsule by mouth daily. gabapentin (Neurontin) 800 MG tablet Take 1 tablet by mouth 3 times daily. gliMEPIride 4 MG tablet Take 2 tablets by mouth daily. hydroCHLOROthiazide 12.5 MG tablet Take 1 tablet by mouth daily. hydroCODone-acetaminophen 10-325 MG tablet Take 1 tablet by mouth 2 times daily as needed. irbesartan (Avapro) 300 MG tablet Take 1 tablet by mouth daily. metFORMIN-XR 500 MG Tab SR 24 HR Take 2 tablets by mouth 2 times daily. naloxone 4 MG/0.1ML 1 spray by Nasal route As directed PRN. (Patient not taking: Reported on 03/22/2022) nortriptyline 25 MG capsule Take 1 capsule by mouth at bedtime. rosuvastatin 40 MG tablet Take 1 tablet by mouth daily. triamcinolone 0.1 % Cream cream apply topically to affected area twice a day Urea 40 % Cream Apply 1 Application topically daily. Review of Systems: General: Denies fevers, chills, or night sweats Abdominal: Denies nausea, vomiting, diarrhea Respiratory: Denies cough, sputum production Genitourinary: Denies dysuria or frequency HPI: Susan Santos Presents for evaluation and treatment of lower pain. Pain is described as Aching, Throbbing, Shooting, Stabbing, Sharp, Exhausting and Miserable and is rated 6/10. Pain is increased with going up and down stairs, standing, walking, squatting and kneeling and is relieved by relaxation and pain medication. The patient admits to having numbness/tingling bilateral feet. she admits to having weakness in both her legs. She feels like the muscles and tendons in her legs are not long enough. The patient denies bowel/bladder incontinence. Physical therapy last completed: 2011. Patient admits to smoking a pack of cigarettes per day Audit-C Questionnaire 1. How often do you have a drink containing alcohol? (0) never 2. How many standard drinks containing alcohol do you have on a typical day? (0) 1 or 2 3. How often do you have six or more drinks on one occasion? (0) never *A score of 3 or more in women or 4 or more in men is a positive score that requires education. Current Outpatient Medications Medication Sig amLODIPine 2.5 MG tablet Take 1 tablet by mouth daily. ammonium lactate 12 % Cream cream clobetasol 0.05 % Cream DISABILITY PLACARD Disability placard end date 08/18/2022. DULoxetine (Cymbalta) [address] Particles capsule DR Take 1 capsule by mouth daily. gabapentin (Neurontin) 800 MG tablet Take 1 tablet by mouth 3 times daily. gliMEPIride 4 MG tablet Take 2 tablets by mouth daily. hydroCHLOROthiazide 12.5 MG tablet Take 1 tablet by mouth daily. hydroCODone-acetaminophen 10-325 MG tablet Take 1 tablet by mouth 2 times daily as needed. irbesartan (Avapro) 300 MG tablet Take 1 tablet by mouth daily. metFORMIN-XR 500 MG Tab SR 24 HR Take 2 tablets by mouth 2 times daily. naloxone 4 MG/0.1ML 1 spray by Nasal route As directed PRN. (Patient not taking: Reported on 03/22/2022) nortriptyline 25 MG capsule Take 1 capsule by mouth at bedtime. rosuvastatin 40 MG tablet Take 1 tablet by mouth daily. triamcinolone 0.1 % Cream cream apply topically to affected area twice a day Urea 40 % Cream Apply 1 Application topically daily. Review of Systems: General: Denies fevers, chills, or night sweats Abdominal: Denies nausea, vomiting, diarrhea Respiratory: Denies cough, sputum production Genitourinary: Denies dysuria or frequency Physical Examination: Vitals: 04/13/22 0924 BP: 183/90 Pulse: 109 Resp: 18 Constitutional The patient is awake, alert, well developed, well nourished and well groomed. The patient is pleasant and cooperative. The patient is a good historian and is very helpful with the history and physical examination. No lesions noted on face. Neurologic Cranial Nerves 2-12 are grossly intact. The deep tendon reflexes of the in bilateral lower extremities are symmetrical;. Plantar reflexes (Babinski): toes are downgoing. Cerebellar function is normal; Romberg's test is negative. The gait is normal. Sensory testing for pain (pinprick), light touch, and proprioception is diminished in bilateral lower extremities. No ankle or wrist clonus present. Negative Elizabeth's sign. Motor in bilateral lower extremities is 5/5. Psychiatric The patient is oriented to person, place, and time. Speech is fluent and words are clear. Thought processes are coherent, insight is good. There are no obsessive, compulsive, phobic or delusional thoughts; there are no illusions or hallucinations. The patient's fund of knowledge: awareness of current events and past history is appropriate for age. The patient's higher cognitive functions are intact. The patient's mood is neutral and the affect appropriate; there are no loose associations. MSK The patient has moderate difficulty transitioning from sitting to standing. The patient has a(n) antalgic gait. The lumbar spine demonstrates a flexion biased curve. There is no deformity to the lumbosacral spine. There is no abnormality in muscle tone in the lumbosacral spine. bilateral lumbar paraspinal tenderness, NATY, thigh thrust, Gaenslen's, and Kim's positive bilaterally, SLR negative and FADIR, internal rotation, and external rotation were positive in LLELumbar facet loading positive bilaterally, tender to palpation over bilateral facet joints. Assessment: ICD-10-CM 1. Lumbar radiculitis M54.16 2. Chronic pain syndrome G89.4 60 y/o F w/PMHx severe lumbar stenosis, lumbar facet arthropathy, HTN, DM, PAD, psoriasis, peripheral neuropathy who presents for evaluation of her low back pain and all over pain. Seen by Dr. Vaughn Injections: SIJ injections resulted in short term (1 day) relief. Has had ESIs and RFAs before, but not interested in more injections. Imaging: lumbar MRI shows severe canal stenosis at L3-4 with multilevel facet arthropathy. There is 5mm (grade 1) listhesis ove L3 over L4, but no instability on Xrays with flex/extension. Left hip xray shows mild OA. Meds: Duloxetine 60mg, gabapentin 800mg TID. Tramadol not helpful in the past. Discussed her pain today. Although she has facetogenic and SIJ pain, most of her pain is related to neurogenic claudication. She does not want additional injections. She saw Dr. Mcmanus (no records yet in our system), and he is recommending a fusion per patient. She will need to quit smoking which is another barrier. Plan: 1. Update UDS today 2. Awaiting spinal fusion sx with Dr Mcmanus 3. The patient identified through screening process as a tobacco user, this generated a brief counseling of less than 3 minutes between the provider and the patient about the benefits of ceasing tobacco use. Educational handout was provided following discussion 4. Constipation - cont with Mirilax 5. Nortriptyline increase - noted minimal decrease in pain from the increase 6. The patient was counseled that proper dietary changes and consistent participation in a home exercise plan can lead to weight loss. Weight loss can help to improve functionality in patients with chronic pain. ' 7. Refilled Nortriptyline 25 mg 1 PO at HS 8. Refilled [place] 10/325 1 PO BID PRN pain 9. The patients narcan medication was sent to the pharmacy. The patient was prescribed Narcan due to combination of sedating medications with opioid medication. The patient was educated on the narcan medication and has no questions. 10. The patient is using their controlled substance medication appropriately to increase activity and functional capacity. There are no signs of addiction or diversion. There are no significant side effects reported. [place] report was reviewed and no abnormalities were identified. Medications were refilled as below: Requested Prescriptions Pending Prescriptions Disp Refills naloxone 4 MG/0.1ML 1 Each 0 Si spray by Nasal route once for 1 dose. [place] into the nose as directed. Call 911. If no response in 2 minutes use a new nasal spray in other nostril. Repeat until help arrives. hydroCODone-acetaminophen 10-325 MG tablet 60 tablet 0 Sig: Take 1 tablet by mouth 2 times daily as needed. hydroCODone-acetaminophen 10-325 MG tablet 60 tablet 0 Sig: Take 1 tablet by mouth 2 times daily as needed. nortriptyline 25 MG capsule 90 capsule 0 Sig: Take 1 capsule by mouth at bedtime. I have discussed with the patient the risks of opioid pain medication including, respiratory depression, dependence, tolerance, addiction, brain dysfunction, immune dysfunction, increased risk of cancer, decreased steroid hormone production, and depression among others. The patient voices understanding. [place] - The patient has been advised of the risks and benefits of these medications. [place] report was reviewed with no advert or drug-seeking behaviors. Medication effectiveness and an evaluation of possible addiction are assessed on a regular basis by this provider. Pt denies any side effects of the medication. COMM, SOAPP, pain agreement, UDS, and Depression score are all available in Epic for review and are updated yearly. This medication affords the patient the ability to perform ADL's and recreational activities with less pain. The patient was prescribed an opioid medication at today's visit. We reviewed the risks of opioid medications including respiratory depression and possible . We reviewed appropriate use of naloxone, and a new prescription was provided if the patient did not have access to the medication at home. 11. RTC 2 mos documented in this encounter [facility] 03-22-2022 History of Presen t illness Narrative Nurse Note: Review of Systems Constitutional: Negative for fatigue and fever. HENT: Negative for congestion, ear pain and sore throat. Eyes: Negative for pain and redness. Respiratory: Negative for cough and shortness of breath. Cardiovascular: Negative for chest pain and palpitations. Gastrointestinal: Negative for abdominal pain, constipation, diarrhea, nausea and vomiting. Genitourinary: Negative for difficulty urinating and dysuria. Musculoskeletal: Negative for arthralgias and myalgias. Skin: Negative for rash and wound. Neurological: Negative for dizziness and headaches. All other systems reviewed and are negative. Chief Complaint Patient presents with Results completed Diabetes Hyperlipidemia Hypertension Psoriasis Hot Flashes Feels hot all the time HPI: Regarding Diabetes: Diabetes severity is moderate. Blood sugars controlled: no HgbA1c: Lab Results Component Value Date HGBA1C 7.7 (H) 03/21/2022 Home testing Yes Times per day: daily Any low blood sugars: No Frequent blood sugars >200: No Last full eye exam: Over a year, rec update- advised to schedule again Any new vision concerns: No Regular foot self-exams: Yes New foot concerns: No Neuropathic symptoms: Yes, treated gabapentin, cymbalta Microalbumin: saw nephrology Other associated concerns: she lost her significant other in September and has had difficulty with coping. She states she has been really bad lately, has been eating anything and everything, just started watching again. Regarding Hypertension: Susan is a 61 y.o. female who comes in today to follow up on HTN. Her HTN is chronic and uncontrolled. Since her last visit, she reports that she has not been checking her blood pressures. Her blood pressures have typically been abnormal. She has not noted any side effects. Shortness of Breath: No Chest Pain: No Palpitations: No Edema: Yes venous stasis, left worse than right, is seeing Dr. Persaud for venous treatment Other CV risk factors include: age > 55 (female), diabetes mellitus, hypertension, dyslipidemia, obesity and sedentary lifestyle Her hypertension severity is severe due to the above factors, comorbities and degree of intervention necessary. Regarding Hyperlipidemia: Susan comes in today to follow up on chronic hyperlipidemia. This condition has been under good control. Pt reports that she has been compliant with her medications. Pt denies side effects from medication including myalgias, weakness or joint pain. Alleviating factors include: rosuvastatin Exacerbating factors include: poor diet, lack of exercise Other significant medical conditions include: see problem list Lab Results Component Value Date CHOLESTEROL 123 12/14/2021 TRIG 241 (H) 12/14/2021 HDL 46 12/14/2021 LDLCALC 29 12/14/2021 Lab Results Component Value Date ALT 15 03/21/2022 AST 22 03/21/2022 ALKPHOS 95 03/21/2022 BILITOTAL 0.6 03/21/2022 BILIDIRECT 0.1 03/21/2022 Her hyperlipidemia severity is moderate due to the above factors. On disability: for her back, sees the spine center, Dr Vega, was referred for a spinal fusion, she has not had surgery, she has had injections. RFA has been done, she continues to have pain, is wanting a second opinion on treatment options. She doesn't feel like the injections were very helpful, they took the edge off. Smoker: 1 ppd, since 13 years of age, has quit for the longest is 3 months. She denies chronic cough Knee pain: when going up and down stairs. Psoriasis: chronic on her ankles, she has been getting urea cream from derm and would like a refill ROS: Nurse Note: Review of Systems Constitutional: Negative for fatigue and fever. HENT: Negative for congestion, ear pain and sore throat. Eyes: Negative for pain and redness. Respiratory: Negative for cough and shortness of breath. Cardiovascular: Negative for chest pain and palpitations. Gastrointestinal: Negative for abdominal pain, constipation, diarrhea, nausea and vomiting. Genitourinary: Negative for difficulty urinating and dysuria. Musculoskeletal: Negative for arthralgias and myalgias. Skin: Negative for rash and wound. Neurological: Negative for dizziness and headaches. All other systems reviewed and are negative. Past medical/family/social history: reviewed and updated, see documented in patient's chart. Physical Exam: BP (!) 178/96 Pulse 99 Ht 1.803 m (5' 11") Wt 121.1 kg (267 lb) SpO2 96% BMI 37.24 kg/m Smoking Status Current Every Day Smoker Body mass index is 37.24 kg/m . Physical Exam Constitutional: Comments: obese HENT: Head: Normocephalic and atraumatic. Eyes: Pupils: Pupils are equal, round, and reactive to light. Neck: Thyroid: No thyromegaly. Cardiovascular: Rate and Rhythm: Normal rate and regular rhythm. Heart sounds: Normal heart sounds. No murmur heard. Pulmonary: Effort: Pulmonary effort is normal. Breath sounds: Decreased breath sounds present. No wheezing or rhonchi. Abdominal: General: There is no distension. Palpations: Abdomen is soft. Tenderness: There is no abdominal tenderness. Musculoskeletal: Cervical back: Normal range of motion and neck supple. Lymphadenopathy: Cervical: No cervical adenopathy. Skin: General: Skin is warm and dry. Findings: No rash. Comments: Veinous stasis dermatitis bilateral lower extremities Neurological: Mental Status: She is alert and oriented to person, place, and time. Psychiatric: Mood and Affect: Mood and affect normal. Cognition and Memory: Memory normal. Judgment: Judgment normal. Assessment/Plan: 1. Type 2 diabetes mellitus with peripheral neuropathy Patient prefers to make diet changes and hold off on medication changes for now - gliMEPIride 4 MG tablet; Take 2 tablets by mouth daily. Dispense: 180 tablet; Refill: 0 - metFORMIN-XR 500 MG Tab SR 24 HR; Take 2 tablets by mouth 2 times daily. Dispense: 360 tablet; Refill: 0 - CBC, EDIF, PLATELET; Future - COMPREHENSIVE METABOLIC PANEL; Future - HEMOGLOBIN A1C; Future 2. Essential hypertension, benign Observe, recommend monitoring blood pressures at home, if continue to be elevated may need to start/increase medication. Encourage weight loss, reduced salt intake, exercise. - hydroCHLOROthiazide 12.5 MG tablet; Take 1 tablet by mouth daily. Dispense: 90 tablet; Refill: 0 - irbesartan (Avapro) 300 MG tablet; Take 1 tablet by mouth daily. Dispense: 90 tablet; Refill: 0 - amLODIPine 2.5 MG tablet; Take 1 tablet by mouth daily. Dispense: 90 tablet; Refill: 0 - CBC, EDIF, PLATELET; Future - COMPREHENSIVE METABOLIC PANEL; Future - LIPID PANEL W CALCULATED LDL; Future 3. Lumbosacral neuritis Chronic stable, continue same therapy - DULoxetine (Cymbalta) [address] Particles capsule DR; Take 1 capsule by mouth daily. Dispense: 90 capsule; Refill: 0 4. Mixed hyperlipidemia Chronic stable, continue same therapy - rosuvastatin 40 MG tablet; Take 1 tablet by mouth daily. Dispense: 90 tablet; Refill: 0 - COMPREHENSIVE METABOLIC PANEL; Future - LIPID PANEL W CALCULATED LDL; Future 5. Psoriasis Chronic stable, continue same therapy Orders and follow up as documented in patient record; We reviewed diet, exercise and weight control; Repeat labs were ordered and patient was advised to get prior to next appointment; Patient was advised to call with any questions or concerns. If symptoms worsen patient was advised to follow up in our office or the Emergency Dept. Benefits, Risks, Contraindications, and Complications of recommended treatments were explained the patient understands and agrees to proceed with plan. Chantal Cole MD 03/22/2022 documented in this encounter [facility] 01-19-2022 History of Presen t illness Narrative HPI: Susan Santos Presents for evaluation and treatment of low back pain that radiates to feet. Pain is described as Aching, Throbbing, Sharp and Burning and is rated 9/10. Pain is increased with standing, walking and inactivity and is relieved by nothing. The patient admits to having numbness/tingling in legs/feet-not new. she admits to having weakness in legs/feet-not new. The patient denies bowel/bladder incontinence. Patient admits to having tobacco use. Audit-C Questionnaire 1. How often do you have a drink containing alcohol? (0) never 2. How many standard drinks containing alcohol do you have on a typical day? (0) 1 or 2 3. How often do you have six or more drinks on one occasion? (0) never *A score of 3 or more in women or 4 or more in men is a positive score that requires education. Current Outpatient Medications Medication Sig ammonium lactate 12 % Cream cream clobetasol 0.05 % Cream DISABILITY PLACARD Disability placard end date 08/18/2022. DULoxetine (Cymbalta) [address] Particles capsule DR Take 1 capsule by mouth daily. gliMEPIride 4 MG tablet Take 2 tablets by mouth daily. hydroCHLOROthiazide 12.5 MG tablet Take 1 tablet by mouth daily. hydroCODone-acetaminophen ([place]) 10-325 MG tablet Take 1 tablet by mouth 2 times daily as needed. irbesartan (Avapro) 300 MG tablet Take 1 tablet by mouth daily. metFORMIN-XR 500 MG Tab SR 24 HR Take 2 tablets by mouth 2 times daily. naloxone 4 MG/0.1ML 1 spray by Nasal route As directed PRN. nortriptyline 10 MG capsule Take 1 capsule by mouth at bedtime. rosuvastatin 40 MG tablet Take 1 tablet by mouth daily. triamcinolone 0.1 % Cream cream apply topically to affected area twice a day Urea 40 % Cream Apply 1 Application topically daily. gabapentin (Neurontin) 800 MG tablet Take 1 tablet by mouth 3 times daily. Review of Systems: General: Denies fevers, chills, or night sweats Abdominal: Denies nausea, vomiting, diarrhea Respiratory: Denies cough, sputum production Genitourinary: Denies dysuria or frequency HPI: Susan Santos Presents for evaluation and treatment of low back pain that radiates to feet. Pain is described as Aching, Throbbing, Sharp and Burning and is rated 9/10. Pain is increased with standing, walking and inactivity and is relieved by nothing. The patient admits to having numbness/tingling in legs/feet-not new. she admits to having weakness in legs/feet-not new. The patient denies bowel/bladder incontinence. Patient admits to having tobacco use. Audit-C Questionnaire 1. How often do you have a drink containing alcohol? (0) never 2. How many standard drinks containing alcohol do you have on a typical day? (0) 1 or 2 3. How often do you have six or more drinks on one occasion? (0) never *A score of 3 or more in women or 4 or more in men is a positive score that requires education. Current Outpatient Medications Medication Sig ammonium lactate 12 % Cream cream clobetasol 0.05 % Cream DISABILITY PLACARD Disability placard end date 08/18/2022. DULoxetine (Cymbalta) [address] Particles capsule DR Take 1 capsule by mouth daily. gliMEPIride 4 MG tablet Take 2 tablets by mouth daily. hydroCHLOROthiazide 12.5 MG tablet Take 1 tablet by mouth daily. hydroCODone-acetaminophen ([place]) 10-325 MG tablet Take 1 tablet by mouth 2 times daily as needed. irbesartan (Avapro) 300 MG tablet Take 1 tablet by mouth daily. metFORMIN-XR 500 MG Tab SR 24 HR Take 2 tablets by mouth 2 times daily. naloxone 4 MG/0.1ML 1 spray by Nasal route As directed PRN. nortriptyline 10 MG capsule Take 1 capsule by mouth at bedtime. rosuvastatin 40 MG tablet Take 1 tablet by mouth daily. triamcinolone 0.1 % Cream cream apply topically to affected area twice a day Urea 40 % Cream Apply 1 Application topically daily. gabapentin (Neurontin) 800 MG tablet Take 1 tablet by mouth 3 times daily. Review of Systems: General: Denies fevers, chills, or night sweats Abdominal: Denies nausea, vomiting, diarrhea Respiratory: Denies cough, sputum production Genitourinary: Denies dysuria or frequency Physical Examination: Vitals: 01/19/22 1138 BP: 177/77 Pulse: 103 Constitutional The patient is awake, alert, well developed, well nourished and well groomed. The patient is pleasant and cooperative. The patient is a good historian and is very helpful with the history and physical examination. No lesions noted on face. Neurologic Cranial Nerves 2-12 are grossly intact. The deep tendon reflexes of the in bilateral lower extremities are symmetrical;. Plantar reflexes (Babinski): toes are downgoing. Cerebellar function is normal; Romberg's test is negative. The gait is normal. Sensory testing for pain (pinprick), light touch, and proprioception is diminished in bilateral lower extremities. No ankle or wrist clonus present. Negative Elizabeth's sign. Motor in bilateral lower extremities is 5/5. Psychiatric The patient is oriented to person, place, and time. Speech is fluent and words are clear. Thought processes are coherent, insight is good. There are no obsessive, compulsive, phobic or delusional thoughts; there are no illusions or hallucinations. The patient's fund of knowledge: awareness of current events and past history is appropriate for age. The patient's higher cognitive functions are intact. The patient's mood is neutral and the affect appropriate; there are no loose associations. MSK The patient has moderate difficulty transitioning from sitting to standing. The patient has a(n) antalgic gait. The lumbar spine demonstrates a flexion biased curve. There is no deformity to the lumbosacral spine. There is no abnormality in muscle tone in the lumbosacral spine. bilateral lumbar paraspinal tenderness, NATY, thigh thrust, Gaenslen's, and Kim's positive bilaterally, SLR negative and FADIR, internal rotation, and external rotation were positive in LLELumbar facet loading positive bilaterally, tender to palpation over bilateral facet joints. Assessment: ICD-10-CM 1. Lumbar facet arthropathy M47.816 2. Lumbar radiculitis M54.16 3. Chronic pain syndrome G89.4 4. Lumbar stenosis with neurogenic claudication M48.062 60 y/o F w/PMHx severe lumbar stenosis, lumbar facet arthropathy, HTN, DM, PAD, psoriasis, peripheral neuropathy who presents for evaluation of her low back pain and all over pain. Seen by Dr. Vaughn Injections: SIJ injections resulted in short term (1 day) relief. Has had ESIs and RFAs before, but not interested in more injections. Imaging: lumbar MRI shows severe canal stenosis at L3-4 with multilevel facet arthropathy. There is 5mm (grade 1) listhesis ove L3 over L4, but no instability on Xrays with flex/extension. Left hip xray shows mild OA. Meds: Duloxetine 60mg, gabapentin 800mg TID. Tramadol not helpful in the past. Discussed her pain today. Although she has facetogenic and SIJ pain, most of her pain is related to neurogenic claudication. She does not want additional injections. She saw Dr. Mcmanus (no records yet in our system), and he is recommending a fusion per patient. She will need to quit smoking which is another barrier. Plan: 1. Naloxone was prescribed at a previous visit 2. They deny any new medical conditions or new medical diagnoses. They deny any side effects of their medication as in nausea, vomiting, constipation, injuries, or falls. Denies any loss of bowel or bladder. 3. Dr Mcmanus - awaiting for surgery however cannot proceed at this time 2/2 financial reasons 4. Constipation - discussed mirilax daily 5. She will also need to quit smoking prior to surgery 6. The patient identified through screening process as a tobacco user, this generated a brief counseling of less than 3 minutes between the provider and the patient about the benefits of ceasing tobacco use. Educational handout was provided following discussion 7. We will increase the nortriptyline to 25 mg 1 PO at HS. Patient is having difficulty in sleeping 2/2 the pain The patient is using their controlled substance medication appropriately to increase activity and functional capacity. There are no signs of addiction or diversion. There are no significant side effects reported. OARRS report was reviewed and no abnormalities were identified. Medications were refilled as below: Requested Prescriptions Pending Prescriptions Disp Refills hydroCODone-acetaminophen ([place]) 10-325 MG tablet 60 tablet 0 Sig: Take 1 tablet by mouth 2 times daily as needed. hydroCODone-acetaminophen 10-325 MG tablet 60 tablet 0 Sig: Take 1 tablet by mouth 2 times daily as needed. nortriptyline 25 MG capsule 30 capsule 2 Sig: Take 1 capsule by mouth at bedtime. hydroCODone-acetaminophen 10-325 MG tablet 60 tablet 0 Sig: Take 1 tablet by mouth 2 times daily as needed. I have discussed with the patient the risks of opioid pain medication including, respiratory depression, dependence, tolerance, addiction, brain dysfunction, immune dysfunction, increased risk of cancer, decreased steroid hormone production, and depression among others. The patient voices understanding. OARRS - The patient has been advised of the risks and benefits of these medications. OARRS report was reviewed with no advert or drug-seeking behaviors. Medication effectiveness and an evaluation of possible addiction are assessed on a regular basis by this provider. Pt denies any side effects of the medication. COMM, SOAPP, pain agreement, UDS, and Depression score are all available [facility] for review and are updated yearly. This medication affords the patient the ability to perform ADL's and recreational activities with less pain. 8. RTC 3 mos documented in this encounter [facility] 01-19-2022 Instructions Olga Lidia Segura - 01/19/2022 11:41 AM EDT Health Tips: Chronic Pain and Smoking People with chronic pain smoke more, even though smoking can actually make the pain worse. What's behind the increased tobacco use in patients with chronic pain? Smoking appears to be a method some people adopt to manage pain. Studies have found that smokers increase their cigarette consumption when their pain increases. Researchers also have speculated that chronic pain patients smoke due to the depression or anxiety they are more likely to have as a result of their pain. Chronic Pain and Smoking: The Statistics More than half of chronic pain patients who have sought out pain management are known to smoke, compared with the 22% smoking rate for the [place] as a whole. People who have experienced chronic neck pain or back pain their whole lives are much more likely to be longtime smokers. Medical experts say smoking can interfere with pain management and chronic pain treatment by: Causing or exacerbating painful medical conditions. Smoking is incredibly harmful to the body and can lead to diseases known to cause chronic pain. For example, smoking causes chronic back and neck pain by contributing to osteoporosis and the deterioration of spinal discs. Smokers are as much as 2.7 times more likely to experience lower back pain than those who don t smoke. Smoking also contributes to the joint pain found in conditions like arthritis. Increasing pain sensitivity and perception. Studies have found that smoking causes people to perceive pain more acutely. Tobacco use appears to have some effect on the nervous system, increasing sensations and perceptions of pain. Interfering with pain medication. Smokers require more medication to ease their pain, research has found. That goes for standard analgesics like aspirin as well as for narcotic painkillers; it takes larger doses of both to reduce or manage pain in smokers. Chronic Pain and Smoking: How to Quit Quitting smoking can tremendously benefit your chronic pain treatment. Here are some tips on how to quit: Choose your quit day. Picking a day when you will quit smoking gives you time to prepare. Don't choose a day that's too soon or too far away. Ask family and friends for help. Tell them you've chosen a quit day and ask for their moral support. Warn them you're likely to be ramirez for some time, and ask their forgiveness in advance. Let them know the ways in which they can assist you. Prepare yourself for quit day. Go through your house and car and get rid of all your tobacco products and smoking paraphernalia. Throw away all your ashtrays, matches, and lighters. Assess the day-to-day activities that seem to trigger your craving for a cigarette and make plans to avoid those triggers or prepare a substitute for smoking. Use nicotine replacement products. Nicotine patches, gum, and inhalers can help smokers fight cravings. Talk to your doctor about which combination of products might best assist you in quitting. Join a support group. There are lots of other people trying to kick the habit, too. A support group can help you by boosting your spirits and giving you some needed advice. Take a walk whenever you feel the urge to smoke. Call 9-870-GFYI-NOW for free help from trained coaches. You can also start a new exercise program. Exercise activates endorphins, chemicals in the brain that can help block or lessen pain. Once you understand how smoking actually worsens chronic pain, you may find the motivation to quit smoking once and for all. Weight and Chronic Pain Excess body weight and obesity can worsen many kinds of chronic pain. People who are overweight or obese are more likely to suffer from various types of pain, including low back pain, fibromyalgia, pelvic and abdominal pain and headaches. People with chronic pain may: Have difficulty remaining active, which can lead to weight gain Experience increased stress, which can lead to overeating Take medications that may lead to weight gain Have increased stress on their joints and spine Obesity can also lead to other illnesses, such as diabetes, high blood pressure, coronary artery disease, coronary vascular disease, heart attack, stroke and even cancer. Maintaining a healthy body weight is an important part of managing your health. Body Mass Index, or BMI, is used to measure body fat and to identify a person's risk for certain diseases that can occur with being overweight or obese. In adults, a healthy weight is determined based upon the ratio of weight to height. Your Body mass index is 37.1 kg/m . BMI Weight Status Under Weight Below 18.5 Normal Weight 18.5 - 24.9 Overweight 25 - 29.9 Obese 30 and above Please read the attached handout from the [employer] with guidelines and recommendations for you to review. It will help you to identify ways to maintain a healthy weight which may decrease your pain and improve your quality of life. Please contact our office or your primary care physician if you have additional questions and to help reach your personal weight goals. documented in this encounter [facility] 12-18-2021 History of Presen t illness Narrative Chief Complaint Patient presents with Lab Review Back Pain Hypertension Hyperlipidemia Type 2 Diabetes HPI: Regarding Diabetes: Diabetes severity is moderate. Blood sugars controlled: no HgbA1c: Lab Results Component Value Date HGBA1C 7.8 (H) 12/14/2021 Home testing Yes Times per day: daily Any low blood sugars: No Frequent blood sugars >200: No Last full eye exam: Over a year, rec update- advised to schedule again Any new vision concerns: No Regular foot self-exams: Yes New foot concerns: No Neuropathic symptoms: Yes, treated gabapentin, cymbalta Microalbumin: saw nephrology Other associated concerns: she lost her significant other in September and has had difficulty with coping. Regarding Hypertension: Susan is a 61 y.o. female who comes in today to follow up on HTN. Her HTN is chronic and controlled. Since her last visit, she reports that she has not been checking her blood pressures. Her blood pressures have typically been normal. She has not noted any side effects. Shortness of Breath: No Chest Pain: No Palpitations: No Edema: Yes venous stasis, left worse than right, is seeing Dr. Persaud for venous treatment Other CV risk factors include: age > 55 (female), diabetes mellitus, hypertension, dyslipidemia, obesity and sedentary lifestyle Her hypertension severity is severe due to the above factors, comorbities and degree of intervention necessary. Regarding Hyperlipidemia: Susan comes in today to follow up on chronic hyperlipidemia. This condition has been under good control. Pt reports that she has been compliant with her medications. Pt denies side effects from medication including myalgias, weakness or joint pain. Alleviating factors include: rosuvastatin Exacerbating factors include: poor diet, lack of exercise Other significant medical conditions include: see problem list Lab Results Component Value Date CHOLESTEROL 123 12/14/2021 TRIG 241 (H) 12/14/2021 HDL 46 12/14/2021 LDLCALC 29 12/14/2021 Lab Results Component Value Date ALT 15 12/14/2021 AST 17 12/14/2021 ALKPHOS 94 12/14/2021 BILITOTAL 0.8 12/14/2021 BILIDIRECT 0.2 12/14/2021 Her hyperlipidemia severity is moderate due to the above factors. On disability: for her back, sees the spine center, Dr Vega, was referred for a spinal fusion, she has not had surgery, she has had injections. RFA has been done, she continues to have pain, is wanting a second opinion on treatment options. She doesn't feel like the injections were very helpful, they took the edge off. Smoker: 1 ppd, since 13 years of age, has quit for the longest is 3 months. She denies chronic cough Knee pain: when going up and down stairs. Psoriasis: chronic on her ankles, she has been getting urea cream from derm and would like a refill ROS: Nurse Note: Review of Systems Constitutional: Negative for chills, fatigue, fever and unexpected weight change. HENT: Negative for congestion, ear pain, sinus pressure, sinus pain, sore throat and trouble swallowing. Eyes: Negative for pain, redness and itching. Respiratory: Negative for cough, chest tightness, shortness of breath and wheezing. Cardiovascular: Negative for chest pain, palpitations and leg swelling. Gastrointestinal: Positive for constipation. Negative for abdominal pain, diarrhea, nausea and vomiting. Genitourinary: Negative for difficulty urinating, frequency and urgency. Musculoskeletal: Positive for back pain. Negative for neck pain. Skin: Negative for rash and wound. Neurological: Negative for dizziness, weakness, light-headedness and headaches. Psychiatric/Behavioral: Positive for sleep disturbance. Negative for confusion. The patient is nervous/anxious. All other systems reviewed and are negative. Nursing Assessment: Physical Exam Past medical/family/social history: reviewed and updated, see documented in patient's chart. Physical Exam: BP 134/86 (BP Location: Left arm, BP Position: Sitting) Pulse 88 Temp 97.7 F (36.5 C) (Temporal) Resp 18 Ht 1.778 m (5' 10") Wt 119.6 kg (263 lb 9.6 oz) SpO2 97% BMI 37.82 kg/m Smoking Status Current Every Day Smoker Body mass index is 37.82 kg/m . Physical Exam Constitutional: Comments: obese HENT: Head: Normocephalic and atraumatic. Eyes: Pupils: Pupils are equal, round, and reactive to light. Neck: Thyroid: No thyromegaly. Cardiovascular: Rate and Rhythm: Normal rate and regular rhythm. Heart sounds: Normal heart sounds. No murmur heard. Pulmonary: Effort: Pulmonary effort is normal. Breath sounds: Decreased breath sounds present. No wheezing or rhonchi. Abdominal: General: There is no distension. Palpations: Abdomen is soft. Tenderness: There is no abdominal tenderness. Musculoskeletal: Cervical back: Normal range of motion and neck supple. Lymphadenopathy: Cervical: No cervical adenopathy. Skin: General: Skin is warm and dry. Findings: No rash. Neurological: Mental Status: She is alert and oriented to person, place, and time. Psychiatric: Mood and Affect: Mood and affect normal. Cognition and Memory: Memory normal. Judgment: Judgment normal. Assessment/Plan: 1. Lumbosacral neuritis Chronic stable, continue same therapy - DULoxetine (Cymbalta) [address] Particles capsule DR; Take 1 capsule by mouth daily. Dispense: 90 capsule; Refill: 0 2. Type 2 diabetes mellitus with peripheral neuropathy Increase glimepiride - gliMEPIride 4 MG tablet; Take 2 tablets by mouth daily. Dispense: 180 tablet; Refill: 0 - metFORMIN-XR 500 MG Tab SR 24 HR; Take 2 tablets by mouth 2 times daily. Dispense: 360 tablet; Refill: 0 - HEMOGLOBIN A1C; Future - HEPATIC FUNCTION PANEL; Future 3. Essential hypertension, benign Chronic stable, continue same therapy - hydroCHLOROthiazide 12.5 MG tablet; Take 1 tablet by mouth daily. Dispense: 90 tablet; Refill: 0 - irbesartan (Avapro) 300 MG tablet; Take 1 tablet by mouth daily. Dispense: 90 tablet; Refill: 0 4. Mixed hyperlipidemia Chronic stable, continue same therapy - rosuvastatin 40 MG tablet; Take 1 tablet by mouth daily. Dispense: 90 tablet; Refill: 0 Orders and follow up as documented in patient record; We reviewed diet, exercise and weight control; Repeat labs were ordered and patient was advised to get prior to next appointment; Patient was advised to call with any questions or concerns. If symptoms worsen patient was advised to follow up in our office or the Emergency Dept. Benefits, Risks, Contraindications, and Complications of recommended treatments were explained the patient understands and agrees to proceed with plan. Chantal Cole MD 12/18/2021 Nurse Note: Review of Systems Constitutional: Negative for chills, fatigue, fever and unexpected weight change. HENT: Negative for congestion, ear pain, sinus pressure, sinus pain, sore throat and trouble swallowing. Eyes: Negative for pain, redness and itching. Respiratory: Negative for cough, chest tightness, shortness of breath and wheezing. Cardiovascular: Negative for chest pain, palpitations and leg swelling. Gastrointestinal: Positive for constipation. Negative for abdominal pain, diarrhea, nausea and vomiting. Genitourinary: Negative for difficulty urinating, frequency and urgency. Musculoskeletal: Positive for back pain. Negative for neck pain. Skin: Negative for rash and wound. Neurological: Negative for dizziness, weakness, light-headedness and headaches. Psychiatric/Behavioral: Positive for sleep disturbance. Negative for confusion. The patient is nervous/anxious. All other systems reviewed and are negative. Nursing Assessment: Physical Exam documented in this encounter [facility] 05-18-2021 History of Presen t illness Narrative HPI: Susan Sanots Presents for evaluation and treatment of lower back pain. Pain is described as Aching and is rated 4/10. Pain is increased with going up and down stairs, standing and walking and is relieved by pain medication and changing positions. The patient denies numbness/tingling. she admits to having weakness BLE. The patient denies bowel/bladder incontinence. The patient responded with poor relief to the most recent procedure which was bilateral SIJI with Dr Hansen on 01/26/21. Patient states that the increase in Scappoose 10/325mg BID has been very helpful with a small amount of constipation. No PT in the last year. [facility] lumbar [facility] 03[facility]. Nortriplyline was not helpful for sleep or nerve pain. Current Outpatient Medications Medication Sig ammonium lactate 12 % Cream cream clobetasol 0.05 % Cream DISABILITY PLACARD Disability placard end date 08/18/2022. DULoxetine (Cymbalta) [address] Particles capsule DR Take 1 capsule by mouth daily. gabapentin (Neurontin) 800 MG tablet Take 1 tablet by mouth 3 times daily. gliMEPIride 4 MG tablet Take 1 tablet by mouth daily. hydroCHLOROthiazide 12.5 MG tablet Take 1 tablet by mouth daily. hydroCODone-acetaminophen 10-325 MG tablet Take 1 tablet by mouth 2 times daily as needed. irbesartan (Avapro) 300 MG tablet Take 1 tablet by mouth daily. metFORMIN-XR 500 MG Tab SR 24 HR Take 2 tablets by mouth 2 times daily. naloxone 4 MG/0.1ML 1 spray by Nasal route As directed PRN. nortriptyline 10 MG capsule Take 1 capsule by mouth at bedtime. rosuvastatin 40 MG tablet Take 1 tablet by mouth daily. Urea 40 % Cream Apply 1 Application topically daily. Review of Systems: General: Denies fevers, chills, or night sweats Abdominal: Denies nausea, vomiting, diarrhea Respiratory: Denies cough, sputum production Genitourinary: Denies dysuria or frequency OARRS reviewed UDS: 03/13/21 MMA: 03/13/21 SOAPP:(9) 03/13/21 BMI: 37 on 03/13/21 Depression:(18) 03/13/21-resources provided to pt Alcohol:(0) 04/06/21 Narcan RX: 03/13/21 Physical Examination: Vitals: 05/18/21 1111 BP: 160/79 Pulse: 103 Resp: 16 Constitutional The patient is awake, alert, well developed, well nourished and well groomed. The patient is pleasant and cooperative. The patient is a good historian and is very helpful with the history and physical examination. No lesions noted on face. Neurologic Cranial Nerves 2-12 are grossly intact. The deep tendon reflexes of the in bilateral lower extremities are symmetrical;. Plantar reflexes (Babinski): toes are downgoing. Cerebellar function is normal; Romberg's test is negative. The gait is normal. Sensory testing for pain (pinprick), light touch, and proprioception is diminished in bilateral lower extremities. No ankle or wrist clonus present. Negative Elizabeth's sign. Motor in bilateral lower extremities is 5/5. Psychiatric The patient is oriented to person, place, and time. Speech is fluent and words are clear. Thought processes are coherent, insight is good. There are no obsessive, compulsive, phobic or delusional thoughts; there are no illusions or hallucinations. The patient's fund of knowledge: awareness of current events and past history is appropriate for age. The patient's higher cognitive functions are intact. The patient's mood is neutral and the affect appropriate; there are no loose associations. MSK The patient has moderate difficulty transitioning from sitting to standing. The patient has a(n) antalgic gait. The lumbar spine demonstrates a flexion biased curve. There is no deformity to the lumbosacral spine. There is no abnormality in muscle tone in the lumbosacral spine. bilateral lumbar paraspinal tenderness, NATY, thigh thrust, Gaenslen's, and Kim's positive bilaterally, SLR negative and FADIR, internal rotation, and external rotation were positive in LLELumbar facet loading positive bilaterally, tender to palpation over bilateral facet joints. Assessment: ICD-10-CM 1. Lumbar stenosis with neurogenic claudication M48.062 2. Chronic pain syndrome G89.4 3. Sacroiliitis, not elsewhere classified M46.1 4. Lumbar spondylosis M47.816 5. Chronic, continuous use of opioids F11.90 60 y/o F w/PMHx severe lumbar stenosis, lumbar facet arthropathy, HTN, DM, PAD, psoriasis, peripheral neuropathy who presents for evaluation of her low back pain and all over pain. Seen by Dr. Vaughn Injections: SIJ injections resulted in short term (1 day) relief. Has had ESIs and RFAs before, but not interested in more injections. Imaging: lumbar MRI shows severe canal stenosis at L3-4 with multilevel facet arthropathy. There is 5mm (grade 1) listhesis ove L3 over L4, but no instability on Xrays with flex/extension. Left hip xray shows mild OA. Meds: Duloxetine 60mg, gabapentin 800mg TID. Tramadol not helpful in the past. Discussed her pain today. Although she has facetogenic and SIJ pain, most of her pain is related to neurogenic claudication. She does not want additional injections. She saw Dr. Rohl (no records yet in our system), and he is recommending a fusion per patient. She will need to quit smoking which is another barrier. Plan: -refill Scappoose to 10-325mg PO BID PRN. Discussed today that this wont work as a terminal makeup operator option, and that I am willing to prescribe opioids only as a bridge to a procedure or surgery. No evidence it is helpful assisted as monotherapy. -naloxone discussed and prescribed at previous visit -refill nortriptyline 10mg PO daily (switch to morning to see if this helps with wired feeling) -continue smoking cessation, she will reach out to PCP regarding this -discussed we could try a left hip injection, however she declines -provided resources for counseling in [facility] at previous visits. With her mood changes with chronic pain, I strongly encouraged her to follow up with this. -f/u in 3 months The patient is using their controlled substance medication appropriately to increase activity and functional capacity. There are no signs of addiction or diversion. There are no significant side effects reported. OARRS report was reviewed and no abnormalities were identified. Medications were refilled as below: Requested Prescriptions Signed Prescriptions Disp Refills hydroCODone-acetaminophen 10-325 MG tablet 60 tablet 0 Sig: Take 1 tablet by mouth 2 times daily as needed. hydroCODone-acetaminophen 10-325 MG tablet 60 tablet 0 Sig: Take 1 tablet by mouth 2 times daily as needed. I have discussed with the patient the risks of opioid pain medication including, respiratory depression, dependence, tolerance, addiction, brain dysfunction, immune dysfunction, increased risk of cancer, decreased steroid hormone production, and depression among others. The patient voices understanding. The patient was prescribed an opioid medication at today's visit. We reviewed the risks of opioid medications including respiratory depression and possible . We reviewed appropriate use of naloxone, and a new prescription was provided if the patient did not have access to the medication at home. HPI: Susan Santos Presents for evaluation and treatment of lower back pain. Pain is described as Aching and is rated 4/10. Pain is increased with going up and down stairs, standing and walking and is relieved by pain medication and changing positions. The patient denies numbness/tingling. she admits to having weakness BLE. The patient denies bowel/bladder incontinence. The patient responded with poor relief to the most recent procedure which was bilateral SIJI with Dr Hansen on 01/26/21. Patient states that the increase in Scappoose 10/325mg BID has been very helpful with a small amount of constipation. No PT in the last year. [facility] 03[facility]. Nortriplyline was not helpful for sleep or nerve pain. Current Outpatient Medications Medication Sig ammonium lactate 12 % Cream cream clobetasol 0.05 % Cream DISABILITY PLACARD Disability placard end date 08/18/2022. DULoxetine (Cymbalta) [address] Particles capsule DR Take 1 capsule by mouth daily. gabapentin (Neurontin) 800 MG tablet Take 1 tablet by mouth 3 times daily. gliMEPIride 4 MG tablet Take 1 tablet by mouth daily. hydroCHLOROthiazide 12.5 MG tablet Take 1 tablet by mouth daily. hydroCODone-acetaminophen 10-325 MG tablet Take 1 tablet by mouth 2 times daily as needed. irbesartan (Avapro) 300 MG tablet Take 1 tablet by mouth daily. metFORMIN-XR 500 MG Tab SR 24 HR Take 2 tablets by mouth 2 times daily. naloxone 4 MG/0.1ML 1 spray by Nasal route As directed PRN. nortriptyline 10 MG capsule Take 1 capsule by mouth at bedtime. rosuvastatin 40 MG tablet Take 1 tablet by mouth daily. Urea 40 % Cream Apply 1 Application topically daily. Review of Systems: General: Denies fevers, chills, or night sweats Abdominal: Denies nausea, vomiting, diarrhea Respiratory: Denies cough, sputum production Genitourinary: Denies dysuria or frequency OARRS reviewed UDS: 03/13/21 MMA: 03/13/21 SOAPP:(9) 03/13/21 BMI: 37 on 03/13/21 Depression:(18) 03/13/21-resources provided to pt Alcohol:(0) 04/06/21 Narcan RX: 03/13/21 documented in this encounter [facility] Evaluation note Diagnosis Lumbosacral neuritis Thoracic or lumbosacral neuritis or radiculitis, unspecified Type 2 diabetes mellitus with peripheral neuropathy Essential hypertension, benign Mixed hyperlipidemia [facility] Lumbar facet arthropathy Lumbosacral spondylosis without myelopathy Lumbar radiculitis Thoracic or lumbosacral neuritis or radiculitis, unspecified Chronic pain syndrome Lumbar stenosis with neurogenic claudication Spinal stenosis, lumbar region, with neurogenic claudication [facility] Diagnosis Lumbar stenosis with neurogenic claudication- Primary Spinal stenosis, lumbar region, with neurogenic claudication Chronic pain syndrome Sacroiliitis, not elsewhere classified Lumbar spondylosis Lumbosacral spondylosis without myelopathy Chronic, continuous use of opioids Opioid type dependence, continuous [facility] Diagnosis Type 2 diabetes mellitus with peripheral neuropathy Essential hypertension, benign Lumbosacral neuritis Thoracic or lumbosacral neuritis or radiculitis, unspecified Mixed hyperlipidemia Psoriasis Other psoriasis [facility] Diagnosis Lumbar radiculitis- Primary Thoracic or lumbosacral neuritis or radiculitis, unspecified Chronic pain syndrome [facility] Diagnosis Cellulitis of left lower extremity- Primary Cellulitis and abscess of leg, except foot Chronic venous stasis Essential hypertension, benign Lumbosacral neuritis Thoracic or lumbosacral neuritis or radiculitis, unspecified Type 2 diabetes mellitus with peripheral neuropathy Mixed hyperlipidemia Lumbar radiculitis Thoracic or lumbosacral neuritis or radiculitis, unspecified Chronic pain syndrome documented [facility] Diagnosis Chronic venous stasis- Primary Lumbosacral neuritis Thoracic or lumbosacral neuritis or radiculitis, unspecified Spinal stenosis of lumbar region with neurogenic claudication Spinal stenosis, lumbar region, with neurogenic claudication Type 2 diabetes mellitus with peripheral neuropathy Essential hypertension, benign Mixed hyperlipidemia [facility] Diagnosis Primary osteoarthritis of left hip- Primary Primary localized osteoarthrosis, pelvic region and thigh Sacroiliitis, not elsewhere classified Spinal stenosis of lumbar region with neurogenic claudication Spinal stenosis, lumbar region, with neurogenic claudication Chronic pain syndrome Encounter for long-term use of opiate analgesic Encounter for long-term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 Start Date End Date Chantal Cole MD [address] [place] [phone] PCP - General Family Medicine 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 Start Date End Date Chantal Cole MD [address] [place] [phone] PCP - General Family Medicine 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 Start Date End Date Chantal Cole MD [address] [place] [address], [place] [phone] PCP - General Family Medicine 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 Start Date End Date Chantal Cole MD [address] [place] [address], [place] [phone] PCP - General Family Medicine 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 Start Date End Date Chantal Cole MD [address] [place] [address], [place] [phone] PCP - General Family Medicine 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 Start Date End Date Chantal Cole MD [address] [place] [address], [phone] PCP - General Family Medicine 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 Start Date End Date Chantal Cole MD PCP - General Family Medicine 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 Start Date End Date Chantal Cole MD PCP - General Family Medicine 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 Start Date End Date Chantal Cole MD PCP - General Family Medicine 06/15/19 INFORMATION SOURCE (unrecogn ized section and content) DATE CREATED AUTHOR 11/17/2022 Gino jason DATE CREATED AUTHOR AUTHOR'S ORGANIZ ATION 07/22/2025 Gino santana Scheduled Active and Recently Administ ered Medications (unrecognized section and content) Medication Order 10/16/2023 10/17/2023 10/18/2023 aspirin chewable tablet 81 mg 81 mg, Oral, ONCE, 1 dose, On Sat10/18/23 at 2015 1954 (Not Given - Pr ovider: Erum Mckinnon RN - Reason: Patient/family refused) FOR RECORDS PERTAINING TO PATIENTS WHO ARE OR HAVE BEEN ENROLLED IN A CHEMICAL DEPENDENCY/SUBSTANCEABUSE PROGRAM, SOME INFORMATION MAY BE OMITTED. This clinical summary was aggregated from multiple sources. Caution should be exercised in using it in the provision of clinical care. This summary normalizes information from multiple sources, and as a consequence, information in this document may materially change the coding, format and clinical context of patient data. In addition, data may be omitted in some cases. CLINICAL DECISIONS SHOULD BE BASED ON THE PRIMARY CLINICAL RECORDS. [facility] [employer] provides no warranty or guarantee of the accuracy or completeness of information in this document.
[2025-08-14 09:08] LABS: QNTFERON TB Mitogen Value > 10.00 IU/mL (.); QNTFERON TB Nil Value 0.88 IU/mL (.); QNTFERON TB1+ Ag Value 0.83 IU/mL (.); QNTFERON TB2+ Ag Value 0.73 IU/mL (.); QNTIFERON TB Positive Criteria Negative (Negative)
== END | disposition home or self-care (01) ==
LOC: MTLAB 17:53
PROVIDERS: PCP Family Medicine; Referring Provider Physician Assistant; Visit Provider Physician Assistant
DX: L40.0 Psoriasis vulgaris (principal)
CPT/HCPCS: 36415; 86480